=== PATIENT | male | born 1940 | race Caucasian/White ===

== ENCOUNTER 2020-01-20 12:49 | Outpatient (REF) | payer MEDICARE, SELFPAY ==
[2020-01-20 14:31] LABS: MANUAL DIFF FLAG NO
[2020-01-20 14:36] LABS: Basophils Percent Auto 0.1 % (0-2); Eosinophils Absolute Auto 0.2 X10*3/uL (0.0-0.4); Eosinophils Percent Auto 2.3 % (0-4); Hematocrit 42.8 % (42-52); Hemoglobin 13.6 g/dl (14.0-18.0); Imm Gran Abs Auto 0.01 X10*3/uL (0.00-0.03); Imm Gran Pct Auto 0.1 % (0.0-0.4); Lymphocytes Absolute Auto 1.2 X10*3/uL (1.2-4.9); Lymphocytes Percent Auto 16.1 % (20-40); Mean Corpuscular HGB Conc 31.8 g/dl (31.0-36.0); Mean Corpuscular Hemoglobin 29.8 pg (27.0-33.0); Mean Corpuscular Volume 93.9 fL (80-98); Mean Platelet Volume 10.7 fL (9.4-12.4); Monocytes Absolute Auto 0.8 X10*3/uL (0.1-1.2); Monocytes Percent Auto 10.7 % (2-11); Neutrophils Absolute Auto 5.3 X10*3/uL (2.0-8.3); Neutrophils Percent Auto 70.7 % (45-73); Platelet Count 130 X10*3/uL (160-400); Red Blood Count 4.56 X10*6/uL (4.60-5.80); Red Cell Distribution Width 13.2 % (11.0-16.0); White Blood Count 7.5 X10*3/uL (4.8-10.8)
[2020-01-20 14:36] LABS: Glucose Urine UA NEG (NEG); Leukocyte Esterase Urine NEG (NEG); Nitrite Urine NEG (NEG); PH 6.5 (5.0-8.0); Urine Blood NEG (NEG); Urine Ketones NEG (NEG); Urine Protein TRACE MG/DL (NEG-TRACE)
[2020-01-20 14:38] LABS: Appearance Urine CLEAR; Color Urine YELLOW; UACC Culture Trigger NO
[2020-01-20 14:59] LABS: Alanine Aminotransferase 16 U/L (0-40); Albumin Level 4.1 g/dL (3.5-5.0); Alkaline Phosphatase 122 U/L (39-117); Anion Gap 12 (12-20); Aspartate Amino Transferase 19 U/L (5-37); Bilirubin Total 1.3 mg/dL (0.0-1.0); Blood Urea Nitrogen 21 mg/dL (9-16); Calcium 8.1 mg/dL (8.4-10.2); Carbon Dioxide 30 mmol/L (22-29); Chloride 103 mmol/L (96-108); Cholesterol 120 mg/dL; Estimated Glomerular Filt Rate 59; Glucose Fasting 135 mg/dL (60-99); HDL Cholesterol 34 mg/dL; LDL Cholesterol Calculated 65 mg/dl; Potassium 3.8 mmol/l (3.3-5.1); Sodium 141 mmol/L (135-145); Total Protein 6.7 g/dL (6.5-8.0); Triglycerides 105 mg/dL; Uric Acid 5.4 mg/dL (3.4-7.0)
[2020-01-20 15:15] LABS: Erythrocyte Sedimentation Rate 19 MM/HR (0-15)
[2020-01-20 15:19] LABS: Vitamin D 25-OH Total 31.7 ng/mL (>30)
[2020-01-20 15:28] LABS: Creatinine Urine 87.03 mg/dL; Microalbum/Creatinine Ratio Ur 267.7 ug/mg cr
== END 2020-01-20 12:50 | disposition home or self-care (01) ==
LOC: HO.LAB 12:49
PROVIDERS: PCP Internal Medicine; Visit Provider Internal Medicine
DX: E11.29 Type 2 diabetes mellitus with other diabetic kidney complication (principal); E11.22 Type 2 diabetes mellitus with diabetic chronic kidney disease; I12.9 Hypertensive chronic kidney disease with stage 1 through stage 4 chronic kidney disease, or unspecified chronic kidney disease; N18.2 Chronic kidney disease, stage 2 (mild); R80.9 Proteinuria, unspecified; M10.9 Gout, unspecified; I25.10 Atherosclerotic heart disease of native coronary artery without angina pectoris; I65.22 Occlusion and stenosis of left carotid artery; E78.2 Mixed hyperlipidemia; M35.3 Polymyalgia rheumatica; E55.9 Vitamin D deficiency, unspecified
CPT/HCPCS: 36415; 80053; 80061; 81003; 82043; 82306; 82550; 84550; 85025; 85610; 85652

== ENCOUNTER → 2020-02-05 09:22 | Outpatient (REF) | payer MEDICARE, SELFPAY ==
--- NOTE | 2020-02-05 09:30 | CA_ITS ---
Transthoracic Echocardiogram Patient (Last, First, Middle): Galen Salvador T Gender: Male Date of : 1940 Age: 79 Procedure Date: 02/05/2020 Procedure Type: Transthoracic Echocardiogram Location: OP Height: 185.42 cm Weight: 108.86 kg BSA: 2.33 m2 Heart Rate: bpm BP: 150 / 78 mmHg Foam Gun Operator: RAMILA Referring MD: Poncho Altamirano MD Symptoms: I25.10 CAD I48.2 CHRONIC AFIB I10 HTN Study Quality: Fair ECG Rhythm: Atrial Fibrillation Conclusions: - The left ventricular systolic function is severely decreased. The visually estimated ejection fraction is between 25-30%. - Severe biatrial enlargement. - There is mild calcification of the aortic valve. - There is moderate mitral annular calcification. - There is mild to moderate tricuspid valve regurgitation. - Mild to moderate pulmonary hypertension is present. Findings Procedure Information Contrast agent, definity, is being given per protocol without apparent complications. Left Ventricle Normal left ventricular cavity size. There is mildly increased left ventricular wall thickness. The left ventricular systolic function is severely decreased. The visually estimated ejection fraction is between 25 30%. There is severe global hypokinesis. Diastolic function is indeterminate on the basis of available data. Right Ventricle Mildly increased right ventricular cavity size. There is normal right ventricular systolic function. Atria Severe biatrial enlargement. Aortic Valve There is a normal trileaflet aortic valve. There is mild calcification of the aortic valve. There is no aortic valve stenosis. There is trace (trivial) aortic valve regurgitation. Mitral Valve There is moderate mitral annular calcification. There is mild mitral valve regurgitation. There is no mitral valve stenosis. Pulmonic Valve The pulmonic valve was not well visualized. Tricuspid Valve Normal tricuspid valve structure. There is mild to moderate tricuspid valve regurgitation. The right ventricular systolic pressure is 49 mmHg. Mild to moderate pulmonary hypertension is present. Great Vessels The aortic annulus, sinuses of valsalva, and asc aorta are normal in size. Venous The inferior vena cava is dilated and collapses less than 50% with inspiration. Pericardium/Pleural There is no evidence of pericardial effusion. Prior Study Comparison Changes noted compared to prior study dated: 08/14/2003. LVEF is worse. Previously reported as 40%. Measurements 2D Linear Measurements IVSd: 1.04 0.6-0.9/0.6-1.0 cm LVIDd: 4.93 3.9-5.3/4.2-5.9 cm LVIDd Index: 2.12 2.4-3.2/2.2-3.1 cm/m2 LVIDs: 4.03 2.0-3.6 cm LVPWd: 1.10 0.7-1.1 cm LA Diam: 5.70 2.7-3.8/3.0-4.0 cm LAIDs Index: 2.45 1.5-2.3 cm/m2 LV Mass: 242.91 67-162/88-224 g LV Mass Index: 104.25 43-95/49-115 g/m2 LVOT Diam: 2.40 3.0+(-)1.3 cm 2D Systolic Function EF 4C: 28.00 >55% EF 2C: 26.00 >55% EF BiP: 25.50 >55% Mitral Valve MV Pk E: 1.08 MV Decel Time: 177.00 E'Lateral: 11.40 E'Medial: 10.80 E/E' Med: 10.00 E/E' Lat: 9.50 PHT: 52.00 MVA PHT: 4.23 Decel Graves: 6.28 Aortic Valve AoV Pk Osei: 1.38 AoV Pk Grad: 8.00 LVOT LVOT Pk Osei: 0.67 LVOT Mn Osei: 0.46 LVOT VTI: 0.14 LVOT Pk Grad: 2.00 LVOT Mn Grad: 1.00 LVOT Diam: 2.40 LVOT Area: 4.52 Diastolic Function MV Pk E: 1.08 E'Medial: 10.80 E/E' Med: 10.00 E' Laterial: 11.40 E/E' Lat: 9.50 Tricuspid Valve TR Pk Osei: 2.92 TR Pk Grad: 34.00 RA Press: 15.00 RVSP: 49.00 Great Vessels Aorta Ao Asc: 3.40 2.1-3.4 cm Updated in Other Vendor System with Status of Final Dean Jonas MD electronically signed on 02/07/2020 4:08:45 PM with status of Final
== END ==
LOC: HO.CARD 09:22
PROVIDERS: Visit Provider Internal Medicine Cardiovascular Disease
DX: I25.10 Atherosclerotic heart disease of native coronary artery without angina pectoris (principal); I10 Essential (primary) hypertension
CPT/HCPCS: 93306; Q9957

== ENCOUNTER → 2020-02-19 09:00 | Outpatient (BNVA) | payer MEDICARE, SELFPAY | PROVIDERS: PCP Internal Medicine; Visit Provider Internal Medicine | DX: I48.20 Chronic atrial fibrillation, unspecified (principal); Z51.81 Encounter for therapeutic drug level monitoring; Z79.01 Long term (current) use of anticoagulants | CPT/HCPCS: 85610; Q3014 ==

== ENCOUNTER → 2020-02-21 09:20 | Outpatient (REF) | payer MEDICARE, SELFPAY ==
--- NOTE | 2020-02-21 | NM_ITS ---
Myocardial perfusion study Indication: Cardiomyopathy to evaluate for myocardial ischemia Technique: The patient was brought in for a Lexiscan perfusion study on 02/21/2020. Patient performed low-level exercise and was injected 0.4 mg of Lexiscan intravenously. Within a minute of injection, 40 mCi of sestamibi was given intravenously. Images were obtained using the SPECT gamma camera interlaced with the gating device. Images were obtained in supine position. Resting perfusion study was performed on 02/22/2020. Patient was administered 40 mCi of sestamibi intravenously at rest. Images were then obtained in supine position. Images obtained with and without CT attenuation. Total DLP 78 mGy-cm. Images were processed with the software and compared side to side in short axis, horizontal long axis and vertical long axis views. Findings: The stress perfusion study showed both non attenuated as well as attenuated images show mildly reduced uptake in the basal and mid inferolateral wall of the LV myocardium. Remainder of the LV myocardium is normally perfused.. The gated study shows reduced normal LV systolic function with calculated LVEF of 44%. LV cavity is mildly to moderately dilated size. The gated study shows normal wall thickening and contraction of all segments. Resting study shows normal uptake of radiotracer in all segments of LV myocardium. Gating at rest reveals normal cyst colic wall motion with ejection fraction at 45%. The findings are consistent with mild intensity basal and mid inferolateral ischemia in circumflex territory.. NM/NM desiree perf SPECT rest & str Impression: 1. Myocardial perfusion imaging study shows complex territory ischemia of mild intensity 2. Gated LVEF is 44% 3. Transient ischemic dilatation not present but LV cavity is dilated EKG is nondiagnostic for ischemia
--- NOTE | 2020-02-21 09:24 | CA_ITS ---
Acquisition Time: 2020-02-21 09:41:55 Total Exercise Time: 00:02:00 Test Indications: cardiomyopathy Medications: see chart Protocol: LEXISCAN Max HR: 120 BPM 83% of Pred: 143 BPM Max BP: 164/100 mmHG Max Work Load: 1.0 METS Pharmacological stress test using Lexiscan while sitting. Pt tolerated well, denies any anginal sx. EKG with PVC's and a-fib, at baseline. Non-diagnostic for ischemia. Nuclear images to follow. Normotensive response to test. Test reviewed with Dr. Altamirano Referred By: Poncho Altamirano Overread By: Rinku Reed
== END ==
LOC: HO.CARD 09:20
PROVIDERS: Visit Provider Internal Medicine Cardiovascular Disease
DX: I42.9 Cardiomyopathy, unspecified (principal); I25.10 Atherosclerotic heart disease of native coronary artery without angina pectoris; I48.20 Chronic atrial fibrillation, unspecified
CPT/HCPCS: 78452; 93017; A9500; J0280; J2785

== ENCOUNTER → 2020-03-17 08:59 | Outpatient (BNVA) | payer MEDICARE, SELFPAY | PROVIDERS: PCP Internal Medicine; Visit Provider Internal Medicine Cardiovascular Disease | DX: I25.5 Ischemic cardiomyopathy (principal); I25.10 Atherosclerotic heart disease of native coronary artery without angina pectoris; I10 Essential (primary) hypertension; I48.20 Chronic atrial fibrillation, unspecified; Z79.01 Long term (current) use of anticoagulants | CPT/HCPCS: 99212 ==

== ENCOUNTER → 2020-03-18 08:57 | Outpatient (BNVA) | payer MEDICARE, SELFPAY | PROVIDERS: PCP Internal Medicine; Visit Provider Internal Medicine | DX: I48.20 Chronic atrial fibrillation, unspecified (principal); Z51.81 Encounter for therapeutic drug level monitoring; Z79.01 Long term (current) use of anticoagulants | CPT/HCPCS: 85610; 99211 ==

== ENCOUNTER → 2020-04-15 08:54 | Outpatient (BNVA) | payer MEDICARE, SELFPAY | PROVIDERS: PCP Internal Medicine; Visit Provider Internal Medicine | DX: I48.20 Chronic atrial fibrillation, unspecified (principal); Z51.81 Encounter for therapeutic drug level monitoring; Z79.01 Long term (current) use of anticoagulants | CPT/HCPCS: 85610 ==

== ENCOUNTER 2020-04-28 08:31 | Outpatient (REF) | payer MEDICARE, SELFPAY ==
[2020-04-28 10:46] LABS: B Type Natriuretic Peptide 176 pg/mL (<100)
[2020-04-28 10:54] LABS: Anion Gap 12 (12-20); Blood Urea Nitrogen 14 mg/dL (9-16); Calcium 8.7 mg/dL (8.4-10.2); Carbon Dioxide 31 mmol/L (22-29); Chloride 101 mmol/L (96-108); Estimated Glomerular Filt Rate > 60; Glucose Random 184 mg/dL (60-115); Potassium 4.1 mmol/L (3.3-5.1); Sodium 140 mmol/L (135-145)
== END 2020-04-28 08:32 | disposition home or self-care (01) ==
LOC: HO.LAB 08:31
PROVIDERS: PCP Internal Medicine; Visit Provider Internal Medicine Cardiovascular Disease
DX: I25.5 Ischemic cardiomyopathy (principal); I25.10 Atherosclerotic heart disease of native coronary artery without angina pectoris; I48.20 Chronic atrial fibrillation, unspecified; R60.0 Localized edema; I50.20 Unspecified systolic (congestive) heart failure; Z79.899 Other long term (current) drug therapy; Z79.01 Long term (current) use of anticoagulants
CPT/HCPCS: 36415; 80048; 83880; 99212

== ENCOUNTER → 2020-06-10 13:52 | Outpatient (REF) | payer MEDICARE, SELFPAY ==
--- NOTE | 2020-06-10 13:56 | CA_ITS ---
Transthoracic Echocardiogram Patient (Last, First, Middle): Galen Salvador T Gender: Male Date of : 1940 Age: 79 Procedure Date: 06/10/2020 Procedure Type: Transthoracic Echocardiogram Location: OP Height: 185.42 cm Weight: 113.4 kg BSA: 2.37 m2 Heart Rate: bpm BP: 140 / 90 mmHg Solar Development Engineer: MARVEL Referring MD: Poncho Altamirano MD Symptoms: I42.9 - Cardiomyopathy, unspecified Study Quality: Fair/contrast ECG Rhythm: Atrial Fibrillation Conclusions: - The left ventricular systolic function is mild to moderately decreased. The visually estimated ejection fraction is between 40-45%. Findings Procedure Information Contrast agent, definity, is being given per protocol without apparent complications. Left Ventricle Normal left ventricular cavity size. There is mildly increased left ventricular wall thickness. The left ventricular systolic function is mild to moderately decreased. The visually estimated ejection fraction is between 40-45%. Global hypokinesis. Prior Study Comparison Changes noted compared to prior study dated: 02/05/2020. LVEF appears improved. Measurements 2D Linear Measurements IVSd: 1.14 0.6-0.9/0.6-1.0 cm LVIDd: 5.05 3.9-5.3/4.2-5.9 cm LVIDd Index: 2.13 2.4-3.2/2.2-3.1 cm/m2 LVIDs: 3.98 2.0-3.6 cm LVPWd: 1.17 0.7-1.1 cm LV Mass: 280.70 67-162/88-224 g LV Mass Index: 118.44 43-95/49-115 g/m2 2D Systolic Function EF 4C: 47.10 >55% EF 2C: 53.10 >55% EF BiP: 50.70 >55% Updated in Other Vendor System with Status of Final Dean Jonas MD electronically signed on 06/12/2020 3:00:00 PM with status of Final
== END ==
LOC: HO.CARD 13:52
PROVIDERS: Visit Provider Internal Medicine Cardiovascular Disease
DX: I42.9 Cardiomyopathy, unspecified (principal)
CPT/HCPCS: 85610; 93308; 99211; Q9957

== ENCOUNTER 2020-06-23 12:56 | Outpatient (REF) | payer MEDICARE, SELFPAY ==
[2020-06-23 14:20] LABS: MANUAL DIFF FLAG NO
[2020-06-23 14:35] LABS: Basophils Percent Auto 0.4 % (0-2); Eosinophils Absolute Auto 0.2 X10*3/uL (0.0-0.4); Eosinophils Percent Auto 2.2 % (0-4); Hematocrit 41.8 % (42-52); Hemoglobin 13.8 g/dl (14.0-18.0); Imm Gran Abs Auto 0.06 X10*3/uL (0.00-0.03); Imm Gran Pct Auto 0.7 % (0.0-0.4); Lymphocytes Absolute Auto 1.4 X10*3/uL (1.2-4.9); Lymphocytes Percent Auto 16.2 % (20-40); Mean Corpuscular Hemoglobin 29.9 pg (27.0-33.0); Mean Corpuscular Volume 90.7 fL (80-98); Mean Platelet Volume 10.4 fL (9.4-12.4); Monocytes Absolute Auto 0.9 X10*3/uL (0.1-1.2); Monocytes Percent Auto 10.4 % (2-11); Neutrophils Percent Auto 70.1 % (45-73); Platelet Count 160 X10*3/uL (160-400); Red Blood Count 4.61 X10*6/uL (4.60-5.80); Red Cell Distribution Width 13.7 % (11.0-16.0); White Blood Count 8.6 X10*3/uL (4.8-10.8)
[2020-06-23 14:42] LABS: Estimated Average Glucose 183 mg/dL
[2020-06-23 14:43] LABS: Alanine Aminotransferase 22 U/L (0-40); Albumin Level 4.2 g/dL (3.5-5.0); Alkaline Phosphatase 126 U/L (39-117); Anion Gap 12 (12-20); Aspartate Amino Transferase 17 U/L (5-37); Bilirubin Total 1.2 mg/dL (0.0-1.0); Blood Urea Nitrogen 16 mg/dL (9-16); Calcium 8.8 mg/dL (8.4-10.2); Carbon Dioxide 31 mmol/L (22-29); Chloride 102 mmol/L (96-108); Cholesterol 155 mg/dL; Estimated Glomerular Filt Rate 58; Glucose Fasting 214 mg/dL (60-99); HDL Cholesterol 34 mg/dL; LDL Cholesterol Calculated 57 mg/dl; Potassium 3.9 mmol/L (3.3-5.1); Sodium 141 mmol/L (135-145); Triglycerides 323 mg/dL; Uric Acid 4.6 mg/dL (3.4-7.0)
[2020-06-23 15:21] LABS: Erythrocyte Sedimentation Rate 20 MM/HR (0-15)
[2020-06-23 15:26] LABS: Glucose Urine UA NEG (NEG); Leukocyte Esterase Urine NEG (NEG); Nitrite Urine NEG (NEG); PH 6.5 (5.0-8.0); Urine Blood NEG (NEG); Urine Ketones NEG (NEG); Urine Protein NEG (NEG-TRACE)
[2020-06-23 15:29] LABS: Appearance Urine CLEAR; Color Urine YELLOW
[2020-06-23 16:03] LABS: Creatinine Urine 58.63 mg/dL
== END 2020-06-23 12:57 | disposition home or self-care (01) ==
LOC: HO.LAB 12:56
PROVIDERS: Absent Provider Internal Medicine; PCP Internal Medicine; Visit Provider Internal Medicine Cardiovascular Disease
DX: I25.5 Ischemic cardiomyopathy (principal); I13.0 Hypertensive heart and chronic kidney disease with heart failure and stage 1 through stage 4 chronic kidney disease, or unspecified chronic kidney disease; I25.10 Atherosclerotic heart disease of native coronary artery without angina pectoris; I48.20 Chronic atrial fibrillation, unspecified; E11.22 Type 2 diabetes mellitus with diabetic chronic kidney disease; I50.20 Unspecified systolic (congestive) heart failure; N18.2 Chronic kidney disease, stage 2 (mild); M10.9 Gout, unspecified; E66.9 Obesity, unspecified; M35.3 Polymyalgia rheumatica; K21.9 Gastro-esophageal reflux disease without esophagitis; E78.2 Mixed hyperlipidemia; Z79.899 Other long term (current) drug therapy; Z79.01 Long term (current) use of anticoagulants; Z87.891 Personal history of nicotine dependence
CPT/HCPCS: 36415; 80053; 80061; 81003; 82043; 82550; 83036; 84443; 84550; 85025; 85652; 99212

== ENCOUNTER → 2020-06-29 08:53 | Outpatient (BNVA) | payer MEDICARE, SELFPAY | PROVIDERS: PCP Internal Medicine; Visit Provider Internal Medicine | DX: I48.20 Chronic atrial fibrillation, unspecified (principal); Z79.01 Long term (current) use of anticoagulants; Z51.81 Encounter for therapeutic drug level monitoring | CPT/HCPCS: 85610; 99211 ==

== ENCOUNTER → 2020-07-27 08:53 | Outpatient (BNVA) | payer MEDICARE, SELFPAY | PROVIDERS: PCP Internal Medicine; Visit Provider Internal Medicine | DX: I48.20 Chronic atrial fibrillation, unspecified (principal); Z79.01 Long term (current) use of anticoagulants; Z51.81 Encounter for therapeutic drug level monitoring | CPT/HCPCS: 85610; 99211 ==

== ENCOUNTER → 2020-08-24 08:49 | Outpatient (BNVA) | payer MEDICARE, SELFPAY | PROVIDERS: PCP Internal Medicine; Visit Provider Internal Medicine | DX: I48.20 Chronic atrial fibrillation, unspecified (principal); Z51.81 Encounter for therapeutic drug level monitoring; Z79.01 Long term (current) use of anticoagulants | CPT/HCPCS: 85610; 99211 ==

== ENCOUNTER → 2020-09-28 09:05 | Outpatient (BNVA) | payer MEDICARE, SELFPAY | PROVIDERS: PCP Internal Medicine; Visit Provider Internal Medicine | DX: I48.20 Chronic atrial fibrillation, unspecified (principal); Z51.81 Encounter for therapeutic drug level monitoring; Z79.01 Long term (current) use of anticoagulants | CPT/HCPCS: 85610; 99211 ==

== ENCOUNTER → 2020-10-26 08:52 | Outpatient (BNVA) | payer MEDICARE, SELFPAY | PROVIDERS: PCP Internal Medicine; Visit Provider Internal Medicine | DX: I48.20 Chronic atrial fibrillation, unspecified (principal); Z51.81 Encounter for therapeutic drug level monitoring; Z79.01 Long term (current) use of anticoagulants | CPT/HCPCS: 85610; 99211 ==

== ENCOUNTER → 2020-12-01 09:01 | Outpatient (BNVA) | payer MEDICARE, SELFPAY | PROVIDERS: PCP Internal Medicine; Visit Provider Internal Medicine | DX: I48.20 Chronic atrial fibrillation, unspecified (principal); Z51.81 Encounter for therapeutic drug level monitoring; Z79.01 Long term (current) use of anticoagulants | CPT/HCPCS: 85610; 99211 ==

== ENCOUNTER → 2020-12-21 09:30 | Outpatient (REF) | payer MEDICARE, SELFPAY ==
--- NOTE | 2020-12-21 09:33 | CA_ITS ---
Transthoracic Echocardiogram Patient (Last, First, Middle): Galen Salvador T Gender: Male Date of : 1940 Age: 80 Procedure Date: 12/21/2020 Procedure Type: Transthoracic Echocardiogram Location: OP Height: 182.88 cm Weight: 113.4 kg BSA: 2.34 m2 Heart Rate: bpm BP: 126 / 80 mmHg Derrick Boat Lever Operator: Referring MD: Poncho Altamirano MD Symptoms: I50.20 - Unspecified systolic (congestive) heart failure Study Quality: Fair ECG Rhythm: Atrial Fibrillation Conclusions: - The left ventricular systolic function is low normal. The calculated ejection fraction is 54% by biplane method. - Moderately increased right ventricular cavity size. - Severe biatrial enlargement. - There is mild calcification of the aortic valve. - There is mild to moderate tricuspid valve regurgitation. - Mild pulmonary hypertension is present. Findings Left Ventricle Normal left ventricular cavity size. There is mildly increased left ventricular wall thickness. The left ventricular systolic function is low normal. The calculated ejection fraction is 54% by biplane method. Diastolic function is indeterminate on the basis of available data. Right Ventricle Moderately increased right ventricular cavity size. There is normal right ventricular systolic function. RV basal diameter 4.8cm. Atria Severe biatrial enlargement. Aortic Valve The aortic valve was not well visualized. There is mild calcification of the aortic valve. There is no aortic valve stenosis. There is no aortic valve regurgitation. Mitral Valve The mitral valve appears normal. There is trace mitral valve regurgitation. There is no mitral valve stenosis. Pulmonic Valve The pulmonic valve was not well visualized. Tricuspid Valve There is mild to moderate tricuspid valve regurgitation. The right ventricular systolic pressure is 44 mmHg. Mild pulmonary hypertension is present. Great Vessels The aortic annulus, sinuses of valsalva, and asc aorta are normal in size. Venous The inferior vena cava is mildly dilated and collapses greater than 50% with inspiration. Pericardium/Pleural There is no evidence of pericardial effusion. Prior Study Comparison Changes noted compared to prior study dated: 06/10/2020. Improvement in LVEF. Measurements 2D Linear Measurements IVSd: 1.23 0.6-0.9/0.6-1.0 cm LVIDd: 5.30 3.9-5.3/4.2-5.9 cm LVIDd Index: 2.26 2.4-3.2/2.2-3.1 cm/m2 LVIDs: 3.78 2.0-3.6 cm LVPWd: 1.20 0.7-1.1 cm Ao Root: 3.40 2.1-3.5 cm LA Diam: 5.80 2.7-3.8/3.0-4.0 cm LAIDs Index: 2.48 1.5-2.3 cm/m2 LV Mass: 325.53 67-162/88-224 g LV Mass Index: 139.12 43-95/49-115 g/m2 LVOT Diam: 2.50 3.0+(-)1.3 cm 2D Systolic Function EF 4C: 60.90 >55% EF 2C: 52.40 >55% EF BiP: 53.50 >55% Mitral Valve MV Pk E: 1.11 MV Decel Time: 190.00 E'Lateral: 16.60 E'Medial: 10.10 E/E' Med: 11.00 E/E' Lat: 6.70 PHT: 56.00 MVA PHT: 3.93 Decel Baker: 5.88 Aortic Valve AoV Pk Osei: 1.46 AoV Mn Osei: 0.87 AoV VTI: 0.37 AoV Pk Grad: 9.00 Aov Mn Grad: 4.00 SHANIA Cont.VTI: 2.48 LVOT LVOT Pk Osei: 0.78 LVOT Mn Osei: 0.49 LVOT VTI: 0.19 LVOT Pk Grad: 2.00 LVOT Mn Grad: 1.00 LVOT Diam: 2.50 LVOT Area: 4.91 Diastolic Function MV Pk E: 1.11 E'Medial: 10.10 E/E' Med: 11.00 E' Laterial: 16.60 E/E' Lat: 6.70 Right Ventricle TAPSE (mm): 25.00 TVS' Osei: 11.00 Tricuspid Valve TR Pk Osei: 2.99 TR Pk Grad: 36.00 RA Press: 8.00 RVSP: 44.00 Great Vessels Aorta Ao Root-2D: 3.40 2.0-3.7 cm Ao Asc: 3.20 2.1-3.4 cm Pulmonary Valve PV Pk Osei: 1.10 Peak PV Grad: 5.00 Updated in Other Vendor System with Status of Final Dean Jonas MD electronically signed on 12/22/2020 4:37:05 PM with status of Final
== END ==
LOC: HO.CARD 09:30
PROVIDERS: PCP Internal Medicine; Visit Provider Internal Medicine Cardiovascular Disease
DX: I50.20 Unspecified systolic (congestive) heart failure (principal)
CPT/HCPCS: 93306

== ENCOUNTER → 2021-01-04 08:30 | Outpatient (BNVA) | payer MEDICARE, SELFPAY | PROVIDERS: PCP Internal Medicine; Referring Provider Internal Medicine; Visit Provider Internal Medicine Cardiovascular Disease | DX: I50.20 Unspecified systolic (congestive) heart failure (principal); I48.20 Chronic atrial fibrillation, unspecified; I25.10 Atherosclerotic heart disease of native coronary artery without angina pectoris | CPT/HCPCS: 93005; 99212 ==

== ENCOUNTER → 2021-01-11 08:51 | Outpatient (BNVA) | payer MEDICARE, SELFPAY | PROVIDERS: PCP Internal Medicine; Visit Provider Internal Medicine | DX: I48.20 Chronic atrial fibrillation, unspecified (principal); Z51.81 Encounter for therapeutic drug level monitoring; Z79.01 Long term (current) use of anticoagulants | CPT/HCPCS: 85610; 99211 ==

== ENCOUNTER → 2021-02-08 08:49 | Outpatient (BNVA) | payer MEDICARE, SELFPAY | PROVIDERS: PCP Internal Medicine; Visit Provider Internal Medicine | DX: I48.20 Chronic atrial fibrillation, unspecified (principal); Z51.81 Encounter for therapeutic drug level monitoring; Z79.01 Long term (current) use of anticoagulants | CPT/HCPCS: 85610; 99211 ==

== ENCOUNTER 2021-02-08 09:10 | Outpatient (REF) | payer MEDICARE, SELFPAY ==
[2021-02-08 09:43] LABS: COVID-19 Test Negative (Negative)
== END 2021-02-08 09:11 | disposition home or self-care (01) ==
LOC: HO.LAB 09:10
PROVIDERS: PCP Internal Medicine; Visit Provider Internal Medicine
DX: Z20.822 Contact with and (suspected) exposure to COVID-19 (principal)
CPT/HCPCS: 36415; 85610; 87635; 99211; C9803

== ENCOUNTER → 2021-03-08 08:56 | Outpatient (BNVA) | payer MEDICARE, SELFPAY | PROVIDERS: PCP Internal Medicine; Visit Provider Internal Medicine | DX: I48.20 Chronic atrial fibrillation, unspecified (principal); Z51.81 Encounter for therapeutic drug level monitoring; Z79.01 Long term (current) use of anticoagulants | CPT/HCPCS: 85610; 99211 ==

== ENCOUNTER → 2021-04-12 08:52 | Outpatient (BNVA) | payer MEDICARE, SELFPAY | PROVIDERS: PCP Internal Medicine; Visit Provider Internal Medicine | DX: I48.20 Chronic atrial fibrillation, unspecified (principal); Z51.81 Encounter for therapeutic drug level monitoring; Z79.01 Long term (current) use of anticoagulants | CPT/HCPCS: 85610; 99211 ==

== ENCOUNTER → 2021-05-12 08:46 | Outpatient (BNVA) | payer MEDICARE, SELFPAY | PROVIDERS: PCP Internal Medicine; Visit Provider Internal Medicine | DX: I48.20 Chronic atrial fibrillation, unspecified (principal); Z51.81 Encounter for therapeutic drug level monitoring; Z79.01 Long term (current) use of anticoagulants | CPT/HCPCS: 85610; 99211 ==

== ENCOUNTER → 2021-06-14 08:55 | Outpatient (BNVA) | payer MEDICARE, SELFPAY | PROVIDERS: PCP Internal Medicine; Visit Provider Internal Medicine | DX: I48.20 Chronic atrial fibrillation, unspecified (principal); Z51.81 Encounter for therapeutic drug level monitoring; Z79.01 Long term (current) use of anticoagulants | CPT/HCPCS: 85610; 99211 ==

== ENCOUNTER → 2021-06-28 08:54 | Outpatient (BNVA) | payer MEDICARE, SELFPAY | PROVIDERS: PCP Internal Medicine; Referring Provider Internal Medicine; Visit Provider Internal Medicine Cardiovascular Disease | DX: Z13.89 Encounter for screening for other disorder (principal) ==

== ENCOUNTER 2021-07-26 08:51 | Outpatient (REF) | payer MEDICARE, SELFPAY ==
[2021-07-26 09:42] LABS: MANUAL DIFF FLAG NO
[2021-07-26 09:55] LABS: Basophils Percent Auto 0.4 % (0-2); Eosinophils Absolute Auto 0.1 X10*3/uL (0.0-0.4); Eosinophils Percent Auto 1.3 % (0-4); Hematocrit 40.1 % (42.0-52.0); Hemoglobin 13.4 g/dl (14.0-18.0); Imm Gran Abs Auto 0.03 X10*3/uL (0.00-0.03); Imm Gran Pct Auto 0.4 % (0.0-0.4); Lymphocytes Absolute Auto 1.2 X10*3/uL (1.2-4.9); Lymphocytes Percent Auto 14.4 % (20-40); Mean Corpuscular HGB Conc 33.4 g/dl (31.0-36.0); Mean Corpuscular Hemoglobin 29.5 pg (27.0-33.0); Mean Corpuscular Volume 88.3 fL (80.0-98.0); Mean Platelet Volume 9.9 fL (9.4-12.4); Monocytes Absolute Auto 0.7 X10*3/uL (0.1-1.2); Monocytes Percent Auto 9.1 % (2-11); Neutrophils Absolute Auto 6.1 x10*3/uL (2.0-8.3); Neutrophils Percent Auto 74.4 % (45-73); Platelet Count 211 X10*3/uL (160-400); Red Blood Count 4.54 X10*6/uL (4.60-5.80); Red Cell Distribution Width 13.4 % (11.0-16.0); White Blood Count 8.2 X10*3/uL (4.8-10.8)
[2021-07-26 10:08] LABS: Estimated Average Glucose 203 mg/dL; Hemoglobin A1c % 8.7 %
[2021-07-26 10:23] LABS: Alanine Aminotransferase 20 U/L (0-40); Albumin Level 4.1 g/dL (3.5-5.0); Alkaline Phosphatase 112 U/L (39-117); Anion Gap 14 (12-20); Aspartate Amino Transferase 19 U/L (5-37); Bilirubin Total 0.8 mg/dL (0.0-1.0); Blood Urea Nitrogen 14 mg/dL (9-16); Calcium 8.8 mg/dL (8.4-10.2); Carbon Dioxide 28 mmol/L (22-29); Chloride 103 mmol/L (96-108); Cholesterol 135 mg/dL; Estimated Glomerular Filt Rate > 60; Glucose Fasting 186 mg/dL (60-99); HDL Cholesterol 31 mg/dL; LDL Cholesterol Calculated 81 mg/dl; Potassium 4.1 mmol/L (3.3-5.1); Sodium 141 mmol/L (135-145); Total Protein 6.9 g/dL (6.5-8.0); Triglycerides 117 mg/dL
[2021-07-26 10:26] LABS: B Type Natriuretic Peptide 143 pg/mL (<100)
[2021-07-26 10:49] LABS: TSH reflex Free T4 0.39 uIU/mL (0.32-4.0); Vitamin D 25-OH Total 22.2 ng/mL (>30)
[2021-07-26 11:14] LABS: Appearance Urine CLEAR; Color Urine STRAW; Glucose Urine UA NEG (NEG); Leukocyte Esterase Urine NEG (NEG); Nitrite Urine NEG (NEG); Urine Blood NEG (NEG); Urine Ketones NEG (NEG); Urine Protein NEG (NEG-TRACE)
[2021-07-26 11:50] LABS: Creatinine Urine 15.58 mg/dL; Microalbum/Creatinine Ratio Ur 513.4 ug/mg cr
== END 2021-07-26 08:52 | disposition home or self-care (01) ==
LOC: HO.LAB 08:51
PROVIDERS: Absent Provider Internal Medicine; PCP Internal Medicine; Visit Provider Internal Medicine
DX: I48.20 Chronic atrial fibrillation, unspecified (principal); I11.0 Hypertensive heart disease with heart failure; I50.9 Heart failure, unspecified; E11.9 Type 2 diabetes mellitus without complications; E78.00 Pure hypercholesterolemia, unspecified; E55.9 Vitamin D deficiency, unspecified; Z51.81 Encounter for therapeutic drug level monitoring; Z79.01 Long term (current) use of anticoagulants
CPT/HCPCS: 36415; 80053; 80061; 81003; 82043; 82306; 83036; 83880; 84443; 85025; 85610; 99211

== ENCOUNTER 2021-07-28 11:18 | Emergency (ER) | payer MEDICARE, SELFPAY ==
[2021-07-28] VITALS (7 sets, daily range): BP systolic 170–199; BP diastolic 86–96; PULSE 64–91; RESP 13–19; TEMP 36.5–36.8; O2SAT 96–100; BMI 32.7
--- NOTE | ~2021-07-28 | CT_ITS ---
EXAMINATION: CT HEAD WITHOUT CONTRAST CLINICAL INFORMATION: Dizziness, on warfarin, rule out intracranial abnormality. COMPARISON: Brain MRI dated 01/19/2015. TECHNIQUE: Contiguous axial imaging was performed from the skull base to vertex without intravenous administration of contrast. Coronal and sagittal reformatted images were obtained. This CT examination was performed using dose optimization techniques as appropriate, variously including the following: *Automated exposure control *Adjustment of mA and/or kV according to patient size (this includes techniques or standardized protocols for targeted exams where dose is matched to indication/reason for exam; i.e. extremities or head) *Use of iterative reconstruction technique DLP: 799 mGy-cm FINDINGS: There is mild widening of the cortical sulci and associated ventriculomegaly. The lateral ventricles are symmetrical. The third and fourth ventricles are in their normal midline position. The basilar and prepontine cisterns are unremarkable. 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 There is no acute intra or extracerebral abnormality. There is no mass effect or midline shift. Sections through the bony calvarium are unremarkable. The orbits are intact. The paranasal sinuses show mild mucosal thickening in the inferior frontal, bilateral ethmoid and bilateral maxillary sinuses. Very small left maxillary and sphenoid air-fluid levels are seen. Aerated mucus is seen anterolaterally in the left sphenoid sinus. Right posterior inferior mastoid effusion. Left mastoid air cells are clear. CT/CT head/brain wo con IMPRESSION: 1. No acute intracranial pathology. 2. Mild paranasal sinus and right mastoid inflammatory changes.
--- NOTE | ~2021-07-28 | XR_ITS ---
EXAMINATION: XR CHEST CLINICAL INFORMATION: Shortness of breath, rule out pneumonia. COMPARISON: 01/25/2011 chest radiographs. TECHNIQUE: 2 views of the chest were obtained. FINDINGS: The lungs are clear. The heart is mildly enlarged. The mediastinal structures are unremarkable. Multilevel sternotomy wires are intact. XR/XR chest 2V IMPRESSION: No acute cardiopulmonary process. Stable mild cardiomegaly
--- NOTE | 2021-07-28 15:26 | ECG_ITS ---
Test Reason : NEAR SYNCOPE Blood Pressure : / mmHG Vent. Rate : 076 BPM Atrial Rate : 000 BPM P-R Int : 000 ms QRS Dur : 094 ms QT Int : 408 ms P-R-T Axes : 000 014 006 degrees QTc Int : 459 ms Atrial fibrillation Abnormal ECG When compared with ECG of 13-JUL-2016 12:19, Vent. rate has decreased Referred By: Dain Lora Electronically Signed By:DISHA MORENO MD
--- NOTE | 2021-07-28 15:27 | ED.DIZZY ---
HPI - Dizziness General Chief Complaint: Dizziness Stated Complaint: burred vision foggy feelings Time Seen by Provider: 07/28/21 15:01 Source: patient and family (Willow, [id number]) Mode of arrival: ambulatory Limitations: no limitations History of Present Illness HPI Narrative: 80-year-old male who presents emergency department for evaluation of right eye blurred vision, ?lightheadedness ?and ?feeling weird ?. Patient states approximately 1 week prior he had a change in the vision was right eye. He states that his peripheral vision is blurred. He states that he can see when he looks straight ahead. He states that the symptoms came on gradually. He states that the blurred vision has not gotten worse. He denies so sedated headache, flashing lights, nausea, vomiting, numbness or weakness. Today he states that he had a weird sensation in his brain which she cannot characterize. He complained of feeling lightheaded to his family and was brought to the emergency department for evaluation He denied fever, chills, rhinorrhea, sore throat, chest pain, shortness of breath, dyspnea exertion, change in his bowel movements, frequency, urgency, dysuria. He states that he has an occasional cough The patient received 2 Moderna COVID-19 vaccines but did not receive a booster. He states that he was sick approximately 10 days ago and had a positive home COVID-19 test. Related Data Home Medications Medication Instructions Recorded Confirmed omeprazole magnesium 10 mg oral 10 mg PO DAILY 04/28/20 07/26/21 suspension,delayed release (Prilosec) Previous Rx's Medication Instructions Recorded sildenafil 50 mg tablet 50 mg PO DAILY PRN 30 Days #30 tab 10/05/20 losartan 50 mg tablet 50 mg PO BID 90 Days #180 tab 11/09/20 metoprolol succinate 100 mg 100 mg PO BID 90 Days #180 tab 11/25/20 tablet,extended release 24 hr (Toprol XL) sitagliptin 50 mg tablet (Januvia) 50 mg PO DAILY 90 Days #90 tab 02/23/21 furosemide 20 mg tablet (Lasix) 20 mg PO DAILY #90 tab 03/10/21 isosorbide mononitrate 30 mg 30 mg PO DAILY #90 tab 03/10/21 tablet,extended release 24 hr warfarin 5 mg tablet 5 mg PO DAILY #90 tab 05/04/21 allopurinol 300 mg tablet 300 mg PO DAILY #90 tab 05/24/21 atorvastatin 40 mg tablet 40 mg PO DAILY #90 tab 06/07/21 Allergies Allergy/AdvReac Type Severity Reaction Status Date / Time No Known Allergies Allergy Verified 07/26/21 09:10 [No Known Allergies*] Review of Systems Review of Systems: Yes all other systems are reviewed and are negative [facility] Past Medical History [facility] Narrative: Social history: He denies tobacco use. He occasionally drinks alcohol. He denies drug use. Medical History Benign essential hypertension CAD (coronary artery disease) Cardiomyopathy Chronic atrial fibrillation Chronic kidney disease (CKD), stage II (mild) Erectile dysfunction GERD without esophagitis Gout Heart failure with reduced ejection fraction HTN (hypertension) Mixed hyperlipidemia Obesity (BMI 30-39.9) Polymyalgia rheumatica Screening for prostate cancer Type 2 diabetes mellitus with diabetic chronic kidney disease Vitamin D deficiency Surgical History History of colonoscopy History of coronary artery bypass graft History of hernia repair History of left-sided carotid endarterectomy History of squamous cell carcinoma excision S/P CABG x 3 Family History Family History Father Myocardial infarction CVD (cardiovascular disease) Mother Medical history unknown Social History Social History Housing: Condominium Alcohol intake: never Patient Tobacco Use Status: Never used Tobacco Second Hand Smoke Exposure: Yes Use of substances other than those prescribed or required for medical reasons: No Advance Directives: No Advance Directives Information Provided: No service: Yes Current occupational status: retired Physical Exam Vital Signs: Vital Signs: Last Vital Signs Temp 98.3 F 07/28/21 16:55 Pulse 91 07/28/21 17:48 Resp 19 07/28/21 16:55 BP 170/86 H 07/28/21 17:48 Pulse Ox 100 07/28/21 16:55 BMI result Body Mass Index 32.7 Const: General: cooperative and no acute distress Orientation/consciousness: oriented to person and oriented to place Limitations: no limitations HEENT: Head: Yes normal to inspection, Yes normocephalic and Yes atraumatic Ears: external ears normal General nose exam: Normal external nose present Face and sinus: Yes normal facial exam Mouth: Normal oral and palatal mucosa present Throat: Yes posterior oropharynx normal Eyes: Other: Visual acuity: Left eye 20/30, right eye 20/100 General: appearance normal, both eyes and all related structures Pupils: Equal, round and reactive pupils present EOM: EOMs intact bilaterally Direct Ophthalmoscopy: normal light reflex, no photophobia and fundi normal bilaterally Neck: Neck: Yes normal visual inspection, Yes no lymphadenopathy, Yes trachea midline and Yes supple Chest: Chest palpation & inspection: normal inspection of the chest and normal palpation of entire chest wall Resp: Effort & Inspection: normal respiratory effort and able to speak in complete sentences Auscultation: clear to auscultation bilaterally Cardio: Rate: regular rate Rhythm: abnormal rhythm irregularly irregular Heart sounds: S1 normal heart sound present, S2 normal heart sound present and no murmurs GI: Inspection: Yes normal to inspection Palpation (GI): Soft to palpation, nontender and no guarding Auscultation: normal bowel sounds : General: Yes no CVA tenderness Back/Spine/Pelvis: Back: no CVA tenderness Skin: General skin exam: no rashes or lesions noted Neuro: General: oriented to person and oriented to place Cranial nerves: Yes CN's II-XII intact bilaterally and Yes Equal, round and reactive pupils present Cognition (Neuro): normal cognition Motor exam (neuro): 5/5 motor strength present throughout Extrem: Other: 1+ pitting edema symmetric Psych: Appearance: grossly normal Speech and movement: Normal speech and movement present Affect: normal affect Attitude: cooperative Thought process: Normal thought process present Thought content: Normal thought content present Course Course Course Narrative: 72-year-old male who presents emergency department for evaluation blurred vision in the right on which is confined to his peripheral vision which started 1 week prior and is not changed. The patient complained of feeling lightheaded today and having a foggy the weird sensation in his brain therefore he was brought to the emergency department by his family. At the time of my evaluation the patient is awake, alert able to give good details about his presentation. Except for his blurred vision he has no other complaints. Vital signs were unremarkable except for an elevated blood pressure of 177/93. The patient's neurologic exam was unremarkable. The patient did have an irregularly irregular heart rate but he does have atrial fibrillation and he is on warfarin. The differential includes was not limited to retinal tear, vitreous tear, embolic stroke, stroke, cerebral bleed. I did order laboratory evaluation, EKG, chest x-ray, CT scan of the brain. Will also check with static vital signs and the patient's visual acuities. 181: Laboratory evaluation: INR therapeutic 3.0. Elevated PTT 43.6. COVID-19 and influenza negative. CMP normal except for an elevated glucose of 151. Radiology evaluation: Chest x-ray: No acute process. CT scan of the head revealed old infarcts no change compared to 01/25/2011 with no acute findings, no bleed. The patient's orthostatic vital signs were normal. The patient's visual acuity did reveal diminished visual acuity of the right eye was 20/100 and the left eye was 20/30 which is consistent with the patient's description of change in vision in the right eye. At this time I do not think patient has acute stroke. The patient will be discharged home and advised follow-up with his office chair assembler as scheduled next week. [facility] - Dizziness Lab Data Attestation: I reviewed the patient's lab results. Result diagrams: 07/28/21 15:28 07/28/21 15:28 Labs: Lab Results 07/28/21 07/28/21 07/28/21 Range/Units 15:28 15:28 15:28 WBC 7.9 (4.8-10.8) X10*3/uL RBC 4.44 L (4.60-5.80) X10*6/uL Hgb 13.3 L (14.0-18.0) g/dl Hct 39.2 L (42.0-52.0) % MCV 88.3 (80.0-98.0) fL MCH 30.0 (27.0-33.0) pg MCHC 33.9 (31.0-36.0) g/dl RDW 13.5 (11.0-16.0) % Plt Count 200 (160-400) X10*3/uL MPV 9.8 (9.4-12.4) fL Immature Gran % (Auto) 0.5 H (0.0-0.4) % Neut % (Auto) 67.7 (45-73) % Lymph % (Auto) 18.5 L (20-40) % Tyrrell % (Auto) 11.5 H (2-11) % Eos % (Auto) 1.4 (0-4) % Baso % (Auto) 0.4 (0-2) % Lymph # (Auto) 1.5 (1.2-4.9) X10*3/uL Tyrrell # (Auto) 0.9 (0.1-1.2) X10*3/uL Eos # (Auto) 0.1 (0.0-0.4) X10*3/uL Baso # (Auto) 0.0 (0.0-0.2) X10*3/uL Abs Immat Gran (auto) 0.04 H (0.00-0.03) X10*3/uL Absolute Neuts (auto) 5.4 (2.0-8.3) x10*3/uL Absolute Nucleated RBC 0.000 (0.0-0.012) X10*3/uL Nucleated RBC % (auto) 0.0 (0.0-0.2) /100WBC PT (9.9-13.0) SEC INR (0.9-1.1) APTT 43.6 H (24.1-38.0) SEC Sodium 141 (135-145) mmol/L Potassium 3.7 (3.3-5.1) mmol/L Chloride 103 (96-108) mmol/L Carbon Dioxide 29 (22-29) mmol/L Anion Gap 13 (12-20) BUN 15 (9-16) mg/dL Creatinine 1.04 (0.5-1.4) mg/dL Estim Creat Clear Calc 76.9 Estimated GFR > 60 Random Glucose 151 H (60-115) mg/dL Calcium 8.6 (8.4-10.2) mg/dL Total Bilirubin 1.0 (0.0-1.0) mg/dL AST 17 (5-37) U/L ALT 16 (0-40) U/L Alkaline Phosphatase 100 (39-117) U/L Troponin I High Sens (<3.5-35.0) ng/L Total Protein 6.8 (6.5-8.0) g/dL Albumin 3.9 (3.5-5.0) g/dL COVID-19 (WILSON) (Negative) COVID-19 Clin Com Influenza Type A (JENNIFER) (Negative) Influenza Type B (JENNIFER) (Negative) Influenza A & B Note 07/28/21 07/28/21 07/28/21 Range/Units 15:28 15:28 15:29 WBC (4.8-10.8) X10*3/uL RBC (4.60-5.80) X10*6/uL Hgb (14.0-18.0) g/dl Hct (42.0-52.0) % MCV (80.0-98.0) fL MCH (27.0-33.0) pg MCHC (31.0-36.0) g/dl RDW (11.0-16.0) % Plt Count (160-400) X10*3/uL MPV (9.4-12.4) fL Immature Gran % (Auto) (0.0-0.4) % Neut % (Auto) (45-73) % Lymph % (Auto) (20-40) % Tyrrell % (Auto) (2-11) % Eos % (Auto) (0-4) % Baso % (Auto) (0-2) % Lymph # (Auto) (1.2-4.9) X10*3/uL Tyrrell # (Auto) (0.1-1.2) X10*3/uL Eos # (Auto) (0.0-0.4) X10*3/uL Baso # (Auto) (0.0-0.2) X10*3/uL Abs Immat Gran (auto) (0.00-0.03) X10*3/uL Absolute Neuts (auto) (2.0-8.3) x10*3/uL Absolute Nucleated RBC (0.0-0.012) X10*3/uL Nucleated RBC % (auto) (0.0-0.2) /100WBC PT 35.2 H (9.9-13.0) SEC INR 3.0 H (0.9-1.1) APTT (24.1-38.0) SEC Sodium (135-145) mmol/L Potassium (3.3-5.1) mmol/L Chloride (96-108) mmol/L Carbon Dioxide (22-29) mmol/L Anion Gap (12-20) BUN (9-16) mg/dL Creatinine (0.5-1.4) mg/dL Estim Creat Clear Calc Estimated GFR Random Glucose (60-115) mg/dL Calcium (8.4-10.2) mg/dL Total Bilirubin (0.0-1.0) mg/dL AST (5-37) U/L ALT (0-40) U/L Alkaline Phosphatase (39-117) U/L Troponin I High Sens 9.4 (<3.5-35.0) ng/L Total Protein (6.5-8.0) g/dL Albumin (3.5-5.0) g/dL COVID-19 (WILSON) (Negative) COVID-19 Clin Com Influenza Type A (JENNIFER) Negative (Negative) Influenza Type B (JENNIFER) Negative (Negative) Influenza A & B Note See Note 07/28/21 Range/Units 15:29 WBC (4.8-10.8) X10*3/uL RBC (4.60-5.80) X10*6/uL Hgb (14.0-18.0) g/dl Hct (42.0-52.0) % MCV (80.0-98.0) fL MCH (27.0-33.0) pg MCHC (31.0-36.0) g/dl RDW (11.0-16.0) % Plt Count (160-400) X10*3/uL MPV (9.4-12.4) fL Immature Gran % (Auto) (0.0-0.4) % Neut % (Auto) (45-73) % Lymph % (Auto) (20-40) % Tyrrell % (Auto) (2-11) % Eos % (Auto) (0-4) % Baso % (Auto) (0-2) % Lymph # (Auto) (1.2-4.9) X10*3/uL Tyrrell # (Auto) (0.1-1.2) X10*3/uL Eos # (Auto) (0.0-0.4) X10*3/uL Baso # (Auto) (0.0-0.2) X10*3/uL Abs Immat Gran (auto) (0.00-0.03) X10*3/uL Absolute Neuts (auto) (2.0-8.3) x10*3/uL Absolute Nucleated RBC (0.0-0.012) X10*3/uL Nucleated RBC % (auto) (0.0-0.2) /100WBC PT (9.9-13.0) SEC INR (0.9-1.1) APTT (24.1-38.0) SEC Sodium (135-145) mmol/L Potassium (3.3-5.1) mmol/L Chloride (96-108) mmol/L Carbon Dioxide (22-29) mmol/L Anion Gap (12-20) BUN (9-16) mg/dL Creatinine (0.5-1.4) mg/dL Estim Creat Clear Calc Estimated GFR Random Glucose (60-115) mg/dL Calcium (8.4-10.2) mg/dL Total Bilirubin (0.0-1.0) mg/dL AST (5-37) U/L ALT (0-40) U/L Alkaline Phosphatase (39-117) U/L Troponin I High Sens (<3.5-35.0) ng/L Total Protein (6.5-8.0) g/dL Albumin (3.5-5.0) g/dL COVID-19 (WILSON) Negative (Negative) COVID-19 Clin Com See Note Influenza Type A (JENNIFER) (Negative) Influenza Type B (JENNIFER) (Negative) Influenza A & B Note ECG Data Attestation: I personally reviewed and interpreted this ECG as follows: Interpretation: 1543: Atrial fibrillation with a rate of 76, normal QRS duration and QTC interval, no ST segment elevation, no ST segment depression, Q-wave in lead 3, no T-wave abnormalities, no PACs, no PVCs Discharge Plan Discharge Clinical Impression: Dizziness, Blurred vision, right eye Patient Disposition: Home, Self-Care Instructions: Blurred Vision (ED) Additional Instructions: Your laboratory evaluation was unremarkable. Your EKG was consistent with atrial fibrillation. Your Coumadin/warfarin level was therapeutic with an INR of 3.0. The visual acuity in your right eye was 20/100 compared to the vision in her left eye which was 20/30. At this time, I believe that the blurred vision is caused by a structural abnormality your eye(retinal tear or vitreous tear) and not related to a stroke. Continue taking medications as prescribed. Keep your appointment with your office chair assembler as scheduled next week. Follow-up with your doctor in 2 days. Please return to the emergency department if your symptoms get worse or if you develop any symptoms that are concerning to you. Prescriptions: No Action sildenafil 50 mg tablet 50 mg PO DAILY PRN (Reason: sexual activity) 30 Days Qty: 30 0RF losartan 50 mg tablet 50 mg PO BID 90 Days Qty: 180 1RF metoprolol succinate [Toprol XL] 100 mg tablet extended release 24 hr 100 mg PO BID 90 Days Qty: 180 3RF furosemide [Lasix] 20 mg tablet 20 mg PO DAILY Qty: 90 3RF isosorbide mononitrate 30 mg tablet extended release 24 hr 30 mg PO DAILY Qty: 90 3RF warfarin 5 mg tablet 5 mg PO DAILY Qty: 90 0RF Protocol: Dose Management Condition: Monday (Week One) Dose/Route: 5 mg Instruction: 1 x 5 mg tablet Condition: Monday Dose/Route: 5 mg Instruction: 1 x 5 mg tablet Condition: Monday Dose/Route: 5 mg Instruction: 1 x 5 mg tablet Condition: Monday Dose/Route: 5 mg Instruction: 1 x 5 mg tablet Condition: Dose/Route: 5 mg Instruction: 1 x 5 mg tablet Condition: Monday Dose/Route: 5 mg Instruction: 1 x 5 mg tablet Condition: Monday Dose/Route: 5 mg Instruction: 1 x 5 mg tablet Condition: Monday (Week Two) Dose/Route: 5 mg Instruction: 1 x 5 mg tablet Condition: Monday Dose/Route: 5 mg Instruction: 1 x 5 mg tablet Condition: Monday Dose/Route: 5 mg Instruction: 1 x 5 mg tablet Condition: Monday Dose/Route: 5 mg Instruction: 1 x 5 mg tablet Condition: Dose/Route: 5 mg Instruction: 1 x 5 mg tablet Condition: Monday Dose/Route: 5 mg Instruction: 1 x 5 mg tablet Condition: Monday Dose/Route: 5 mg Instruction: 1 x 5 mg tablet Protocol Text: Adjustment Start Date: Monday07/26/21 INR Value: 2.9 INR Date: 07/26/21 Recheck Date: 08/25/21 Additional Instructions: INR is in range continue same dosing balance greens and reds in diet allopurinol 300 mg tablet 300 mg PO DAILY Qty: 90 0RF atorvastatin 40 mg tablet 40 mg PO DAILY Qty: 90 0RF Januvia 50 mg tablet 50 mg PO DAILY 90 Days Qty: 90 1RF Prilosec 10 mg susp,delayed release for recon 10 mg PO DAILY 0RF Interventions: ED Discharge Assessment Last Done: 07/28/21 18:31 Discharge Date/Time: 07/28/21 18:31
[2021-07-28 15:33] LABS: MANUAL DIFF FLAG NO
[2021-07-28 15:36] LABS: Basophils Percent Auto 0.4 % (0-2); Eosinophils Absolute Auto 0.1 X10*3/uL (0.0-0.4); Eosinophils Percent Auto 1.4 % (0-4); Hematocrit 39.2 % (42.0-52.0); Hemoglobin 13.3 g/dl (14.0-18.0); Imm Gran Abs Auto 0.04 X10*3/uL (0.00-0.03); Imm Gran Pct Auto 0.5 % (0.0-0.4); Lymphocytes Absolute Auto 1.5 X10*3/uL (1.2-4.9); Lymphocytes Percent Auto 18.5 % (20-40); Mean Corpuscular HGB Conc 33.9 g/dl (31.0-36.0); Mean Corpuscular Volume 88.3 fL (80.0-98.0); Mean Platelet Volume 9.8 fL (9.4-12.4); Monocytes Absolute Auto 0.9 X10*3/uL (0.1-1.2); Monocytes Percent Auto 11.5 % (2-11); Neutrophils Absolute Auto 5.4 x10*3/uL (2.0-8.3); Neutrophils Percent Auto 67.7 % (45-73); Platelet Count 200 X10*3/uL (160-400); Red Blood Count 4.44 X10*6/uL (4.60-5.80); Red Cell Distribution Width 13.5 % (11.0-16.0); White Blood Count 7.9 X10*3/uL (4.8-10.8)
[2021-07-28 15:43] LABS: Partial Thromboplastin Time 43.6 SEC (24.1-38.0)
[2021-07-28 15:50] LABS: Prothrombin Time 35.2 SEC (9.9-13.0)
[2021-07-28 15:54] LABS: IDNOW Serial# 9DB6401D; Influenza A Negative (Negative); Influenza B2 Negative (Negative)
[2021-07-28 15:55] LABS: COVID-19 Test Negative (Negative); IDNOW Serial# 16C4AD1C
[2021-07-28 15:55] LABS: Alanine Aminotransferase 16 U/L (0-40); Albumin Level 3.9 g/dL (3.5-5.0); Alkaline Phosphatase 100 U/L (39-117); Anion Gap 13 (12-20); Aspartate Amino Transferase 17 U/L (5-37); Blood Urea Nitrogen 15 mg/dL (9-16); Calcium 8.6 mg/dL (8.4-10.2); Carbon Dioxide 29 mmol/L (22-29); Chloride 103 mmol/L (96-108); Creatinine Clr Calc Pharmacy 76.9; Estimated Glomerular Filt Rate > 60; Glucose Random 151 mg/dL (60-115); Potassium 3.7 mmol/L (3.3-5.1); Sodium 141 mmol/L (135-145); Total Protein 6.8 g/dL (6.5-8.0); Troponin-I High Sensitivity 9.4 ng/L (<3.5-35.0)
== END 2021-07-28 18:31 | disposition home or self-care (01) ==
PROVIDERS: Emergency Provider Emergency Medicine Emergency Medical Services; PCP Internal Medicine
DX: R42 Dizziness and giddiness (principal); H53.8 Other visual disturbances; Z20.822 Contact with and (suspected) exposure to COVID-19; Z79.899 Other long term (current) drug therapy
CPT/HCPCS: 36415; 70450; 71046; 80053; 84484; 85025; 85610; 85730; 87502; 87635; 93005; 99284

== ENCOUNTER → 2021-08-23 13:24 | Outpatient (BNVA) | payer MEDICARE, SELFPAY | PROVIDERS: PCP Internal Medicine; Referring Provider Internal Medicine; Visit Provider Internal Medicine Cardiovascular Disease | DX: I50.20 Unspecified systolic (congestive) heart failure (principal); I25.10 Atherosclerotic heart disease of native coronary artery without angina pectoris; I48.20 Chronic atrial fibrillation, unspecified | CPT/HCPCS: 99212 ==

== ENCOUNTER → 2021-08-30 08:46 | Outpatient (BNVA) | payer MEDICARE, SELFPAY | PROVIDERS: PCP Internal Medicine; Visit Provider Internal Medicine | DX: I48.20 Chronic atrial fibrillation, unspecified (principal); Z79.01 Long term (current) use of anticoagulants; Z51.81 Encounter for therapeutic drug level monitoring | CPT/HCPCS: 85610; 99211 ==

== ENCOUNTER → 2021-09-27 08:58 | Outpatient (BNVA) | payer MEDICARE, SELFPAY | PROVIDERS: PCP Internal Medicine; Visit Provider Internal Medicine | DX: I48.20 Chronic atrial fibrillation, unspecified (principal); Z51.81 Encounter for therapeutic drug level monitoring; Z79.01 Long term (current) use of anticoagulants | CPT/HCPCS: 85610; 99211 ==

== ENCOUNTER → 2021-11-01 08:57 | Outpatient (BNVA) | payer MEDICARE, SELFPAY | PROVIDERS: PCP Internal Medicine; Visit Provider Internal Medicine | DX: I48.20 Chronic atrial fibrillation, unspecified (principal); Z79.01 Long term (current) use of anticoagulants; Z51.81 Encounter for therapeutic drug level monitoring | CPT/HCPCS: 85610; 99211 ==

== ENCOUNTER → 2021-11-29 08:47 | Outpatient (BNVA) | payer MEDICARE, SELFPAY | PROVIDERS: PCP Internal Medicine; Visit Provider Internal Medicine | DX: I48.20 Chronic atrial fibrillation, unspecified (principal); Z79.01 Long term (current) use of anticoagulants; Z51.81 Encounter for therapeutic drug level monitoring | CPT/HCPCS: 85610; 99211 ==

== ENCOUNTER 2022-01-03 08:48 | Outpatient (REF) | payer MEDICARE, SELFPAY ==
--- NOTE | ~2022-01-03 | XR_ITS ---
EXAMINATION: XR LUMBOSACRAL SPINE CLINICAL INFORMATION: Low back pain, unspecified COMPARISON: None TECHNIQUE: Three views of the lumbosacral spine. FINDINGS: There is normal lumbar lordosis. The vertebral heights and alignment are normal. There is loss of L5-S1 disc height. Rest the disc heights are normal. There is moderate ventral bridging osteophytes from L1 through L5-S1 disc level. No aggressive lytic or sclerotic process seen. The SI joints are symmetrical. The soft tissues are normal. XR/XR lumbar spine 2-3V IMPRESSION: There are degenerative disc changes L5-S1 disc level. There are bridging osteophytes lumbar spine. No acute fracture or lytic process seen.
== END 2022-01-03 08:49 | disposition home or self-care (01) ==
LOC: HO.XRAY 08:48
PROVIDERS: PCP Internal Medicine; Visit Provider Internal Medicine
DX: M54.50 Low back pain, unspecified (principal); I48.20 Chronic atrial fibrillation, unspecified; Z51.81 Encounter for therapeutic drug level monitoring; Z79.01 Long term (current) use of anticoagulants
CPT/HCPCS: 72100; 85610; 99211

== ENCOUNTER → 2022-01-31 08:52 | Outpatient (BNVA) | payer MEDICARE, SELFPAY | PROVIDERS: PCP Internal Medicine; Visit Provider Internal Medicine | DX: I48.20 Chronic atrial fibrillation, unspecified (principal); Z79.01 Long term (current) use of anticoagulants; Z51.81 Encounter for therapeutic drug level monitoring | CPT/HCPCS: 85610; 99211 ==

== ENCOUNTER → 2022-02-07 13:00 | Outpatient (BNVA) | payer MEDICARE, SELFPAY | PROVIDERS: PCP Internal Medicine; Visit Provider Internal Medicine | DX: I48.20 Chronic atrial fibrillation, unspecified (principal); Z79.01 Long term (current) use of anticoagulants; Z51.81 Encounter for therapeutic drug level monitoring | CPT/HCPCS: 85610; 99211 ==

== ENCOUNTER → 2022-02-28 10:54 | Outpatient (BNVA) | payer MEDICARE, SELFPAY | PROVIDERS: PCP Internal Medicine; Referring Provider Internal Medicine; Visit Provider Internal Medicine Cardiovascular Disease | DX: I48.20 Chronic atrial fibrillation, unspecified (principal); I25.10 Atherosclerotic heart disease of native coronary artery without angina pectoris; I50.9 Heart failure, unspecified; Z79.01 Long term (current) use of anticoagulants | CPT/HCPCS: 99212 ==

== ENCOUNTER → 2022-03-07 08:54 | Outpatient (BNVA) | payer MEDICARE, SELFPAY | PROVIDERS: PCP Internal Medicine; Visit Provider Internal Medicine | DX: I48.20 Chronic atrial fibrillation, unspecified (principal); Z79.01 Long term (current) use of anticoagulants; Z51.81 Encounter for therapeutic drug level monitoring | CPT/HCPCS: 85610; 99211 ==

== ENCOUNTER → 2022-04-08 09:06 | Outpatient (BNVA) | payer MEDICARE, SELFPAY | PROVIDERS: PCP Internal Medicine; Visit Provider Internal Medicine | DX: I48.20 Chronic atrial fibrillation, unspecified (principal); Z79.01 Long term (current) use of anticoagulants; Z51.81 Encounter for therapeutic drug level monitoring | CPT/HCPCS: 85610; 99211 ==

== ENCOUNTER → 2022-04-25 09:06 | Outpatient (BNVA) | payer MEDICARE, SELFPAY | PROVIDERS: PCP Internal Medicine; Visit Provider Internal Medicine | DX: I48.20 Chronic atrial fibrillation, unspecified (principal); Z51.81 Encounter for therapeutic drug level monitoring; Z79.01 Long term (current) use of anticoagulants | CPT/HCPCS: 85610; 99211 ==

== ENCOUNTER → 2022-05-23 08:58 | Outpatient (BNVA) | payer MEDICARE, SELFPAY | PROVIDERS: PCP Internal Medicine; Visit Provider Internal Medicine | DX: I48.20 Chronic atrial fibrillation, unspecified (principal); Z79.01 Long term (current) use of anticoagulants; Z51.81 Encounter for therapeutic drug level monitoring | CPT/HCPCS: 85610; 99211 ==

== ENCOUNTER 2022-06-10 11:35 | Outpatient (REF) | payer MEDICARE, SELFPAY ==
[2022-06-10 11:51] LABS: MANUAL DIFF FLAG NO
[2022-06-10 12:20] LABS: Basophils Percent Auto 0.4 % (0-2); Eosinophils Absolute Auto 0.1 X10*3/uL (0.0-0.4); Eosinophils Percent Auto 1.8 % (0-4); Hematocrit 39.3 % (42.0-52.0); Hemoglobin 13.1 g/dl (14.0-18.0); Imm Gran Abs Auto 0.03 X10*3/uL (0.00-0.03); Imm Gran Pct Auto 0.4 % (0.0-0.4); Lymphocytes Absolute Auto 1.2 X10*3/uL (1.2-4.9); Lymphocytes Percent Auto 16.5 % (20-40); Mean Corpuscular HGB Conc 33.3 g/dl (31.0-36.0); Mean Corpuscular Volume 90.1 fL (80.0-98.0); Mean Platelet Volume 10.5 fL (9.4-12.4); Monocytes Absolute Auto 0.8 X10*3/uL (0.1-1.2); Monocytes Percent Auto 11.2 % (2-11); Neutrophils Percent Auto 69.7 % (45-73); Platelet Count 168 X10*3/uL (160-400); Red Blood Count 4.36 X10*6/uL (4.60-5.80); Red Cell Distribution Width 13.9 % (11.0-16.0); White Blood Count 7.2 X10*3/uL (4.8-10.8)
[2022-06-10 12:31] LABS: Estimated Average Glucose 212 mg/dL
[2022-06-10 12:58] LABS: Alanine Aminotransferase 18 U/L (0-40); Albumin Level 3.8 g/dL (3.5-5.0); Alkaline Phosphatase 128 U/L (39-117); Anion Gap 15 (12-20); Aspartate Amino Transferase 17 U/L (5-37); Bilirubin Total 1.6 mg/dL (0.0-1.0); Blood Urea Nitrogen 14 mg/dL (9-16); Calcium 8.7 mg/dL (8.4-10.2); Carbon Dioxide 24 mmol/L (22-29); Chloride 105 mmol/L (96-108); Cholesterol 122 mg/dL; Estimated Glomerular Filt Rate > 60; Glucose Fasting 193 mg/dL (60-99); HDL Cholesterol 27 mg/dL; LDL Cholesterol Calculated 78 mg/dl; Potassium 3.8 mmol/L (3.3-5.1); Sodium 140 mmol/L (135-145); Total Protein 6.4 g/dL (6.5-8.0); Triglycerides 87 mg/dL
[2022-06-10 13:16] LABS: Free T4 (Free Thyroxine) 1.08 ng/dL (0.71-1.85); Thyroid Stimulating Hormone 0.92 uIU/mL (0.32-4.0)
[2022-06-10 13:19] LABS: Appearance Urine Clear; Color Urine Yellow; Glucose Urine UA Negative (Negative); Leukocyte Esterase Urine Negative (Negative); Nitrite Urine Negative (Negative); PH 5.5 (5.0-9.0); Urine Blood Negative (Negative); Urine Ketones Negative (Negative); Urine Protein Trace mg/dL (Neg-Trace)
[2022-06-10 14:00] LABS: Creatinine Urine 44.68 mg/dL; Microalbum/Creatinine Ratio Ur 360.3 ug/mg cr
== END 2022-06-10 11:36 | disposition home or self-care (01) ==
LOC: HO.LAB 11:35
PROVIDERS: PCP Internal Medicine; Visit Provider Internal Medicine
DX: E78.00 Pure hypercholesterolemia, unspecified (principal); I10 Essential (primary) hypertension; R30.0 Dysuria; E03.9 Hypothyroidism, unspecified; E11.9 Type 2 diabetes mellitus without complications; E55.9 Vitamin D deficiency, unspecified
CPT/HCPCS: 36415; 80053; 80061; 81003; 82043; 82306; 83036; 84439; 84443; 85025

== ENCOUNTER → 2022-06-27 10:39 | Outpatient (BNVA) | payer MEDICARE, SELFPAY | PROVIDERS: PCP Internal Medicine; Visit Provider Internal Medicine ==

== ENCOUNTER → 2022-06-30 14:32 | Outpatient (BNVA) | payer MEDICARE, SELFPAY | PROVIDERS: PCP Internal Medicine; Visit Provider Internal Medicine | DX: I48.20 Chronic atrial fibrillation, unspecified (principal); Z51.81 Encounter for therapeutic drug level monitoring; Z79.01 Long term (current) use of anticoagulants | CPT/HCPCS: 85610; 99211 ==

== ENCOUNTER → 2022-07-05 13:50 | Outpatient (BNVA) | payer MEDICARE, SELFPAY | PROVIDERS: PCP Internal Medicine; Visit Provider Internal Medicine | DX: I48.20 Chronic atrial fibrillation, unspecified (principal); Z79.01 Long term (current) use of anticoagulants; Z51.81 Encounter for therapeutic drug level monitoring | CPT/HCPCS: 85610; 99211 ==

== ENCOUNTER → 2022-07-11 13:50 | Outpatient (BNVA) | payer MEDICARE, SELFPAY | PROVIDERS: PCP Internal Medicine; Visit Provider Internal Medicine | DX: I48.20 Chronic atrial fibrillation, unspecified (principal); Z79.01 Long term (current) use of anticoagulants; Z51.81 Encounter for therapeutic drug level monitoring | CPT/HCPCS: 85610; 99211 ==

== ENCOUNTER → 2022-07-18 10:02 | Outpatient (BNVA) | payer MEDICARE, SELFPAY | PROVIDERS: PCP Internal Medicine; Visit Provider Internal Medicine | DX: I48.20 Chronic atrial fibrillation, unspecified (principal); Z79.01 Long term (current) use of anticoagulants; Z51.81 Encounter for therapeutic drug level monitoring | CPT/HCPCS: 85610; 99211 ==

== ENCOUNTER → 2022-08-11 09:50 | Outpatient (BNVA) | payer MEDICARE, SELFPAY | PROVIDERS: PCP Internal Medicine; Visit Provider Internal Medicine | DX: I48.20 Chronic atrial fibrillation, unspecified (principal); Z79.01 Long term (current) use of anticoagulants; Z51.81 Encounter for therapeutic drug level monitoring | CPT/HCPCS: 85610; 99211 ==

== ENCOUNTER → 2022-08-22 09:50 | Outpatient (BNVA) | payer MEDICARE, SELFPAY | PROVIDERS: PCP Internal Medicine; Visit Provider Internal Medicine | DX: I48.20 Chronic atrial fibrillation, unspecified (principal); Z79.01 Long term (current) use of anticoagulants; Z51.81 Encounter for therapeutic drug level monitoring | CPT/HCPCS: 85610; 99211 ==

== ENCOUNTER → 2022-08-31 12:54 | Outpatient (REF) | payer MEDICARE, SELFPAY ==
--- NOTE | 2022-08-31 12:57 | CA_ITS ---
Transthoracic Echocardiogram Patient (Last, First, Middle): Galen Salvador T Gender: Male Date of : 1940 Age: 82 Procedure Date: 08/31/2022 Procedure Type: Transthoracic Echocardiogram Location: OP Height: 185.42 cm Weight: 108.86 kg BSA: 2.33 m2 Heart Rate: bpm BP: 150 / 80 mmHg Machine Fixer: CARLY Referring MD: Poncho Altamirano MD Bacteriologist Dairy: Poncho Altamirano MD Symptoms: I50.9 - Heart failure, unspecified Study Quality: Technically Difficult ECG Rhythm: Atrial Fibrillation Conclusions: - 1. Low normal LV systolic function with LVEF of 50-55% 2. Biatrial enlargement, right greater than left 3. Moderately dilated right ventricle with normal LV systolic function 4. Normal RV systolic pressure on this study with mildly elevated right atrial pressures 5. No gross pericardial effusion Findings Procedure Information Contrast agent, definity, is being given per protocol without apparent complications. Left Ventricle Normal left ventricular cavity size. There is normal left ventricular wall thickness. The left ventricular systolic function is low normal. The visually estimated ejection fraction is between 50-55%. Diastolic function is indeterminate on the basis of available data. Right Ventricle Moderately increased right ventricular cavity size. There is normal right ventricular systolic function. Atria The left atrium is moderately dilated. Interatrial shunt cannot be excluded. The right atrium is severely dilated. Aortic Valve The aortic valve was not well visualized. There is no aortic valve stenosis. There is no aortic valve regurgitation. Mitral Valve The mitral valve was not well visualized. There is trace mitral valve regurgitation. There is no mitral valve stenosis. Pulmonic Valve The pulmonic valve was not well visualized. Tricuspid Valve There is mild tricuspid valve regurgitation. Mildly elevated right atrial pressure. There is no evidence of pulmonary hypertension. Great Vessels The pulmonary artery was not well visualized. Venous The inferior vena cava is severely dilated and collapses greater than 50% with inspiration. Pericardium/Pleural There is no evidence of pericardial effusion. Prior Study Comparison Changes noted compared to prior study dated: 12/21/2020. RV systolic pressure is in the normal range on this study Measurements 2D Linear Measurements IVSd: 1.02 0.6-0.9/0.6-1.0 cm LVIDd: 5.25 3.9-5.3/4.2-5.9 cm LVIDd Index: 2.25 2.4-3.2/2.2-3.1 cm/m2 LVIDs: 3.96 2.0-3.6 cm LVPWd: 0.99 0.7-1.1 cm LA Diam: 4.50 2.7-3.8/3.0-4.0 cm LAIDs Index: 1.93 1.5-2.3 cm/m2 LV Mass: 247.64 67-162/88-224 g LV Mass Index: 106.28 43-95/49-115 g/m2 LVOT Diam: 2.50 3.0+(-)1.3 cm 2D Systolic Function EF 4C: 50.30 >55% EF 2C: 71.80 >55% EF BiP: 58.40 >55% Mitral Valve MV Pk E: 0.98 MV Decel Time: 185.00 E'Lateral: 10.70 E'Medial: 8.81 E/E' Med: 11.10 E/E' Lat: 9.10 PHT: 54.00 MVA PHT: 4.07 Decel [place]: 5.29 Aortic Valve AoV Pk Osei: 1.39 AoV Mn Osei: 0.98 AoV VTI: 0.32 AoV Pk Grad: 8.00 Aov Mn Grad: 4.00 SHANIA Cont.VTI: 2.33 LVOT LVOT Pk Osei: 0.67 LVOT Mn Osei: 0.48 LVOT VTI: 0.15 LVOT Pk Grad: 2.00 LVOT Mn Grad: 1.00 LVOT Diam: 2.50 LVOT Area: 4.91 Diastolic Function MV Pk E: 0.98 E'Medial: 8.81 E/E' Med: 11.10 E' Laterial: 10.70 E/E' Lat: 9.10 Right Ventricle TAPSE (mm): 21.40 TVS' Osei: 8.49 Tricuspid Valve TR Pk Osei: 2.49 TR Pk Grad: 25.00 RA Press: 8.00 RVSP: 33.00 Great Vessels Aorta Sinus of Valsalva: 3.70 2.0-3.5 cm Ao Asc: 3.60 2.1-3.4 cm Pulmonary Valve PV Pk Osei: 0.71 Peak PV Grad: 2.00 Updated in Other Vendor System with Status of Final Poncho Altamirano MD electronically signed on 09/01/2022 11:25:42 AM with status of Final
== END ==
LOC: HO.CARD 12:54
PROVIDERS: PCP Internal Medicine; Visit Provider Internal Medicine Cardiovascular Disease
DX: I50.9 Heart failure, unspecified (principal)
CPT/HCPCS: 93306; Q9957

== ENCOUNTER → 2022-09-05 09:42 | Outpatient (BNVA) | payer MEDICARE, SELFPAY | PROVIDERS: PCP Internal Medicine; Referring Provider Internal Medicine; Visit Provider Internal Medicine Cardiovascular Disease | DX: I48.20 Chronic atrial fibrillation, unspecified (principal); I25.10 Atherosclerotic heart disease of native coronary artery without angina pectoris; I50.9 Heart failure, unspecified | CPT/HCPCS: 93005; 99212 ==

== ENCOUNTER → 2022-09-19 08:50 | Outpatient (BNVA) | payer MEDICARE, SELFPAY | PROVIDERS: PCP Internal Medicine; Visit Provider Internal Medicine | DX: I48.20 Chronic atrial fibrillation, unspecified (principal); Z79.01 Long term (current) use of anticoagulants; Z51.81 Encounter for therapeutic drug level monitoring | CPT/HCPCS: 85610; 99211 ==

== ENCOUNTER 2022-10-24 08:25 | Outpatient (AMB) | payer MEDICARE, SELFPAY ==
[2022-10-24 08:31] LABS: Prothrombin Time Whole Bld POC 34.8 sec (11.1-13.5); ~PT, ~INR - Anti Coag Clinic 2.9 (0.9-1.1)
--- NOTE | 2022-10-24 08:35 | MHC.OFFVISCO ---
Intake Intake Visit Reasons: Anticoagulation Allergies No Known Allergies [No Known Allergies*] Allergy (Verified 10/24/22 08:26) Medication List - Last Reconciled 10/24/22 by Tasneem Bishop RN allopurinol 300 mg PO DAILY atorvastatin 40 mg PO DAILY furosemide 20 mg PO DAILY isosorbide mononitrate ER 30 mg PO DAILY losartan 50 mg PO BID metoprolol succinate ER 100 mg PO BID omeprazole magnesium (Prilosec) 10 mg PO DAILY sitagliptin phosphate (Januvia) 50 mg PO DAILY 90 days warfarin 5 mg See Protocol PO DAILY Nursing Note INR: 2.9 in therapeutic range Medications and supplements reviewed No changes in health, diet, medications, or supplements, Denies any signs and symptoms of bleeding or bruising or clotting. Bleeding, bruising, clotting discussed Nutritional guidance given - MAKE SURE TO EAT GREENS WHILE EATING MORE TOMOATOES Dose: KEEP SAME 5MG DAILY F/U INR: 4 WEEKS Patient verbalizes understanding of instructions given Anti-Coag Initial Assessment Social Hx Patient Tobacco Use Status: Never used Tobacco alcohol intake: current Alcohol intake frequency: holidays/special occasions only Coding Level of Care Code Est Patient Level 1 Diagnoses Current use of anticoagulant therapy Z79.01 Assessment & Plan Assessment & Plan (1) Current use of anticoagulant therapy: Code(s): Z79.01 - FDC (current) 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
== END 2022-10-24 08:40 | disposition home or self-care (01) ==
LOC: HO.ACS 08:25
PROVIDERS: PCP Internal Medicine; Visit Provider Internal Medicine
DX: Z79.01 Long term (current) use of anticoagulants (principal)

== ENCOUNTER → 2022-10-24 08:25 | Outpatient (BNVA) | payer MEDICARE, SELFPAY | PROVIDERS: PCP Internal Medicine; Visit Provider Internal Medicine | DX: I48.20 Chronic atrial fibrillation, unspecified (principal); Z79.01 Long term (current) use of anticoagulants; Z51.81 Encounter for therapeutic drug level monitoring | CPT/HCPCS: 85610; 99211 ==

== ENCOUNTER 2022-11-28 08:21 | Outpatient (AMB) | payer MEDICARE, SELFPAY ==
--- NOTE | 2022-11-28 08:40 | MHC.OFFVISCO ---
Intake Intake Visit Reasons: Anticoagulation Allergies No Known Allergies [No Known Allergies*] Allergy (Verified 11/28/22 08:36) Medication List - Last Reconciled 11/28/22 by Shell Delgado RN allopurinol 300 mg PO DAILY atorvastatin 40 mg PO DAILY furosemide 20 mg PO DAILY isosorbide mononitrate ER 30 mg PO DAILY losartan 50 mg PO BID metoprolol succinate ER 100 mg PO BID omeprazole magnesium (Prilosec) 10 mg PO DAILY sitagliptin phosphate (Januvia) 50 mg PO DAILY 90 days warfarin 5 mg See Protocol PO DAILY Nursing Note INR 3.4-?? out of therapeutic range Medications and supplements reviewed Patient status: no c.o Medications or supplements: no changes Diet: same Denies any signs and symptoms of bleeding or clotting or unusual bruising Bleeding, bruising, clotting discussed Nutritional guidance given: eat a green today, no reds today Dose: already took warfarin today, take 2.5mg tomm then cont 5mg x 7 F/U INR Date : 2 weeks Patient verbalizing understanding of instructions given. Anti-Coag Initial Assessment Social Hx Patient Tobacco Use Status: Never used Tobacco alcohol intake: current Alcohol intake frequency: holidays/special occasions only Coding Level of Care Code Est Patient Level 1 Diagnoses Current use of anticoagulant therapy Z79.01 Assessment & Plan Assessment & Plan (1) Current use of anticoagulant therapy: Code(s): Z79.01 - snf (current) 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
[2022-11-28 08:42] LABS: Prothrombin Time Whole Bld POC 41.1 sec (11.1-13.5); ~PT, ~INR - Anti Coag Clinic 3.4 (0.9-1.1)
== END 2022-11-28 09:17 | disposition home or self-care (01) ==
LOC: HO.ACS 08:21
PROVIDERS: PCP Internal Medicine; Visit Provider Internal Medicine
DX: Z79.01 Long term (current) use of anticoagulants (principal)

== ENCOUNTER → 2022-11-28 08:21 | Outpatient (BNVA) | payer MEDICARE, SELFPAY | PROVIDERS: PCP Internal Medicine; Visit Provider Internal Medicine | DX: I48.20 Chronic atrial fibrillation, unspecified (principal); Z79.01 Long term (current) use of anticoagulants; Z51.81 Encounter for therapeutic drug level monitoring | CPT/HCPCS: 85610; 99211 ==

== ENCOUNTER 2022-12-12 08:36 | Outpatient (AMB) | payer MEDICARE, SELFPAY ==
--- NOTE | 2022-12-12 08:40 | MHC.OFFVISCO ---
Intake Intake Visit Reasons: Anticoagulation Allergies No Known Allergies [No Known Allergies*] Allergy (Verified 12/12/22 08:37) Medication List - Last Reconciled 12/12/22 by Shell Delgado RN allopurinol 300 mg PO DAILY atorvastatin 40 mg PO DAILY furosemide 20 mg PO DAILY isosorbide mononitrate ER 30 mg PO DAILY losartan 50 mg PO BID metoprolol succinate ER 100 mg PO BID omeprazole magnesium (Prilosec) 10 mg PO DAILY sitagliptin phosphate (Januvia) 50 mg PO DAILY 90 days warfarin 5 mg See Protocol PO DAILY Nursing Note INR [3.1-? out of therapeutic range Medications and supplements reviewed Patient status: no c.o Medications or supplements: no changes Diet: same Denies any signs and symptoms of bleeding or clotting or unusual bruising Bleeding, bruising, clotting discussed Nutritional guidance given: eat greens for 2 days, no reds for 2 days Dose: 5mg x 7 F/U INR Date : pt req 3 weeks Patient verbalizing understanding of instructions given. Anti-Coag Initial Assessment Social Hx Patient Tobacco Use Status: Never used Tobacco alcohol intake: current Alcohol intake frequency: holidays/special occasions only Coding Level of Care Code Est Patient Level 1 Diagnoses Current use of anticoagulant therapy Z79.01 Results AMB INR Fingerstick AMB INR Fingerstick 3.1 Last Edit by Shell Delgado RN on 12/12/22 08:42 Assessment & Plan Assessment & Plan (1) Current use of anticoagulant therapy: Code(s): Z79.01 - FPC (current) 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
[2022-12-12 08:41] LABS: Prothrombin Time Whole Bld POC 36.8 sec (11.1-13.5); ~PT, ~INR - Anti Coag Clinic 3.1 (0.9-1.1)
== END 2022-12-12 08:46 | disposition home or self-care (01) ==
LOC: HO.ACS 08:36
PROVIDERS: PCP Internal Medicine; Visit Provider Internal Medicine
DX: Z79.01 Long term (current) use of anticoagulants (principal)

== ENCOUNTER → 2022-12-12 08:36 | Outpatient (BNVA) | payer MEDICARE, SELFPAY | PROVIDERS: PCP Internal Medicine; Visit Provider Internal Medicine | DX: I48.20 Chronic atrial fibrillation, unspecified (principal); Z51.81 Encounter for therapeutic drug level monitoring; Z79.01 Long term (current) use of anticoagulants | CPT/HCPCS: 85610; 99211 ==

== ENCOUNTER 2022-12-16 09:12 | Outpatient (AMB) | payer MEDICARE, SELFPAY ==
[2022-12-16 09:17] VITALS: BP 144/90; PULSE 87; O2SAT 98; BMI 31.2
--- NOTE | 2022-12-16 09:17 | A.OFFPC_ITS ---
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 Required: No Accompanied by: Self / Same As Patient Allergies No Known Allergies [No Known Allergies*] Allergy (Verified 12/16/22 09:56) Medication List - Last Reconciled 12/16/22 by Evens Osuna MD allopurinol 300 mg PO DAILY atorvastatin 40 mg PO DAILY doxycycline monohydrate 100 mg PO BID 7 days furosemide 20 mg PO DAILY isosorbide mononitrate ER 30 mg PO DAILY losartan 50 mg PO BID metoprolol succinate ER 100 mg PO BID omeprazole magnesium (Prilosec) 10 mg PO DAILY sitagliptin phosphate (Januvia) 50 mg PO DAILY 90 days warfarin 5 mg See Protocol PO DAILY Tobacco use date assessed: 12/16/22 Fall risk assessment: No Falls in past year Last assessed Fall Risk: 12/16/22 Dental Screening Dental Screen Date: 12/16/22 Did you have a dental visit in the last 12 months?: Yes Did you have a dental problem in the last 6 months where you did not have access to dental care?: No Was dental information given to patient?: Patient has dentist HPI Discuss wound clinic HPI Details Patient comes in today for his follow up visit - has not been back since his last visit with me on 03/07/2022 Patient states that he does not know why he has not been back this year - he likely missed his regularly scheduled appointment and never rescheduled His brother was the one who alerted me a few days ago during his own appointment that patient has been dealing with a non-healing wound on his leg for a while now Patient himself is unable to quantify as to how long he had his left leg wound but states that he seems to keep aggravating it by bumping his leg into something often States that he does not really do anything to it other than washing it with soap and water and during his visit today, I had to pull down his sock and noted that there was nothing covering the wound and it was oozing directly onto his sock His leg also looks very dry with skin peeling off his lower legs extensively States that the wound does not hurt but patient is a diabetic so he may have some neuropathy that compromises his pain sensation He is still on Coumadin and states that he follows up with the Coumadin clinic regularly but he never mentioned to anyone there about his leg wound He denies any fever, headaches or dizziness Denies any chest pains, no SOB No nausea/vomiting, no abdominal pain No change in bowel habits notes [facility] Medical History (Updated 12/16/22 @ 10:10 by Evens Osuna MD) Cataract, right eye Heart failure with reduced ejection fraction Obesity (BMI 30-39.9) Erectile dysfunction Vitamin D deficiency Gout GERD without esophagitis Polymyalgia rheumatica Mixed hyperlipidemia Benign essential hypertension Chronic kidney disease (CKD), 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 Chronic atrial fibrillation CAD (coronary artery disease) Cardiomyopathy Surgical History History of cataract surgery History of colonoscopy History of squamous cell carcinoma excision History of coronary artery bypass graft History of hernia repair History of left-sided carotid endarterectomy S/P CABG x 3 Family History Father Myocardial infarction CVD (cardiovascular disease) Mother Medical history unknown Social History Housing: Condominium Alcohol intake: current Alcohol intake frequency: holidays/special occasions only Patient Tobacco Use Status: Never used Tobacco e-Cigarette/Vaping Use: Never Used Second Hand Smoke Exposure: Yes service: Yes Current occupational status: retired Cognitive needs: No Hearing needs: No Vision needs: Yes Questionnaire PHQ-9 Over the last 2 weeks, how often have you been bothered by any of the following problems? 1. Little interest or pleasure in doing things: not at all 2. Feeling down, depressed, or hopeless: not at all 3. Trouble falling or staying asleep, or sleeping too much: not at all 4. Feeling tired or having little energy: not at all 5. Poor appetite or overeating: not at all 6. Feeling bad about yourself - or that you are a failure or have let yourself or your family down: not at all 7. Trouble concentrating on things, such as reading the newspaper or watching television: not at all 8. Moving or speaking so slowly that other people could have noticed. Or the opposite - being so fidgety or restless that you have been moving around a lot more than usual: not at all 9. Thoughts that you would be better off or of hurting yourself in some way: not at all Total score: 0 Depression Screening Interpretation: Negative 68058 - PHQ-9 Billing: Yes Source: Developed by Drs. Zaki Curtis, Teresa Cain, Diego Huff and colleagues, with an educational meaghan from [employer]. Thrive Questionnaire Date Thrive assessed: 12/16/22 I am a: Patient What is your living situation today?: I have a steady place to live Within the past 12 months, did the food you bought not last and you didn't have the money to get more?: Never true Within the past 12 months, did you worry whether your food would run out before you got money to buy more?: Never true Do you have trouble paying for medicines?: No Do you have trouble getting transportation to medical appointments?: No Do you have trouble paying your heating and electricity bill?: No Do you have trouble taking care of your child, family member or friend?: No Do you have trouble with day-to-day activities such as bathing, preparing meals, shopping, managing finances, etc.?: No Are you currently unemployed and looking for a job?: No Are you interested in more education?: No Please select the resources that you would like help with: None Currently or been in a relationship where the following occur: no concerns reported AUDIT C Alcohol Use Questionnaire (AUDIT-C) 1. How often do you have a drink containing alcohol?: 2-4 times a month 2. How many drinks containing alcohol do you have on a typical day when you are drinking?: 3 or 4 3. How often do you have six or more drinks on one occasion?: Never Total Score: 3 Score Reviewed/Action Taken: Yes AXEL-7 AMB Questionnaire AXEL-7 Date AXEL - 7 assessed: 12/16/22 Feeling nervous, anxious, or on edge: 0 = Not at all Not being able to stop or control worryin = Not at all Worrying too much about different things: 0 = Not at all Trouble relaxin = Not at all Being so restless that it is hard to sit still: 0 = Not at all Becoming easily annoyed or irritable: 0 = Not at all Feeling afraid as if something awful might happen: 0 = Not at all Total AXEL-7 score (0-4 normal; 5-9 mild; 10-14 moderate; 15-21 severe): 0 Source: Developed by Drs. Zaki Curtis, Teresa Cain, Diego Huff and colleagues, with an educational meaghan from [employer]. AXEL-7 Assessment Billing AXEL-7 Assessment Tool: AXEL-7 Assessment 30525 Review of Systems Const Denies chills, Denies fatigue, Denies fever(s) and Denies headache(s) ENT Denies dysphagia, Denies dizziness, Denies otalgia, Denies headache(s), Denies neck pain, Denies odynophagia and Denies sore throat Card Denies chest pain, Denies palpitations and Denies dyspnea Resp Denies cough and Denies dyspnea GI Denies abdominal pain, Denies constipation, Denies dysphagia, Denies heartburn, Denies diarrhea, Denies nausea, Denies odynophagia and Denies vomiting Denies dysuria, Denies nocturia and Denies urinary frequency Musc Denies back pain and Denies neck pain Skin/Breast Details: (+) oozing wound on the left lower leg just a few inches above the ankle Neuro Denies dizziness and Denies headache(s) Endo Denies fatigue and Denies palpitations Physical exam (Primary Care) Vital Signs: Last Vital Signs Pulse 87 12/16/22 09:17 BP 144/90 H 12/16/22 09:17 Pulse Ox 98 12/16/22 09:17 Oxygen Delivery Method Room Air 12/16/22 09:17 BMI result Body Mass Index 31.2 Tobacco/Smoking Status: Tobacco use Status Tobacco use date assessed 12/16/22 12/16/22 09:20 Patient Tobacco Use Status Never used Tobacco 12/16/22 09:20 e-Cigarette/Vaping Use Never Used 12/16/22 09:20 PHQ-9: PHQ-9 Score PHQ-9: Total score 0 12/16/22 09:53 Depression Screening Interpretation: Negative Thrive Assessment: Date of Thrive Assessment Date Thrive assessed 12/16/22 12/16/22 09:20 Currently or been in a relationship where the following occur: no concerns reported Const General: no acute distress and alert HENMT Ears: TM's normal bilaterally and EAC's normal Throat: Yes posterior oropharynx normal and Yes tonsils normal (no TP congestion noted) Neck Neck: Yes no lymphadenopathy and Yes supple Resp Auscultation: clear to auscultation bilaterally, no rales and no wheezes Cardio Rate: regular rate Rhythm: abnormal rhythm irregularly irregular Heart sounds: no murmurs GI Palpation (GI): Soft to palpation and nontender Auscultation: normal bowel sounds Extrem Other: (+) large abrasion wound with some oozing noted over the distal left lower leg just a couple of inches above the ankle General: No clubbing, No cyanosis and Yes edema (2+ bipedal edema) Assessment and Plan Assessment & Plan (1) Wound of left lower extremity: Code(s): S81.802A - Unspecified open wound, left lower leg, initial encounter Qualifiers: Encounter type: sequela Qualified Code(s): S81.802S - Unspecified open wound, left lower leg, sequela Plan: Unclear at this time as to the duration of his wound (patient himself does not know) but based on its appearance, it looks like it is from repeated injury wherein the skin gets pulled off as his skin appears very dry and patient himself admits that he keeps bumping his left leg often As he is a diabetic and is on Coumadin, will refer him to the wound clinic for further evaluation and management Patient also appears to have some impairment cognitively so unsure at this time if he is able to manage wound on his own as it appears that he has not even done anything for it in terms of wound care or dressing I have dressed his wound temporarily for him while he was here in the office and have advised him that I placed an urgent referral to the wound clinic for him and hopefully they can get him in TEENA Will also start him empirically on Doxycycline 100 mg BID x 7 days for now and have reminded patient to try to keep his leg elevated as often as he can to help with his swelling and his wound (2) Chronic atrial fibrillation: Code(s): I48.20 - Chronic atrial fibrillation, unspecified Plan: Patient presently remains in atrial fibrillation but is rate-controlled Continue Metoprolol ER 100 mg BID and lifelong anticoagulation with Coumadin daily He continues to follow up with the Coumadin clinic for PT/INR monitoring (3) Heart failure with reduced ejection fraction: Code(s): I50.20 - Unspecified systolic (congestive) heart failure Plan: Improving - last echocardiogram done on 08/31/2022 revealed improvement of EF to low normal at 50% to 55% (was previously around 25 to 30%) Echocardiogram in August 2022: Low normal LV systolic function with LVEF of 50-55% Biatrial enlargement, right greater than left Moderately dilated right ventricle with normal LV systolic function Normal RV systolic pressure on this study with mildly elevated right atrial pressures No gross pericardial effusion Continue Metoprolol ER 100 mg BID, Furosemide 20 mg QD and Losartan 50 mg BID Reinforced fluid restriction Follow up with cardiology as scheduled (4) CAD (coronary artery disease): Comment: S/P coronary artery bypass graft x 3 - JACOBSEN to LAD, radial artery to diagonal, SVG to OM (2000) Code(s): I25.10 - Atherosclerotic heart disease of [place] coronary artery without angina pectoris Qualifiers: Coronary Disease-Associated Artery/Lesion type: [place] artery [place] vs. transplanted heart: [place] heart Associated angina: without angina Qualified Code(s): I25.10 - Atherosclerotic heart disease of [place] coronary artery without angina pectoris Plan: Asymptomatic - (+) remote Hx of CABG in 2000 Continue Isosorbide Mononitrate ER 30 mg QD and Metoprolol ER 100 mg BID; continue high-dose statin (Atorvastatin 40 mg) for primary risk reduction Follow up with cardiology as scheduled (5) Mixed hyperlipidemia: Code(s): E78.2 - Mixed hyperlipidemia Plan: As he has not had follow up labs done in a while, will send him for some labs TEENA Reinforced low cholesterol diet Continue Atorvastatin 40 mg QD Will recheck his labs again in 3 months for follow up (6) Type 2 diabetes mellitus with diabetic chronic kidney disease: Code(s): E11.22 - Type 2 diabetes mellitus with diabetic chronic kidney disease Qualifiers: Diabetes mellitus assisted insulin use: without oysterman use Chronic kidney disease stage: stage 2 (mild) Qualified Code(s): E11.22 - Type 2 diabetes mellitus with diabetic chronic kidney disease; N18.2 - Chronic kidney disease, stage 2 (mild) Plan: In-office HgbA1c was at 8.2% when last checked in February 2022 - goal is < 7.0% Will send him for some labs now and will recheck his FBS and HgbA1c as well Reinforced diabetic diet Continue Januvia 50 mg QD (7) Chronic kidney disease (CKD), stage II (mild): Code(s): N18.2 - Chronic kidney disease, stage 2 (mild) Plan: Stable - will continue to monitor GFR and serum creatinine (8) Benign essential hypertension: Code(s): I10 - Essential (primary) hypertension Plan: Reinforced low sodium diet - goal is systolic BP of at least 140 mm or less Continue Losartan 50 mg BID and Metoprolol ER 100 mg BID (9) Polymyalgia rheumatica: Code(s): M35.3 - Polymyalgia rheumatica Plan: Was on oral Prednisone in the past but was taken off his Rx by rheumatology a while back Used to follow up with rheumatology at [facility] regularly but states that he has not seen them since Dr. Holder left [facility] several months ago States that he currently has no acute issues and prefers not to see rheumatology as he does not want to have any additional appts scheduled at this time (10) GERD without esophagitis: Code(s): K21.9 - Gastro-esophageal reflux disease without esophagitis Plan: Dietary restrictions reinforced Continue Omeprazole 10 mg QD (11) Gout: Code(s): M10.9 - Gout, unspecified Qualifiers: Gout site: unspecified site Gout etiology: idiopathic Chronicity: unspecified Qualified Code(s): M10.00 - Idiopathic gout, unspecified site Plan: Reinforced low purine diet Continue Allopurinol 300 mg QD (12) Vitamin D deficiency: Code(s): E55.9 - Vitamin D deficiency, unspecified Plan: Is currently not taking Vitamin D supplement Will recheck his Vitamin D level for follow up (13) Erectile dysfunction: Code(s): N52.9 - Male erectile dysfunction, unspecified Qualifiers: Erectile dysfunction type: unspecified Qualified Code(s): N52.9 - Male erectile dysfunction, unspecified Plan: Continue Sildenafil 50 mg QD PRN (14) Obesity (BMI 30-39.9): Code(s): E66.9 - Obesity, unspecified Plan: Reinforced diet; exercise and weight loss are not realistic or practical at this time given patient's current issues Plan Follow up in 3 months Orders: Orders Complete Blood Count Auto Diff Today I10 - Essential (primary) hypertension UA CC w/rflx Micro + Cult Today R30.0 - Dysuria Microalbumin, Random (w Creat) Today E11.9 - Type 2 diabetes mellitus without complications Comprehensive [place]. Panel Fast 3 Months E78.00 - Pure hypercholesterolemia, unspecified UA CC w/rflx Micro + Cult 3 Months R30.0 - Dysuria B Type Natriuretic Peptide Today I50.9 - Heart failure, unspecified Comprehensive [place]. Panel Fast Today E78.00 - Pure hypercholesterolemia, unspecified Lipid Panel Today E78.00 - Pure hypercholesterolemia, unspecified TSH reflex Free T4 Today E78.00 - Pure hypercholesterolemia, unspecified Hemoglobin A1c Today E11.9 - Type 2 diabetes mellitus without complications Vitamin D 25-OH Total Today E55.9 - Vitamin D deficiency, unspecified Vitamin B12 and Folate Today E53.8 - Deficiency of other specified B group vitamins Erythrocyte Sedimentation Rate Today M79.7 - Fibromyalgia Complete Blood Count Auto Diff 3 Months I10 - Essential (primary) hypertension Lipid Panel 3 Months E78.00 - Pure hypercholesterolemia, unspecified Microalbumin, Random (w Creat) 3 Months E11.9 - Type 2 diabetes mellitus without complications TSH reflex Free T4 3 Months E78.00 - Pure hypercholesterolemia, unspecified Hemoglobin A1c 3 Months E11.9 - Type 2 diabetes mellitus without complications Vitamin D 25-OH Total 3 Months E55.9 - Vitamin D deficiency, unspecified Referrals Wound Care Referral E11.22 - Type 2 diabetes mellitus with diabetic chronic kidney disease, S81.802A - Unspecified open wound, left lower leg, initial encounter, Z79.01 - superintendent container terminal (current) use of anticoagulants Medications: New doxycycline monohydrate 100 mg PO BID 14 tabs 0RF 7 days Coding Level of Care Code Est Pt Level 4 (63933) Diagnoses Wound of left lower extremity, sequela S81.802S Encounter type: sequela Chronic atrial fibrillation I48.20 Heart failure with reduced ejection fraction I50.20 Coronary artery disease involving [place] coronary artery of [place] heart without angina pectoris I25.10 Coronary Disease-Associated Artery/Lesion type: [place] artery [place] vs. transplanted heart: [place] heart Associated angina: without angina Mixed hyperlipidemia E78.2 Type 2 diabetes mellitus with stage 2 chronic kidney disease, without long-term current use of insulin E11.22; N18.2 Diabetes mellitus assisted insulin use: without assisted use Chronic kidney disease stage: stage 2 (mild) Chronic kidney disease (CKD), stage II (mild) N18.2 Benign essential hypertension I10 Polymyalgia rheumatica M35.3 GERD without esophagitis K21.9 Idiopathic gout, unspecified chronicity, unspecified site M10.00 Gout site: unspecified site Gout etiology: idiopathic Chronicity: unspecified Vitamin D deficiency E55.9 Erectile dysfunction, unspecified erectile dysfunction type N52.9 Erectile dysfunction type: unspecified Obesity (BMI 30-39.9) E66.9 Additional Codes AXEL-7 Assessment Billing - AXEL-7 Assessment Tool: AXEL-7 Assessment 83894 ([id number])
== END 2022-12-16 09:54 | disposition home or self-care (01) ==
PROVIDERS: PCP Internal Medicine; Visit Provider Internal Medicine
DX: S81.802A Unspecified open wound, left lower leg, initial encounter (principal); I48.20 Chronic atrial fibrillation, unspecified; E11.22 Type 2 diabetes mellitus with diabetic chronic kidney disease; N18.2 Chronic kidney disease, stage 2 (mild); I11.0 Hypertensive heart disease with heart failure; M35.3 Polymyalgia rheumatica
CPT/HCPCS: 99214

== ENCOUNTER 2022-12-16 10:09 | Outpatient (REF) | payer MEDICARE, SELFPAY ==
[2022-12-16 10:30] LABS: MANUAL DIFF FLAG NO
[2022-12-16 10:48] LABS: Estimated Average Glucose 171 mg/dL; Hemoglobin A1C 186.7267 umol/L; Hemoglobin A1c % 7.6 % (<6.0)
[2022-12-16 11:03] LABS: Basophils Percent Auto 0.4 % (0-2); Eosinophils Absolute Auto 0.2 X10*3/uL (0.0-0.4); Eosinophils Percent Auto 2.2 % (0-4); Hematocrit 41.7 % (42.0-52.0); Hemoglobin 13.8 g/dl (14.0-18.0); Imm Gran Abs Auto 0.03 X10*3/uL (0.00-0.03); Imm Gran Pct Auto 0.4 % (0.0-0.4); Lymphocytes Absolute Auto 1.2 X10*3/uL (1.2-4.9); Lymphocytes Percent Auto 15.7 % (20-40); Mean Corpuscular HGB Conc 33.1 g/dl (31.0-36.0); Mean Corpuscular Hemoglobin 30.1 pg (27.0-33.0); Mean Platelet Volume 10.5 fL (9.4-12.4); Monocytes Absolute Auto 0.8 X10*3/uL (0.1-1.2); Monocytes Percent Auto 10.7 % (2-11); Neutrophils Absolute Auto 5.4 x10*3/uL (2.0-8.3); Neutrophils Percent Auto 70.6 % (45-73); Platelet Count 184 X10*3/uL (160-400); Red Blood Count 4.58 X10*6/uL (4.60-5.80); Red Cell Distribution Width 14.4 % (11.0-16.0); White Blood Count 7.6 X10*3/uL (4.8-10.8)
[2022-12-16 11:15] LABS: B Type Natriuretic Peptide 167 pg/mL (<100)
[2022-12-16 11:27] LABS: Alanine Aminotransferase 17 U/L (0-40); Albumin Level 4.1 g/dL (3.5-5.0); Alkaline Phosphatase 144 U/L (39-117); Anion Gap 16 (12-20); Aspartate Amino Transferase 23 U/L (5-37); Blood Urea Nitrogen 28 mg/dL (9-16); Carbon Dioxide 27 mmol/L (22-29); Chloride 103 mmol/L (96-108); Cholesterol 137 mg/dL (<200); Estimated Glomerular Filt Rate > 60; Glucose Fasting 168 mg/dL (60-99); HDL Cholesterol 39 mg/dL (>40); LDL Cholesterol Calculated 78 mg/dL (<100); Potassium 4.1 mmol/L (3.3-5.1); Sodium 142 mmol/L (135-145); Total Protein 7.6 g/dL (6.5-8.0); Triglycerides 103 mg/dL (<150)
[2022-12-16 11:34] LABS: Appearance Urine Clear; Color Urine Yellow; Glucose Urine UA Negative (Negative); Leukocyte Esterase Urine Negative (Negative); Nitrite Urine Negative (Negative); Specific Gravity - Urine <= 1.005 (1.005-1.025); Urine Blood Negative (Negative); Urine Ketones Negative (Negative); Urine Protein Negative (Neg-Trace)
[2022-12-16 11:45] LABS: TSH reflex Free T4 0.92 uIU/mL (0.32-4.0); Vitamin D 25-OH Total 40.6 ng/mL (>30)
[2022-12-16 11:49] LABS: Folate 8.8 ng/mL (> or = 4.0); Vitamin B12 387 pg/mL (200-900)
[2022-12-16 11:52] LABS: Erythrocyte Sedimentation Rate 28 MM/HR (0-15)
[2022-12-16 12:07] LABS: Microalbum/Creatinine Ratio Ur 285.7 ug/mg cr (<30)
== END 2022-12-16 10:10 | disposition home or self-care (01) ==
LOC: HO.LAB 10:09
PROVIDERS: PCP Internal Medicine; Visit Provider Internal Medicine
DX: E55.9 Vitamin D deficiency, unspecified (principal); E53.8 Deficiency of other specified B group vitamins; R30.0 Dysuria; I11.0 Hypertensive heart disease with heart failure; I50.9 Heart failure, unspecified; E78.00 Pure hypercholesterolemia, unspecified; E11.9 Type 2 diabetes mellitus without complications; M79.7 Fibromyalgia
CPT/HCPCS: 36415; 80053; 80061; 81003; 82043; 82306; 82570; 82607; 82746; 83036; 83880; 84443; 85025; 85652

== ENCOUNTER 2022-12-28 12:37 | Outpatient (RCR) | payer MEDICARE, SELFPAY | END 2023-03-08 17:00 | disposition home or self-care (01) | LOC: HO.WCC 12:37 | PROVIDERS: PCP Internal Medicine; Visit Provider Surgery | DX: E11.621 Type 2 diabetes mellitus with foot ulcer (principal); L97.811 Non-pressure chronic ulcer of other part of right lower leg limited to breakdown of skin; I87.331 Chronic venous hypertension (idiopathic) with ulcer and inflammation of right lower extremity; I70.213 Atherosclerosis of native arteries of extremities with intermittent claudication, bilateral legs; E11.40 Type 2 diabetes mellitus with diabetic neuropathy, unspecified; E11.22 Type 2 diabetes mellitus with diabetic chronic kidney disease; I13.0 Hypertensive heart and chronic kidney disease with heart failure and stage 1 through stage 4 chronic kidney disease, or unspecified chronic kidney disease; N18.2 Chronic kidney disease, stage 2 (mild); I50.9 Heart failure, unspecified; I87.2 Venous insufficiency (chronic) (peripheral); Z79.01 Long term (current) use of anticoagulants; Z79.899 Other long term (current) drug therapy; Z87.891 Personal history of nicotine dependence | CPT/HCPCS: 11042; 11045; 97597; 99213 ==

== ENCOUNTER 2023-01-02 08:44 | Outpatient (AMB) | payer MEDICARE, SELFPAY ==
[2023-01-02 08:51] LABS: Prothrombin Time Whole Bld POC 51.1 sec (11.1-13.5); ~PT, ~INR - Anti Coag Clinic 4.3 (0.9-1.1)
--- NOTE | 2023-01-02 08:51 | MHC.OFFVISCO ---
Intake Intake Visit Reasons: Anticoagulation Allergies No Known Allergies [No Known Allergies*] Allergy (Verified 01/02/23 08:46) Medication List - Last Reconciled 01/02/23 by Shell Delgado RN allopurinol 300 mg PO DAILY atorvastatin 40 mg PO DAILY doxycycline monohydrate 100 mg PO BID 7 days furosemide 20 mg PO DAILY isosorbide mononitrate ER 30 mg PO DAILY losartan 50 mg PO BID metoprolol succinate ER 100 mg PO BID omeprazole magnesium (Prilosec) 10 mg PO DAILY sitagliptin phosphate (Januvia) 50 mg PO DAILY 90 days warfarin 5 mg See Protocol PO DAILY Nursing Note INR 4.3-? out of therapeutic range Medications and supplements reviewed Patient status: pt with increased stress Medications or supplements: no changes Diet: appetite good Denies any signs and symptoms of bleeding or clotting or unusual bruising Bleeding, bruising, clotting discussed Nutritional guidance given: eat greens to lower inr, no reds for 3 days Dose: already took warfarin today, hold tomm and reduce weekly dosing F/U INR Date : pt req 2 week f/u?? Patient verbalizing understanding of instructions given. Anti-Coag Initial Assessment Social Hx Patient Tobacco Use Status: Never used Tobacco alcohol intake: current Alcohol intake frequency: holidays/special occasions only Coding Level of Care Code Est Patient Level 1 Diagnoses Current use of anticoagulant therapy Z79.01 Assessment & Plan Assessment & Plan (1) Current use of anticoagulant therapy: Code(s): Z79.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
== END 2023-01-02 08:59 | disposition home or self-care (01) ==
LOC: HO.ACS 08:44
PROVIDERS: PCP Internal Medicine; Visit Provider Internal Medicine
DX: Z79.01 Long term (current) use of anticoagulants (principal)

== ENCOUNTER → 2023-01-02 08:44 | Outpatient (BNVA) | payer MEDICARE, SELFPAY | PROVIDERS: PCP Internal Medicine; Visit Provider Internal Medicine | DX: I48.20 Chronic atrial fibrillation, unspecified (principal); Z79.01 Long term (current) use of anticoagulants; Z51.81 Encounter for therapeutic drug level monitoring | CPT/HCPCS: 85610; 99211 ==

== ENCOUNTER 2023-01-16 08:47 | Outpatient (AMB) | payer MEDICARE, SELFPAY ==
--- NOTE | 2023-01-16 08:52 | MHC.OFFVISCO ---
Intake Intake Visit Reasons: Anticoagulation Allergies No Known Allergies [No Known Allergies*] Allergy (Verified 01/16/23 08:48) Medication List - Last Reconciled 01/16/23 by Shell Delgado RN allopurinol 300 mg PO DAILY atorvastatin 40 mg PO DAILY doxycycline monohydrate 100 mg PO BID 7 days furosemide 20 mg PO DAILY isosorbide mononitrate ER 30 mg PO DAILY losartan 50 mg PO BID metoprolol succinate ER 100 mg PO BID omeprazole magnesium (Prilosec) 10 mg PO DAILY sitagliptin phosphate (Januvia) 50 mg PO DAILY 90 days warfarin 5 mg See Protocol PO DAILY Nursing Note INR 3.8- out of therapeutic range Medications and supplements reviewed Patient status: no c.o Medications or supplements: no changes Diet: same Denies any signs and symptoms of bleeding or clotting or unusual bruising Bleeding, bruising, clotting discussed Nutritional guidance given: eat greens to lower inr Dose: hold today then cont 5mg x 6, 2.5mg x 1 pt did not remember to reduce weekly dosing on monday F/U INR Date : 2 weeks? Patient verbalizing understanding of instructions given. Anti-Coag Initial Assessment Social Hx Patient Tobacco Use Status: Never used Tobacco alcohol intake: current Alcohol intake frequency: holidays/special occasions only Coding Level of Care Code Est Patient Level 1 Diagnoses Current use of anticoagulant therapy Z79.01 Results AMB INR Fingerstick AMB INR Fingerstick 3.8 Last Edit by Shell Delgado RN on 01/16/23 08:54 Assessment & Plan Assessment & Plan (1) Current use of anticoagulant therapy: Code(s): Z79.01 - custodial (current) 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
[2023-01-16 08:54] LABS: Prothrombin Time Whole Bld POC 45.9 sec (11.1-13.5); ~PT, ~INR - Anti Coag Clinic 3.8 (0.9-1.1)
== END 2023-01-16 08:58 | disposition home or self-care (01) ==
LOC: HO.ACS 08:47
PROVIDERS: PCP Internal Medicine; Visit Provider Internal Medicine
DX: Z79.01 Long term (current) use of anticoagulants (principal)

== ENCOUNTER → 2023-01-16 08:47 | Outpatient (BNVA) | payer MEDICARE, SELFPAY | PROVIDERS: PCP Internal Medicine; Visit Provider Internal Medicine | DX: I48.20 Chronic atrial fibrillation, unspecified (principal); Z79.01 Long term (current) use of anticoagulants; Z51.81 Encounter for therapeutic drug level monitoring | CPT/HCPCS: 85610; 99211 ==

== ENCOUNTER 2023-01-30 08:51 | Outpatient (AMB) | payer MEDICARE, SELFPAY ==
--- NOTE | 2023-01-30 09:11 | MHC.OFFVISCO ---
Intake Intake Visit Reasons: Anticoagulation Allergies No Known Allergies [No Known Allergies*] Allergy (Verified 01/30/23 08:55) Medication List - Last Reconciled 01/30/23 by Tasneem Bishop RN allopurinol 300 mg PO DAILY atorvastatin 40 mg PO DAILY furosemide 20 mg PO DAILY isosorbide mononitrate ER 30 mg PO DAILY losartan 50 mg PO BID metoprolol succinate ER 100 mg PO BID omeprazole magnesium (Prilosec) 10 mg PO DAILY sitagliptin phosphate (Januvia) 50 mg PO DAILY 90 days warfarin 5 mg See Protocol PO DAILY Nursing Note INR: 3.7 out of therapeutic range Medications and supplements reviewed INR values have been elevated since 11/2022 - pt states he has been eating less which can raise the INR, plus eating less salads with cold weather - not a big green eater Denies any signs and symptoms of bleeding or bruising or clotting. Bleeding, bruising, clotting discussed Nutritional guidance given- review food list weekly - try to balance diet Dose: decrease weekly dose 2.5mg x 2 days/ 5mg x 5 days F/U INR: 2wks Patient verbalizes understanding of instructions given Anti-Coag Initial Assessment Social Hx Patient Tobacco Use Status: Never used Tobacco alcohol intake: current Alcohol intake frequency: holidays/special occasions only Coding Level of Care Code Est Patient Level 1 Diagnoses Current use of anticoagulant therapy Z79.01 Results AMB INR Fingerstick AMB INR Fingerstick 3.7 Last Edit by Tasneem Bishop RN on 01/30/23 09:06 manual entry Assessment & Plan Assessment & Plan (1) Current use of anticoagulant therapy: Code(s): Z79.01 - [facility] (current) 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
[2023-01-30 11:47] LABS: ~PT, ~INR - Anti Coag Clinic 3.7 (0.9-1.1)
== END 2023-01-30 09:15 | disposition home or self-care (01) ==
LOC: HO.ACS 08:51
PROVIDERS: PCP Internal Medicine; Visit Provider Internal Medicine
DX: Z79.01 Long term (current) use of anticoagulants (principal)

== ENCOUNTER → 2023-01-30 08:51 | Outpatient (BNVA) | payer MEDICARE, SELFPAY | PROVIDERS: PCP Internal Medicine; Visit Provider Internal Medicine | DX: I48.20 Chronic atrial fibrillation, unspecified (principal); Z79.01 Long term (current) use of anticoagulants; Z51.81 Encounter for therapeutic drug level monitoring | CPT/HCPCS: 85610; 99211 ==

== ENCOUNTER 2023-02-06 14:42 | Outpatient (REF) | payer MEDICARE, SELFPAY ==
--- NOTE | ~2023-02-06 | US_ITS ---
EXAMINATION: ANKLE-BRACHIAL INDICES SINGLE LEVEL PULSE VOLUME RECORDING ARTERIAL DUPLEX RIGHT LEG CLINICAL INFORMATION: Claudication COMPARISON: None TECHNIQUE: Ankle-brachial indices and PVR at the ankle were obtained. Duplex Doppler of the right lower extremity arterial system was performed. FINDINGS: RIGHT: Ankle-brachial index: 0.84 (PT) Dorsalis pedis pressure is greater than 200 consistent with calcification PVR: Abnormal Common femoral: PSV 159 cm/s. Biphasic waveform. Deep femoral: PSV 81 cm/s. Biphasic waveform. Proximal superficial femoral: PSV 120 cm/s. Triphasic waveform. Mid superficial femoral: PSV 130 cm/s. Triphasic waveform. Distal superficial femoral: PSV 173 cm/s. Biphasic waveform. Popliteal: PSV 69 cm/s. Monophasic waveform. Posterior tibial: PSV 53 cm/s. Monophasic waveform. Peroneal: Not visualized. Anterior tibial: PSV 35 cm/s. Monophasic waveform. Dorsalis pedis: PSV 34 cm/s. Monophasic waveform. LEFT: Ankle-brachial index: 0.95 (PT) Dorsalis pedis pressure is greater than 200 consistent with calcification. PVR: Mildly abnormal US/US RUTH complete IMPRESSION: Right lower extremity: Mild peripheral arterial disease by RUTH. High-grade popliteal artery stenosis by Doppler. Left lower extremity: No evidence of hemodynamically significant peripheral arterial disease.
--- NOTE | ~2023-02-06 | US_ITS ---
EXAMINATION: ANKLE-BRACHIAL INDICES SINGLE LEVEL PULSE VOLUME RECORDING ARTERIAL DUPLEX RIGHT LEG CLINICAL INFORMATION: Claudication COMPARISON: None TECHNIQUE: Ankle-brachial indices and PVR at the ankle were obtained. Duplex Doppler of the right lower extremity arterial system was performed. FINDINGS: RIGHT: Ankle-brachial index: 0.84 (PT) Dorsalis pedis pressure is greater than 200 consistent with calcification PVR: Abnormal Common femoral: PSV 159 cm/s. Biphasic waveform. Deep femoral: PSV 81 cm/s. Biphasic waveform. Proximal superficial femoral: PSV 120 cm/s. Triphasic waveform. Mid superficial femoral: PSV 130 cm/s. Triphasic waveform. Distal superficial femoral: PSV 173 cm/s. Biphasic waveform. Popliteal: PSV 69 cm/s. Monophasic waveform. Posterior tibial: PSV 53 cm/s. Monophasic waveform. Peroneal: Not visualized. Anterior tibial: PSV 35 cm/s. Monophasic waveform. Dorsalis pedis: PSV 34 cm/s. Monophasic waveform. LEFT: Ankle-brachial index: 0.95 (PT) Dorsalis pedis pressure is greater than 200 consistent with calcification. PVR: Mildly abnormal US/US arterial duplex LE RT IMPRESSION: Right lower extremity: Mild peripheral arterial disease by RUTH. High-grade popliteal artery stenosis by Doppler. Left lower extremity: No evidence of hemodynamically significant peripheral arterial disease.
== END 2023-02-06 14:43 | disposition home or self-care (01) ==
LOC: HO.US 14:42
PROVIDERS: PCP Internal Medicine; Visit Provider Surgery
DX: I70.213 Atherosclerosis of native arteries of extremities with intermittent claudication, bilateral legs (principal)
CPT/HCPCS: 93923; 93926

== ENCOUNTER 2023-02-14 08:57 | Outpatient (AMB) | payer MEDICARE, SELFPAY ==
--- NOTE | 2023-02-14 09:08 | MHC.OFFVISCO ---
Intake Intake Visit Reasons: Anticoagulation Allergies No Known Allergies [No Known Allergies*] Allergy (Verified 02/14/23 08:59) Medication List - Last Reconciled 02/14/23 by Tasneem Bishop RN allopurinol 300 mg PO DAILY atorvastatin 40 mg PO DAILY furosemide 20 mg PO DAILY isosorbide mononitrate ER 30 mg PO DAILY losartan 50 mg PO BID metoprolol succinate ER 100 mg PO BID omeprazole magnesium (Prilosec) 10 mg PO DAILY sitagliptin phosphate (Januvia) 50 mg PO DAILY 90 days warfarin 5 mg See Protocol PO DAILY Nursing Note INR: 1.9 ALMOST in therapeutic range Medications and supplements reviewed No changes in health, diet, medications, or supplements, Denies any signs and symptoms of bleeding or bruising or clotting. Bleeding, bruising, clotting discussed Nutritional guidance given- ORANGE [place] REDS TODAY THEN RESUME WEEKLY GREENS Dose: RESUME PREVIOUS DOSE 2.5MG X 1 DAY/ 5MG X 6 DAYS F/U INR: 2 WEEKS Patient verbalizes understanding of instructions given Anti-Coag Initial Assessment Social Hx Patient Tobacco Use Status: Never used Tobacco alcohol intake: current Alcohol intake frequency: holidays/special occasions only Coding Level of Care Code Est Patient Level 1 Results AMB INR Fingerstick AMB INR Fingerstick 1.9 Last Edit by Tasneem Bishop RN on 02/14/23 09:09 manual entry
[2023-02-14 09:09] LABS: Prothrombin Time Whole Bld POC 22.9 sec (11.1-13.5); ~PT, ~INR - Anti Coag Clinic 1.9 (0.9-1.1)
== END 2023-02-14 09:19 | disposition home or self-care (01) ==
LOC: HO.ACS 08:57
PROVIDERS: PCP Internal Medicine; Visit Provider Internal Medicine
DX: Z79.01 Long term (current) use of anticoagulants (principal)

== ENCOUNTER → 2023-02-14 08:57 | Outpatient (BNVA) | payer MEDICARE, SELFPAY | PROVIDERS: PCP Internal Medicine; Visit Provider Internal Medicine | DX: I48.20 Chronic atrial fibrillation, unspecified (principal); Z79.01 Long term (current) use of anticoagulants; Z51.81 Encounter for therapeutic drug level monitoring | CPT/HCPCS: 85610; 99211 ==

== ENCOUNTER 2023-03-01 08:49 | Outpatient (AMB) | payer MEDICARE, SELFPAY ==
[2023-03-01 09:17] LABS: Prothrombin Time Whole Bld POC 23.5 sec (11.1-13.5)
--- NOTE | 2023-03-01 09:26 | MHC.OFFVISCO ---
Intake Intake Visit Reasons: Anticoagulation Allergies No Known Allergies [No Known Allergies*] Allergy (Verified 03/01/23 09:11) Medication List - Last Reconciled 03/01/23 by Jesusita Cody RN allopurinol 300 mg PO DAILY atorvastatin 40 mg PO DAILY furosemide 20 mg PO DAILY isosorbide mononitrate ER 30 mg PO DAILY losartan 50 mg PO BID metoprolol succinate ER 100 mg PO BID omeprazole magnesium (Prilosec) 10 mg PO DAILY sitagliptin phosphate (Januvia) 50 mg PO DAILY 90 days warfarin 5 mg See Protocol PO DAILY Nursing Note NO CP,SOB,DIET/MED CHANGES,FALLS OR SX OF BLEEDING. CONTINUE PRESENT DOSE AND FOLLOW-UP IN 3 WEEKS. GOOD UNDERSTANDING OF DOSING INSTR. 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
== END 2023-03-01 09:29 | disposition home or self-care (01) ==
LOC: HO.ACS 08:49
PROVIDERS: PCP Internal Medicine; Visit Provider Internal Medicine
DX: Z79.01 Long term (current) use of anticoagulants (principal)

== ENCOUNTER → 2023-03-01 08:49 | Outpatient (BNVA) | payer MEDICARE, SELFPAY | PROVIDERS: PCP Internal Medicine; Visit Provider Internal Medicine | DX: I48.20 Chronic atrial fibrillation, unspecified (principal); Z79.01 Long term (current) use of anticoagulants; Z51.81 Encounter for therapeutic drug level monitoring | CPT/HCPCS: 85610; 99211 ==

== ENCOUNTER 2023-03-06 12:02 | Outpatient (AMB) | payer MEDICARE, SELFPAY ==
--- NOTE | 2023-03-06 12:30 | MHC.OFFVIS ---
Intake Vital Signs 03/06/23 12:31 Height 6 ft 2 in Weight 244 lb 11.41 oz BMI 31.4 BP 122/70 Blood Pressure Location Lt brachial Position Sitting Pulse 80 Intake Visit Reasons: 6 mth fu Intake Note: 6 month feeling good feeling good Society Editor Required: No Allergies No Known Allergies [No Known Allergies*] Allergy (Verified 03/01/23 09:11) Medication List - Last Reconciled 03/06/23 by Poncho Altamirano MD allopurinol 300 mg PO DAILY atorvastatin 40 mg PO DAILY furosemide 20 mg PO DAILY isosorbide mononitrate ER 30 mg PO DAILY losartan 50 mg PO BID metoprolol succinate ER 100 mg PO BID omeprazole magnesium (Prilosec) 10 mg PO DAILY sitagliptin phosphate (Januvia) 50 mg PO DAILY 90 days warfarin 5 mg See Protocol PO DAILY HPI HPI Comments History of Present Illness Details Galen comes for follow-up. He has been doing well over the last 6 months. No worsening symptoms of heart failure. Denies any worsening shortness of breath, orthopnea, PND, leg edema. Does have leg edema below the knee if he does not wear his compression stockings. Denies any prolonged palpitation irregular heartbeat. No lightheadedness, syncope. No bleeding issues or neurologic events. No exertional chest pain. 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 Chronic atrial fibrillation CAD (coronary artery disease) Cardiomyopathy Surgical History History of cataract surgery History of colonoscopy History of squamous cell carcinoma excision History of coronary artery bypass graft History of hernia repair History of left-sided carotid endarterectomy S/P CABG x 3 Family History Father Myocardial infarction CVD (cardiovascular disease) Mother Medical history unknown [facility] Alcohol intake: current Alcohol intake frequency: holidays/special occasions only Patient Tobacco Use Status: Never used Tobacco e-Cigarette/Vaping Use: Never Used Second Hand Smoke Exposure: Yes service: Yes Current occupational status: retired Cognitive needs: No Hearing needs: No Vision needs: Yes Review of Systems Const Denies chills, Denies fatigue, Denies fever(s), Denies frequent falls, Denies weakness, Denies weight gain and Denies weight loss ENT Denies dizziness Card Denies chest pain, Denies leg edema, Denies lightheadedness, Denies palpitations, Denies dyspnea, Denies dyspnea on exertion, Denies orthopnea and Denies other (loss of consciousness) Resp Denies cough, Denies dyspnea and Denies dyspnea on exertion GI Denies hematochezia and Denies change in stool character Musc Denies abnormal gait, Denies muscle weakness, Denies numbness, Denies radiating pain into limb and Denies tingling Neuro Denies abnormal gait, Denies dizziness, Denies frequent falls, Denies numbness, Denies tingling and Denies weakness Endo Denies fatigue and Denies palpitations Physical Exam Vital Signs: Last Vital Signs Pulse 80 03/06/23 12:31 BP 122/70 03/06/23 12:31 BMI result Body Mass Index 31.4 Const General: cooperative, comfortable, alert, awake and well groomed Nutritional Appearance: obese Orientation/consciousness: patient oriented x3 Limitations: no limitations Neck Neck: Yes trachea midline, Yes supple and Yes no JVD Chest Chest palpation & inspection: normal inspection of the chest Resp Effort & Inspection: normal respiratory effort Auscultation: clear to auscultation bilaterally Cardio Rhythm: abnormal rhythm irregularly irregular Heart sounds: S1 normal heart sound present and S2 normal heart sound present GI Auscultation: normal bowel sounds Skin General skin exam: no rashes or lesions noted and ecchymosis Neuro General: patient oriented x3 and no focal motor deficits Extrem General: No clubbing, No cyanosis, Yes edema (2+ below knee, woody) and Yes venous stasis dermatitis Psych Appearance: grossly normal Assessment & Plan Assessment & Plan (1) Congestive heart failure: Code(s): I50.9 - Heart failure, unspecified Plan: Heart failure preserved ejection fraction, clinically euvolemic and well compensated on low-dose diuretic therapy. Continue the same. Importance daily weight monitoring avoidance of salt loading was discussed continue current antianginal therapy. Continue aggressive blood pressure control which is currently well optimized. Increase diuretics as need be if he has sudden weight gain or worsening symptoms of shortness of breath. May consider switching his Januvia to Jardiance therapy. Will continue monitor clinically every 6 months. (2) CAD (coronary artery disease): Comment: S/P coronary artery bypass graft x 3 - JACOBSEN to LAD, radial artery to diagonal, SVG to OM (2000) Code(s): I25.10 - Atherosclerotic heart disease of [place] coronary artery without angina pectoris Qualifiers: Coronary Disease-Associated Artery/Lesion type: [place] artery [place] vs. transplanted heart: [place] heart Associated angina: without angina Qualified Code(s): I25.10 - Atherosclerotic heart disease of [place] coronary artery without angina pectoris Plan: CAD status post coronary bypass grafting remotely. No symptoms of angina at current point in time. Continue monitor clinically. Myocardial perfusion imaging every 5 years to assess for graft patency. Continue metoprolol and isosorbide therapy. Continue high-intensity statin therapy with target goal LDL less than 60 mg/dL. Continue aggressive control of diabetes goal hemoglobin A1c less than 7%. Blood pressure is currently well optimized. (3) Chronic atrial fibrillation: Code(s): I48.20 - Chronic atrial fibrillation, unspecified Plan: Chronic rate control atrial fibrillation. Has been long-standing atrial fibrillation will therefore pursue rate control. No worsening signs of heart failure at this point time. Currently on full oral anticoagulation with warfarin. Continue the same. Target INR between 2 and 3. Will follow up in the clinic in 6 months time, sooner p.r.n.. Thank you for allowing me to partake in his care Coding Level of Care Code Est Pt Level 4 (50498) Diagnoses Congestive heart failure I50.9 Coronary artery disease involving [place] coronary artery of [place] heart without angina pectoris I25.10 Coronary Disease-Associated Artery/Lesion type: [place] artery [place] vs. transplanted heart: [place] heart Associated angina: without angina Chronic atrial fibrillation I48.20
[2023-03-06 12:31] VITALS: BP 122/70; PULSE 80; BMI 31.4
== END 2023-03-06 12:50 | disposition home or self-care (01) ==
PROVIDERS: PCP Internal Medicine; Visit Provider Internal Medicine Cardiovascular Disease
DX: I50.9 Heart failure, unspecified (principal); I25.10 Atherosclerotic heart disease of native coronary artery without angina pectoris; I48.20 Chronic atrial fibrillation, unspecified
CPT/HCPCS: 99214

== ENCOUNTER → 2023-03-06 12:02 | Outpatient (BNVA) | payer MEDICARE, SELFPAY | PROVIDERS: PCP Internal Medicine; Visit Provider Internal Medicine Cardiovascular Disease | DX: I50.9 Heart failure, unspecified (principal); I25.10 Atherosclerotic heart disease of native coronary artery without angina pectoris; I48.20 Chronic atrial fibrillation, unspecified | CPT/HCPCS: 99212 ==

== ENCOUNTER 2023-03-22 09:13 | Outpatient (AMB) | payer MEDICARE, SELFPAY ==
--- NOTE | 2023-03-22 09:26 | MHC.OFFVISCO ---
Intake Intake Visit Reasons: Anticoagulation Allergies No Known Allergies [No Known Allergies*] Allergy (Verified 03/22/23 09:13) Medication List - Last Reconciled 03/22/23 by Jesusita Cody RN allopurinol 300 mg PO DAILY atorvastatin 40 mg PO DAILY furosemide 20 mg PO DAILY isosorbide mononitrate ER 30 mg PO DAILY losartan 50 mg PO BID metoprolol succinate ER 100 mg PO BID omeprazole magnesium (Prilosec) 10 mg PO DAILY sitagliptin phosphate (Januvia) 50 mg PO DAILY 90 days warfarin 5 mg See Protocol PO DAILY Nursing Note NO CP,SOB,DIET/MED CHANGES,FALLS OR SX OF BLEEDING. CONTINUE PRESENT DOSE AND FOLLOW-UP IN 4 WEEKS. GOOD UNDERSTANDING OF DOSING INSTR. KATIA URBINA Anti-Coag Initial Assessment Social Hx Patient Tobacco Use Status: Never used Tobacco alcohol intake: current Alcohol intake frequency: holidays/special occasions only Coding Level of Care Code Est Patient Level 1 Diagnoses Current use of anticoagulant therapy Z79.01 Assessment & Plan Assessment & Plan (1) Current use of anticoagulant therapy: Code(s): Z79.01 - [facility] (current) 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
== END 2023-03-22 09:27 | disposition home or self-care (01) ==
LOC: HO.ACS 09:13
PROVIDERS: PCP Internal Medicine; Visit Provider Internal Medicine
DX: Z79.01 Long term (current) use of anticoagulants (principal)

== ENCOUNTER → 2023-03-22 09:13 | Outpatient (BNVA) | payer MEDICARE, SELFPAY | PROVIDERS: PCP Internal Medicine; Visit Provider Internal Medicine | DX: I48.20 Chronic atrial fibrillation, unspecified (principal); Z51.81 Encounter for therapeutic drug level monitoring; Z79.01 Long term (current) use of anticoagulants | CPT/HCPCS: 85610; 99211 ==

== ENCOUNTER 2023-04-19 08:49 | Outpatient (AMB) | payer MEDICARE, SELFPAY ==
[2023-04-19 09:04] LABS: Prothrombin Time Whole Bld POC 24.7 sec (11.1-13.5); ~PT, ~INR - Anti Coag Clinic 2.1 (0.9-1.1)
--- NOTE | 2023-04-19 09:06 | MHC.OFFVISCO ---
Intake Intake Visit Reasons: Anticoagulation Allergies No Known Allergies [No Known Allergies*] Allergy (Verified 04/19/23 08:57) Medication List - Last Reconciled 04/19/23 by Tasneem Bishop RN allopurinol 300 mg PO DAILY atorvastatin 40 mg PO DAILY furosemide 20 mg PO DAILY isosorbide mononitrate ER 30 mg PO DAILY losartan 50 mg PO BID metoprolol succinate ER 100 mg PO BID omeprazole magnesium (Prilosec) 10 mg PO DAILY sitagliptin phosphate (Januvia) 50 mg PO DAILY 90 days warfarin 5 mg See Protocol PO DAILY Nursing Note INR:2.1 in therapeutic range Medications and supplements reviewed No changes in health, diet, medications, or supplements, Denies any signs and symptoms of bleeding or bruising or clotting. Bleeding, bruising, clotting discussed Nutritional guidance given Dose: 2.5mg x 1 day/ 5mg x 6 days F/U INR: 1 month Patient verbalizes understanding of instructions given Anti-Coag Initial Assessment Social Hx Patient Tobacco Use Status: Never used Tobacco alcohol intake: current Alcohol intake frequency: holidays/special occasions only Coding Level of Care Code Est Patient Level 1 Diagnoses Current use of anticoagulant therapy Z79.01 Assessment & Plan Assessment & Plan (1) Current use of anticoagulant therapy: Code(s): Z79.01 - senior living (current) 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
== END 2023-04-19 09:10 | disposition home or self-care (01) ==
LOC: HO.ACS 08:49
PROVIDERS: PCP Internal Medicine; Visit Provider Internal Medicine
DX: Z79.01 Long term (current) use of anticoagulants (principal)

== ENCOUNTER → 2023-04-19 08:49 | Outpatient (BNVA) | payer MEDICARE, SELFPAY | PROVIDERS: PCP Internal Medicine; Visit Provider Internal Medicine | DX: I48.20 Chronic atrial fibrillation, unspecified (principal); Z79.01 Long term (current) use of anticoagulants; Z51.81 Encounter for therapeutic drug level monitoring | CPT/HCPCS: 85610; 99211 ==

== ENCOUNTER 2023-05-03 16:10 | Outpatient (AMB) | payer MEDICARE, SELFPAY ==
[2023-05-03 16:18] VITALS: BP 124/76; PULSE 64; O2SAT 97; BMI 31.5
--- NOTE | 2023-05-03 16:18 | MHC.PC.OV ---
Vital Signs 05/03/23 16:18 Height 6 ft 2 in Weight 245 lb 6 oz BMI 31.5 BP 124/76 Blood Pressure Location Lt brachial Position Sitting Pulse 64 Pulse Source Pulse Oximeter Pulse Oximetry (%) 97 Oxygen Delivery Method Room Air Intake Visit Reasons: 3mth follow up/anticoag Toddler Guide Required: No Accompanied by: Self / Same As Patient Allergies No Known Allergies [No Known Allergies*] Allergy (Verified 05/03/23 16:49) Medication List - Last Reconciled 05/03/23 by Evens Osuna MD allopurinol 300 mg PO DAILY atorvastatin 40 mg PO DAILY furosemide 20 mg PO DAILY isosorbide mononitrate ER 30 mg PO DAILY losartan 50 mg PO BID metoprolol succinate ER 100 mg PO BID omeprazole magnesium (Prilosec) 10 mg PO DAILY sitagliptin phosphate (Januvia) 50 mg PO DAILY 90 days warfarin 5 mg See Protocol PO DAILY Tobacco use date assessed: 05/03/23 Fall risk assessment: No Falls in past year Last assessed Fall Risk: 05/03/23 Dental Screening Dental Screen Date: 05/03/23 Did you have a dental visit in the last 12 months?: Yes Did you have a dental problem in the last 6 months where you did not have access to dental care?: No Was dental information given to patient?: Patient has dentist HPI 3mth follow up/anticoag HPI Details Patient comes in today for his follow up visit States that the wounds on both of his legs /feet have healed up completely recently under the kind assistance and guidance of the wound clinic Patient had findings of peripheral vascular disease on evaluation and they recommended patient be seen by vascular surgery for further evaluation if he continues to have symptoms Patient states that he feels well He denies any headaches or dizziness Denies any chest pains, no shortness of breath No nausea / vomiting, no abdominal pain No change in bowel habits noted Has not had any follow-up labs done recently Needs his Omeprazole Rx refilled [facility] Medical History (Updated 05/04/23 @ 05:25 by Evens Osuna MD) Peripheral vascular disease Cataract, right eye Heart failure with reduced ejection fraction Obesity (BMI 30-39.9) Erectile dysfunction Vitamin D deficiency Gout GERD without esophagitis Polymyalgia rheumatica Mixed hyperlipidemia Benign essential hypertension Chronic kidney disease (CKD), 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 Chronic atrial fibrillation CAD (coronary artery disease) Cardiomyopathy Surgical History History of cataract surgery History of colonoscopy History of squamous cell carcinoma excision History of coronary artery bypass graft History of hernia repair History of left-sided carotid endarterectomy S/P CABG x 3 Family History Father Myocardial infarction CVD (cardiovascular disease) Mother Medical history unknown Social History Housing: [facility] Alcohol intake: current Alcohol intake frequency: holidays/special occasions only Patient Tobacco Use Status: Never used Tobacco e-Cigarette/Vaping Use: Never Used Second Hand Smoke Exposure: Yes service: Yes Current occupational status: retired Cognitive needs: No Hearing needs: No Vision needs: Yes Questionnaire PHQ-9 Over the last 2 weeks, how often have you been bothered by any of the following problems? 1. Little interest or pleasure in doing things: not at all 2. Feeling down, depressed, or hopeless: not at all 3. Trouble falling or staying asleep, or sleeping too much: not at all 4. Feeling tired or having little energy: not at all 5. Poor appetite or overeating: not at all 6. Feeling bad about yourself - or that you are a failure or have let yourself or your family down: not at all 7. Trouble concentrating on things, such as reading the newspaper or watching television: not at all 8. Moving or speaking so slowly that other people could have noticed. Or the opposite - being so fidgety or restless that you have been moving around a lot more than usual: not at all 9. Thoughts that you would be better off or of hurting yourself in some way: not at all Total score: 0 Depression Screening Interpretation: Negative Depression Screening Done: Yes 48442 - PHQ-9 Billing: Yes Source: Developed by Drs. Zaki Curtis, Teresa Cain, Diego Huff and colleagues, with an educational meaghan from [employer]. Thrive Questionnaire Date Thrive assessed: 05/03/23 I am a: Patient What is your living situation today?: I have a steady place to live Within the past 12 months, did the food you bought not last and you didn't have the money to get more?: Never true Within the past 12 months, did you worry whether your food would run out before you got money to buy more?: Never true Do you have trouble paying for medicines?: No Do you have trouble getting transportation to medical appointments?: No Do you have trouble paying your heating and electricity bill?: No Do you have trouble taking care of your child, family member or friend?: No Do you have trouble with day-to-day activities such as bathing, preparing meals, shopping, managing finances, etc.?: No Are you currently unemployed and looking for a job?: No Are you interested in more education?: No Please select the resources that you would like help with: None Currently or been in a relationship where the following occur: no concerns reported THRIVE Score: 0 AUDIT C Alcohol Use Questionnaire (AUDIT-C) 1. How often do you have a drink containing alcohol?: 2-4 times a month 2. How many drinks containing alcohol do you have on a typical day when you are drinking?: 3 or 4 3. How often do you have six or more drinks on one occasion?: Never Total Score: 3 Score Reviewed/Action Taken: Yes AXEL-7 AMB Questionnaire AXEL-7 Date AXEL - 7 assessed: 05/03/23 Feeling nervous, anxious, or on edge: 0 = Not at all Not being able to stop or control worryin = Not at all Worrying too much about different things: 0 = Not at all Trouble relaxin = Not at all Being so restless that it is hard to sit still: 0 = Not at all Becoming easily annoyed or irritable: 0 = Not at all Feeling afraid as if something awful might happen: 0 = Not at all Total AXEL-7 score (0-4 normal; 5-9 mild; 10-14 moderate; 15-21 severe): 0 Source: Developed by Drs. Zaki Curtis, Teresa Cain, Diego Huff and colleagues, with an educational meaghan from [employer]. AXEL-7 Assessment Billing AXEL-7 Assessment Tool: AXEL-7 Assessment 65828 Review of Systems Const Denies chills, Denies fatigue, Denies fever(s) and Denies headache(s) ENT Denies dysphagia, Denies dizziness, Denies otalgia, Denies headache(s), Denies neck pain, Denies odynophagia and Denies sore throat Card Denies chest pain, Denies palpitations and Denies dyspnea Resp Denies cough and Denies dyspnea GI Denies abdominal pain, Denies constipation, Denies dysphagia, Denies heartburn, Denies diarrhea, Denies nausea, Denies odynophagia and Denies vomiting Denies dysuria, Denies nocturia and Denies urinary frequency Musc Denies back pain and Denies neck pain Skin/Breast Reports breast skin changes and Denies rash Neuro Denies dizziness and Denies headache(s) Endo Denies fatigue and Denies palpitations Physical exam (Primary Care) Vital Signs: Last Vital Signs Pulse 64 05/03/23 16:18 BP 124/76 05/03/23 16:18 Pulse Ox 97 05/03/23 16:18 Oxygen Delivery Method Room Air 05/03/23 16:18 BMI result Body Mass Index 31.5 Tobacco/Smoking Status: Tobacco use Status Tobacco use date assessed 05/03/23 05/03/23 16:23 Patient Tobacco Use Status Never used Tobacco 05/03/23 16:23 e-Cigarette/Vaping Use Never Used 05/03/23 16:23 PHQ-9: PHQ-9 Score PHQ-9: Total score 0 05/04/23 04:44 Depression Screening Interpretation: Negative Thrive Assessment: Date of Thrive Assessment Date Thrive assessed 05/03/23 05/03/23 16:23 Currently or been in a relationship where the following occur: no concerns reported Const General: no acute distress and alert HENMT Ears: TM's normal bilaterally and EAC's normal Throat: Yes posterior oropharynx normal and Yes tonsils normal (no TP congestion noted) Neck Neck: Yes no lymphadenopathy and Yes supple Resp Auscultation: clear to auscultation bilaterally, no rales and no wheezes Cardio Rate: regular rate Rhythm: abnormal rhythm irregularly irregular Heart sounds: no murmurs GI Palpation (GI): Soft to palpation and nontender Auscultation: normal bowel sounds Extrem General: No clubbing, No cyanosis and Yes edema (2+ bipedal edema) Assessment and Plan Assessment & Plan (1) CAD (coronary artery disease): Comment: S/P coronary artery bypass graft x 3 - JACOBSEN to LAD, radial artery to diagonal, SVG to OM (2000) Code(s): I25.10 - Atherosclerotic heart disease of [place] coronary artery without angina pectoris Qualifiers: Associated angina: without angina Coronary Disease-Associated Artery/Lesion type: [place] artery [place] vs. transplanted heart: [place] heart Qualified Code(s): I25.10 - Atherosclerotic heart disease of [place] coronary artery without angina pectoris Plan: Asymptomatic - (+) remote Hx of CABG in 2000 Continue Isosorbide Mononitrate ER 30 mg QD and Metoprolol ER 100 mg BID; continue high-dose statin (Atorvastatin 40 mg) for primary risk reduction Follow up with cardiology as scheduled (2) Heart failure with reduced ejection fraction: Code(s): I50.20 - Unspecified systolic (congestive) heart failure Plan: Improving - last echocardiogram done on 08/31/2022 revealed improvement of EF to low normal at 50% to 55% (was previously around 25 to 30%) He will be getting another echocardiogram sometime in August 2023 for his 1 year follow-up Continue Metoprolol ER 100 mg BID, Furosemide 20 mg QD and Losartan 50 mg BID Reinforced fluid restriction Follow up with cardiology as scheduled (3) Chronic atrial fibrillation: Code(s): I48.20 - Chronic atrial fibrillation, unspecified Plan: Patient presently remains in atrial fibrillation but is rate-controlled Continue Metoprolol ER 100 mg BID and lifelong anticoagulation with Coumadin daily He continues to follow up with the Coumadin clinic for PT/INR monitoring (4) Mixed hyperlipidemia: Code(s): E78.2 - Mixed hyperlipidemia Plan: Patient has not had any follow up labs done since November 2022 - his fasting lipids at the time were at or close to goal Reinforced low cholesterol diet Continue Atorvastatin 40 mg QD Will recheck his labs and fasting lipids in 3 months for follow up - will just have patient use his current orders (updated) for his next lab draw (5) Type 2 diabetes mellitus with diabetic chronic kidney disease: Code(s): E11.22 - Type 2 diabetes mellitus with diabetic chronic kidney disease Qualifiers: Chronic kidney disease stage: stage 2 (mild) 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 use: without chcf use Qualified Code(s): E11.22 - Type 2 diabetes mellitus with diabetic chronic kidney disease; N18.2 - Chronic kidney disease, stage 2 (mild) Plan: His HgbA1c was at 7.6% when last checked in November 2022 (in-office HgbA1c was at 8.2% back in February 2022) - goal is < 7.0% Reinforced diabetic diet Continue Januvia 50 mg QD (6) Chronic kidney disease (CKD), stage II (mild): Code(s): N18.2 - Chronic kidney disease, stage 2 (mild) Plan: Stable - will continue to monitor his GFR and serum creatinine regularly (7) Benign essential hypertension: Code(s): I10 - Essential (primary) hypertension Plan: Reinforced low sodium diet - goal is systolic BP of at least 140 mm or less Continue Losartan 50 mg BID and Metoprolol ER 100 mg BID (8) Peripheral vascular disease: Code(s): I73.9 - Peripheral vascular disease, unspecified Plan: Arterial studies done back in January 2023 revealed (+) high-grade popliteal artery stenosis by Doppler in the leg Will refer him to vascular surgery for further evaluation and management (9) Polymyalgia rheumatica: Code(s): M35.3 - Polymyalgia rheumatica Plan: Was on oral Prednisone in the past but was taken off his Rx by rheumatology a while back Used to [place] with [place] [facility] [place] but states that he has not seen them since Dr. Holder left [facility] several months ago States that he currently has no acute issues and prefers not to see rheumatology as he does not want to have any additional appts scheduled at this time (10) GERD without esophagitis: Code(s): K21.9 - Gastro-esophageal reflux disease without esophagitis Plan: Dietary restrictions reinforced Continue Omeprazole 20 mg QD - Rx refilled (11) Gout: Code(s): M10.9 - Gout, unspecified Qualifiers: Chronicity: unspecified Gout etiology: idiopathic Gout site: unspecified site Qualified Code(s): M10.00 - Idiopathic gout, unspecified site Plan: Reinforced low purine diet Continue Allopurinol 300 mg QD (12) Erectile dysfunction: Code(s): N52.9 - Male erectile dysfunction, unspecified Qualifiers: Erectile dysfunction type: unspecified Qualified Code(s): N52.9 - Male erectile dysfunction, unspecified Plan: Continue Sildenafil 50 mg QD PRN (13) Obesity (BMI 30-39.9): Code(s): E66.9 - Obesity, unspecified Plan: Reinforced diet; exercise and weight loss are not realistic or practical at this time given patient's current issues Plan Follow up in 3 months Orders: Orders Uric Acid 07/19/23 M10.9 - Gout, unspecified Referrals Vascular Surgery Referral I73.9 - Peripheral vascular disease, unspecified Medications: New omeprazole 20 mg PO DAILY PRN 90 caps 1RF heartburn and abdominal pain NS Coding Level of Care Code Est Pt Level 4 (49172) Diagnoses Coronary artery disease involving [place] coronary artery of [place] heart without angina pectoris I25.10 Associated angina: without angina Coronary Disease-Associated Artery/Lesion type: [place] artery [place] vs. 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 use: without middle or intermediate school principal use Chronic kidney disease (CKD), stage II (mild) N18.2 Benign essential hypertension I10 Peripheral vascular disease I73.9 Polymyalgia rheumatica M35.3 GERD without esophagitis K21.9 Idiopathic gout, unspecified chronicity, unspecified site M10.00 Chronicity: unspecified Gout etiology: idiopathic Gout site: unspecified site Erectile dysfunction, unspecified erectile dysfunction type N52.9 Erectile dysfunction type: unspecified Obesity (BMI 30-39.9) E66.9 Additional Codes AXEL-7 Assessment Billing - AXEL-7 Assessment Tool: AXEL-7 Assessment [id number] ([id number])
== END 2023-05-03 16:56 | disposition home or self-care (01) ==
PROVIDERS: PCP Internal Medicine; Visit Provider Internal Medicine
DX: I13.0 Hypertensive heart and chronic kidney disease with heart failure and stage 1 through stage 4 chronic kidney disease, or unspecified chronic kidney disease (principal); E11.22 Type 2 diabetes mellitus with diabetic chronic kidney disease; I50.20 Unspecified systolic (congestive) heart failure; N18.2 Chronic kidney disease, stage 2 (mild); I48.20 Chronic atrial fibrillation, unspecified; I73.9 Peripheral vascular disease, unspecified; M35.3 Polymyalgia rheumatica; I25.10 Atherosclerotic heart disease of native coronary artery without angina pectoris; E78.2 Mixed hyperlipidemia; K21.9 Gastro-esophageal reflux disease without esophagitis; M10.00 Idiopathic gout, unspecified site; N52.9 Male erectile dysfunction, unspecified
CPT/HCPCS: 99214

== ENCOUNTER 2023-05-17 08:55 | Outpatient (AMB) | payer MEDICARE, SELFPAY ==
[2023-05-17 09:01] LABS: Prothrombin Time Whole Bld POC 28.2 sec (11.1-13.5); ~PT, ~INR - Anti Coag Clinic 2.3 (0.9-1.1)
--- NOTE | 2023-05-17 09:06 | MHC.OFFVISCO ---
Intake Intake Visit Reasons: Anticoagulation Allergies No Known Allergies [No Known Allergies*] Allergy (Verified 05/17/23 08:56) Medication List - Last Reconciled 05/17/23 by Annamarie Sharif RN allopurinol 300 mg PO DAILY atorvastatin 40 mg PO DAILY furosemide 20 mg PO DAILY isosorbide mononitrate ER 30 mg PO DAILY losartan 50 mg PO BID metoprolol succinate ER 100 mg PO BID omeprazole 20 mg PO DAILY PRN NS sitagliptin phosphate (Januvia) 50 mg PO DAILY 90 days warfarin 5 mg See Protocol PO DAILY Nursing Note INR: 2.3 in therapeutic range 2-3 Medications and supplements reviewed No changes in health, diet, medications, or supplements, Denies any signs and symptoms of bleeding or bruising or clotting. Bleeding, bruising, clotting discussed Nutritional guidance given: cont to balance greens and reds Dose: cont usual dose of 5mg X 6 days and 2.5mg X 1 days F/U INR: 1 month Patient verbalizes understanding of instructions given Anti-Coag Initial Assessment Social Hx Patient Tobacco Use Status: Never used Tobacco alcohol intake: current Alcohol intake frequency: holidays/special occasions only Coding Level of Care Code Est Patient Level 1 Diagnoses Current use of anticoagulant therapy Z79.01 Assessment & Plan Assessment & Plan (1) Current use of anticoagulant therapy: Code(s): Z79.01 - long-term (current) 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
== END 2023-05-17 09:08 | disposition home or self-care (01) ==
LOC: HO.ACS 08:55
PROVIDERS: PCP Internal Medicine; Visit Provider Internal Medicine
DX: Z79.01 Long term (current) use of anticoagulants (principal)

== ENCOUNTER → 2023-05-17 08:55 | Outpatient (BNVA) | payer MEDICARE, SELFPAY | PROVIDERS: PCP Internal Medicine; Visit Provider Internal Medicine | DX: I48.20 Chronic atrial fibrillation, unspecified (principal); Z79.01 Long term (current) use of anticoagulants; Z51.81 Encounter for therapeutic drug level monitoring | CPT/HCPCS: 85610; 99211 ==

== ENCOUNTER 2023-06-13 10:13 | Outpatient (AMB) | payer MEDICARE, SELFPAY ==
[2023-06-13 10:17] VITALS: BMI 31.5
--- NOTE | 2023-06-13 10:17 | MHC.OFFVIS ---
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 He had lower extremity ulcerations that have gone on to heal. Had been [facility] and [facility] and now presents to us for evaluation. Of note he reports that he has some swelling of the lower extremities. Does have heart failure. In addition he has no significant difficulty ambulating. At the current time his ulcers are healed and appear to be doing relatively well. Now for vascular evaluation. 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 Chronic atrial fibrillation CAD (coronary artery disease) Cardiomyopathy Surgical History History of cataract surgery History of colonoscopy History of squamous cell carcinoma excision History of coronary artery bypass graft History of hernia repair History of left-sided carotid endarterectomy S/P CABG x 3 Family History Father Myocardial infarction CVD (cardiovascular disease) Mother Medical history unknown Social History Housing: Condominium Alcohol intake: current Alcohol intake frequency: holidays/special occasions only Patient Tobacco Use Status: Never used Tobacco e-Cigarette/Vaping Use: Never Used Second Hand Smoke Exposure: Yes service: Yes Current occupational status: retired Cognitive needs: No Hearing needs: No Vision needs: Yes Review of Systems Const Reports as per HPI ENT Reports no additional complaints Card Denies chest pain, Denies chest pain at rest and Denies chest pain with activity Resp Denies chest congestion and Denies cough GI Reports no additional complaints Musc Details: pain over varicosities, aching of lower extremities, swelling, cramping, heaviness and tiredness, itching Denies abnormal gait Skin/Breast Reports pruritus and Denies wounds Neuro Reports no additional complaints and Denies abnormal gait Psych Denies no additional complaints Physical Exam Vital Signs: BMI result Body Mass Index 31.5 Const General: cooperative, healthy appearing and comfortable Orientation/consciousness: oriented to person, oriented to place and oriented to time Neck Carotids: no bruits Chest Chest palpation & inspection: normal inspection of the chest and normal palpation of entire chest wall Resp Effort & Inspection: normal respiratory effort and able to speak in complete sentences Cardio Other: Bilateral palpable dorsalis pedis pulses Rate: regular rate Heart sounds: S1 normal heart sound present and S2 normal heart sound present Peripheral pulses: Peripheral pulses 2+ throughout GI Inspection: Yes normal to inspection Skin Other: +2 edema, large rope-like varicosities greater than 4 mm CEAP Classification C4 - skin color changes Ep - Etiology Primary As - superficial veins P - reflux General skin exam: dry skin Neuro General: oriented to person, oriented to place and oriented to time Extrem Right lower extremity: full ROM, normal capillary refill and edema Left lower extremity: full ROM, normal capillary refill and edema Psych Mental Status: mental status grossly normal Results Reviewed Results Reviewed: Noninvasive arterial testing dated 02/06/2023 demonstrates RUTH on the right 0.84 and on the left of 0.95. There is concern of popliteal disease on the right with monophasic waveforms below that. Assessment & Plan Assessment & Plan (1) Peripheral vascular disease: Code(s): I73.9 - Peripheral vascular disease, unspecified Plan: Arterial testing was reviewed. At the current time it does not appear to be clinically significant in addition the patient does have palpable arterial pulses. We will continue to monitor this with him. We will also work him up for venous disease. Upon follow-up we will schedule him for annual surveillance. (2) Varicose veins of left lower extremity with inflammation: Code(s): I83.12 - Varicose veins of left lower extremity with inflammation Plan: The patient does have swollen lower extremities. This may be from his congestive heart failure. I have taken the liberty of ordering venous insufficiency testing to rule that out. Patient will follow up with us after testing. Thank you for allowing us to assist in his care. If there are any questions or concerns please do not hesitate to contact us. Coding Level of Care Code Est Pt Level 4 (33024) Diagnoses Peripheral vascular disease I73.9 Varicose veins of left lower extremity with inflammation I83.12
== END 2023-06-13 10:41 | disposition home or self-care (01) ==
PROVIDERS: PCP Internal Medicine; Visit Provider Surgery Vascular Surgery
DX: I73.9 Peripheral vascular disease, unspecified (principal); I83.12 Varicose veins of left lower extremity with inflammation
CPT/HCPCS: 99213

== ENCOUNTER → 2023-06-13 10:13 | Outpatient (BNVA) | payer MEDICARE, SELFPAY | PROVIDERS: PCP Internal Medicine; Visit Provider Surgery Vascular Surgery | DX: I83.12 Varicose veins of left lower extremity with inflammation (principal); I73.9 Peripheral vascular disease, unspecified; I50.9 Heart failure, unspecified | CPT/HCPCS: 99212 ==

== ENCOUNTER 2023-06-14 09:05 | Outpatient (AMB) | payer MEDICARE, SELFPAY ==
[2023-06-14 09:11] LABS: ~PT, ~INR - Anti Coag Clinic 2.2 (0.9-1.1)
--- NOTE | 2023-06-14 09:18 | MHC.OFFVISCO ---
Intake Intake Visit Reasons: Anticoagulation Allergies No Known Allergies [No Known Allergies*] Allergy (Verified 06/14/23 09:07) Medication List - Last Reconciled 06/14/23 by Jesusita Cody RN allopurinol 300 mg PO DAILY atorvastatin 40 mg PO DAILY furosemide 20 mg PO DAILY isosorbide mononitrate ER 30 mg PO DAILY losartan 50 mg PO BID metoprolol succinate ER 100 mg PO BID omeprazole 20 mg PO DAILY PRN NS sitagliptin phosphate (Januvia) 50 mg PO DAILY 90 days warfarin 5 mg See Protocol PO DAILY Nursing Note NO CP,SOB,DIET/MED CHANGES,FALLS OR SX OF BLEEDING. CONTINUE PRESENT DOSE AND FOLLOW-UP IN 4 WEEKS. GOOD UNDERSTANDING OF DOSING INSTR,. 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
== END 2023-06-14 09:23 | disposition home or self-care (01) ==
LOC: HO.ACS 09:05
PROVIDERS: PCP Internal Medicine; Visit Provider Internal Medicine
DX: Z79.01 Long term (current) use of anticoagulants (principal)

== ENCOUNTER → 2023-06-14 09:05 | Outpatient (BNVA) | payer MEDICARE, SELFPAY | PROVIDERS: PCP Internal Medicine; Visit Provider Internal Medicine | DX: I48.20 Chronic atrial fibrillation, unspecified (principal); Z79.01 Long term (current) use of anticoagulants; Z51.81 Encounter for therapeutic drug level monitoring | CPT/HCPCS: 85610; 99211 ==

== ENCOUNTER 2023-06-28 10:07 | Outpatient (REF) | payer MEDICARE, SELFPAY ==
--- NOTE | ~2023-06-28 | US_ITS ---
EXAMINATION: US LOWER EXTREMITY VENOUS (REFLUX EXAM), BILATERAL CLINICAL INFORMATION: Chronic venous insufficiency with lower extremity varicose veins with inflammation COMPARISON: None. TECHNIQUE: Color flow triplex imaging and compression Doppler was performed to evaluate both the deep and the superficial systems bilaterally. To evaluate the superficial system, the examination was performed in the upright position. Color-flow Doppler ultrasound and compression ultrasound were utilized. In addition, maneuvers were utilized to demonstrate reflux. FINDINGS: 1. DEEP VENOUS ULTRASOUND OF THE RIGHT LOWER EXTREMITY: Common Femoral Vein: Compressible, normal respiratory variation and augmented flow. Femoral Vein: Compressible, normal color flow and augmentation. Popliteal Vein: Compressible, normal augmentation. Deep Reflux: There is no evidence of reflux in the deep system in either the common femoral vein, superficial femoral or the popliteal vein. There is no evidence of a Bay's cyst. 2. SUPERFICIAL ULTRASOUND WITH DOPPLER OF RIGHT LOWER EXTREMITY: GREAT SAPHENOUS VEIN: Saphenofemoral Junction: 0.9 cm; Reflux: 0 ms Proximal Thigh: 0.4 cm; Reflux: 0 ms Mid Thigh: Not visualized cm; Reflux: 0 ms Distal Thigh: Not visualized cm; Reflux: 0 ms At Knee: 0.2 cm; Reflux: 2960 ms Proximal Calf: 0.3 cm; Reflux: 0 ms Mid Calf: 0.2 cm; Reflux: 0 ms Distal Calf: 0.3 cm; Reflux: 2896 ms DUPLICATED MEDIAL GREAT SAPHENOUS VEIN: Diameter: None imaged Reflux: NA DUPLICATED LATERAL GREAT SAPHENOUS VEIN: Diameter: 0.4 cm Reflux: None SMALL SAPHENOUS VEIN: Saphenopopliteal Junction: 0.3 cm; Reflux: 0 ms Proximal: 0.3 cm; Reflux: 0 ms Distal: 2.3 cm; Reflux: 0 ms VEIN OF GIACOMINI: Size: NA Reflux: NA PERFORATORS: Location: None imaged Size: NA Reflux: NA VARICOSITIES: Location: Proximal thigh off the residual great saphenous vein and proximal calf off the great saphenous vein Size: 0.3 cm Reflux: None 3. DEEP VENOUS ULTRASOUND OF THE LEFT LOWER EXTREMITY: Common Femoral Vein: Compressible, normal respiratory variation and augmented flow. Femoral Vein: Compressible, normal color flow and augmentation. Popliteal Vein: Compressible, normal augmentation. Deep Reflux: There is no evidence of reflux in the deep system in either the common femoral vein, superficial femoral or the popliteal vein. There is no evidence of a Bay's cyst. 4. SUPERFICIAL ULTRASOUND WITH DOPPLER OF LEFT LOWER EXTREMITY: GREAT SAPHENOUS VEIN: Saphenofemoral Junction: 1.0 cm; Reflux: 0 ms Proximal Thigh: 0.5 cm; Reflux: 0 ms Mid Thigh: 0.4 cm; Reflux: 0 ms Distal Thigh: 0.3 cm; Reflux: 0 ms At Knee: 0.3 cm; Reflux: 0 ms Proximal Calf: 0.3 cm; Reflux: 0 ms Mid Calf: 0.4 cm; Reflux: 576 ms Distal Calf: 0.4 cm; Reflux: 0 ms DUPLICATED MEDIAL GREAT SAPHENOUS VEIN: Diameter: None imaged Reflux: NA DUPLICATED LATERAL GREAT SAPHENOUS VEIN: Diameter: None imaged. Reflux: NA SMALL SAPHENOUS VEIN: Saphenopopliteal Junction: 0.2 cm; Reflux: 0 ms Proximal: 0.2 cm; Reflux: 0 ms Distal: 0.4 cm; Reflux: 0 ms VEIN OF GIACOMINI: Size: NA Reflux: NA PERFORATORS: Location: None significant Size: NA Reflux: NA VARICOSITIES: Location: Mid thigh and distal calf Size: 0.3 cm Reflux: None US/US venous insuf bilat IMPRESSION: Right: Great saphenous vein in the mid and distal thigh is not visualized. There are segmental areas of reflux in the great saphenous vein at the knee and ankle as described above. Scattered varicose veins as described above Left: Focal segmental area of mild reflux in the great saphenous vein at the mid calf. Scattered varicose veins as described above
[2023-06-28 11:35] LABS: MANUAL DIFF FLAG NO
[2023-06-28 12:49] LABS: Basophils Percent Auto 0.3 % (0-2); Eosinophils Absolute Auto 0.1 X10*3/uL (0.0-0.4); Eosinophils Percent Auto 1.6 % (0-4); Hematocrit 43.6 % (42.0-52.0); Hemoglobin 14.6 g/dl (14.0-18.0); Imm Gran Abs Auto 0.03 X10*3/uL (0.00-0.03); Imm Gran Pct Auto 0.4 % (0.0-0.4); Lymphocytes Absolute Auto 1.3 X10*3/uL (1.2-4.9); Mean Corpuscular HGB Conc 33.5 g/dl (31.0-36.0); Mean Corpuscular Hemoglobin 30.1 pg (27.0-33.0); Mean Corpuscular Volume 89.9 fL (80.0-98.0); Mean Platelet Volume 10.7 fL (9.4-12.4); Monocytes Absolute Auto 0.9 X10*3/uL (0.1-1.2); Monocytes Percent Auto 11.3 % (2-11); Neutrophils Absolute Auto 5.4 x10*3/uL (2.0-8.3); Neutrophils Percent Auto 69.4 % (45-73); Platelet Count 171 X10*3/uL (160-400); Red Blood Count 4.85 X10*6/uL (4.60-5.80); Red Cell Distribution Width 14.3 % (11.0-16.0); White Blood Count 7.7 X10*3/uL (4.8-10.8)
[2023-06-28 12:58] LABS: Estimated Average Glucose 180 mg/dL; Hemoglobin A1c % 7.9 % (<6.0)
[2023-06-28 13:26] LABS: Alanine Aminotransferase 16 U/L (0-40); Albumin Level 4.1 g/dL (3.5-5.0); Alkaline Phosphatase 146 U/L (39-117); Anion Gap 14 (12-20); Aspartate Amino Transferase 17 U/L (5-37); Bilirubin Total 1.4 mg/dL (0.0-1.0); Blood Urea Nitrogen 15 mg/dL (9-16); Calcium 9.2 mg/dL (8.4-10.2); Carbon Dioxide 30 mmol/L (22-29); Chloride 102 mmol/L (96-108); Cholesterol 147 mg/dL (<200); Estimated Glomerular Filt Rate 58; Glucose Fasting 162 mg/dL (60-99); HDL Cholesterol 33 mg/dL (>40); LDL Cholesterol Calculated 92 mg/dL (<100); Potassium 3.7 mmol/L (3.3-5.1); Sodium 142 mmol/L (135-145); Total Protein 7.5 g/dL (6.5-8.0); Triglycerides 113 mg/dL (<150); Uric Acid 5.5 mg/dL (3.4-7.0)
[2023-06-28 13:46] LABS: TSH reflex Free T4 0.92 uIU/mL (0.32-4.0); Vitamin D 25-OH Total 16.5 ng/mL (>30)
== END 2023-06-28 10:08 | disposition home or self-care (01) ==
LOC: HO.US 10:07
PROVIDERS: Absent Provider Internal Medicine; PCP Internal Medicine; Visit Provider Surgery Vascular Surgery
DX: I83.12 Varicose veins of left lower extremity with inflammation (principal); E78.00 Pure hypercholesterolemia, unspecified; E55.9 Vitamin D deficiency, unspecified; I10 Essential (primary) hypertension; E11.9 Type 2 diabetes mellitus without complications; M10.9 Gout, unspecified
CPT/HCPCS: 36415; 80053; 80061; 82306; 83036; 84443; 84550; 85025; 93970

== ENCOUNTER 2023-07-10 09:04 | Outpatient (AMB) | payer MEDICARE, SELFPAY ==
[2023-07-10 09:10] LABS: Prothrombin Time Whole Bld POC 31.7 sec (11.1-13.5); ~PT, ~INR - Anti Coag Clinic 2.6 (0.9-1.1)
--- NOTE | 2023-07-10 09:12 | MHC.OFFVISCO ---
Intake Intake Visit Reasons: Anticoagulation Allergies No Known Allergies [No Known Allergies*] Allergy (Verified 07/10/23 09:05) Medication List - Last Reconciled 07/10/23 by Annamarie Albarado RN allopurinol 300 mg PO DAILY atorvastatin 40 mg PO DAILY furosemide 20 mg PO DAILY isosorbide mononitrate ER 30 mg PO DAILY losartan 50 mg PO BID metoprolol succinate ER 100 mg PO BID omeprazole 20 mg PO DAILY PRN NS sitagliptin phosphate (Januvia) 50 mg PO DAILY 90 days warfarin 5 mg See Protocol PO DAILY Nursing Note Amb to ACS feeling fine Medications and supplements reviewed No changes in health, diet, medications, or supplements, Denies any signs and symptoms of bleeding or bruising or clotting. Bleeding, bruising, clotting discussed INR 2.6 in therapeutic range continue usual dosing 2.5mg x 1 day and 5mg all other days Nutritional guidance given balance greens and reds in diet, be consistent F/U INR: 4 weeks Patient verbalizes understanding of instructions given Anti-Coag Initial Assessment Social Hx Patient Tobacco Use Status: Never used Tobacco alcohol intake: current Alcohol intake frequency: holidays/special occasions only Coding Level of Care Code Est Patient Level 1 Diagnoses Current use of anticoagulant therapy Z79.01 Time Spent (min) 15 Assessment & Plan Assessment & Plan (1) Current use of anticoagulant therapy: 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
== END 2023-07-10 09:16 | disposition home or self-care (01) ==
LOC: HO.ACS 09:04
PROVIDERS: PCP Internal Medicine; Visit Provider Internal Medicine
DX: Z79.01 Long term (current) use of anticoagulants (principal)

== ENCOUNTER → 2023-07-10 09:04 | Outpatient (BNVA) | payer MEDICARE, SELFPAY | PROVIDERS: PCP Internal Medicine; Visit Provider Internal Medicine | DX: I48.20 Chronic atrial fibrillation, unspecified (principal); Z51.81 Encounter for therapeutic drug level monitoring; Z79.01 Long term (current) use of anticoagulants | CPT/HCPCS: 85610; 99211 ==

== ENCOUNTER 2023-08-07 09:18 | Outpatient (AMB) | payer MEDICARE, SELFPAY ==
[2023-08-07 09:23] LABS: Prothrombin Time Whole Bld POC 42.6 sec (11.1-13.5); ~PT, ~INR - Anti Coag Clinic 3.6 (0.9-1.1)
--- NOTE | 2023-08-07 09:29 | MHC.OFFVISCO ---
Intake Intake Visit Reasons: Anticoagulation Allergies No Known Allergies [No Known Allergies*] Allergy (Verified 08/07/23 09:18) Medication List - Last Reconciled 08/07/23 by Annamarie Albarado RN allopurinol 300 mg PO DAILY atorvastatin 40 mg PO DAILY furosemide 20 mg PO DAILY isosorbide mononitrate ER 30 mg PO DAILY losartan 50 mg PO BID metoprolol succinate ER 100 mg PO BID omeprazole 20 mg PO DAILY PRN NS sitagliptin phosphate (Januvia) 50 mg PO DAILY 90 days warfarin 5 mg See Protocol PO DAILY Nursing Note Amb to ACS feeling well Medications and supplements reviewed No changes in health, diet, medications, or supplements, Denies any signs and symptoms of bleeding, bruising, or clotting. INR 3.6 above therapeutic range pt thinks he may not of had usual greens, does drink ETOH, however sts just the usual pt already took warfarin today, plan to decrease dose tomorrow to 2.5mg (vs 5mg) then resume usual dosing (2.5mg x 1 day and 5mg all other days) Nutritional guidance given-pt to have serving of spinach today then resume usual balance of greens and reds in diet- instructed re importance of not overdoing it with cooked spinach F/U INR: 2 weeks Patient verbalizes understanding of instructions given Anti-Coag Initial Assessment Social Hx Patient Tobacco Use Status: Never used Tobacco alcohol intake: current Alcohol intake frequency: holidays/special occasions only Coding Level of Care Code Est Patient Level 1 Diagnoses Current use of anticoagulant therapy Z79.01 Time Spent (min) 15 Assessment & Plan Assessment & Plan (1) Current use of anticoagulant therapy: 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
== END 2023-08-07 09:38 | disposition home or self-care (01) ==
LOC: HO.ACS 09:18
PROVIDERS: PCP Internal Medicine; Visit Provider Internal Medicine
DX: Z79.01 Long term (current) use of anticoagulants (principal)

== ENCOUNTER → 2023-08-07 09:18 | Outpatient (BNVA) | payer MEDICARE, SELFPAY | PROVIDERS: PCP Internal Medicine; Visit Provider Internal Medicine | DX: I48.20 Chronic atrial fibrillation, unspecified (principal); Z79.01 Long term (current) use of anticoagulants; Z51.81 Encounter for therapeutic drug level monitoring | CPT/HCPCS: 85610; 99211 ==

== ENCOUNTER 2023-08-21 09:12 | Outpatient (AMB) | payer MEDICARE, SELFPAY ==
[2023-08-21 09:20] LABS: Prothrombin Time Whole Bld POC 43.1 sec (11.1-13.5); ~PT, ~INR - Anti Coag Clinic 3.6 (0.9-1.1)
--- NOTE | 2023-08-21 09:35 | MHC.OFFVISCO ---
Intake Intake Visit Reasons: Anticoagulation Allergies No Known Allergies [No Known Allergies*] Allergy (Verified 08/21/23 09:13) Medication List - Last Reconciled 08/21/23 by Tasneem Bishop RN allopurinol 300 mg PO DAILY atorvastatin 40 mg PO DAILY furosemide 20 mg PO DAILY isosorbide mononitrate ER 30 mg PO DAILY losartan 50 mg PO BID metoprolol succinate ER 100 mg PO BID omeprazole 20 mg PO DAILY PRN NS sitagliptin phosphate (Januvia) 50 mg PO DAILY 90 days warfarin 5 mg See Protocol PO DAILY Nursing Note INR: 3.6 out of therapeutic range Medications and supplements reviewed pt had been taking tylenol and occ aleve for back pain and or topical volatern- he is aware that it can raise the INR and increase risk of bleeding, he does know to take aleve with food if and when he takes it, also now knows to increase greens when taking either of them, attended a wedding over the weekend, and golfing that includes alcohol which can raise the INR also - discussed risk of ETOh also Denies any signs and symptoms of bleeding or bruising or clotting. Bleeding, bruising, clotting discussed Nutritional guidance given- greens today and weekly, review food list weekly Dose: already took today's dose decreae tomorrows dose again to 2.5mg then resume usual dose - if INR still elevated decrease weekly dose F/U INR: 2 weeks Patient verbalizes understanding of instructions given Anti-Coag Initial Assessment Social Hx Patient Tobacco Use Status: Never used Tobacco alcohol intake: current Alcohol intake frequency: holidays/special occasions only Coding Level of Care Code Est Patient Level 1 Diagnoses Current use of anticoagulant therapy Z79.01 Results AMB INR Fingerstick AMB INR Fingerstick 3.6 Last Edit by Tasneem Bishop RN on 08/21/23 09:32 MANUAL ENTRY Assessment & Plan Assessment & Plan (1) Current use of anticoagulant therapy: Code(s): Z79.01 - assisted (current) 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
== END 2023-08-21 09:42 | disposition home or self-care (01) ==
PROVIDERS: PCP Internal Medicine; Visit Provider Internal Medicine
DX: Z79.01 Long term (current) use of anticoagulants (principal)

== ENCOUNTER → 2023-08-21 09:12 | Outpatient (BNVA) | payer MEDICARE, SELFPAY | PROVIDERS: PCP Internal Medicine; Visit Provider Internal Medicine | DX: I48.20 Chronic atrial fibrillation, unspecified (principal); Z51.81 Encounter for therapeutic drug level monitoring; Z79.01 Long term (current) use of anticoagulants | CPT/HCPCS: 85610; 99211 ==

== ENCOUNTER → 2023-08-24 10:03 | Outpatient (REF) | payer MEDICARE, SELFPAY ==
--- NOTE | 2023-08-24 10:07 | CA_ITS ---
Transthoracic Echocardiogram Patient (Last, First, Middle): Galen Salvador T Gender: Male Date of : 1940 Age: 83 Procedure Date: 08/24/2023 Procedure Type: Transthoracic Echocardiogram Location: OP Height: 185.42 cm Weight: 108.86 kg BSA: 2.33 m2 Heart Rate: bpm BP: 144 / 90 mmHg Draw Hand: JOSE Referring MD: Poncho Altamirano MD Bag Printer: Poncho Altamirano MD Symptoms: I50.9 - Heart failure, unspecified Study Quality: Technically Difficult, contrast ECG Rhythm: Atrial Fibrillation Conclusions: - 1. Low normal LV ejection fraction 50-55% 2. Severe biatrial enlargement 3. Cardiac valvular Dopplers within normal limits 4. Upper limits of normal RV systolic pressure Findings Procedure Information Contrast agent, definity, is being given per protocol without apparent complications. Left Ventricle Normal left ventricular cavity size. There is normal left ventricular wall thickness. The left ventricular systolic function is low normal. The visually estimated ejection fraction is between 50-55%. Spectral Doppler is indicative of a restrictive filling pattern. Right Ventricle The right ventricle was not well visualized. Severely increased right ventricular cavity size. Atria Severe biatrial enlargement. There is no evidence of interatrial shunt. Aortic Valve The aortic valve was not well visualized. There is mild calcification of the aortic valve. There is no aortic valve stenosis. There is no aortic valve regurgitation. Mitral Valve There is mild anterior and posterior mitral leaflet thickening. There is moderate mitral annular calcification. There is trace mitral valve regurgitation. There is no mitral valve stenosis. Pulmonic Valve The pulmonic valve was not well visualized. Tricuspid Valve Likely normal tricuspid valve structure and function. There is mild tricuspid valve regurgitation. Normal right atrial pressure. There is no evidence of pulmonary hypertension. Great Vessels The aorta was not well visualized. The pulmonary artery was not well visualized. There is no dilatation of the ascending aorta measuring 3.30 cm. Moderate plaque is seen in the sino tubular ridge. Venous The inferior vena cava is mildly dilated and collapses greater than 50% with inspiration. Pericardium/Pleural The pericardium was not well visualized. Prior Study Comparison No significant change compared to prior study dated: 08/31/2022. Measurements 2D Linear Measurements IVSd: 0.90 0.6-0.9/0.6-1.0 cm LVIDd: 5.55 3.9-5.3/4.2-5.9 cm LVIDd Index: 2.38 2.4-3.2/2.2-3.1 cm/m2 LVIDs: 4.29 2.0-3.6 cm LVPWd: 0.98 0.7-1.1 cm LA Diam: 5.10 2.7-3.8/3.0-4.0 cm LAIDs Index: 2.19 1.5-2.3 cm/m2 LV Mass: 248.44 67-162/88-224 g LV Mass Index: 106.63 43-95/49-115 g/m2 LVOT Diam: 2.40 3.0+(-)1.3 cm 2D Systolic Function EF 4C: 43.30 >55% EF 2C: 54.20 >55% EF BiP: 50.70 >55% Mitral Valve MV Pk E: 1.22 MV Decel Time: 179.00 E'Lateral: 11.90 E'Medial: 7.94 E/E' Med: 15.40 E/E' Lat: 10.30 PHT: 52.00 MVA PHT: 4.23 Decel [place]: 6.94 Aortic Valve AoV Pk Osei: 1.57 AoV Mn Osei: 1.07 AoV VTI: 0.35 AoV Pk Grad: 10.00 Aov Mn Grad: 5.00 SHANIA Cont.VTI: 2.80 LVOT LVOT Pk Osei: 0.99 LVOT Mn Osei: 0.63 LVOT VTI: 0.22 LVOT Pk Grad: 4.00 LVOT Mn Grad: 2.00 LVOT Diam: 2.40 LVOT Area: 4.52 Diastolic Function MV Pk E: 1.22 E'Medial: 7.94 E/E' Med: 15.40 E' Laterial: 11.90 E/E' Lat: 10.30 Right Ventricle TAPSE (mm): 21.90 TVS' Osei: 8.20 Tricuspid Valve TR Pk Osei: 2.89 TR Pk Grad: 33.00 RA Press: 3.00 RVSP: 36.00 Great Vessels Aorta Sinus of Valsalva: 3.69 2.0-3.[address] [place]: 2.75 1.7-3.4 cm Ao Asc: 3.30 2.1-3.4 cm Updated in Other Vendor System with Status of Final Poncho Altamirano MD electronically signed on 08/24/2023 3:53:45 PM with status of Final
== END ==
LOC: HO.CARD 10:03
PROVIDERS: PCP Internal Medicine; Visit Provider Internal Medicine Cardiovascular Disease
DX: I50.9 Heart failure, unspecified (principal)
CPT/HCPCS: 93306; Q9957

== ENCOUNTER → 2023-08-24 10:07 | Outpatient (BNV) | payer MEDICARE, SELFPAY | PROVIDERS: PCP Internal Medicine; Visit Provider Internal Medicine Cardiovascular Disease | DX: I51.7 Cardiomegaly (principal); I34.81 Nonrheumatic mitral (valve) annulus calcification; I36.1 Nonrheumatic tricuspid (valve) insufficiency | CPT/HCPCS: 93306 ==

== ENCOUNTER 2023-09-04 08:48 | Outpatient (AMB) | payer MEDICARE, SELFPAY ==
[2023-09-04 09:08] LABS: Prothrombin Time Whole Bld POC 38.6 sec (11.1-13.5); ~PT, ~INR - Anti Coag Clinic 3.2 (0.9-1.1)
--- NOTE | 2023-09-04 09:12 | MHC.OFFVISCO ---
Intake Intake Visit Reasons: Anticoagulation Allergies No Known Allergies [No Known Allergies*] Allergy (Verified 09/04/23 09:03) Medication List - Last Reconciled 09/04/23 by Annamarie Sharif RN allopurinol 300 mg PO DAILY atorvastatin 40 mg PO DAILY furosemide 20 mg PO DAILY isosorbide mononitrate ER 30 mg PO DAILY losartan 50 mg PO BID metoprolol succinate ER 100 mg PO BID omeprazole 20 mg PO DAILY PRN NS sitagliptin phosphate (Januvia) 50 mg PO DAILY 90 days warfarin 5 mg See Protocol PO DAILY Nursing Note INR 3.2?out of therapeutic range of 2-3 Medications and supplements reviewed Patient status: feels well, has a large bandaid of left lower extremity with small amt of drainage. Pt states MD is aware and it is being assessed regularly Medications or supplements: no changes Diet: usual diet for pt Denies any signs and symptoms of bleeding or clotting or unusual bruising Bleeding, bruising, clotting discussed Nutritional guidance given: to have greens today. Food list reviewed. Dose: 5mg X 6 days and 2.5mg X 1 day. F/U INR Date : 3 weeks?? Patient verbalizing understanding of instructions given. 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
== END 2023-09-04 09:17 | disposition home or self-care (01) ==
LOC: HO.ACS 08:48
PROVIDERS: PCP Internal Medicine; Visit Provider Internal Medicine
DX: Z79.01 Long term (current) use of anticoagulants (principal)

== ENCOUNTER → 2023-09-04 08:48 | Outpatient (BNVA) | payer MEDICARE, SELFPAY | PROVIDERS: PCP Internal Medicine; Visit Provider Internal Medicine | DX: I48.20 Chronic atrial fibrillation, unspecified (principal); Z79.01 Long term (current) use of anticoagulants; Z51.81 Encounter for therapeutic drug level monitoring | CPT/HCPCS: 85610; 99211 ==

== ENCOUNTER 2023-09-05 15:07 | Outpatient (AMB) | payer MEDICARE, SELFPAY ==
--- NOTE | 2023-09-05 15:28 | A.OFFVIS_ITS ---
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 From cardiac perspective he has been doing well. Most recent echocardiogram shows preserved LV ejection fraction 50-55% with biatrial enlargement which is unchanged from before. Denies any worsening heart failure symptoms. Denies any worsening weight gain, abdominal distention, leg edema, worsening shortness of breath, orthopnea, PND. Denies any exertional chest pain. No bleeding issues or neurologic events. No prolonged palpitation irregular heartbeat. Currently on warfarin therapy with INR well optimized. 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 Chronic atrial fibrillation CAD (coronary artery disease) Cardiomyopathy Surgical History History of cataract surgery History of colonoscopy History of squamous cell carcinoma excision History of coronary artery bypass graft History of hernia repair History of left-sided carotid endarterectomy S/P CABG x 3 Family History Father Myocardial infarction CVD (cardiovascular disease) Mother Medical history unknown Social History Housing: Condominium Alcohol intake: current Alcohol intake frequency: holidays/special occasions only Patient Tobacco Use Status: Never used Tobacco e-Cigarette/Vaping Use: Never Used Second Hand Smoke Exposure: Yes service: Yes Current occupational status: retired Cognitive needs: No Hearing needs: No Vision needs: Yes Review of Systems Const Denies chills, Denies fatigue, Denies fever(s), Denies frequent falls, Denies weakness, Denies weight gain and Denies weight loss ENT Denies dizziness Card Denies chest pain, Denies leg edema, Denies lightheadedness, Denies palpitations, Denies dyspnea, Denies dyspnea on exertion, Denies orthopnea and Denies other (loss of consciousness) Resp Denies cough, Denies dyspnea and Denies dyspnea on exertion GI Denies hematochezia and Denies change in stool character Musc Denies abnormal gait, Denies muscle weakness, Denies numbness, Denies radiating pain into limb and Denies tingling Neuro Denies abnormal gait, Denies dizziness, Denies frequent falls, Denies numbness, Denies tingling and Denies weakness Endo Denies fatigue and Denies palpitations Physical Exam Vital Signs: Last Vital Signs Pulse 66 09/05/23 15:29 BP 130/82 09/05/23 15:29 BMI result Body Mass Index 30.8 Const General: cooperative, comfortable, alert, awake and well groomed Nutritional Appearance: obese Orientation/consciousness: patient oriented x3 Limitations: no limitations Neck Neck: Yes trachea midline, Yes supple and Yes no JVD Chest Chest palpation & inspection: normal inspection of the chest Resp Effort & Inspection: normal respiratory effort Auscultation: clear to auscultation bilaterally Cardio Rhythm: abnormal rhythm irregularly irregular Heart sounds: S1 normal heart sound present and S2 normal heart sound present GI Auscultation: normal bowel sounds Skin General skin exam: no rashes or lesions noted and ecchymosis Neuro General: patient oriented x3 and no focal motor deficits Extrem General: No clubbing, No cyanosis, Yes edema (2+ below knee, woody) and Yes venous stasis dermatitis Psych Appearance: grossly normal Office Procedures EKG Details: EKG shows atrial fibrillation at 66 beats per minute [id number], Complete Assessment & Plan Assessment & Plan (1) Congestive heart failure: Code(s): I50.9 - Heart failure, unspecified Category: Medical Plan: Heart failure preserved ejection free at this point time with low normal LV ejection fraction. Doing clinically well. No signs or symptoms of heart failure. Continue current neurohormonal modulation with metoprolol and losartan therapy. Continue aggressive blood pressure control. Currently on low-dose Lasix therapy, clinically appears to be euvolemic. Daily weight monitoring avoidance of salt loading was discussed additional diuretics as need be. Advised to call me with worsening symptoms. (2) CAD (coronary artery disease): Comment: S/P coronary artery bypass graft x 3 - JACOBSEN to LAD, radial artery to diagonal, SVG to OM (2000) Code(s): I25.10 - Atherosclerotic heart disease of [place] coronary artery without angina pectoris Category: Medical Qualifiers: Coronary Disease-Associated Artery/Lesion type: [place] artery [place] vs. transplanted heart: [place] heart Associated angina: without angina Qualif ied Code(s): I25.10 - Atherosclerotic heart disease of [place] coronary artery without angina pectoris Plan: CAD with remote coronary artery bypass grafting. Currently without any symptoms of angina. Continue high-intensity statin therapy with target goal LDL less than 70 mg/dL. Currently on isosorbide and metoprolol therapy. Continue the same. Currently on full oral anticoagulation warfarin and will therefore avoid aspirin therapy to reduce bleeding risk. Advised to call me with any worsening symptoms. (3) Chronic atrial fibrillation: Code(s): I48.20 - Chronic atrial fibrillation, unspecified Category: Medical Plan: Chronic rate control atrial fibrillation with significant biatrial chamber enlargement. Unlikely to pursue rhythm control approach. Continue rate control approach with metoprolol. Currently on full oral anticoagulation with warfarin being followed by [facility]. Maintain target INR between 2 and 3. Will follow up in the clinic in 6 months time, sooner p.r.n.. Thank you for allowing me to partake in his care Coding Level of Care Code Est Pt Level 4 (93485) Diagnoses Congestive heart failure I50.9 Coronary artery disease involving [place] coronary artery of [place] heart without angina pectoris I25.10 Coronary Disease-Associated Artery/Lesion type: [place] artery [place] vs. transplanted heart: [place] heart Associated angina: without angina Chronic atrial fibrillation I48.20 CPT Codes EKG - CPT: [id number], Complete ([id number])
[2023-09-05 15:29] VITALS: BP 130/82; PULSE 66; BMI 30.8
== END 2023-09-05 15:47 | disposition home or self-care (01) ==
PROVIDERS: PCP Internal Medicine; Visit Provider Internal Medicine Cardiovascular Disease
DX: I50.9 Heart failure, unspecified (principal); I25.10 Atherosclerotic heart disease of native coronary artery without angina pectoris; I48.20 Chronic atrial fibrillation, unspecified
CPT/HCPCS: 93010; 99214

== ENCOUNTER → 2023-09-05 15:07 | Outpatient (BNVA) | payer MEDICARE, SELFPAY | PROVIDERS: PCP Internal Medicine; Visit Provider Internal Medicine Cardiovascular Disease | DX: I50.9 Heart failure, unspecified (principal); I25.10 Atherosclerotic heart disease of native coronary artery without angina pectoris; I48.20 Chronic atrial fibrillation, unspecified; Z79.01 Long term (current) use of anticoagulants; Z79.899 Other long term (current) drug therapy | CPT/HCPCS: 93005; 99212 ==

== ENCOUNTER 2023-09-19 08:51 | Outpatient (AMB) | payer MEDICARE, SELFPAY ==
--- NOTE | 2023-09-19 08:54 | MHC.OFFVIS ---
Intake Visit Reasons: follow up US Intake Note: Patient presents for US follow up. Patient states everything is the same , I just want to know what he plans on doing Allergies No Known Allergies [No Known Allergies*] Allergy (Verified 09/19/23 09:00) HPI HPI follow up US: Details: 83-year-old gentleman presents for follow-up evaluation regarding lower extremity swelling. He does have a [facility] Of note most recently he has this left lateral calf ulcer which he is being seen by Dermatology for and may potentially be skin cancer. 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 Chronic atrial fibrillation CAD (coronary artery disease) Cardiomyopathy Surgical History History of cataract surgery History of colonoscopy History of squamous cell carcinoma excision History of coronary artery bypass graft History of hernia repair History of left-sided carotid endarterectomy S/P CABG x 3 Family History Father Myocardial infarction CVD (cardiovascular disease) Mother Medical history unknown [facility] Alcohol intake: current Alcohol intake frequency: holidays/special occasions only Patient Tobacco Use Status: Never used Tobacco e-Cigarette/Vaping Use: Never Used Second Hand Smoke Exposure: Yes service: Yes Current occupational status: retired Cognitive needs: No Hearing needs: No Vision needs: Yes Review of Systems Const Reports as per HPI ENT Reports no additional complaints Card Denies chest pain, Denies chest pain at rest and Denies chest pain with activity Resp Denies chest congestion and Denies cough GI Reports no additional complaints Musc Details: pain over varicosities, aching of lower extremities, swelling, cramping, heaviness and tiredness, itching Denies abnormal gait Skin/Breast Reports pruritus and Denies wounds Neuro Reports no additional complaints and Denies abnormal gait Psych Denies no additional complaints Physical Exam Const General: cooperative, healthy appearing and comfortable Orientation/consciousness: oriented to person, oriented to place and oriented to time Neck Carotids: no bruits Chest Chest palpation & inspection: normal inspection of the chest and normal palpation of entire chest wall Resp Effort & Inspection: normal respiratory effort and able to speak in complete sentences Cardio Rate: regular rate Heart sounds: S1 normal heart sound present and S2 normal heart sound present Peripheral pulses: Peripheral pulses 2+ throughout GI Inspection: Yes normal to inspection Skin Other: +2 edema, left lateral leg ulcer CEAP Classification C6 open ulcer Ep - Etiology Primary As - superficial veins P - reflux General skin exam: dry skin Neuro General: oriented to person, oriented to place and oriented to time Extrem Right lower extremity: full ROM, normal capillary refill and edema Left lower extremity: full ROM, normal capillary refill and edema Psych Mental Status: mental status grossly normal Results Reviewed Results Reviewed: Brief summary of venous insufficiency testing is as follows: right great saphenous vein: negative right small saphenous vein: negative right accessory vein: none present left great saphenous vein: negative left small saphenous vein: negative left accessory vein: none present Please note there is no evidence of any venous aneurysms or significant tortuosity Assessment & Plan Assessment & Plan (1) Lymphedema: Code(s): I89.0 - Lymphedema, not elsewhere classified Category: Medical Plan: In short patient has swollen lower extremities. This may be multifactorial. Fortunately his venous insufficiency testing has proven to be negative. There may be an element of lymphedema. In addition he does have congestive heart failure. At the current time would like to manage this conservatively as patient is being evaluated for skin cancer. Should that prove to be negative may benefit from lymphedema pumps. (2) Carotid stenosis, bilateral: Comment: 2013 left carotid endarterectomy performed at [facility] Code(s): I65.23 - Occlusion and stenosis of bilateral carotid arteries Category: Medical Plan: In short patient does have prior history of carotid disease. Has not had any follow-up surveillance in many years. I have taken the liberty of ordering a carotid ultrasound to evaluate that. Patient will follow up with us after testing. We did discuss routine risk factor modification. We will continue to monitor him for his lower extremities as well. Thank you for allowing us to assist in his care. Coding Level of Care Code Est Pt Level 4 (14346) Diagnoses Lymphedema I89.0 Carotid stenosis, bilateral I65.23
== END 2023-09-19 09:26 | disposition home or self-care (01) ==
PROVIDERS: PCP Internal Medicine; Visit Provider Surgery Vascular Surgery
DX: I89.0 Lymphedema, not elsewhere classified (principal); I65.23 Occlusion and stenosis of bilateral carotid arteries; I50.9 Heart failure, unspecified
CPT/HCPCS: 99214

== ENCOUNTER → 2023-09-19 08:51 | Outpatient (BNVA) | payer MEDICARE, SELFPAY | PROVIDERS: PCP Internal Medicine; Visit Provider Surgery Vascular Surgery | DX: I89.0 Lymphedema, not elsewhere classified (principal); I13.0 Hypertensive heart and chronic kidney disease with heart failure and stage 1 through stage 4 chronic kidney disease, or unspecified chronic kidney disease; I50.20 Unspecified systolic (congestive) heart failure; E11.22 Type 2 diabetes mellitus with diabetic chronic kidney disease; N18.2 Chronic kidney disease, stage 2 (mild); I65.23 Occlusion and stenosis of bilateral carotid arteries | CPT/HCPCS: 99212 ==

== ENCOUNTER 2023-09-25 08:56 | Outpatient (AMB) | payer MEDICARE, SELFPAY ==
[2023-09-25 09:18] LABS: Prothrombin Time Whole Bld POC 31.8 sec (11.1-13.5); ~PT, ~INR - Anti Coag Clinic 2.7 (0.9-1.1)
--- NOTE | 2023-09-25 09:24 | MHC.OFFVISCO ---
Intake Intake Visit Reasons: Anticoagulation Allergies No Known Allergies [No Known Allergies*] Allergy (Verified 09/25/23 09:10) Medication List - Last Reconciled 09/25/23 by Tasneem Bishop RN allopurinol 300 mg PO DAILY atorvastatin 40 mg PO DAILY furosemide 20 mg PO DAILY isosorbide mononitrate ER 30 mg PO DAILY losartan 50 mg PO BID metoprolol succinate ER 100 mg PO BID omeprazole 20 mg PO DAILY PRN NS sitagliptin phosphate (Januvia) 50 mg PO DAILY 90 days warfarin 5 mg See Protocol PO DAILY Nursing Note INR: 2.7 in therapeutic range Medications and supplements reviewed No changes in health, diet, medications, or supplements, Denies any signs and symptoms of bleeding or bruising or clotting. 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
== END 2023-09-25 09:27 | disposition home or self-care (01) ==
LOC: HO.ACS 08:56
PROVIDERS: PCP Internal Medicine; Visit Provider Internal Medicine
DX: Z79.01 Long term (current) use of anticoagulants (principal)

== ENCOUNTER → 2023-09-25 08:56 | Outpatient (BNVA) | payer MEDICARE, SELFPAY | PROVIDERS: PCP Internal Medicine; Visit Provider Internal Medicine | DX: I48.20 Chronic atrial fibrillation, unspecified (principal); Z51.81 Encounter for therapeutic drug level monitoring; Z79.01 Long term (current) use of anticoagulants | CPT/HCPCS: 85610; 99211 ==

== ENCOUNTER 2023-10-09 14:57 | Outpatient (AMB) | payer MEDICARE, SELFPAY ==
--- NOTE | 2023-10-09 15:33 | A.OFFPC_ITS ---
Vital Signs 10/09/23 15:35 Height 6 ft 2 in Weight 243 lb BMI 31.2 BP 132/84 Blood Pressure Location Lt brachial Position Sitting Pulse 74 Pulse Source Pulse Oximeter Pulse Oximetry (%) 97 Oxygen Delivery Method Room Air Intake Visit Reasons: 3 month f/u Intake Note: Patient is here to follow up on CKD, DM, PVD, CHF. Check Scaler Required: No Hvac Manager: Not Required per policy Accompanied by: Self / Same As Patient Allergies No Known Allergies [No Known Allergies*] Allergy (Verified 10/09/23 16:09) Medication List - Last Reconciled 10/09/23 by Evens Osuna MD allopurinol 300 mg PO DAILY atorvastatin 40 mg PO DAILY furosemide 20 mg PO DAILY isosorbide mononitrate ER 30 mg PO DAILY losartan 50 mg PO BID metoprolol succinate ER 100 mg PO BID omeprazole 20 mg PO DAILY PRN NS sitagliptin phosphate (Januvia) 50 mg PO DAILY 90 days warfarin 5 mg See Protocol PO DAILY Tobacco use date assessed: 10/09/23 Fall risk assessment: No Falls in past year Last assessed Fall Risk: 10/09/23 Dental Screening Dental Screen Date: 05/03/23 HPI 3 month f/u HPI Details Patient comes in today for his follow-up visit States that he feels okay He denies any headaches or dizziness Denies any chest pains, no shortness of breath No nausea /vomiting, no abdominal pain No change in bowel habits noted He was not able to get his follow-up labs done prior to his visit today - states that he will try to get them done as soon as possible sometime in the next few days [facility] Medical History Peripheral vascular disease Cataract, right eye Heart failure with reduced ejection fraction Obesity (BMI 30-39.9) Erectile dysfunction Vitamin D deficiency Gout GERD without esophagitis Polymyalgia rheumatica Mixed hyperlipidemia Benign essential hypertension Chronic kidney disease (CKD), 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 Chronic atrial fibrillation CAD (coronary artery disease) Cardiomyopathy Surgical History History of cataract surgery History of colonoscopy History of squamous cell carcinoma excision History of coronary artery bypass graft History of hernia repair History of left-sided carotid endarterectomy S/P CABG x 3 Family History Father Myocardial infarction CVD (cardiovascular disease) Mother Medical history unknown [facility] Alcohol intake: current Alcohol intake frequency: holidays/special occasions only Patient Tobacco Use Status: Never used Tobacco e-Cigarette/Vaping Use: Never Used Second Hand Smoke Exposure: Yes service: Yes Current occupational status: retired Cognitive needs: No Hearing needs: No Vision needs: Yes Questionnaire Thrive Questionnaire Date Thrive assessed: 05/03/23 AXEL-7 AMB Questionnaire AXEL-7 Date AXEL - 7 assessed: 05/03/23 Source: Developed by Drs. Zaki Curtis, Teresa Cain, Diego Huff and colleagues, with an educational meaghan from [employer]. Review of Systems Const Denies chills, Denies fatigue, Denies fever(s) and Denies headache(s) ENT Denies dysphagia, Denies dizziness, Denies otalgia, Denies headache(s), Denies neck pain, Denies odynophagia and Denies sore throat Card Denies chest pain, Denies palpitations and Denies dyspnea Resp Denies cough and Denies dyspnea GI Denies abdominal pain, Denies constipation, Denies dysphagia, Denies heartburn, Denies diarrhea, Denies nausea, Denies odynophagia and Denies vomiting Denies dysuria, Denies nocturia and Denies urinary frequency Musc Denies back pain and Denies neck pain Skin/Breast Denies rash Neuro Denies dizziness and Denies headache(s) Endo Denies fatigue and Denies palpitations Physical exam (Primary Care) Vital Signs: Last Vital Signs Pulse 74 10/09/23 15:35 BP 132/84 10/09/23 15:35 Pulse Ox 97 10/09/23 15:35 Oxygen Delivery Method Room Air 10/09/23 15:35 BMI result Body Mass Index 31.2 Tobacco/Smoking Status: Tobacco use Status Tobacco use date assessed 10/09/23 10/09/23 15:40 Patient Tobacco Use Status Never used Tobacco 10/09/23 15:40 e-Cigarette/Vaping Use Never Used 10/09/23 15:40 Thrive Assessment: Date of Thrive Assessment Date Thrive assessed 05/03/23 10/09/23 15:40 Const General: no acute distress and alert HENMT Ears: TM's normal bilaterally and EAC's normal Throat: Yes posterior oropharynx normal and Yes tonsils normal (no TP congestion noted) Neck Neck: Yes no lymphadenopathy and Yes supple Thyroid: Thyroid normal Resp Auscultation: clear to auscultation bilaterally, no rales and no wheezes Cardio Rate: regular rate Rhythm: abnormal rhythm irregularly irregular Heart sounds: no murmurs GI Palpation (GI): Soft to palpation and nontender Auscultation: normal bowel sounds General: Yes no CVA tenderness Back/Spine/Pelvis Back: no CVA tenderness Thoracic/Lumbar Spine: No lumbar spinal tenderness Skin Rashes: no rashes Extrem General: No clubbing, No cyanosis and Yes edema (1+ bipedal edema) Results AMB Hemoglobin A1c 2 AMB Hemoglobin A1c 8.0 % Last Edit by JM Lozano on 10/09/23 15:51 Results Reviewed Results Reviewed: Laboratory Last Values Hgb A1c (Clinic) 8.0 % (4.0-6.0) H 10/09/23 15:33 Laboratory Tests 06/28/23 11:33 WBC 7.7 Hgb 14.6 Hct 43.6 Plt Count 171 Sodium 142 Potassium 3.7 Creatinine 1.21 Estimated GFR 58 Fasting Glucose 162 H Hemoglobin A1c % 7.9 H Uric Acid 5.5 Calcium 9.2 D AST 17 ALT 16 Triglycerides 113 Cholesterol 147 LDL Cholesterol, Calc 92 HDL Cholesterol 33 L 25-OH Vitamin D Total 16.5 L TSH 0.92 Assessment and Plan Assessment & Plan (1) CAD (coronary artery disease): Comment: S/P coronary artery bypass graft x 3 - JACOBSEN to LAD, radial artery to diagonal, SVG to OM (2000) Code(s): I25.10 - Atherosclerotic heart disease of [place] coronary artery without angina pectoris Qualifiers: Associated angina: without angina Coronary Disease-Associated Artery/Lesion type: [place] artery [place] vs. transplanted heart: [place] heart Qualified Code(s): I25.10 - Atherosclerotic heart disease of [place] coronary artery without angina pectoris Plan: Asymptomatic - (+) remote Hx of CABG in 2000 Continue Isosorbide Mononitrate ER 30 mg QD and Metoprolol ER 100 mg BID; continue high-dose statin (Atorvastatin 40 mg) for primary risk reduction Follow up with cardiology as scheduled (2) Heart failure with reduced ejection fraction: Code(s): I50.20 - Unspecified systolic (congestive) heart failure Plan: Improving - last echocardiogram done on 08/31/2022 revealed improvement of EF to low normal at 50% to 55% (was previously around 25 to 30%) Repeat ehocardiogram done on 08/24/2023 (for 1 year follow-up) revealed no significant changes from a year ago - low normal LV ejection fraction at 50-55%, severe biatrial enlargement, cardiac valvular Dopplers within normal limits and RV systolic pressure at the upper limits of normal Continue Metoprolol ER 100 mg BID, Furosemide 20 mg QD and Losartan 50 mg BID Reinforced fluid restriction Follow up with cardiology as scheduled (3) Chronic atrial fibrillation: Code(s): I48.20 - Chronic atrial fibrillation, unspecified Plan: Patient presently remains in atrial fibrillation but is rate-controlled Continue Metoprolol ER 100 mg BID and lifelong anticoagulation with Coumadin daily He continues to follow up with the Coumadin clinic for PT/INR monitoring (4) Mixed hyperlipidemia: Code(s): E78.2 - Mixed hyperlipidemia Plan: Patient was not able to get his follow-up labs done prior to today's visit - states that he will try to get these done TEENA sometime in the next few days - labs are reordered Reinforced low cholesterol diet Continue Atorvastatin 40 mg QD Will recheck his labs and fasting lipids again in 3 months for follow up (5) Type 2 diabetes mellitus with diabetic chronic kidney disease: Code(s): E11.22 - Type 2 diabetes mellitus with diabetic chronic kidney disease Qualifiers: Chronic kidney disease stage: stage 2 (mild) Diabetes mellitus senior living insulin use: without senior living use Qualified Code(s): E11.22 - Type 2 diabetes mellitus with diabetic chronic kidney disease; N18.2 - Chronic kidney disease, stage 2 (mild) Plan: His in-office HgbA1c today is at 8.0% (his HgbA1c was at 7.6% when previously checked in November 2022) - goal is < 7.0% Reinforced diabetic diet Continue Januvia 50 mg QD for now (6) Chronic kidney disease (CKD), stage II (mild): Code(s): N18.2 - Chronic kidney disease, stage 2 (mild) Plan: Stable - will continue to monitor his GFR and serum creatinine regularly (7) Benign essential hypertension: Code(s): I10 - Essential (primary) hypertension Plan: Reinforced low sodium diet - goal is systolic BP of at least 140 mm or less Continue Losartan 50 mg BID and Metoprolol ER 100 mg BID (8) Peripheral vascular disease: Code(s): I73.9 - Peripheral vascular disease, unspecified Plan: Arterial studies done back in January 2023 revealed (+) high-grade popliteal artery stenosis by Doppler in the leg Follow up with vascular surgery as scheduled (9) Polymyalgia rheumatica: Code(s): M35.3 - Polymyalgia rheumatica Plan: He was on oral Prednisone in the past but was taken off his Rx by rheumatology a while back Used to [place] [facility] [place] but states that he has not seen them since Dr. Holder left [facility] several months ago States that he currently has no acute issues and prefers not to see rheumatology as he does not want to have any additional appts scheduled at this time (10) GERD without esophagitis: Code(s): K21.9 - Gastro-esophageal reflux disease without esophagitis Plan: Dietary restrictions reinforced Continue Omeprazole 20 mg QD (11) Gout: Code(s): M10.9 - Gout, unspecified Qualifiers: Chronicity: unspecified Gout etiology: idiopathic Gout site: unspecified site Qualified Code(s): M10.00 - Idiopathic gout, unspecified site Plan: Reinforced low purine diet Continue Allopurinol 300 mg QD (12) Erectile dysfunction: Code(s): N52.9 - Male erectile dysfunction, unspecified Qualifiers: Erectile dysfunction type: unspecified Qualified Code(s): N52.9 - Male erectile dysfunction, unspecified Plan: Continue Sildenafil 50 mg QD PRN (13) Obesity (BMI 30-39.9): Code(s): E66.9 - Obesity, unspecified Plan: Reinforced diet; exercise and weight loss are not realistic or practical at this time given patient's current issues Plan Follow up in 3 months Orders: Orders Microalbumin, Random (w Creat) 3 Months E11.9 - Type 2 diabetes mellitus without complications Complete Blood Count Auto Diff 10/09/23 D64.9 - Anemia, unspecified TSH reflex Free T4 10/09/23 E78.00 - Pure hypercholesterolemia, unspecified Comprehensive [place]. Panel Fast 10/09/23 E78.00 - Pure hypercholesterolemia, unspecified AMB Hemoglobin A1c 10/09/23 E11.22 - Type 2 diabetes mellitus with diabetic chronic kidney disease, N18.2 - Chronic kidney disease, stage 2 (mild) Lipid Panel 3 Months E78.00 - Pure hypercholesterolemia, unspecified Comprehensive [place]. Panel Fast 3 Months E78.00 - Pure hypercholesterolemia, unspecified Hemoglobin A1c 3 Months E11.9 - Type 2 diabetes mellitus without complications Lipid Panel 10/09/23 E78.00 - Pure hypercholesterolemia, unspecified UA CC w/rflx Micro + Cult 10/09/23 R30.0 - Dysuria Vitamin D 25-OH Total 10/09/23 E55.9 - Vitamin D deficiency, unspecified Microalbumin, Random (w Creat) 10/09/23 E11.9 - Type 2 diabetes mellitus without complications Uric Acid 10/09/23 M10.9 - Gout, unspecified Coding Level of Care Code Est Pt Level 4 (38762) Diagnoses Coronary artery disease involving [place] coronary artery of [place] heart without angina pectoris I25.10 Associated angina: without angina Coronary Disease-Associated Artery/Lesion type: [place] artery [place] vs. transplanted heart: [place] heart Heart failure with reduced ejection fraction I50.20 Chronic atrial fibrillation I48.20 Mixed hyperlipidemia E78.2 Type 2 diabetes mellitus with stage 2 chronic kidney disease, without long-term current use of insulin E11.22; N18.2 Chronic kidney disease stage: stage 2 (mild) Diabetes mellitus senior living insulin use: without senior living use Chronic kidney disease (CKD), stage II (mild) N18.2 Benign essential hypertension I10 Peripheral vascular disease I73.9 Polymyalgia rheumatica M35.3 GERD without esophagitis K21.9 Idiopathic gout, unspecified chronicity, unspecified site M10.00 Chronicity: unspecified Gout etiology: idiopathic Gout site: unspecified site Erectile dysfunction, unspecified erectile dysfunction type N52.9 Erectile dysfunction type: unspecified Obesity (BMI 30-39.9) E66.9
[2023-10-09 15:35] VITALS: BP 132/84; PULSE 74; O2SAT 97; BMI 31.2
== END 2023-10-09 16:19 | disposition home or self-care (01) ==
PROVIDERS: PCP Internal Medicine; Visit Provider Internal Medicine
DX: I25.10 Atherosclerotic heart disease of native coronary artery without angina pectoris (principal); I50.20 Unspecified systolic (congestive) heart failure; I48.20 Chronic atrial fibrillation, unspecified; E78.2 Mixed hyperlipidemia; E11.22 Type 2 diabetes mellitus with diabetic chronic kidney disease; N18.2 Chronic kidney disease, stage 2 (mild); I12.9 Hypertensive chronic kidney disease with stage 1 through stage 4 chronic kidney disease, or unspecified chronic kidney disease; I73.9 Peripheral vascular disease, unspecified; M35.3 Polymyalgia rheumatica; K21.9 Gastro-esophageal reflux disease without esophagitis; M10.00 Idiopathic gout, unspecified site; N52.9 Male erectile dysfunction, unspecified; E66.9 Obesity, unspecified
CPT/HCPCS: 83036; 99214

== ENCOUNTER 2023-10-16 08:50 | Outpatient (AMB) | payer MEDICARE, SELFPAY ==
[2023-10-16 09:12] LABS: Prothrombin Time Whole Bld POC 29.3 sec (11.1-13.5); ~PT, ~INR - Anti Coag Clinic 2.4 (0.9-1.1)
--- NOTE | 2023-10-16 09:21 | MHC.OFFVISCO ---
Intake Intake Visit Reasons: Anticoagulation Allergies No Known Allergies [No Known Allergies*] Allergy (Verified 10/16/23 09:08) Medication List - Last Reconciled 10/16/23 by Jesusita Cody RN allopurinol 300 mg PO DAILY atorvastatin 40 mg PO DAILY furosemide 20 mg PO DAILY isosorbide mononitrate ER 30 mg PO DAILY losartan 50 mg PO BID metoprolol succinate ER 100 mg PO BID omeprazole 20 mg PO DAILY PRN NS sitagliptin phosphate (Januvia) 50 mg PO DAILY 90 days warfarin 5 mg See Protocol PO DAILY Nursing Note NO CP,SOB,DIET/MED CHANGES,FALLS OR SX OF BLEEDING. CONTINUE PRESENT DOSE AND FOLLOW-UP IN 4 WEEKS. GOODUNDETSTANDING OF DOSING INSTR. Anti-Coag Initial Assessment Social Hx Patient Tobacco Use Status: Never used Tobacco alcohol intake: current Alcohol intake frequency: holidays/special occasions only Coding Level of Care Code Est Patient Level 1 Diagnoses Current use of anticoagulant therapy Z79.01 Assessment & Plan Assessment & Plan (1) Current use of anticoagulant therapy: Code(s): Z79.01 - [facility] (current) 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
== END 2023-10-16 09:22 | disposition home or self-care (01) ==
LOC: HO.ACS 08:50
PROVIDERS: PCP Internal Medicine; Visit Provider Internal Medicine
DX: Z79.01 Long term (current) use of anticoagulants (principal)

== ENCOUNTER 2023-10-16 09:25 | Outpatient (REF) | payer MEDICARE, SELFPAY ==
--- NOTE | ~2023-10-16 | US_ITS ---
EXAMINATION: US EXTRACRANIAL CAROTID DUPLEX, BILATERAL CLINICAL INFORMATION: Occlusion and stenosis of bilateral carotid arteries. Status post left endarterectomy. COMPARISON: None available. TECHNIQUE: Real-time ultrasound and Doppler techniques (integrating B-mode 2-D vascular images, Doppler spectral analysis and color-flow Doppler imaging) were utilized to interrogate the extracranial carotid arteries, the vertebral arteries and proximal subclavian arteries bilaterally. The degree of stenosis is determined by criteria similar to NASCET. FINDINGS: Right Side: 1. There is mild atherosclerotic plaque seen in the bifurcation/proximal ICA region. 2. The common carotid artery PSV proximally is 80 cm/s and distally 87 cm/s. 3. The proximal internal carotid artery velocities are 75 cm/s systolic and 18 cm/s diastolic. 4. The proximal external carotid artery PSV is 134 cm/s. 5. The vertebral artery shows antegrade flow. 6. The subclavian artery waveforms are normal. Left Side: 1. There is no atherosclerotic plaque seen in the bifurcation/proximal ICA region. 2. The common carotid artery PSV proximally is 107 cm/s and distally 94 cm/s. 3. The proximal internal carotid artery velocities are 60 cm/s systolic and 15 cm/s diastolic. 4. The proximal external carotid artery PSV is 90 cm/s. 5. The vertebral artery shows antegrade flow. 6. The subclavian artery waveforms are normal. US/US carotid duplex BI IMPRESSION: 1. RIGHT: Minimal, non-hemodynamically significant stenosis of the proximal right internal carotid artery corresponding to a 0-49% stenosis by velocity criteria. 2. LEFT: Normal left internal carotid artery without atherosclerotic plaque or hemodynamically significant stenosis.
[2023-10-16 10:17] LABS: MANUAL DIFF FLAG NO
[2023-10-16 10:40] LABS: Basophils Percent Auto 0.4 % (0-2); Eosinophils Absolute Auto 0.1 X10*3/uL (0.0-0.4); Eosinophils Percent Auto 1.7 % (0-4); Hematocrit 41.6 % (42.0-52.0); Imm Gran Abs Auto 0.02 X10*3/uL (0.00-0.03); Imm Gran Pct Auto 0.2 % (0.0-0.4); Lymphocytes Absolute Auto 1.4 X10*3/uL (1.2-4.9); Lymphocytes Percent Auto 16.9 % (20-40); Mean Corpuscular HGB Conc 33.7 g/dl (31.0-36.0); Mean Corpuscular Hemoglobin 30.4 pg (27.0-33.0); Mean Corpuscular Volume 90.4 fL (80.0-98.0); Mean Platelet Volume 10.4 fL (9.4-12.4); Monocytes Absolute Auto 0.9 X10*3/uL (0.1-1.2); Monocytes Percent Auto 10.8 % (2-11); Neutrophils Absolute Auto 5.9 x10*3/uL (2.0-8.3); Platelet Count 169 X10*3/uL (160-400); Red Cell Distribution Width 13.7 % (11.0-16.0); White Blood Count 8.4 X10*3/uL (4.8-10.8)
[2023-10-16 11:32] LABS: Alanine Aminotransferase 12 U/L (0-40); Albumin Level 3.9 g/dL (3.5-5.0); Alkaline Phosphatase 112 U/L (39-117); Anion Gap 12 (12-20); Aspartate Amino Transferase 14 U/L (5-37); Bilirubin Total 1.3 mg/dL (0.0-1.0); Blood Urea Nitrogen 18 mg/dL (9-16); Calcium 9.4 mg/dL (8.4-10.2); Carbon Dioxide 31 mmol/L (22-29); Chloride 102 mmol/L (96-108); Cholesterol 135 mg/dL (<200); Estimated Glomerular Filt Rate 55; Glucose Fasting 168 mg/dL (60-99); HDL Cholesterol 31 mg/dL (>40); LDL Cholesterol Calculated 82 mg/dL (<100); Potassium 3.5 mmol/L (3.3-5.1); Sodium 141 mmol/L (135-145); Total Protein 7.2 g/dL (6.5-8.0); Triglycerides 114 mg/dL (<150)
[2023-10-16 11:44] LABS: TSH reflex Free T4 1.02 uIU/mL (0.32-4.0); Vitamin D 25-OH Total 22.4 ng/mL (>30)
[2023-10-16 12:15] LABS: Uric Acid 5.6 mg/dL (3.4-7.0)
[2023-10-16 13:02] LABS: Appearance Urine Clear; Color Urine Yellow; Glucose Urine UA Negative (Negative); Leukocyte Esterase Urine Negative (Negative); Nitrite Urine Negative (Negative); Urine Blood Negative (Negative); Urine Ketones Negative (Negative); Urine Protein Trace mg/dL (Neg-Trace)
[2023-10-16 13:39] LABS: Creatinine Urine 31.98 mg/dL; Microalbum/Creatinine Ratio Ur 368.9 ug/mg cr (<30)
== END 2023-10-16 09:26 | disposition home or self-care (01) ==
LOC: HO.US 09:25
PROVIDERS: Absent Provider Internal Medicine; PCP Internal Medicine; Visit Provider Surgery Vascular Surgery
DX: I48.20 Chronic atrial fibrillation, unspecified (principal); I65.23 Occlusion and stenosis of bilateral carotid arteries; E78.00 Pure hypercholesterolemia, unspecified; E11.9 Type 2 diabetes mellitus without complications; E55.9 Vitamin D deficiency, unspecified; R30.0 Dysuria; D64.9 Anemia, unspecified; M10.9 Gout, unspecified; Z51.81 Encounter for therapeutic drug level monitoring; Z79.01 Long term (current) use of anticoagulants
CPT/HCPCS: 36415; 80053; 80061; 81003; 82043; 82306; 82570; 84443; 84550; 85025; 85610; 93880; 99211

== ENCOUNTER 2023-11-13 08:52 | Outpatient (AMB) | payer MEDICARE, SELFPAY ==
--- NOTE | 2023-11-13 09:09 | MHC.OFFVISCO ---
Intake Intake Visit Reasons: Anticoagulation Allergies No Known Allergies [No Known Allergies*] Allergy (Verified 11/13/23 09:05) Medication List - Last Reconciled 11/13/23 by Shell Delgado RN allopurinol 300 mg PO DAILY atorvastatin 40 mg PO DAILY furosemide 20 mg PO DAILY isosorbide mononitrate ER 30 mg PO DAILY losartan 50 mg PO BID 90 days metoprolol succinate ER 100 mg PO BID omeprazole 20 mg PO DAILY PRN NS sitagliptin phosphate (Januvia) 50 mg PO DAILY 90 days warfarin 5 mg See Protocol PO DAILY Nursing Note INR 3.9-?? out of therapeutic range of 2-3 Medications and supplements reviewed Patient status: pt with back pain Medications or supplements: no changes, taking tylenol prn- made aware increased tylenol will raise inr- increase greens Diet: appetite good Denies any signs and symptoms of bleeding or clotting or unusual bruising Bleeding, bruising, clotting discussed Nutritional guidance given: eat greens today and tomm to lower Dose: already took warfarin today, hold warfarin tomm then cont reg 5mg x 6, 2.5mg x 1 F/U INR Date : 2 weeks? Patient verbalizing understanding of instructions given. 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
[2023-11-13 09:10] LABS: ~PT, ~INR - Anti Coag Clinic 3.9 (0.9-1.1)
== END 2023-11-13 09:24 | disposition home or self-care (01) ==
LOC: HO.ACS 08:52
PROVIDERS: PCP Internal Medicine; Visit Provider Internal Medicine
DX: Z79.01 Long term (current) use of anticoagulants (principal)

== ENCOUNTER → 2023-11-13 08:52 | Outpatient (BNVA) | payer MEDICARE, SELFPAY | PROVIDERS: PCP Internal Medicine; Visit Provider Internal Medicine | DX: I48.20 Chronic atrial fibrillation, unspecified (principal); Z79.01 Long term (current) use of anticoagulants; Z51.81 Encounter for therapeutic drug level monitoring | CPT/HCPCS: 85610; 99211 ==

== ENCOUNTER 2023-11-28 10:02 | Outpatient (AMB) | payer MEDICARE, SELFPAY ==
--- NOTE | 2023-11-28 10:30 | MHC.OFFVISCO ---
Intake Intake Visit Reasons: Anticoagulation Allergies No Known Allergies [No Known Allergies*] Allergy (Verified 11/28/23 10:57) Medication List - Last Reconciled 11/28/23 by Shell Delgado RN allopurinol 300 mg PO DAILY atorvastatin 40 mg PO DAILY furosemide 20 mg PO DAILY isosorbide mononitrate ER 30 mg PO DAILY losartan 50 mg PO BID 90 days metoprolol succinate ER 100 mg PO BID omeprazole 20 mg PO DAILY PRN NS sitagliptin phosphate (Januvia) 50 mg PO DAILY 90 days warfarin 5 mg See Protocol PO DAILY Nursing Note INR 3.1-?? out of therapeutic range of 2-3 Medications and supplements reviewed Patient status: pt has appt with vascular today Medications or supplements: no changes Diet: same Denies any signs and symptoms of bleeding or clotting or unusual bruising Bleeding, bruising, clotting discussed Nutritional guidance given: eat greens today, increase greens Dose: 2.5mg x 1. 5mg x 6 F/U INR Date : 2 weeks Patient verbalizing understanding of instructions given. Anti-Coag Initial Assessment Social Hx Patient Tobacco Use Status: Never used Tobacco alcohol intake: current Alcohol intake frequency: holidays/special occasions only Questionnaires HAS-BLED Does the patient had uncontrolled Hypertension?: No Does the patient have renal disease?: Yes (per problem list) Does the patient have liver disease?: No Does the patient have a history of stroke?: Yes (pt states mini stroke) Has the patient had major bleeding or predisposition to bleeding?: No Does the patient have labile INRs?: Yes Is the patient over 65 years of age?: Yes Is the patient on medications that gives them a predisposition to bleeding?: Yes Does the patient use alcohol?: Yes HAS-BLED Score: 6 CHADSVASC Age: 75 or over Gender: Male Does the patient have a history of CHF?: Yes Does the patient have a history of Hypertension?: Yes Does the patient have a history of Stroke/TIA/Thromboembolism?: Yes Does the patient have a history of Vascular Disease (prior [place], PAD or aortic plaque)?: Yes Does the patient have a history of Diabetes?: Yes CHADS VACS Score: 8 [place] Prediction Score Rsk VTE Active Cancer: No Previous VTE, excluding superficial vein thrombosis: No Reduced mobility: No Already known Thrombophilic Condition: No With-in last month Trauma and/or Surgery: No Elderly 70 year or older: Yes Heart and/or Respiratory Failure: Yes Acute Myocardial infarction and/or Ischemic Stroke: No Acute Infection and/or Rheumatologic Disorder: Yes Obesity (BMI 30 or greater): Yes Ongoing Hormonal Treatment: No Score: 4 [place]ian Score less than 4; Low Risk of VTE Tr[place]ian Score 4 or greater; High Risk of VTE Coding Level of Care Code Est Patient Level 1 Diagnoses Current use of anticoagulant therapy Z79.01 Assessment & Plan Assessment & Plan (1) Current use of anticoagulant therapy: 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
[2023-11-28 10:32] LABS: Prothrombin Time Whole Bld POC 37.3 sec (11.1-13.5); ~PT, ~INR - Anti Coag Clinic 3.1 (0.9-1.1)
== END 2023-11-28 11:06 | disposition home or self-care (01) ==
LOC: HO.ACS 10:02
PROVIDERS: PCP Internal Medicine; Visit Provider Internal Medicine
DX: Z79.01 Long term (current) use of anticoagulants (principal)

== ENCOUNTER → 2023-11-28 10:02 | Outpatient (BNVA) | payer MEDICARE, SELFPAY | PROVIDERS: PCP Internal Medicine; Visit Provider Internal Medicine | DX: I65.23 Occlusion and stenosis of bilateral carotid arteries (principal); I89.0 Lymphedema, not elsewhere classified; I48.20 Chronic atrial fibrillation, unspecified; Z79.01 Long term (current) use of anticoagulants; Z51.81 Encounter for therapeutic drug level monitoring | CPT/HCPCS: 85610; 99211; 99212 ==

== ENCOUNTER 2023-11-28 10:53 | Outpatient (AMB) | payer MEDICARE, SELFPAY ==
[2023-11-28 10:54] VITALS: BP 124/78; BMI 31.2
--- NOTE | 2023-11-28 10:54 | MHC.OFFVIS ---
Vital Signs 11/28/23 10:54 Height 6 ft 2 in Weight 243 lb BMI 31.2 BP 124/78 Blood Pressure Location Rt brachial Position Sitting Intake Visit Reasons: follow up carotid US 10/16/23 Intake Note: follow up carotid US 10/16/23 s/p Hx of Left CEA 10 yrs ago at [facility] Accompanied by: Self / Same As Patient Allergies No Known Allergies [No Known Allergies*] Allergy (Verified 11/28/23 10:57) HPI HPI follow up carotid US 10/16/23: Details: Very pleasant 83-year-old gentleman presents for routine follow-up regarding his carotids. He had a left carotid endarterectomy nearly 10 years ago at [facility]. At the current time he appears to be doing relatively well in terms of that. Continues to have issues with his lower extremities in particular the skin. He reports skin cancer and multiple biopsies being performed by Dermatology. Of concern is his swelling and overall lymphedema. 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 Chronic atrial fibrillation CAD (coronary artery disease) Cardiomyopathy Surgical History History of cataract surgery History of colonoscopy History of squamous cell carcinoma excision History of coronary artery bypass graft History of hernia repair History of left-sided carotid endarterectomy S/P CABG x 3 Family History Father Myocardial infarction CVD (cardiovascular disease) Mother Medical history unknown Social History Housing: Condominium Alcohol intake: current Alcohol intake frequency: holidays/special occasions only Patient Tobacco Use Status: Never used Tobacco e-Cigarette/Vaping Use: Never Used Second Hand Smoke Exposure: Yes service: Yes Current occupational status: retired Cognitive needs: No Hearing needs: No Vision needs: Yes Review of Systems Const Reports as per HPI ENT Reports no additional complaints Card Denies chest pain, Denies chest pain at rest and Denies chest pain with activity Resp Denies chest congestion and Denies cough GI Reports no additional complaints Musc Details: pain over varicosities, aching of lower extremities, swelling, cramping, heaviness and tiredness, itching Denies abnormal gait Skin/Breast Reports pruritus and Denies wounds Neuro Reports no additional complaints and Denies abnormal gait Psych Denies no additional complaints Physical Exam Vital Signs: Last Vital Signs BP 124/78 11/28/23 10:54 BMI result Body Mass Index 31.2 Const General: cooperative, healthy appearing and comfortable Orientation/consciousness: oriented to person, oriented to place and oriented to time Neck Carotids: no bruits Chest Chest palpation & inspection: normal inspection of the chest and normal palpation of entire chest wall Resp Effort & Inspection: normal respiratory effort and able to speak in complete sentences Cardio Rate: regular rate Heart sounds: S1 normal heart sound present and S2 normal heart sound present Peripheral pulses: Peripheral pulses 2+ throughout GI Inspection: Yes normal to inspection Skin Other: +2 edema, significant bilateral lower extremity skin color change CEAP Classification C4 - skin color changes Ep - Etiology Primary As - superficial veins P - reflux General skin exam: dry skin Neuro General: oriented to person, oriented to place and oriented to time Extrem Right lower extremity: full ROM, normal capillary refill and edema Left lower extremity: full ROM, normal capillary refill and edema Psych Mental Status: mental status grossly normal Results Reviewed Results Reviewed: Noninvasive carotid testing demonstrates bilateral 0-49% stenosis Assessment & Plan Assessment & Plan (1) Carotid stenosis, bilateral: Comment: 2013 left carotid endarterectomy performed at [facility] Code(s): I65.23 - Occlusion and stenosis of bilateral carotid arteries Category: Medical Plan: In short he is stable from a carotid standpoint. Both sides have minimal disease. We did discuss routine risk factor modification and no further follow-up of this is required. (2) Lymphedema: Code(s): I89.0 - Lymphedema, not elsewhere classified Category: Medical Plan: In terms of his lower extremities he does have significant swelling. Previous venous insufficiency testing has shown to be negative. I did schedule him for routine follow-up of his lower extremities in approximately 6 months time. At that point I do hope that the dermatologic issues have resolved or been treated. At that time would like to start him on possible lymphedema therapy. Thank you for allowing us to assist in his care. If there are any questions or concerns please do not hesitate to contact us. Please note a longitudinal relationship has been created with the patient and we have been following and surveillance this chronic condition. Coding Level of Care Code Est Pt Level 4 (48667) Complex EM visit Add On G2211 Diagnoses Carotid stenosis, bilateral I65.23 Lymphedema I89.0
== END 2023-11-28 11:14 | disposition home or self-care (01) ==
PROVIDERS: PCP Internal Medicine; Visit Provider Surgery Vascular Surgery
DX: I65.23 Occlusion and stenosis of bilateral carotid arteries (principal); I89.0 Lymphedema, not elsewhere classified
CPT/HCPCS: 99214; G2211

== ENCOUNTER 2023-12-11 10:18 | Outpatient (AMB) | payer MEDICARE, SELFPAY ==
--- NOTE | 2023-12-11 10:39 | MHC.OFFVISCO ---
Intake Intake Visit Reasons: Anticoagulation Allergies No Known Allergies [No Known Allergies*] Allergy (Verified 12/11/23 10:35) Medication List - Last Reconciled 12/11/23 by Shell Delgado RN allopurinol 300 mg PO DAILY atorvastatin 40 mg PO DAILY furosemide 20 mg PO DAILY isosorbide mononitrate ER 30 mg PO DAILY losartan 50 mg PO BID 90 days metoprolol succinate ER 100 mg PO BID omeprazole 20 mg PO DAILY PRN NS sitagliptin phosphate (Januvia) 50 mg PO DAILY 90 days warfarin 5 mg See Protocol PO DAILY Nursing Note INR: 2.5- in therapeutic range of 2-3 Medications and supplements reviewed- no changes No changes in health, diet, medications, or supplements, Denies any signs and symptoms of bleeding or bruising or clotting. Bleeding, bruising, clotting discussed Nutritional guidance given Dose: 5mg x 6, 2.5mg x 1 F/U INR: 4 weeks Patient verbalizes understanding of instructions given Anti-Coag Initial Assessment Social Hx Patient Tobacco Use Status: Never used Tobacco alcohol intake: current Alcohol intake frequency: holidays/special occasions only Coding Level of Care Code Est Patient Level 1 Diagnoses Current use of anticoagulant therapy Z79.01 Assessment & Plan Assessment & Plan (1) Current use of anticoagulant therapy: Code(s): Z79.01 - residential (current) 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
[2023-12-11 10:40] LABS: Prothrombin Time Whole Bld POC 29.8 sec (11.1-13.5); ~PT, ~INR - Anti Coag Clinic 2.5 (0.9-1.1)
== END 2023-12-11 10:44 | disposition home or self-care (01) ==
LOC: HO.ACS 10:18
PROVIDERS: PCP Internal Medicine; Visit Provider Internal Medicine
DX: Z79.01 Long term (current) use of anticoagulants (principal)

== ENCOUNTER → 2023-12-11 10:18 | Outpatient (BNVA) | payer MEDICARE, SELFPAY | PROVIDERS: PCP Internal Medicine; Visit Provider Internal Medicine | DX: I48.20 Chronic atrial fibrillation, unspecified (principal); Z79.01 Long term (current) use of anticoagulants; Z51.81 Encounter for therapeutic drug level monitoring | CPT/HCPCS: 85610; 99211 ==

== ENCOUNTER 2024-01-08 09:06 | Outpatient (AMB) | payer MEDICARE, SELFPAY ==
[2024-01-08 09:13] LABS: ~PT, ~INR - Anti Coag Clinic 2.8 (0.9-1.1)
--- NOTE | 2024-01-08 09:16 | MHC.OFFVISCO ---
Intake Intake Visit Reasons: Anticoagulation Allergies No Known Allergies [No Known Allergies*] Allergy (Verified 01/08/24 09:08) Medication List - Last Reconciled 01/08/24 by Annamarie Sharif RN allopurinol 300 mg PO DAILY atorvastatin 40 mg PO DAILY furosemide 20 mg PO DAILY isosorbide mononitrate ER 30 mg PO DAILY losartan 50 mg PO BID 90 days metoprolol succinate ER 100 mg PO BID omeprazole 20 mg PO DAILY PRN NS sitagliptin phosphate (Januvia) 50 mg PO DAILY 90 days warfarin 5 mg See Protocol PO DAILY Nursing Note INR: 2.8 in therapeutic range of 2-3 Medications and supplements reviewed No changes in health, diet, medications, or supplements, Denies any signs and symptoms of bleeding or bruising or clotting. Bleeding, bruising, clotting discussed Nutritional guidance given Dose: keep same dose of 5mg X 6 days and 2.5mg X 1 day F/U INR: 4 weeks Patient verbalizes understanding of instructions given Anti-Coag Initial Assessment Social Hx Patient Tobacco Use Status: Never used Tobacco alcohol intake: current Alcohol intake frequency: holidays/special occasions only Coding Level of Care Code Est Patient Level 1 Diagnoses Current use of anticoagulant therapy Z79.01 Assessment & Plan Assessment & Plan (1) Current use of anticoagulant therapy: Code(s): Z79.01 - residential (current) 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
== END 2024-01-08 09:17 | disposition home or self-care (01) ==
LOC: HO.ACS 09:06
PROVIDERS: PCP Internal Medicine; Visit Provider Internal Medicine
DX: Z79.01 Long term (current) use of anticoagulants (principal)

== ENCOUNTER → 2024-01-08 09:06 | Outpatient (BNVA) | payer MEDICARE, SELFPAY | PROVIDERS: PCP Internal Medicine; Visit Provider Internal Medicine | DX: I48.20 Chronic atrial fibrillation, unspecified (principal); Z79.01 Long term (current) use of anticoagulants; Z51.81 Encounter for therapeutic drug level monitoring | CPT/HCPCS: 85610; 99211 ==

== ENCOUNTER 2024-02-05 08:56 | Outpatient (AMB) | payer MEDICARE, SELFPAY ==
--- NOTE | 2024-02-05 09:02 | MHC.OFFVISCO ---
Intake Intake Visit Reasons: Anticoagulation Allergies No Known Allergies [No Known Allergies*] Allergy (Verified 02/05/24 08:58) Medication List - Last Reconciled 02/05/24 by Shell Delgado RN allopurinol 300 mg PO DAILY atorvastatin 40 mg PO DAILY furosemide 20 mg PO DAILY isosorbide mononitrate ER 30 mg PO DAILY losartan 50 mg PO BID 90 days metoprolol succinate ER 100 mg PO BID omeprazole 20 mg PO DAILY PRN NS sitagliptin phosphate (Januvia) 50 mg PO DAILY 90 days warfarin 5 mg See Protocol PO DAILY Nursing Note INR: 2.9- in therapeutic range of 2-3 Medications and supplements reviewed No changes in health, diet, medications, or supplements, Denies any signs and symptoms of bleeding or bruising or clotting. Bleeding, bruising, clotting discussed Nutritional guidance given Dose: 2.5mg x 1, 5mg x 6 F/U INR: 4 weeks Patient verbalizes understanding of instructions given Anti-Coag Initial Assessment Social Hx Patient Tobacco Use Status: Never used Tobacco alcohol intake: current Alcohol intake frequency: holidays/special occasions only Coding Level of Care Code Est Patient Level 1 Diagnoses Current use of anticoagulant therapy Z79.01 Results AMB INR Fingerstick AMB INR Fingerstick 2.9 Last Edit by Shell Delgado RN on 02/05/24 09:04 interface delay Assessment & Plan Assessment & Plan (1) Current use of anticoagulant therapy: Code(s): Z79.01 - retirement (current) 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
[2024-02-05 09:04] LABS: Prothrombin Time Whole Bld POC 34.7 sec (11.1-13.5); ~PT, ~INR - Anti Coag Clinic 2.9 (0.9-1.1)
== END 2024-02-05 09:08 | disposition home or self-care (01) ==
LOC: HO.ACS 08:56
PROVIDERS: PCP Internal Medicine; Visit Provider Internal Medicine
DX: Z79.01 Long term (current) use of anticoagulants (principal)

== ENCOUNTER → 2024-02-05 08:56 | Outpatient (BNVA) | payer MEDICARE, SELFPAY | PROVIDERS: PCP Internal Medicine; Visit Provider Internal Medicine | DX: I48.20 Chronic atrial fibrillation, unspecified (principal); Z79.01 Long term (current) use of anticoagulants; Z51.81 Encounter for therapeutic drug level monitoring | CPT/HCPCS: 85610; 99211 ==

== ENCOUNTER 2024-02-26 12:03 | Outpatient (AMB) | payer MEDICARE, SELFPAY ==
--- NOTE | 2024-02-26 12:26 | A.OFFVIS_ITS ---
Vital Signs 02/26/24 12:27 Height 6 ft 2 in Weight 240 lb 4.862 oz BMI 30.8 BP 140/62 H Blood Pressure Location Lt brachial Position Sitting Pulse 72 Pulse Source Pulse Oximeter Intake Visit Reasons: 6 mth f/up Allergies No Known Allergies [No Known Allergies*] Allergy (Verified 02/05/24 08:58) Medication List - Last Reconciled 02/26/24 by Poncho Altamirano MD allopurinol 300 mg PO DAILY atorvastatin 40 mg PO DAILY furosemide 20 mg PO DAILY isosorbide mononitrate ER 30 mg PO DAILY losartan 50 mg PO BID 90 days metoprolol succinate ER 100 mg PO BID omeprazole 20 mg PO DAILY PRN NS warfarin 5 mg See Protocol PO DAILY HPI Comments Details: Galen comes for follow-up. He has not noted any new cardiac symptoms. Continues to have leg edema if he does not wear his compression stockings throughout the day. Being seen by vascular for possible lymphedema. He denies any symptoms of claudication. Denies any discoloration of his toe. Denies any orthopnea, PND, abdominal distention, weight gain. Denies any exertional chest pain. No lightheadedness, syncope. No prolonged palpitation irregular heartbeat. 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 Chronic atrial fibrillation CAD (coronary artery disease) Cardiomyopathy Surgical History History of cataract surgery History of colonoscopy History of squamous cell carcinoma excision History of coronary artery bypass graft History of hernia repair History of left-sided carotid endarterectomy S/P CABG x 3 Family History Father Myocardial infarction CVD (cardiovascular disease) Mother Medical history unknown Social History [facility] Alcohol intake: current Alcohol intake frequency: holidays/special occasions only Patient Tobacco Use Status: Never used Tobacco e-Cigarette/Vaping Use: Never Used Second Hand Smoke Exposure: Yes service: Yes Current occupational status: retired Cognitive needs: No Hearing needs: No Vision needs: Yes Review of Systems Const Denies weakness ENT Denies dizziness Card Denies chest pain, Denies chest pain with activity, Denies syncope, Denies rapid heart rate, Denies pedal edema, Denies edema, Denies leg edema, Denies lightheadedness, Denies palpitations, Denies dyspnea, Denies dyspnea on exertion and Denies orthopnea Resp Denies cough, Denies dyspnea and Denies dyspnea on exertion GI Denies hematochezia and Denies change in stool character Musc Denies abnormal gait, Denies muscle cramps, Denies muscle weakness, Denies numbness, Denies radiating pain into limb and Denies tingling Neuro Denies abnormal gait, Denies dizziness, Denies syncope, Denies numbness, Denies tingling and Denies weakness Endo Denies palpitations Physical Exam Vital Signs: Last Vital Signs Pulse 72 02/26/24 12:27 BP 140/62 H 02/26/24 12:27 BMI result Body Mass Index 30.8 Const General: cooperative, comfortable, alert, awake and well groomed Nutritional Appearance: obese Orientation/consciousness: patient oriented x3 Limitations: no limitations Neck Neck: Yes trachea midline, Yes supple and Yes no JVD Chest Chest palpation & inspection: normal inspection of the chest Resp Effort & Inspection: normal respiratory effort Auscultation: clear to auscultation bilaterally Cardio Rhythm: abnormal rhythm irregularly irregular Heart sounds: S1 normal heart sound present and S2 normal heart sound present GI Auscultation: normal bowel sounds Skin General skin exam: no rashes or lesions noted and ecchymosis Neuro General: patient oriented x3 and no focal motor deficits Extrem General: No clubbing, No cyanosis, Yes edema (2+ below knee, woody) and Yes venous stasis dermatitis Psych Appearance: grossly normal Assessment & Plan Assessment & Plan (1) Chronic atrial fibrillation: Code(s): I48.20 - Chronic atrial fibrillation, unspecified Category: Medical Plan: Chronic rate control atrial fibrillation current therapy. Has done well with rate control. Has failed rhythm control in the past. Longstanding atrial fibrillation significant biatrial enlargement unlikely to pursue rhythm control approach. Currently on warfarin therapy, continue the same being followed by [facility]. Maintain target INR between 2 and 3. Discussed about direct oral anticoagulant therapy, he wants to defer to warfarin therapy at this point time which is appropriate. (2) CAD (coronary artery disease): Comment: S/P coronary artery bypass graft x 3 - JACOBSEN to LAD, radial artery to diagonal, SVG to OM (2000) Code(s): I25.10 - Atherosclerotic heart disease of [place] coronary artery without angina pectoris Category: Medical Qualifiers: Coronary Disease-Associated Artery/Lesion type: [place] artery [place] vs. transplanted heart: [place] heart Associated angina: without angina Qualified Code(s): I25.10 - Atherosclerotic heart disease of [place] coronary artery without angina pectoris Plan: CAD status post three-vessel coronary artery bypass grafting, remotely. Currently having no symptoms of angina. Continue aggressive medical therapy. Continue current warfarin therapy and avoid aspirin therapy to reduce bleeding risk. Continue aggressive blood pressure control which is currently well optimized. Continue high-intensity statin therapy with target goal LDL less than 70 mg/dL. (3) Congestive heart failure: Code(s): I50.9 - Heart failure, unspecified Category: Medical Plan: Heart failure with preserved LV ejection fraction clinically euvolemic and well compensated. Continue current diuretic dose. Daily weight monitoring avoidance of salt loading was discussed. Advised to call me with worsening symptoms of fluid congestion. Blood pressure is currently well optimized. Target goal blood pressure less than 130/84. Low-salt diet was discussed. Will follow up in the clinic in 6 months time after an echocardiogram. Thank you for allowing me to partake in his care Orders: Orders CA echo transthoracic complete 6 Months I50.9 - Heart failure, unspecified Coding Level of Care Code Est Pt Level 4 (13571) Complex EM visit Add On G2211 Diagnoses Chronic atrial fibrillation I48.20 Coronary artery disease involving [place] coronary artery of [place] heart without angina pectoris I25.10 Coronary Disease-Associated Artery/Lesion type: [place] artery [place] vs. transplanted heart: [place] heart Associated angina: without angina Congestive heart failure I50.9
[2024-02-26 12:27] VITALS: BP 140/62; PULSE 72; BMI 30.8
--- OUTSIDE RECORDS SUMMARY | 2024-02-28 15:22 | XMS_ITS ---
Author Organization [facility] Address [address] [facility] [place] [address] Care Team Providers Care Table Hand Name Role Phone Enrrique GOMES, [place] Primary Care Provider Rasheeda Lo Unavailable [phone] Allergies No Known Allergies REASON FOR VISIT At Risk Footcare, Painful Nail(s) aggrevated by shoes and causing difficulty standing/walking. Medications Medication SIG (Take, Route, Frequency, Duration) Notes Start Date End Date Status Ciclopirox Olamine 0.77 % 1 application Externally Twice a day for 30 days Active Allopurinol 300 MG 1 tablet Orally Once a day for 30 day(s) Active Ammonium Lactate 12 % 1 application to affected area Externally to feet Twice a day for 30 days Active Isosorbide Mononitrate ER 30 MG 1 tablet in the morning Orally Once a day for 30 day(s) Active Furosemide 20 MG 1 tablet Orally Once a day for 30 day(s) Active Metoprolol Succinate 100 MG 1 capsule Orally Once a day for 30 day(s) Active Cephalexin 500 MG 1 capsule Orally jermaine ry 12 hrs for 5 days Not-Taking Atorvastatin Calcium 40 MG 1 tablet Orally Once a day for 30 day(s) Active Warfarin Sodium 5 MG 1 tablet Orally Onc e a day for 30 day(s) Active Losartan Potassium 50 MG 1 tablet Orally Once a day for 30 day(s) Active Cephalexin 500 MG 1 capsule Orally jermaine ry 12 hrs for 10 days Not-Taking Social History Tobacco Use: Social History Observation Description Date Details (start date - stop date) Former Smoker NA - NA Tobacco Use/Smoking Question Answer Notes Are you a: former smoker Additional Findings: Tobacco Non-User Current no n-smoker Tobacco use other than smoking: Question Answer Notes Are you an other tobacco user? No Vital Signs Height 6 ft 2 in in 11/29/2023 Weight 240 lbs 11/29/2023 BMI 30.81 kg/m2 11/29/2023 Blood pressure systolic 178 mm Hg 11/29/19 24 Blood pressure diastolic 45 mm Hg 024 Encounters Encounter Location Date Provider Diagnosis [facility] [place] [address] [place] [address] 11/29/2023 Rasheeda Pennington Atherosclerosis of artery of both lower extremities I70.203 ; Neuropathy G62.9 ; Tinea unguium B35.1 ; Pain in toe of left foot M79.675 and Pain in toe of right foot M79.674 Assessments Encounter Date Diagnosis (ICD Code) Assessment Notes Treatment Notes Treatment Clinical Notes Section Notes 11/29/2023 Atherosclerosis of artery of both lower extremities (ICD-10 - I70.203) 11/29/2023 Neuropathy (ICD-10 - G62.9) 11/29/2023 Tinea unguium (ICD-10 - B35.1) 11/29/2023 Pain in toe of left foot (ICD-10 - M79.675) 11/29/2023 Pain in toe of right foot (ICD-10 - M79.674) Plan Of Treatment Next Appt Details Follow Up: 2 Months, Reason: Provider Name:Rasheeda guzman, 04/24/2024 01:30:00 PM, [address] [place] [address], [id number], Procedure Notes * Category Sub-Category Detail Notes Debride Nail 6-10 Nail debridement Nail debridem ent performed extensively to reduce/remove overall nail length and girth, subungual debris, and necrotic tissue, by manual and electrical means with use of a nail nipper and/or dremel, to more viable healthy nail plate or bed tissue 6-10. Silver nitrate used for any petechial bleeding as necessary. Patient chooses, no pharmaceutical tx (53967) Keratoma Treatment Parring or Cutting o f Benign Hyperkeratotic Lesion(s) 98397 ( More than 4 Lesions ) - The Benign hyperkeratotic lesions, as described above were pared, and/or cut utilizing a sterile 15 blade, tissue nippers, and/or dremel , Q8 Progress Notes * Galen SALVADOR TDOB:04/1940 (83 yo M)Acc No.[id number]:11/29/2023 Progress Note Patient:Galen De Jesus Provider:?Rasheeda Pennington DPM :1940???Age:83 Y???Sex:Male [place] e:11/29/2023 Address:[address] [place], [place] [id number] Pcp:Evens Osuna MD Subjective: * Chief Complaints: * ???At Risk FootcarePainful N ail(s) aggrevated by shoes and causing difficulty standing/walking. * HPI: ???At Risk footcare:?Pt States Last PCP Visit:?Date?06/19/2023 * ROS:?General/Constitutional:?Nausea?denies, denies.?Vomiting?denies, denies.?Hunger Thirst?denies, denies.?Loss appetite?denies, denies.?Chills?denies, denies.?Fatigue?denies, denies.?Fever?denies, denies.?Night Sweats denies, denies.?Unexplained weight loss?denies, denies.?Unexplained weight gain?denies, denies.?HEENTM:?Dentures?denies, denies.?Dizziness?denies, denies.?Glasses/contacts?denies, denies.?Retinopathy?denies, denies.?Blurred/double vision?denies, denies.?TMJ?denies, denies.?Discharge/drainage?denies, denies.?Implants?denies, denies.?Sore throat?denies, denies.?Dental implants?denies, denies.?Hard of hearing ?denies, denies.?Difficulty chewing/swallowing/speaking?denies, denies.?Nose bleeds?denies, denies.?Sore mouth?denies, denies.?Respiratory:?On Oxygen?denies, denies.?Pneumonia/pleurisy?denies, denies.?Bronchitis?denies, denies.?Emphysema?denies, denies.?Coughing?denies, denies.?Cough blood?denies, denies.?Shortness of breath?denies, denies.?Wheezing?denies, denies.?Cardiovascular:?Pacemaker?denies, denies.?MVP?denies, denies.?WPW?denies, denies.?CHF?denies, denies.?Heart attack?denies, denies.?Septal defect?denies, denies.?Rapid beat?denies, denies.?Chest pain ?denies, denies.?Atrial Fib.?denies, denies.?Murmur/Palpitations?denies, denies.?Gastrointestinal:?Hemorrhoids?denies, denies.?Stomach/Abdominal pain?denies, denies.?Dark blood stool?denies, denies.?Irritable bowel ?denies, denies.?Constipation?denies, denies.?Diarrhea?denies, denies.?Hematology:?Swelling?denies, denies.?Clots?denies, denies.?Varicose Veins?denies, denies.?Bruising?denies, denies.?Bleeding problem?denies, denies.?Genitourinary:?Blood urine?denies, denies.?Frequent/Painfu/urination/bladder control?denies, denies.?Kidney stones?denies, denies.?Infection (UTI)?denies, denies.?Nephropathy?denies, denies.?sex trans dis (STD)?denies, denies.?Prostate?denies, denies.?Musculoskeletal:?Hammertoes?denies, denies.?Bunions?denies, denies.?Back Pain?denies, denies.?Muscle Cramps/ Resting?denies, denies.?Muscle cramps / walking?denies, denies.?Generalized aches and pains?denies, denies.?Weakness?denies, denies.?Integ.:?Ceballos?denies, denies.?Scars?denies, denies.?Corns/calluses?denies, denies.?Ingrown nails?denies, denies.?Painful nails?denies, denies.?Open Sores?denies, denies.?Rashes?denies, denies.?Neurologic:?Difficulty sleeping?denies, denies.?Brain disorder?denies, denies.?Numbness?admits, admits.?Balance trouble?admits, admits.?Confusion?denies, denies.?Fainting/blackouts?denies, denies.?Tingling?admits, admits.?Tremors?denies, denies.? * Medical History:? * Surgical History:?heart bypa ss 10/2000Nose Bx- Skin cancer 06/2022 * Hospitalization/Major Diagno stic Procedure:?Denies Past Hospitalization * Family History:?Mother: dece ased.?Father: , diagnosed with Unspecified heart disease.? * Social History:?Tobacco Use:?Tobacco Use/Smoking?Are you a:?former smoker ?Additional Findings: Tobacco Non-User?Current non-smoker ?Tobacco use other than smoking?Are you an other tobacco user??No ???Miscellaneous:?Caffeine: yes, frequency:, 1-2 cups per day. ?Children: yes. ?Exercise: yes, walking,gym at [facility] 3 times a week. ?Marital status: . 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 * Medications:?TakingMetoprolo l Succinate 100 MG Capsule ER 24 Hour Sprinkle 1 capsule Orally Once a dayLosartan Potassium 50 MG Tablet 1 tablet Orally Once a dayWarfarin Sodium 5 MG Tablet 1 tablet Orally Once a dayAtorvastatin Calcium 40 MG Tablet 1 tablet Orally Once a dayAllopurinol 300 MG Tablet 1 tablet Orally Once a dayFurosemide 20 MG Tablet 1 tablet Orally Once a dayIsosorbide Mononitrate ER 30 MG Tablet Extended Release 24 Hour 1 tablet in the morning Orally Once a dayAmmonium Lactate 12 % Cream 1 application to affected area Externally to feet Twice a dayCiclopirox Olamine 0.77 % Cream 1 application Externally Twice a dayTaking Metoprolol Succinate 100 MG Capsule ER 24 Hour Sprinkle 1 capsule Orally Once a dayTaking Losartan Potassium 50 MG Tablet 1 tablet Orally Once a dayTaking Warfarin Sodium 5 MG Tablet 1 tablet Orally Once a dayTaking Atorvastatin Calcium 40 MG Tablet 1 tablet Orally Once a dayTaking Allopurinol 300 MG Tablet 1 tablet Orally Once a dayTaking Furosemide 20 MG Tablet 1 tablet Orally Once a dayTaking Isosorbide Mononitrate ER 30 MG Tablet Extended Release 24 Hour 1 tablet in the morning Orally Once a dayTaking Ammonium Lactate 12 % Cream 1 application to affected area Externally to feet Twice a dayTaking Ciclopirox Olamine 0.77 % Cream 1 application Externally Twice a dayNot-Taking/PRNCephalexin 500 MG Capsule 1 capsule Orally every 12 hrsCephalexin 500 MG Capsule 1 capsule Orally every 12 hrsMedication List reviewed and reconciled with the patientNot-Taking/PRN Cephalexin 500 MG Capsule 1 capsule Orally every 12 hrsNot-Taking/PRN Cephalexin 500 MG Capsule 1 capsule Orally every 12 hrsMedication List reviewed and reconciled with the patient * Allergies:?N.K.D.A.yes[Aller gies Verified] Objective: * Vitals:?Ht: 6 ft 2 in, Wt: 2 40, BMI: 30.81, Shoe size: 12, BP: 178/45 mm Hg, Ht- cm: 187.96 cm, Wt-k.86 kg. * Examination: ???Vascular: ?DP PULSES:? 0/4, B/L.?PT PULSES:? 0/4, B/L.?CAPILLARY FILL TIME:? delayed, all digits, B/L.?SKIN TEMPERTURE GRADIENT OF THE LOWER EXTERMITIES:? decreased, cool to cool, proximal to distal, B/L.?TROPHIC CONDITION FOR TEXTURE/ELASTICITY/TURGOR/HAIR GROWTH:? decreased, B/L.?PIGMENTATION:?pale, B/L.?EDEMA:?2/4.?CLAUDICATION:?denies, B/L.?REST PAIN:?denies, B/L.?Nails: ?NAILS are:? Elongated, overgrown, dystrophic, lytic, greater than 3mm thick, discolored and friable with crumbly malodorous subungual debris, with pain on palpation, 1-5 B/L.?Dermatologic: ?SKIN FINDINGS:? Skin exam reveals Keratotic lesion(s) located at?TA, T1, T5, Sub met 1 B/L, heels B/L Skin shows sign(s) of, erythema, scaling, in a moccasin fashion, no fissure(s) present, B/L.?Neurological: ?SENSORY:?Neurological exam demonstrates , reduced light touch sensation , reduced sharp/dull pin prick discrimination , reduced vibration sensation , reduced proprioception sensation , in a stocking fashion , plantar aspects , 5.07 monofilament test performed at plantar aspects of 5 varied sites per foot shows sensation , reduced , at Forefoot , B/L.? Assessment: * Assessment: 1.?Atherosclerosis of artery of both lower extremities - I70.203 (Primary)?2.?Neuropathy - G62.9?3.?Tinea unguium - B35.1?4.?Pain in toe of left foot - M79.675?5.?Pain in toe of right foot - M79.674? Plan: * Treatment: * Procedures:?Debride Nail 6-10:?Nail debridement?Nail debridement performed extensively to reduce/remove overall nail length and girth, subungual debris, and necrotic tissue, by manual and electrical means with use of a nail nipper and/or dremel, to more viable healthy nail plate or bed tissue 6-10. Silver nitrate used for any petechial bleeding as necessary. Patient chooses, no pharmaceutical tx (54271).?Keratoma Treatment:?Parring or Cutting of Benign Hyperkeratotic Lesion(s)?28577 ( More than 4 Lesions ) - The Benign hyperkeratotic lesions, as described above were pared, and/or cut utilizing a sterile 15 blade, tissue nippers, and/or dremel , Q8.? * Procedure Codes:?65081 DEBRI DE NAIL, 6 OR MORE, Modifiers: XS 12276 TRIM SKIN LESIONS, OVER 4, Modifiers: XS , Q8 * Follow Up:?2 Months * Images: * Sign off status: Completed true * Provider:?Rasheeda Pennington DPM Date:?01/2024 Generated for Oliver hanna/Pily/Stewartsmitting on:?02/28/2024 03:22 PM EST History and Physical Notes * HPI (History of Present Illness) Category Sub-Category Detail Notes Category Not es At Risk footcare Pt States Last PCP Visit: Date: Examination Category Sub-Category Detail Notes Category Not es Neurological SENSORY: Neurological exa m demonstrates , reduced light touch sensation , reduced sharp/dull pin prick discrimination , reduced vibration sensation , reduced proprioception sensation , in a stocking fashion , plantar aspects , 5.07 monofilament test performed at plantar aspects of 5 varied sites per foot shows sensation , reduced , at Forefoot , B/L Dermatologic SKIN FINDINGS: Skin exam reveal s Keratotic lesion(s) located at TA, T1, T5, Sub met 1 B/L, heels B/L Skin shows sign(s) of, erythema, scaling, in a moccasin fashion, no fissure(s) present, B/L Vascular DP PULSES(B): 0/4, B/L PT PULSES(B): 0/4, B/L CAPILLARY FILL TIME: delayed, all digits , B/L TEMPERTURE GRADIENT(C): decreased, cool to cool, proximal to distal, B/L TROPHIC CONDITION-TEXTURE/ELASTICITY/TURGOR/HAIR GROWTH(B): decreased, B/L EDEMA(C): 2/4 CLAUDICATION(C): denies, B/L REST PAIN: denies, B/L PIGMENTATION: pale, B/L Nails NAILS are: Elongated, overg rown, dystrophic, lytic, greater than 3mm thick, discolored and friable with crumbly malodorous subungual debris, with pain on palpation, 1-5 B/L
--- OUTSIDE RECORDS SUMMARY | 2024-02-28 15:22 | XMS_ITS ---
Author Organization [facility] Address [address] [place] [address] Care Team Providers Care Type Copyist Name Role Phone Enrrique GOMES, [place] Primary Care Provider Rasheeda Lo Unavailable [phone] Encounters Encounter Location Date Provider Diagnosis [address] [address] 11/10/2023 Rasheeda Pennington Plan Of Treatment Next Appt Details Provider Name:Rasheeda guzman, 04/24/2024 01:30:00 PM, [address] [place], [address], Progress Notes * Galen SALVADOR TDOB:04/1940 (83 yo M)Acc No.[id number]:11/10/2023 Progress Note Patient:?Galen SALVADOR Provider:?Rasheeda Pennington DPM :1940???Age:83 Y???Sex:Male [place] e:11/10/2023 Address: [place], [place] Pcp:Evens Osuna MD Subjective: * Chief Complaints: * ??? * Medical History:? Objective: * Vitals:? Assessment: Plan: * Treatment: * Images: * The named appointment provid er may or may not be the originator of this progress note, and it is not deemed complete until electronically signed by the appointment provider. Sign off status: Pending * Provider:?Rasheeda Pennington DPM Date:? Generated for Oliver hanna/Pily/Jess on:?02/28/2024 03:22 PM EST
--- OUTSIDE RECORDS SUMMARY | 2024-02-28 15:22 | XMS_ITS ---
[facility] Organization [facility] Address [address] [place] [address] Care Team Providers Care Auto [employer] Attendant Name Role Phone Enrrique GOMES, [facility] Primary Care Provider Rasheeda Lo Unavailable [phone] Allergies No Known Allergies REASON FOR VISIT At Risk Footcare, Painful Nail(s) aggrevated by shoes and causing difficulty standing/walking., Open sore Medications Medication SIG (Take, Route, Frequency, Duration) Notes Start Date End Date Status Cephalexin 500 MG 1 capsule Orally jermaine ry 12 hrs for 5 days Not-Taking Isosorbide Mononitrate ER 30 MG 1 tablet in the morning Orally Once a day for 30 day(s) Active Ammonium Lactate 12 % 1 application to affected area Externally to feet Twice a day for 30 days Active Ciclopirox Olamine 0.77 % 1 application Externally Twice a day for 30 days Not-Taking Cephalexin 500 MG 1 capsule Orally jermaine ry 12 hrs for 10 days Not-Taking Warfarin Sodium 5 MG 1 tablet Orally Onc e a day for 30 day(s) Active Atorvastatin Calcium 40 MG 1 tablet Orally Once a day for 30 day(s) Active Losartan Potassium 50 MG 1 tablet Orally Once a day for 30 day(s) Active Allopurinol 300 MG 1 tablet Orally Once a day for 30 day(s) Active Furosemide 20 MG 1 tablet Orally Once a day for 30 day(s) Active Metoprolol Succinate 100 MG 1 capsule Orally Once a day for 30 day(s) Active Social History Tobacco Use: Social History Observation Description Date Details (start date - stop date) Former Smoker NA - NA Tobacco Use/Smoking Question Answer Notes Are you a: former smoker Additional Findings: Tobacco Non-User Current no n-smoker Alcohol Screen Question Answer Notes Did you have a drink contain ing alcohol in the past year? Yes How often did you have a dri nk containing alcohol in the past year? 2 to 4 times a month (2 points) Points 2 Interpretation Negative Tobacco use other than smoking: Question Answer Notes Are you an other tobacco user? No Problems Problem Type SNOMED Code ICD Code Onset Dates Problem Status W/U Status Risk Notes Problem Neuropathic ulcer of right foot (disorder) ([id number] 9102) Neuropathic ulcer of right foot, limited to breakdown of skin (L97.511) Active confirmed Response to treatment Vital Signs Height 6 ft 2 in in 02/09/2024 Weight 230 lbs 02/09/2024 BMI 29.53 kg/m2 02/09/2024 Encounters Encounter Location Date Provider Diagnosis [facility] [address] [address] 02/09/2024 Rasheeda Pennington Atherosclerosis of artery of both lower extremities I70.203 ; Neuropathic ulcer of right foot, limited to breakdown of skin L97.511 ; Neuropathy G62.9 ; Tinea unguium B35.1 ; Pain in toe of left foot M79.675 and Pain in toe of right foot M79.674 Assessments Encounter Date Diagnosis (ICD Code) Assessment Notes Treatment Notes Treatment Clinical Notes Section Notes 02/09/2024 Atherosclerosis of artery of both lower extremities (ICD-10 - I70.203) 02/09/2024 Neuropathic ulcer of right foot, limited to breakdown of skin (ICD-10 - L97.511) Patient Educated with: WOUND CARE INSTRUCTIONS. pdf (WOUND CARE INSTRUCTIONS. pdf) 02/09/2024 Neuropathy (ICD-10 - G62.9) 02/09/2024 Tinea unguium (ICD-10 - B35.1) 02/09/2024 Pain in toe of left foot (ICD-10 - M79.675) 02/09/2024 Pain in toe of right foot (ICD-10 - M79.674) Plan Of Treatment Treatment Notes Assessment Notes Neuropathic ulcer of right f oot, limited to breakdown of skin Patient Educated with: WOUND CARE INSTRUCTIONS.pdf (WOUND CARE INSTRUCTIONS.pdf) Next Appt Details Follow Up: 2 Months, Reason: Provider Name:Rasheeda guzman, 04/24/2024 01:30:00 PM, [address] [place], [address], Procedure Notes * Category Sub-Category Detail Notes Debride Nail 6-10 Nail debridement Performance o f this nail treatment by a nonprofessional would put this patients foot and overall health at risk. Therefore, debridement to affected nail(s), as described in exam, was performed extensively to reduce/remove overall nail length, girth, thickness, subungual debris, and necrotic tissue, by manual and/or electrical means through the use of a nail nipper and/or dremel-type wood grinder operator, to a more viable healthy nail plate or bed tissue 6-10 nails in total. Silver nitrate was used for any petechial bleeding as necessary. Definitive antifungal treatment options, both pharmaceutical and surgical, have been reviewed and discussed with the patient. The patient solely prefers the use of intermittent/as needed professional debridement services for their nail condition and understands the need for additional periodic treatments to maintain effectiveness in symptomatic relief - 24251 Debride skin< 25 sq cm Open wound NEUROPATH Y: Physician of record performed open wound selective debridement of first 25 sq cm or less, of devitilized necrotic/nonviable soft tissue, fibrin, and exudate extending from the epidermis through the dermis, utilizing sharp dissection with sterile 15 blade, and/or tissue nippers. Hemostasis was controlled through direct pressure. Sterile antibiotic dressing applied, ANESTHESIA was not required due to presence of NEUROPATHY. Post debridement measurements: 2 mm x 2 mm x 2mm. Character of the wound post debridement is stable (36984), The patient was instructed on importance of proper wound care consisting of pressure reduction, maintainance of moist wound environment, and regular debridement of devitilized tissue, The patient is to cleanse the wound with warm soapy water/peroxide/saline or betadine BID based on product availability, The patient is to cleanse the wound with warm soapy water/peroxide/saline or betadine BID based on product availability, The patient is to apply Antibiotic Oint. to the wound and cover with a DSD, The patient was instructed to change dressings according to orders or PRN saturation, leaks, The patient is to cont the local wound care as directed till condition is completely healed Keratoma Treatment Parring or Cutting o f Benign Hyperkeratotic Lesion(s) (-57) More than 4 Lesions - The Benign hyperkeratotic lesions, ( 6 ) in total, locations as stated and described in exam, were pared, and/or cut utilizing a sterile 15 blade, tissue nippers, and/or power Chirp Interactive instrumentation - 41516 Progress Notes * Galen SALVADOR TDOB:04/1940 (83 yo M)Acc No.[id number]:02/09/2024 Progress Note Patient:?Galen SALVADOR Provider:?Rasheeda Pennington DPM :1940???Age:83 Y???Sex:Male Milton e:02/09/2024 Address:[address] [place], [place] [id number] Pcp:Evens Osuna MD Subjective: * Chief Complaints: * ???At Risk FootcarePainful N ail(s) aggrevated by shoes and causing difficulty standing/walking.Open sore * HPI: ???At Risk footcare:?Pt States Last PCP Visit:?Date?05/19/2023 ???Skin problems:?Treatments:?none.? * ROS:?General/Constitutional:?Nausea?denies.?Vomiting?denies.?Hunger Thirst?denies.?Loss appetite?denies.?Chills?denies.?Fatigue?denies.?Fever?denies.?Night Sweats?denies.?Unexplained weight loss?denies.?Unexplained weight gain?denies.?HEENTM:?Dentures?denies.?Dizziness?denies.?Glasses/contacts?denies.?Retinopathy?de nies.?Blurred/double vision?denies.?TMJ?denies.?Discharge/drainage?denies.?Implants?denies.?Sore throat?denies.?Dental implants?denies.?Hard of hearing ?denies.?Difficulty chewing/swallowing/speaking?denies.?Nose bleeds?denies.?Sore mouth?denies.?Respiratory:?On Oxygen?denies.?Pneumonia/pleurisy?denies.?Bronchitis?denies.?Emphysema?denies.?C oughing?denies.?Cough blood?denies.?Shortness of breath?denies.?Wheezing?denies.?Cardiovascular:?Pacemaker?denies.?MVP?denies.?WPW?denies.?CHF?denies.?Heart attack?denies.?Septal defect?denies.?Rapid beat?denies.?Chest pain ?denies.?Atrial Fib.?denies.?Murmur/Palpitations?denies.?Gastrointestinal:?Hemorrhoids?denies.?Stomach/Abdominal pain?denies.?Dark blood stool?denies.?Irritable bowel ?denies.?Constipation?denies.?Diarrhea?denies.?Hematology:?Swelling?denies.?Clots?denies.?Varicose Veins?denies.?Bruising?denies.?Bleeding problem?denies.?Genitourinary:?Blood urine?denies.?Frequent/Painfu/urination/bladder control?denies.?Kidney stones?denies.?Infection (UTI)?denies.?Nephropathy?denies.?sex trans dis (STD)?denies.?Prostate?denies.?Musculoskeletal:?Hammertoes?denies.?Bunions?denies.?Back Pain?denies.?Muscle Cramps/ Resting?denies.?Muscle cramps / walking?denies.?Generalized aches and pains?denies.?Weakness?denies.?Integ.:?Ceballos?denies.?Scars?denies.?Corns/calluses?denies.?Ingrown nails?denies.?Painful nails?denies.?Open Sores?denies.?Rashes?denies.?Neurologic:?Difficulty sleeping?denies.?Brain disorder?denies.?Numbness?admits.?Balance trouble?admits.?Confusion?denies.?Fainting/blackouts?denies.?Tingling?admits.?Tr emors?denies.? * Medical History:? * Surgical History:?heart bypa ss 10/2000Nose Bx- Skin cancer 06/2022in surgery [facility] 2023 * Hospitalization/Major Diagno stic Procedure:?Denies Past Hospitalization * Family History:?Mother: dece ased.?Father: , diagnosed with Unspecified heart disease.? * Social History:?Tobacco Use:?Tobacco Use/Smoking?Are you a:?former smoker ?Additional Findings: Tobacco Non-User?Current non-smoker ?Tobacco use other than smoking?Are you an other tobacco user??No ???Drugs/Alcohol:?Drugs?Have you used drugs other than those for medical reasons in the past 12 months??No ?Alcohol Screen?Did you have a drink containing alcohol in the past year??Yes ?How often did you have a drink containing alcohol in the past year??2 to 4 times a month (2 points) ?Points?2 ?Interpretation?Negative ???Miscellaneous:?Caffeine: yes, frequency:, 1-2 cups per day. ?Children: yes. ?Exercise: yes, walking,gym at [facility] 3 times a week. ?Marital status: . 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 * Medications:?TakingMetoprolo l Succinate 100 MG Capsule ER 24 Hour Sprinkle 1 capsule Orally Once a day Losartan Potassium 50 MG Tablet 1 tablet Orally Once a day Warfarin Sodium 5 MG Tablet 1 tablet Orally Once a day Atorvastatin Calcium 40 MG Tablet 1 tablet Orally Once a day Allopurinol 300 MG Tablet 1 tablet Orally Once a day Furosemide 20 MG Tablet 1 tablet Orally Once a day Isosorbide Mononitrate ER 30 MG Tablet Extended Release 24 Hour 1 tablet in the morning Orally Once a day Ammonium Lactate 12 % Cream 1 application to affected area Externally to feet Twice a day Taking Metoprolol Succinate 100 MG Capsule ER 24 Hour Sprinkle 1 capsule Orally Once a day Taking Losartan Potassium 50 MG Tablet 1 tablet Orally Once a day Taking Warfarin Sodium 5 MG Tablet 1 tablet Orally Once a day Taking Atorvastatin Calcium 40 MG Tablet 1 tablet Orally Once a day Taking Allopurinol 300 MG Tablet 1 tablet Orally Once a day Taking Furosemide 20 MG Tablet 1 tablet Orally Once a day Taking Isosorbide Mononitrate ER 30 MG Tablet Extended Release 24 Hour 1 tablet in the morning Orally Once a day Taking Ammonium Lactate 12 % Cream 1 application to affected area Externally to feet Twice a day Not-Taking/PRNCiclopirox Olamine 0.77 % Cream 1 application Externally Twice a day Cephalexin 500 MG Capsule 1 capsule Orally every 12 hrs Cephalexin 500 MG Capsule 1 capsule Orally every 12 hrs Medication List reviewed and reconciled with the patientNot-Taking/PRN Ciclopirox Olamine 0.77 % Cream 1 application Externally Twice a day Not-Taking/PRN Cephalexin 500 MG Capsule 1 capsule Orally every 12 hrs Not-Taking/PRN Cephalexin 500 MG Capsule 1 capsule Orally every 12 hrs Medication List reviewed and reconciled with the patient * Allergies:?N.K.D.A.yes[Aller gies Verified] Objective: * Vitals:?Ht: 6 ft 2 in, Wt: 2 30, BMI: 29.53, Shoe size: 12, Ht-cm: 187.96 cm, Wt- k.33 kg. * Examination: ???Vascular: ?DP PULSES(B):? 0/4, B/L.?PT PULSES(B):? 0/4, B/L.?CAPILLARY FILL TIME:? delayed, all digits, B/L.?TROPHIC CONDITION-TEXTURE/ELASTICITY/TURGOR/HAIR GROWTH(B):? decreased, B/L.?TEMPERTURE GRADIENT(C):? decreased, cool to cool, proximal to distal, B/L.?PIGMENTATION:?pale, B/L.?EDEMA(C):?2/4.?CLAUDICATION(C):?denies, B/L.?REST PAIN:?denies, B/L.?Nails: ?NAILS are:? Elongated, overgrown, dystrophic, lytic, greater than 3mm thick, discolored and friable with crumbly malodorous subungual debris, with pain on palpation, 1-5 B/L.?Dermatologic: ?SKIN FINDINGS:? Skin exam reveals Keratotic lesion(s) located at?TA, T1, T5, Sub met 1 B/L, heels B/L?.?ULCER:?LOCATION, plantar T5,?RIGHT, SIZE, 2 mm X 2 mm X 2mm, BASE, granular, RIM, hyperkeratotic, UNDERMINING, absent, TRACKING, Full thickness breakdown of skin, DRAINAGE, serosanguineous, mild, NECROTIC TISSUE, loosely-adherent, yellow slough, MALODOR, absent, CALOR, absent, ERYTHEMA, absent.?Neurological: ?SENSORY:?Neurological exam demonstrates , reduced light touch [...] of artery of both lower extremities - I70.203???2.?Neuropathic ulcer of right foot, limited to breakdown of skin - L97.511 (Primary)???3.?Neuropathy - G62.9???4.?Tinea unguium - B35.1???5.?Pain in toe of left foot - M79.675???6.?Pain in toe of right foot - M79.674??? Plan: * Treatment: * Procedures:?Debride Nail 6-10:?Nail debridement?Performance of this nail treatment by a nonprofessional would put this patients foot and overall health at risk. Therefore, debridement to affected nail(s), as described in exam, was performed extensively to reduce/remove overall nail length, girth, thickness, subungual debris, and necrotic tissue, by manual and/or electrical means through the use of a nail nipper and/or dremel-type wood grinder operator, to a more viable healthy nail plate or bed tissue 6-10 nails in total. Silver nitrate was used for any petechial bleeding as necessary. Definitive antifungal treatment options, both pharmaceutical and surgical, have been reviewed and discussed with the patient. The patient solely prefers the use of intermittent/as needed professional debridement services for their nail condition and understands the need for additional periodic treatments to maintain effectiveness in symptomatic relief - 05506.?Debride skin< 25 sq cm:?Open wound?NEUROPATHY: Physician of record performed open wound selective debridement of first 25 sq cm or less, of devitilized necrotic/nonviable soft tissue, fibrin, and exudate extending from the epidermis through the dermis, utilizing sharp dissection with sterile 15 blade, and/or tissue nippers. Hemostasis was controlled through direct pressure. Sterile antibiotic dressing applied, ANESTHESIA was not required due to presence of NEUROPATHY. Post debridement measurements: 2 mm x 2 mm x 2mm. Character of the wound post debridement is stable (25269), The patient was instructed on importance of proper wound care consisting of pressure reduction, maintainance of moist wound environment, and regular debridement of devitilized tissue, The patient is to cleanse the wound with warm soapy water/peroxide/saline or betadine BID based on product availability, The patient is to cleanse the wound with warm soapy water/peroxide/saline or betadine BID based on product availability, The patient is to apply Antibiotic Oint. to the wound and cover with a DSD, The patient was instructed to change dressings according to orders or PRN saturation, leaks, The patient is to cont the local wound care as directed till condition is completely healed.?Keratoma Treatment:?Parring or Cutting of Benign Hyperkeratotic Lesion(s)?(-57) More than 4 Lesions - The Benign hyperkeratotic lesions, ( 6 ) in total, locations as stated and described in exam, were pared, and/or cut utilizing a sterile 15 blade, tissue nippers, and/or power dremel instrumentation - 91140.? * Procedure Codes:?88523 DEBRI DE NAIL, 6 OR MORE, Modifiers: XS 11512 ACTIVE WOUND CARE/20 CM OR <, Modifiers: XS 90732 TRIM SKIN LESIONS, OVER 4, Modifiers: XS , Q8 * Preventive Medicine:? ??Counseling:?Ulcer:?A detailed plan of care was reviewed with the patient. We emphasized the fact that the patient takes on an active participating role in the treatment process and emphasized to them that they are an included, valued, and important member of the wound healing team in order to reach an expedient successful outcome. The patient agreed to follow their medically recommended diet while increasing their protein intake if safely able to do so, maintain proper bodily hydaration, abide by weight-bearing restrictions at all times, quit all current smoking habits if any, and diligently follow any/all dressing change instructions. It was clearly made known to the patient that if they fail to do their part, they will likely extend their course of treatment as well as possibly increase their risk of adverse events including amputation. The patient was instructed on importance of proper wound care consisting of pressure reduction, and proper maintainance of a moist wound environment. The patient is to cleanse the wound with warm soapy water/peroxide/saline, or betadine BID based on product availability. The patient is to apply ( ____ ) Antibiotic to the wound and cover with a DSD as directed. The patient was instructed to change dressings according to orders, or PRN saturation, leaks. The patient was instructed to monitor and report any signs or symptoms of infection or any untoward reactions. Precautions Taken: Offloading/Pressure reduction via rest/ limited activity to essential to daily life only, cane/ crutches/ walker/ knee scooter/ wheel chair, shoe modification, accommodative padding, sharp debridement, and take/apply medication as directed. THE GOALS of wound debridement to remove devitilized tissue, decrease risk for infection, promote wound healing and prevent further complication were discussed/reviewed. Debridement frequency as indicated.? * Follow Up:?2 Months * Images: * Sign off status: Completed true * Provider:?Rasheeda Pennington, DPM Date:? Generated for Oliver hanna/Pily/Jess on:?02/28/2024 03:22 PM EST History and Physical Notes * HPI (History of Present Illness) Category Sub-Category Detail Notes Category Not es Skin problems Treatments: none At Risk footcare Pt States Last PCP Visit: Date: 4 Examination Category Sub-Category Detail Notes Category Not [...] T5, Sub met 1 B/L, heels B/L ULCER: LOCATION, plantar T5 , RIGHT, SIZE, 2 mm X 2 mm X 2mm, BASE, granular, RIM, hyperkeratotic, UNDERMINING, absent, TRACKING, Full thickness breakdown of skin, DRAINAGE, serosanguineous, mild, NECROTIC TISSUE, loosely-adherent, yellow slough, MALODOR, absent, CALOR, absent, ERYTHEMA, absent VERRUCA: Vascular DP PULSES(B): 0/4, B/L PT PULSES(B): [...]
--- OUTSIDE RECORDS SUMMARY | 2024-02-28 15:23 | XMS_ITS | Patient Health Record ---
Author Organization [facility] chasidy [place] Address [address] [facility] [place] [address] Care Team Providers Care Literary Agent Name Role Phone Tona Osuna MDh Primary Care Provider Rasheeda Lo Unavailable [phone] Shady Carr Unavailable [phone] Allergies No Known Allergies Reason For Referral No Information Medications Medication SIG (Take, Route, Frequency, Duration) Notes Start Date End Date Status Cephalexin 500 MG 1 capsule Orally jermaine ry 12 hrs for 5 days Not-Taking Warfarin Sodium 5 MG 1 tablet Orally Onc e a day for 30 day(s) Active Atorvastatin Calcium 40 MG 1 tablet Orally Once a day for 30 day(s) Active Metoprolol Succinate 100 MG 1 capsule Orally Once a day for 30 day(s) Active Losartan Potassium 50 MG 1 tablet Orally Once a day for 30 day(s) Active Isosorbide Mononitrate ER 30 MG 1 [...] Once a day for 30 day(s) Active Ciclopirox Olamine 0.77 % 1 application [...] Problem Status W/U Status Risk Notes Problem 301385712 Neuropathy (G62.9) Active confirmed Problem 837075623 Hammertoe of lef t foot (M20.42) Active confirmed Problem 332536062 Hammertoe of right foot (M20.41) Active confirmed Problem 69690150940955615 Atherosclerosi s of artery of both lower extremities (I70.203) Active confirmed Problem Neuropathic ulcer of right foot (disorder) (29353534371712794) Neuropathic ulcer of right foot, limited to breakdown of skin (L97.511) Active confirmed Response to treatment Vital Signs Blood pressure diastolic 45 mm Hg 11/29/2023 Height 6 ft 2 in in 02/09/2024 Blood pressure systolic 178 mm Hg 11/29/2023 Weight 230 lbs 02/09/2024 BMI 29.53 kg/m2 02/09/2024 Encounters Encounter Location Date Provider Diagnosis [address] [address] 04/25/2023 Rasheeda Terrazasa Atherosclerosis of artery of both lower extremities I70.203 ; Cellulitis of toe of right foot L03.031 ; Neuropathic ulcer of right foot, limited to breakdown of skin L97.511 ; Neuropathy G62.9 ; Tinea unguium B35.1 ; Pain in toe of left foot M79.675 ; Pain in toe of right foot M79.674 ; Hammertoe of right foot M20.41 and Hammertoe of left foot M20.[address] [address] 07/04/2023 Rasheeda Perica Atherosclerosis of artery of both lower extremities I70.203 ; Tinea pedis of both feet B35.3 ; Neuropathy G62.9 ; Tinea unguium B35.1 ; Pain in toe of left foot M79.675 and Pain in toe of right foot M79.[address] [address] 09/08/2023 Rasheeda Pennington Atherosclerosis of artery of both lower extremities I70.203 ; Neuropathy G62.9 ; Tinea unguium B35.1 ; Pain in toe of left foot M79.675 and Pain in toe of right foot M79.[address] [address] 11/29/2023 Rasheeda Perica Atherosclerosis of artery of both lower extremities I70.203 ; Neuropathy G62.9 ; Tinea unguium B35.1 ; Pain in toe of left foot M79.675 and Pain in toe of right foot M79.[address] [address] 02/09/2024 Rasheeda Terrazasa Atherosclerosis of artery of both lower extremities I70.203 ; Neuropathic ulcer of right foot, limited to breakdown of skin L97.511 ; Neuropathy G62.9 ; Tinea unguium B35.1 ; Pain in toe of left foot M79.675 and Pain in toe of right foot M79.[address] [address] 03/21/2023 Shady Carr [address] [address] 04/05/2023 Rasheeda Pennington [address] [address] 05/03/2023 Shady Carr Assessments Encounter Date Diagnosis (ICD Code) Assessment Notes Treatment Notes Treatment Clinical Notes Section Notes 04/25/2023 Cellulitis of toe of right foot (ICD-10 - L03.031) 04/25/2023 Atherosclerosis of artery of both lower extremities (ICD-10 - I70.203) 07/04/2023 Atherosclerosis of artery of both lower extremities (ICD-10 - I70.203) 07/04/2023 Tinea pedis of both feet (ICD-10 - B35.3) 09/08/2023 Neuropathy (ICD-10 - G62.9) 09/08/2023 Atherosclerosis of artery of both lower extremities (ICD-10 - I70.203) 11/29/2023 Atherosclerosis of artery of both lower extremities (ICD-10 - I70.203) 02/09/2024 Atherosclerosis of artery of both lower extremities (ICD-10 - I70.203) 02/09/2024 Neuropathic ulcer of right foot, limited to breakdown of skin (ICD-10 - L97.511) Patient Educated with: WOUND CARE INSTRUCTIONS. pdf (WOUND CARE INSTRUCTIONS. pdf) 02/09/2024 Neuropathy (ICD-10 - G62.9) 07/04/2023 Neuropathy (ICD-10 - G62.9) 11/29/2023 Neuropathy (ICD-10 - G62.9) 09/08/2023 Tinea unguium (ICD-10 - B35.1) 04/25/2023 Neuropathic ulcer of right foot, limited to breakdown of skin (ICD-10 - L97.511) Response to treatment Patient Educated with: WOUND CARE INSTRUCTIONS. pdf (WOUND CARE INSTRUCTIONS. pdf) 07/04/2023 Tinea unguium (ICD-10 - B35.1) 09/08/2023 Pain in toe of left foot (ICD-10 - M79.675) 04/25/2023 Neuropathy (ICD-10 - G62.9) 11/29/2023 Tinea unguium (ICD-10 - B35.1) 02/09/2024 Tinea unguium (ICD-10 - B35.1) 02/09/2024 Pain in toe of left foot (ICD-10 - M79.675) 11/29/2023 Pain in toe of left foot (ICD-10 - M79.675) 09/08/2023 Pain in toe of right foot (ICD-10 - M79.674) 07/04/2023 Pain in toe of left foot (ICD-10 - M79.675) 04/25/2023 Tinea unguium (ICD-10 - B35.1) 04/25/2023 Pain in toe of left foot (ICD-10 - M79.675) 07/04/2023 Pain in toe of right foot (ICD-10 - M79.674) 11/29/2023 Pain in toe of right foot (ICD-10 - M79.674) 02/09/2024 Pain in toe of right foot (ICD-10 - M79.674) 04/25/2023 Pain in toe of right foot (ICD-10 - M79.674) 04/25/2023 Hammertoe of right foot (ICD-10 - M20.41) 04/25/2023 Hammertoe of left foot (ICD-10 - M20.42) Plan Of Treatment Next Appt Details Provider Name:Rasheeda Maia guzman, 04/24/2024 01:30:00 PM, [address] [place], [address], Insurance Providers Payer Name Payer Address Payer Phone Subscriber Number Group Number Insured Name Patient Relationship to Insured Coverage Start Date Coverage End Date Medicare National [facility] [employer] [address] [place] [address] [id number] Galen Costello Self - patient is the insured [employer] [address] [place] [address] [id number] Galen Costello Self - patient is the insured Medical (General) History Medical History History ICD Code Angina Cataracts covid-19 Gout Heart disease High blood pressure Reflux ( GERD) Measles Mumps Chicken pox Vascular grafts Surgical History Surgery Date(Month/Year) 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
== END 2024-02-26 12:50 | disposition home or self-care (01) ==
PROVIDERS: PCP Internal Medicine; Visit Provider Internal Medicine Cardiovascular Disease
DX: I48.20 Chronic atrial fibrillation, unspecified (principal); I25.10 Atherosclerotic heart disease of native coronary artery without angina pectoris; I50.9 Heart failure, unspecified
CPT/HCPCS: 99214; G2211

== ENCOUNTER → 2024-02-26 12:03 | Outpatient (BNVA) | payer MEDICARE, SELFPAY | PROVIDERS: PCP Internal Medicine; Visit Provider Internal Medicine Cardiovascular Disease | DX: I48.20 Chronic atrial fibrillation, unspecified (principal); I25.10 Atherosclerotic heart disease of native coronary artery without angina pectoris; I50.9 Heart failure, unspecified | CPT/HCPCS: 99212 ==

== ENCOUNTER 2024-03-04 08:54 | Outpatient (AMB) | payer MEDICARE, SELFPAY ==
[2024-03-04 09:03] LABS: Prothrombin Time Whole Bld POC 33.7 sec (11.1-13.5); ~PT, ~INR - Anti Coag Clinic 2.8 (0.9-1.1)
--- OUTSIDE RECORDS SUMMARY | 2024-03-04 09:06 | XMS_ITS ---
Author Organization [facility] Address [address] [place] [address] Care Team Providers Care Burnishing Machine Operator Name Role Phone Enrrique GOMES, Evens Primary Care Provider Rasheeda Lo Unavailable [phone] Encounters Encounter Location Date Provider Diagnosis [address] [address] 11/10/2023 Rasheeda ePnnington Plan Of Treatment Next Appt Details Provider Name:Rasheeda guzman, 04/24/2024 01:30:00 PM, [address] [place], [address], Progress Notes * Galen SALVADOR TDOB:04/1940 (83 yo M)Acc No.[id number]:11/10/2023 Progress Note Patient:?Galen SALVADOR Provider:?Rasheeda Pennington DPM :1940???Age:83 Y???Sex:Male Milton e:11/10/2023 Address: [place], [place] Pcp:Evens Osuna MD Subjective: * Chief Complaints: * ??? * Medical History:? Objective: * Vitals:? Assessment: Plan: * Treatment: * Images: * The named appointment provid er may or may not be the originator of this progress note, and it is not deemed complete until electronically signed by the appointment provider. Sign off status: Pending * Provider:?Rasheeda Pennington DPM Date:? Generated for Oliver hanna/Pily/Quincyitting on:?03/04/2024 09:06 AM EST
--- OUTSIDE RECORDS SUMMARY | 2024-03-04 09:06 | XMS_ITS ---
Author Organization [facility] Address [address] [facility] [address] Care Team Providers Care City Carrier Assistant Name Role Phone Enrrique GOMES, [place] Primary Care Provider Rasheeda Lo Unavailable [phone] Allergies No Known Allergies REASON FOR VISIT [...] 024 Encounters Encounter Location Date Provider Diagnosis [facility] [place] [address] [place] [address] 11/29/2023 Rasheeda Pennington Atherosclerosis of artery of [...] Reason: Provider Name:Rasheeda guzman, 04/24/2024 01:30:00 PM, [address] [place] [address], [address], Procedure Notes * Category Sub-Category Detail Notes [...] as necessary. Patient chooses, no pharmaceutical tx (93482) Keratoma Treatment Parring or Cutting o f Benign Hyperkeratotic Lesion(s) 21482 ( More than 4 Lesions ) - The Benign hyperkeratotic lesions, as described above were pared, and/or cut utilizing a sterile 15 blade, tissue nippers, and/or dremel , Q8 Progress Notes * Galen SALVADOR TDOB:04/1940 (83 yo M)Acc No.[id number]:11/29/2023 Progress Note Patient:Galen De Jesus Provider:?Rasheeda Pennington DPM :1940???Age:83 Y???Sex:Male Milton e:11/29/2023 Address:[address] [place], [place] [id number] Pcp:Evens Osuna MD Subjective: * Chief Complaints: [...] day. ?Children: yes. ?Exercise: yes, walking,gym at [facility] 3 times a week. ?Marital status: [...] as necessary. Patient chooses, no pharmaceutical tx (55156).?Keratoma Treatment:?Parring or Cutting of Benign Hyperkeratotic Lesion(s)?63216 ( More than 4 Lesions ) - The Benign hyperkeratotic lesions, as described above were pared, and/or cut utilizing a sterile 15 blade, tissue nippers, and/or dremel , Q8.? * Procedure Codes:?33006 DEBRI DE NAIL, 6 OR MORE, Modifiers: XS 87948 TRIM SKIN LESIONS, OVER 4, Modifiers: XS , Q8 * Follow Up:?2 Months * Images: * Sign off status: Completed true * Provider:?Rasheeda Pennington DPM Date:?01/2024 Generated for Oliver hanna/Pily/Stewartsmitting on:?03/04/2024 09:06 AM EST History and Physical Notes * HPI [...]
--- OUTSIDE RECORDS SUMMARY | 2024-03-04 09:06 | XMS_ITS ---
[facility] Address [address] [facility] [place] [address] Care Team Providers Care Grader Marker Name Role Phone Enrrique GOMES, [place] Primary Care Provider Rasheeda Lo Unavailable [phone] Allergies No Known Allergies REASON FOR VISIT [...] Problem Neuropathic ulcer of right foot (disorder) (8226102636626 9102) Neuropathic ulcer of right foot, limited to breakdown of skin (L97.511) Active confirmed Response to treatment Vital Signs Height 6 ft 2 in in 02/09/2024 Weight 230 lbs 02/09/2024 BMI 29.53 kg/m2 02/09/2024 Encounters Encounter Location Date Provider Diagnosis [facility] [address] [address] 02/09/2024 Rasheeda Pennington Atherosclerosis of artery of [...] Provider Name:Rasheeda guzman, 04/24/2024 01:30:00 PM, [address] [place], [address], Procedure Notes * Category Sub-Category Detail Notes [...] use of a nail nipper and/or dremel-type beef grinder, to a more viable healthy nail plate [...] to maintain effectiveness in symptomatic relief - 91596 Debride skin< 25 sq cm Open wound [...] of the wound post debridement is stable (68807), The patient was instructed on importance of [...] sterile 15 blade, tissue nippers, and/or power [employer] instrumentation - 50482 Progress Notes * Galen SALVADOR TDOB:04/1940 (83 yo M)Acc No.[id number]:02/09/2024 Progress Note Patient:?Galen SALVADOR Provider:?Rasheeda Pennington DPM :1940???Age:83 Y???Sex:Male Milton e:02/09/2024 Address:[address] [place], [place] [id number] Pcp:Evens Osuna MD Subjective: * Chief Complaints: [...] ss 10/2000Nose Bx- Skin cancer 06/2022in surgery [facility] 2023 * Hospitalization/Major Diagno stic Procedure:?Denies [...] day. ?Children: yes. ?Exercise: yes, walking,gym at [facility] 3 times a week. ?Marital status: . [...] use of a nail nipper and/or dremel-type beef grinder, to a more viable healthy nail plate [...] to maintain effectiveness in symptomatic relief - 76065.?Debride skin< 25 sq cm:?Open wound?NEUROPATHY: Physician of [...] of the wound post debridement is stable (09811), The patient was instructed on importance of [...] tissue nippers, and/or power dremel instrumentation - 57818.? * Procedure Codes:?87378 DEBRI DE NAIL, 6 OR MORE, Modifiers: XS 23430 ACTIVE WOUND CARE/20 CM OR <, Modifiers: XS 94263 TRIM SKIN LESIONS, OVER 4, Modifiers: XS [...] * Sign off status: Completed true * Provider:Alycia Pennington, CONCEPCION Date:? Generated for Oliver hanna/Pily/Jess on:?03/04/2024 09:05 AM EST History and Physical Notes * [...]
--- OUTSIDE RECORDS SUMMARY | 2024-03-04 09:07 | XMS_ITS | Patient Health Record ---
Author Organization [facility] chasidy [place] Address [address] [facility] [place] [address] Care Team Providers Care Family Counselor Name Role Phone Tona Osuna MDh Primary Care Provider Rasheeda Lo Unavailable [phone] Shady Carr Unavailable [phone] Allergies No Known Allergies Reason For Referral [...] Problem Status W/U Status Risk Notes Problem 065551053 Neuropathy (G62.9) Active confirmed Problem 116539004 Hammertoe of lef t foot (M20.42) Active confirmed Problem 885878416 Hammertoe of right foot (M20.41) Active confirmed Problem 32293695450538675 Atherosclerosi s of artery of both lower extremities (I70.203) Active confirmed Problem Neuropathic ulcer of right foot (disorder) (45849407525400825) Neuropathic ulcer of right foot, limited to breakdown of skin (L97.511) Active confirmed Response to treatment Vital Signs Blood pressure diastolic 45 mm Hg 11/29/2023 Height 6 ft 2 in in 02/09/2024 Blood pressure systolic 178 mm Hg 11/29/2023 Weight 230 lbs 02/09/2024 BMI 29.53 kg/m2 02/09/2024 Encounters Encounter Location Date Provider Diagnosis [address] [address] 04/25/2023 Rasheeda Terrazasa Atherosclerosis of artery of [...] M20.41 and Hammertoe of left foot M20.[address] [address] 07/04/2023 Rasheeda Perica Atherosclerosis of artery of both lower extremities I70.203 ; Tinea pedis of both feet B35.3 ; Neuropathy G62.9 ; Tinea unguium B35.1 ; Pain in toe of left foot M79.675 and Pain in toe of right foot M79.[address] [address] 09/08/2023 Rasheeda Pennington Atherosclerosis of artery of both lower extremities I70.203 ; Neuropathy G62.9 ; Tinea unguium B35.1 ; Pain in toe of left foot M79.675 and Pain in toe of right foot M79.[address] [address] 11/29/2023 Rasheeda Perica Atherosclerosis of artery of both lower extremities I70.203 ; Neuropathy G62.9 ; Tinea unguium B35.1 ; Pain in toe of left foot M79.675 and Pain in toe of right foot M79.[address] [address] 02/09/2024 Rasheeda Terrazasa Atherosclerosis of artery of both lower extremities I70.203 ; Neuropathic ulcer of right foot, limited to breakdown of skin L97.511 ; Neuropathy G62.9 ; Tinea unguium B35.1 ; Pain in toe of left foot M79.675 and Pain in toe of right foot M79.[address] [address] 03/21/2023 Shady Carr [address] [address] 04/05/2023 Rasheeda Pennington [address] [address] 05/03/2023 Shady Carr Assessments Encounter Date Diagnosis [...] Name:Rasheeda Maia guzman, 04/24/2024 01:30:00 PM, [address] [place], [address], Insurance Providers Payer Name Payer Address Payer Phone Subscriber Number Group Number Insured Name Patient Relationship to Insured Coverage Start Date Coverage End Date Medicare National [facility] [employer] [address] [place] [address] [id number] Galen Costello Self - patient is the insured [employer] [address] [place] [address] [id number] Galen Costello Self - patient is the insured Medical (General) History Medical History History ICD Code Angina Cataracts covid-19 Gout Heart disease High blood pressure Reflux ( GERD) Measles Mumps Chicken pox Vascular grafts Surgical History Surgery Date(Month/Year) 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
--- NOTE | 2024-03-04 09:08 | MHC.OFFVISCO ---
Intake Intake Visit Reasons: Anticoagulation Allergies No Known Allergies [No Known Allergies*] Allergy (Verified 03/04/24 08:58) Medication List - Last Reconciled 03/04/24 by Annamarie Sharif RN allopurinol 300 mg PO DAILY atorvastatin 40 mg PO DAILY furosemide 20 mg PO DAILY isosorbide mononitrate ER 30 mg PO DAILY losartan 50 mg PO BID 90 days metoprolol succinate ER 100 mg PO BID omeprazole 20 mg PO DAILY PRN NS warfarin 5 mg See Protocol PO DAILY Nursing Note INR: 2.8 in therapeutic range of 2-3 Medications and supplements reviewed No changes in health, diet, medications, or supplements, Denies any signs and symptoms of bleeding or bruising or clotting. Bleeding, bruising, clotting discussed Nutritional guidance given Dose: 5mg X 6 days and 2.5mg X 1 day F/U INR: 4 weeks Patient verbalizes understanding of instructions given Anti-Coag Initial Assessment Social Hx Patient Tobacco Use Status: Never used Tobacco alcohol intake: current Alcohol intake frequency: holidays/special occasions only Coding Level of Care Code Est Patient Level 1 Diagnoses Current use of anticoagulant therapy Z79.01 Results AMB INR Fingerstick AMB INR Fingerstick 2.8 Last Edit by Annamarie Sharif RN on 03/04/24 09:03 interface delay Assessment & Plan Assessment & Plan (1) Current use of anticoagulant therapy: Code(s): Z79.01 - longterm (current) 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
== END 2024-03-04 09:18 | disposition home or self-care (01) ==
LOC: HO.ACS 08:54
PROVIDERS: PCP Internal Medicine; Visit Provider Internal Medicine
DX: Z79.01 Long term (current) use of anticoagulants (principal)

== ENCOUNTER → 2024-03-04 08:54 | Outpatient (BNVA) | payer MEDICARE, SELFPAY | PROVIDERS: PCP Internal Medicine; Visit Provider Internal Medicine | DX: I48.20 Chronic atrial fibrillation, unspecified (principal); Z79.01 Long term (current) use of anticoagulants; Z51.81 Encounter for therapeutic drug level monitoring | CPT/HCPCS: 85610; 99211 ==

== ENCOUNTER 2024-04-08 09:02 | Outpatient (AMB) | payer MEDICARE, SELFPAY ==
--- NOTE | 2024-04-08 09:25 | MHC.OFFVISCO ---
Intake Intake Visit Reasons: Anticoagulation Allergies No Known Allergies [No Known Allergies*] Allergy (Verified 04/08/24 09:12) Medication List - Last Reconciled 04/08/24 by Tasneem Bishop RN allopurinol 300 mg PO DAILY atorvastatin 40 mg PO DAILY furosemide 20 mg PO DAILY isosorbide mononitrate ER 30 mg PO DAILY losartan 50 mg PO BID 90 days metoprolol succinate ER 100 mg PO BID omeprazole 20 mg PO DAILY PRN NS warfarin 5 mg See Protocol PO DAILY Nursing Note INR: 2.6 in therapeutic range Medications and supplements reviewed No changes in health, diet, medications, or supplements, Denies any signs and symptoms of bleeding or bruising or clotting. Bleeding, bruising, clotting discussed Nutritional guidance given Dose: 2.5/ 5MG X 6 DAYS F/U INR: 1 MONTH Patient verbalizes understanding of instructions given Anti-Coag Initial Assessment Social Hx Patient Tobacco Use Status: Never used Tobacco alcohol intake: current Alcohol intake frequency: holidays/special occasions only Coding Level of Care Code Est Patient Level 1 Diagnoses Current use of anticoagulant therapy Z79.01 Results AMB INR Fingerstick AMB INR Fingerstick 2.6 Last Edit by Tasneem Bishop RN on 04/08/24 09:20 MANUAL ENTRY Assessment & Plan Assessment & Plan (1) Current use of anticoagulant therapy: Code(s): Z79.01 - [facility] (current) 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
[2024-04-08 09:42] LABS: Prothrombin Time Whole Bld POC 31.4 sec (11.1-13.5); ~PT, ~INR - Anti Coag Clinic 2.6 (0.9-1.1)
== END 2024-04-08 09:27 | disposition home or self-care (01) ==
LOC: HO.ACS 09:02
PROVIDERS: PCP Internal Medicine; Visit Provider Internal Medicine
DX: Z79.01 Long term (current) use of anticoagulants (principal)

== ENCOUNTER → 2024-04-08 09:02 | Outpatient (BNVA) | payer MEDICARE, SELFPAY | PROVIDERS: PCP Internal Medicine; Visit Provider Internal Medicine | DX: I48.20 Chronic atrial fibrillation, unspecified (principal); Z79.01 Long term (current) use of anticoagulants; Z51.81 Encounter for therapeutic drug level monitoring | CPT/HCPCS: 85610; 99211 ==

== ENCOUNTER 2024-05-07 09:09 | Outpatient (AMB) | payer MEDICARE, SELFPAY ==
[2024-05-07 09:17] LABS: Prothrombin Time Whole Bld POC 39.9 sec (11.1-13.5); ~PT, ~INR - Anti Coag Clinic 3.3 (0.9-1.1)
--- NOTE | 2024-05-07 09:19 | MHC.OFFVISCO ---
Intake Intake Visit Reasons: Anticoagulation Allergies No Known Allergies [No Known Allergies*] Allergy (Verified 05/07/24 09:11) Medication List - Last Reconciled 05/07/24 by Annamarie Sharif RN allopurinol 300 mg PO DAILY atorvastatin 40 mg PO DAILY furosemide 20 mg PO DAILY isosorbide mononitrate ER 30 mg PO DAILY losartan 50 mg PO BID 90 days metoprolol succinate ER 100 mg PO BID omeprazole 20 mg PO DAILY PRN NS warfarin 5 mg See Protocol PO DAILY Nursing Note INR 3.3 out of therapeutic range of 2-3 Medications and supplements reviewed Patient status: well Medications or supplements: no changes Diet: no changes Denies any signs and symptoms of bleeding or clotting or unusual bruising Bleeding, bruising, clotting discussed Nutritional guidance given: to have a serving of greens today. Pt to have broccoli. Dose: 5mg X 6 days and 2.5 mg X 1 day F/U INR Date : 4 weeks Patient verbalizing understanding of instructions given. Anti-Coag Initial Assessment Social Hx Patient Tobacco Use Status: Never used Tobacco alcohol intake: current Alcohol intake frequency: holidays/special occasions only Coding Level of Care Code Est Patient Level 1 Diagnoses Current use of anticoagulant therapy Z79.01 Assessment & Plan Assessment & Plan (1) Current use of anticoagulant therapy: Code(s): Z79.01 - emt intermediate (current) 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
--- OUTSIDE RECORDS SUMMARY | 2024-05-07 09:44 | XMS_ITS | Patient Health Record ---
Author Organization [facility] Address [address] [facility] [place] [address] Care Team Providers Care Elevator Constructor Helper Name Role Phone Evens Osuna MD Primary Care Provider Rasheeda Lo Unavailable [phone] Allergies No Known Allergies Reason For Referral No Information Medications Medication SIG (Take, Route, Frequency, Duration) Notes Start Date End Date Status Allopurinol 300 MG 1 tablet Orally Once a day for 30 day(s) Active Atorvastatin Calcium 40 MG 1 tablet Orally Once a day for 30 day(s) Active Warfarin Sodium 5 MG 1 tablet Orally Onc e a day for 30 day(s) Active Cephalexin 500 MG 1 capsule Orally jermaine ry 12 hrs for 5 days Not-Taking Cephalexin 500 MG 1 capsule Orally jermaine ry 12 hrs for 10 days Not-Taking Losartan Potassium 50 MG 1 tablet Orally [...] Twice a day for 30 days Not-Taking Ammonium Lactate 12 % 1 application to affected area Externally to feet Twice a day for 30 days Active Social History Tobacco Use: Social History Observation Description Date Details (start date - stop date) Never Smoker NA - NA Alcohol Screen Question Answer Notes Did you have a drink contain ing alcohol in the past year? Yes How often did you have a dri nk containing alcohol in the past year? 2 to 4 times a month (2 points) Points 2 Interpretation Negative Tobacco use other than smoking: Question Answer Notes Are you an other tobacco user? No Tobacco Control (Standard) Question Answer Notes Tobacco use: Nonsmoker Problems Problem Type SNOMED Code ICD Code Onset Dates Problem Status W/U Status Risk Notes Problem 165399670 Neuropathy (G62.9) Active confirmed Problem 286868233 Hammertoe of lef t foot (M20.42) Active confirmed Problem 335263375 Hammertoe of right foot (M20.41) Active confirmed Problem 09532863143885637 Atherosclerosi s of artery of both lower extremities (I70.203) Active confirmed Problem Neuropathic ulcer of right foot (disorder) (56467615511337274) Neuropathic ulcer of right foot, limited to breakdown of skin (L97.511) Active confirmed Response to treatment Vital Signs Blood pressure diastolic 90 mm Hg 04/24/2024 Height 6 ft 2 in in 04/24/2024 Blood pressure systolic 150 mm Hg 04/24/2024 Weight 230 lbs 04/24/2024 BMI 29.53 kg/m2 04/24/2024 Encounters Encounter Location Date Provider Diagnosis [address] [address] 07/04/2023 Rasheeda Perica Atherosclerosis of artery of both lower extremities I70.203 ; Tinea pedis of both feet B35.3 ; Neuropathy G62.9 ; Tinea unguium B35.1 ; Pain in toe of left foot M79.675 and Pain in toe of right foot M79.[address] [address] 09/08/2023 Rasheeda Perica Atherosclerosis of artery of both lower extremities I70.203 ; Neuropathy G62.9 ; Tinea unguium B35.1 ; Pain in toe of left foot M79.675 and Pain in toe of right foot M79.[address] [address] 11/29/2023 Rasheeda Perica Atherosclerosis of artery of both lower extremities I70.203 ; Neuropathy G62.9 ; Tinea unguium B35.1 ; Pain in toe of left foot M79.675 and Pain in toe of right foot M79.[address] [place] [address] 02/09/2024 Rasheeda Gorge Atherosclerosis of artery of both lower extremities I70.203 ; Neuropathic ulcer of right foot, limited to breakdown of skin L97.511 ; Neuropathy G62.9 ; Tinea unguium B35.1 ; Pain in toe of left foot M79.675 and Pain in toe of right foot M79.674 [facility] [address] [address] 04/24/2024 Rasheeda Gorge Atherosclerosis of artery of both lower extremities I70.203 ; Tinea unguium B35.1 ; Neuropathy G62.9 ; Pain in toe of left foot M79.675 and Pain in toe of right foot M79.674 Assessments Encounter Date Diagnosis (ICD Code) Assessment Notes Treatment Notes Treatment Clinical Notes Section Notes 07/04/2023 Atherosclerosis of artery of both lower [...] CARE INSTRUCTIONS. pdf (WOUND CARE INSTRUCTIONS. pdf) 04/24/2024 Tinea unguium (ICD-10 - B35.1) 04/24/2024 Atherosclerosis of artery of both lower extremities (ICD-10 - I70.203) 02/09/2024 Neuropathy (ICD-10 - G62.9) 04/24/2024 Neuropathy (ICD-10 - G62.9) 07/04/2023 Neuropathy (ICD-10 - G62.9) 11/29/2023 Neuropathy (ICD-10 - G62.9) 09/08/2023 Tinea unguium (ICD-10 - B35.1) 07/04/2023 Tinea unguium (ICD-10 - B35.1) 09/08/2023 Pain in toe of left foot (ICD-10 - M79.675) 11/29/2023 Tinea unguium (ICD-10 - B35.1) 04/24/2024 Pain in toe of left foot (ICD-10 - M79.675) 02/09/2024 Tinea unguium (ICD-10 - B35.1) 02/09/2024 Pain in toe of left foot (ICD-10 - M79.675) 04/24/2024 Pain in toe of right foot (ICD-10 - M79.674) 11/29/2023 Pain in toe of left foot (ICD-10 - M79.675) 09/08/2023 Pain in toe of right foot (ICD-10 - M79.674) 07/04/2023 Pain in toe of left foot (ICD-10 - M79.675) 07/04/2023 Pain in toe of right foot (ICD-10 - M79.674) 11/29/2023 Pain in toe of right foot (ICD-10 - M79.674) 02/09/2024 Pain in toe of right foot (ICD-10 - M79.674) 04/24/2024 Other Patient Educated with: WOUND CARE INSTRUCTIONS. pdf (WOUND CARE INSTRUCTIONS. pdf) Plan Of Treatment Next Appt Details Provider Name:Rasheeda guzman, 07/10/2024 10:00:00 AM, [address] [place] [address], [phone], Insurance Providers Payer Name Payer Address Payer Phone Subscriber Number Group Number Insured Name Patient Relationship to Insured Coverage Start Date Coverage End Date Medicare National [facility] [address] [place] [address] [id number] Galen Costello Self - patient is the insured [employer] [address] [place] [address] [phone] [id number] Galen Costello Self - patient is the insured Medical (General) History Medical History History ICD Code Angina Cataracts covid-19 Gout Heart disease High blood pressure Reflux ( GERD) Measles Mumps Chicken pox Vascular grafts Surgical History Surgery Date(Month/Year) heart bypass 10/2000 Nose Bx- Skin cancer 06/2022 skin surgery [facility] 2023
--- OUTSIDE RECORDS SUMMARY | 2024-05-07 09:44 | XMS_ITS ---
Author Organization [facility] Address [address] [facility] [address] Care Team Providers Care Monotype Mechanic Name Role Phone Enrrique GOMES, [place] Primary Care Provider Rasheeda Lo Unavailable [phone] Allergies No Known Allergies REASON FOR VISIT [...] 024 Encounters Encounter Location Date Provider Diagnosis [facility] [place] [address] [place] [address] 11/29/2023 Rasheeda Pennington Atherosclerosis of artery of [...] Up: 2 Months, Reason: Provider Name:Rasheeda guzman, 07/10/2024 10:00:00 AM, [address] [place] [address], [phone], Procedure Notes * Category Sub-Category Detail Notes [...] as necessary. Patient chooses, no pharmaceutical tx (18096) Keratoma Treatment Parring or Cutting o f Benign Hyperkeratotic Lesion(s) 42408 ( More than 4 Lesions ) - The Benign hyperkeratotic lesions, as described above were pared, and/or cut utilizing a sterile 15 blade, tissue nippers, and/or dremel , Q8 Progress Notes * Galen SALVADOR TDOB:04/1940 (83 yo M)Acc No.[id number]:11/29/2023 Progress Note Patient:Galen De Jesus Provider:?Rasheeda Pennington DPM :1940???Age:83 Y???Sex:Male Milton e:11/29/2023 Address:[address] [place], [place] [id number] Pcp:Evens Osuna MD Subjective: * Chief Complaints: [...] day. ?Children: yes. ?Exercise: yes, walking,gym at [facility] 3 times a week. ?Marital status: . [...] as necessary. Patient chooses, no pharmaceutical tx (92037).?Keratoma Treatment:?Parring or Cutting of Benign Hyperkeratotic Lesion(s)?15017 ( More than 4 Lesions ) - The Benign hyperkeratotic lesions, as described above were pared, and/or cut utilizing a sterile 15 blade, tissue nippers, and/or dremel , Q8.? * Procedure Codes:?95689 DEBRI DE NAIL, 6 OR MORE, Modifiers: XS 46391 TRIM SKIN LESIONS, OVER 4, Modifiers: XS , Q8 * Follow Up:?2 Months * Images: * Sign off status: Completed true * Provider:?Rasheeda Pennington DPM Date:?01/2024 Generated for Oliver hanna/iPly/Stewartsmitting on:?05/07/2024 09:44 AM EST History and Physical Notes * [...] fashion, no fissure(s) present, B/L Vascular DP PULSES (B): 0/4, B/L PT PULSES (B): 0/4, B/L CAPILLARY FILL TIME: delayed, all digits , B/L TEMPERTURE GRADIENT (C): decreased, cool to cool, proximal to distal, B/L TROPHIC CONDITION-TEXTURE/ELASTICITY/TURGOR/HAIR GROWTH (B): decreased, B/L EDEMA (C): 2/4 CLAUDICATION (C): denies, B/L REST PAIN: denies, B/L PIGMENTATION: pale, B/L Nails NAILS are: Elongated, overg rown, dystrophic, lytic, greater than 3mm thick, discolored and friable with crumbly malodorous subungual debris, with pain on palpation, 1-5 B/L
--- OUTSIDE RECORDS SUMMARY | 2024-05-07 09:44 | XMS_ITS ---
Author Organization [facility] Address [address] [facility] [place] [address] Care Team Providers Care Fitting Room Operator Name Role Phone Enrrique GOMES, [place] Primary Care Provider Rasheeda Lo Unavailable [phone] Allergies No Known Allergies REASON FOR VISIT [...] ry 12 hrs for 10 days Not-Taking Isosorbide Mononitrate ER 30 MG 1 tablet in the morning Orally Once a day for 30 day(s) Active Ciclopirox Olamine 0.77 % 1 application Externally Twice a day for 30 days Not-Taking Ammonium Lactate 12 % 1 application to affected area Externally to feet Twice a day for 30 days Active Furosemide 20 MG 1 tablet Orally Once a day for 30 day(s) Active Social History Tobacco Use: Social History Observation Description Date Details (start date - stop date) Never Smoker NA - NA Tobacco use other than smoking: Question Answer Notes Are you an other tobacco user? No Tobacco Control (Standard) Question Answer Notes Tobacco use: Nonsmoker Vital Signs Height 6 ft 2 in in 04/24/2024 Weight 230 lbs 04/24/2024 BMI 29.53 kg/m2 04/24/2024 Blood pressure systolic 150 mm Hg 04/24/19 25 Blood pressure diastolic 90 mm Hg 025 Encounters Encounter Location Date Provider Diagnosis [facility] [place] [address] [place] [address] 04/24/2024 Rasheeda Pennington Atherosclerosis of artery of both lower extremities I70.203 ; Tinea unguium B35.1 ; Neuropathy G62.9 ; Pain in toe of left foot M79.675 and Pain in toe of right foot M79.674 Assessments Encounter Date Diagnosis (ICD Code) Assessment Notes Treatment Notes Treatment Clinical Notes Section Notes 04/24/2024 Atherosclerosis of artery of both lower extremities (ICD-10 - I70.203) 04/24/2024 Tinea unguium (ICD-10 - B35.1) 04/24/2024 Neuropathy (ICD-10 - G62.9) 04/24/2024 Pain in toe of left foot (ICD-10 - M79.675) 04/24/2024 Pain in toe of right foot (ICD-10 - M79.674) 04/24/2024 Other Patient Educated with: WOUND CARE INSTRUCTIONS. pdf (WOUND CARE INSTRUCTIONS. pdf) Plan Of Treatment Treatment Notes Assessment Notes Other Patient Educated wit h: WOUND CARE INSTRUCTIONS.pdf (WOUND CARE INSTRUCTIONS.pdf) Next Appt Details Follow Up: 2 Months, Reason: Provider Name:Rasheeda guzman, 07/10/2024 10:00:00 AM, [address] [place], [address], Procedure Notes * Category Sub-Category Detail Notes Debride Nail 6-10 Nail debridement Due to the cl inical pathology outlined in the exam findings, performance of this nail treatment is medically necessary as its management by an unskilled/untrained nonprofessional would put this patients foot and overall health at risk. Therefore, debridement to affected nail(s), as described in exam ( TA, T1, T2, T3, T4, T5, T6, T7, T8, T9, ), was performed exclusively by the physician of record to reduce/remove overall nail length, girth, thickness, subungual debris, and necrotic tissue, by manual and/or electrical means through the use of a nail nipper and/or dremel-type machine grinder, to a more viable healthy nail [...] to maintain effectiveness in symptomatic relief - 97615 Keratoma Treatment Parring or Cutting o f Benign Hyperkeratotic Lesion(s) (-57) More than 4 Lesions - Due to the at risk nature of the patients medical condition as documented in the exam findings, performance of this keratoderma treatment is medically necessary as its management by an unskilled/untrained nonprofessional would put this patients foot and overall health at risk. Therefore, the benign hyperkeratotic lesions, ( 7 ) in total, locations as stated and described in the exam ( TA, T1, T5, Sub met 1 B/L, heels B/L ), were pared, and/or cut utilizing a sterile 15 blade, tissue nippers, and/or power dremel instrumentation by the physician of record - 54339 Progress Notes * Galen SALVADOR TDOB:04/1940 (83 yo M)Acc No.[id number]:04/24/2024 Progress Note Patient:?DEJAGalen PETTY T Provider:?Rasheeda Pennington DPM :1940???Age:83 Y???Sex:Male Milton e:04/24/2024 Address:[address] [place], [place] [id number] Pcp:Evens Osuna MD Subjective: * Chief Complaints: * ???At Risk FootcarePainful N ail(s) aggrevated by shoes and causing difficulty standing/walking. * HPI: ???At Risk footcare:?Pt States Last PCP Visit:?Date?11/02/2023 * ROS:?General/Constitutional:?Nausea?denies.?Vomiting?denies.?Hunger Thirst?denies.?Loss appetite?denies.?Chills?denies.?Fatigue?denies.?Fever?denies.?Night Sweats?denies.?Unexplained weight loss?denies.?Unexplained [...] History:?heart bypa ss 10/2000Nose Bx- Skin cancer 06/2022[facility] 2023 * Hospitalization/Major Diagno stic Procedure:?Denies Past Hospitalization * Family History:?Mother: dece ased.?Father: , diagnosed with Unspecified heart disease.? * Social History:?Tobacco Use:?Tobacco use other than smoking?Are you an other tobacco user??No ?Tobacco Control (Standard)?Tobacco use:?Nonsmoker ???Miscellaneous:?Caffeine: yes, frequency:, 1-2 cups per day. ?Children: yes. ?Exercise: yes, walking,gym at [facility] 3 times a week. ?Marital status: . [...] 2 30, BMI: 29.53, Shoe size: 12, BP: 150/90 mm Hg, Ht- cm: 187.96 cm, Wt-k.33 kg. * Examination: ???Vascular: ?DP PULSES (B):? 0/4, B/L.?PT PULSES (B):? 0/4, B/L.?CAPILLARY FILL TIME:? delayed, all digits, B/L.?TROPHIC CONDITION-TEXTURE/ELASTICITY/TURGOR/HAIR GROWTH (B):? decreased, B/L.?TEMPERTURE GRADIENT (C):? decreased, cool to cool, proximal to distal, B/L.?PIGMENTATION:?pale, B/L.?EDEMA (C):?2/4.?CLAUDICATION (C):?denies, B/L.?REST PAIN:?denies, B/L.?Nails: ?NAILS are:? Elongated, overgrown, dystrophic, lytic, greater than 3mm thick, discolored and friable with crumbly malodorous subungual debris, with pain on palpation,TA, T1, T2, T3, T4, T5, T6, T7, T8, T9.?Dermatologic: ?SKIN FINDINGS:? Skin exam reveals Keratotic lesion(s) located at?TA, T1, T5, Sub met 1 B/L, heels B/L?.?Neurological: ?SENSORY:?Neurological exam demonstrates , reduced light touch sensation , reduced sharp/dull pin prick discrimination , reduced vibration sensation , reduced proprioception sensation , in a stocking fashion , plantar aspects , 5.07 monofilament test performed at plantar aspects of 5 varied sites per foot shows sensation , reduced , at Forefoot , B/L.? Assessment: * Assessment: 1.?Tinea unguium - B35.1 (Pr imary)???2.?Atherosclerosis of artery of both lower extremities - I70.203???3.?Neuropathy - G62.9???4.?Pain in toe of left foot - M79.675???5.?Pain in toe of right foot - M79.674??? Plan: * Treatment: * Procedures:?Debride Nail 6-10:?Nail debridement?Due to the clinical pathology outlined in the exam findings, performance of this nail treatment is medically necessary as its management by an unskilled/untrained nonprofessional would put this patients foot and overall health at risk. Therefore, debridement to affected nail(s), as described in exam ( TA, T1, T2, T3, T4, T5, T6, T7, T8, T9, ), was performed exclusively by the physician of record to reduce/remove overall nail length, girth, thickness, subungual debris, and necrotic tissue, by manual and/or electrical means through the use of a nail nipper and/or dremel-type machine grinder, to a more viable healthy nail plate or bed tissue 6- 10 nails in total. Silver nitrate was used for any petechial bleeding as necessary. Definitive antifungal treatment options, both pharmaceutical and surgical, have been reviewed and discussed with the patient. The patient solely prefers the use of intermittent/as needed professional debridement services for their nail condition and understands the need for additional periodic treatments to maintain effectiveness in symptomatic relief - 56475.?Keratoma Treatment:?Parring or Cutting of Benign Hyperkeratotic Lesion(s)?(-57) More than 4 Lesions - Due to the at risk nature of the patients medical condition as documented in the exam findings, performance of this keratoderma treatment is medically necessary as its management by an unskilled/untrained nonprofessional would put this patients foot and overall health at risk. Therefore, the benign hyperkeratotic lesions, ( 7 ) in total, locations as stated and described in the exam (??TA, T1, T5, Sub met 1 B/L, heels B/L?), were pared, and/or cut utilizing a sterile 15 blade, tissue nippers, and/or power dremel instrumentation by the physician of record - 10457.? * Procedure Codes:?38684 DEBRI DE NAIL, 6 OR MORE, Modifiers: XS 78927 TRIM SKIN LESIONS, OVER 4, Modifiers: XS , Q8 * Follow Up:?2 Months * Images: * Sign off status: Completed true * Provider:?Rasheeda Pennington DPM Date:?07/2024 Generated for Oliver hanna/Pily/eTransmitting on:?05/07/2024 09:44 AM EST History and Physical [...] T5, Sub met 1 B/L, heels B/L Vascular DP PULSES (B): 0/4, B/L [...] crumbly malodorous subungual debris, with pain on palpation,TA, T1, T2, T3, T4, T5, T6, T7, T8, T9
--- OUTSIDE RECORDS SUMMARY | 2024-05-07 09:44 | XMS_ITS ---
Author Organization [facility] Address [address] [facility] [place] [address] Care Team Providers Care Bottle Washer Machine Name Role Phone Enrrique GOMES, [place] Primary Care Provider Rasheeda Lo Unavailable [phone] Allergies No Known Allergies REASON FOR VISIT [...] Problem Neuropathic ulcer of right foot (disorder) ([id number] 9102) Neuropathic ulcer of right foot, limited to breakdown of skin (L97.511) Active confirmed Response to treatment Vital Signs Height 6 ft 2 in in 02/09/2024 Weight 230 lbs 02/09/2024 BMI 29.53 kg/m2 02/09/2024 Encounters Encounter Location Date Provider Diagnosis [facility] [address] [address] 02/09/2024 Rasheeda Pennington Atherosclerosis of artery of [...] Provider Name:Rasheeda guzman, 07/10/2024 10:00:00 AM, [address] [place], [address], Procedure Notes * Category Sub-Category Detail Notes [...] use of a nail nipper and/or dremel-type grinder operator surface tool, to a more viable healthy nail plate [...] to maintain effectiveness in symptomatic relief - 88589 Debride skin< 25 sq cm Open wound [...] of the wound post debridement is stable (73063), The patient was instructed on importance of [...] sterile 15 blade, tissue nippers, and/or power [employer] instrumentation - 37617 Progress Notes * Galen SALVADOR TDOB:04/1940 (83 yo M)Acc No.[id number]:02/09/2024 Progress Note Patient:?Galen SALVADOR Provider:?Rasheeda Pennington DPM :1940???Age:83 Y???Sex:Male Milton e:02/09/2024 Address:[address] [place], [place] [address] Pcp:Evens Osuna MD Subjective: * Chief Complaints: [...] ss 10/2000Nose Bx- [facility] * Hospitalization/Major Diagno stic Procedure:?Denies [...] ?Children: yes. ?Exercise: yes, walking,gym at [facility] 3 times a week. ?Marital status: . [...] use of a nail nipper and/or dremel-type grinder operator surface tool, to a more viable healthy nail plate [...] to maintain effectiveness in symptomatic relief - 97145.?Debride skin< 25 sq cm:?Open wound?NEUROPATHY: Physician of [...] of the wound post debridement is stable (59290), The patient was instructed on importance of [...] tissue nippers, and/or power dremel instrumentation - 52464.? * Procedure Codes:?92050 DEBRI DE NAIL, 6 OR MORE, Modifiers: XS 54357 ACTIVE WOUND CARE/20 CM OR <, Modifiers: XS 34703 TRIM SKIN LESIONS, OVER 4, Modifiers: XS [...] Pennington, CONCEPCION Date:? Generated for Oliver hanna/Pily/Jess on:?05/07/2024 09:44 AM EST History and Physical [...] CALOR, absent, ERYTHEMA, absent VERRUCA: Vascular DP PULSES (B): 0/4, B/L PT [...]
== END 2024-05-07 09:23 | disposition home or self-care (01) ==
LOC: HO.ACS 09:09
PROVIDERS: PCP Internal Medicine; Visit Provider Internal Medicine
DX: Z79.01 Long term (current) use of anticoagulants (principal)

== ENCOUNTER → 2024-05-07 09:09 | Outpatient (BNVA) | payer MEDICARE, SELFPAY | PROVIDERS: PCP Internal Medicine; Visit Provider Internal Medicine | DX: I48.20 Chronic atrial fibrillation, unspecified (principal); Z79.01 Long term (current) use of anticoagulants; Z51.81 Encounter for therapeutic drug level monitoring | CPT/HCPCS: 85610; 99211 ==

== ENCOUNTER 2024-05-28 08:55 | Outpatient (AMB) | payer MEDICARE, SELFPAY ==
--- NOTE | 2024-05-28 09:07 | MHC.OFFVIS ---
Vital Signs 05/28/24 09:08 Height 6 ft 2 in Weight 240 lb BMI 30.8 Intake Visit Reasons: 6m leg check- no testing Intake Note: 6 mo follow up Leg check for bilateral LE swelling, states both legs are equal. Accompanied by: Self / Same As Patient Allergies No Known Allergies [No Known Allergies*] Allergy (Verified 05/28/24 09:09) HPI HPI 6m leg check- no testing: Details: Galen is presenting today on a six-month follow up/wound check/leg swelling ongoing. He is known to our office for carotid surveillance status post carotid endarterectomy over 10 years ago at [facility]. He continues to have bilateral lower extremity swelling with hyperpigmentation and hyperkeratosis. This has been going on for many years now. He denies any pain or discomfort in his lower extremities. He does utilize compression stockings daily and does elevate his legs as often as he can. He does following with dermatology for skin cancer with multiple biopsies of his lower extremities as well. 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 Chronic atrial fibrillation CAD (coronary artery disease) Cardiomyopathy Surgical History History of cataract surgery History of colonoscopy History of squamous cell carcinoma excision History of coronary artery bypass graft History of hernia repair History of left-sided carotid endarterectomy S/P CABG x 3 Family History Father Myocardial infarction CVD (cardiovascular disease) Mother Medical history unknown Social History Housing: Condominium Alcohol intake: current Alcohol intake frequency: holidays/special occasions only Patient Tobacco Use Status: Never used Tobacco e-Cigarette/Vaping Use: Never Used Second Hand Smoke Exposure: Yes service: Yes Current occupational status: retired Cognitive needs: No Hearing needs: No Vision needs: Yes Review of Systems Const Reports as per HPI and Denies weakness ENT Reports Normal hearing present Card Reports as per HPI, Denies chest pain, Denies chest pain at rest, Denies chest pain with activity, Denies dyspnea and Denies dyspnea on exertion Resp Reports as per HPI, Denies cough, Denies dyspnea and Denies dyspnea on exertion GI Reports as per HPI, Denies abdominal pain, Denies nausea and Denies vomiting Musc Denies numbness Skin/Breast Reports as per HPI, Denies erythema and Denies wounds Neuro Reports Normal hearing present, Denies numbness, Denies Sensory deficit (Neuro) and Denies weakness Psych Reports no additional complaints Endo Reports no additional complaints Physical Exam Vital Signs: BMI result Body Mass Index 30.8 Const General: healthy appearing and no acute distress Orientation/consciousness: patient oriented x3 HEENT Head: Yes normal to inspection Ears: hearing grossly normal bilaterally Mouth: Normal oral and palatal mucosa present Resp Effort & Inspection: normal respiratory effort and able to speak in complete sentences Auscultation: clear to auscultation bilaterally Cardio Jugular venous distension: no JVD Rate: regular rate Rhythm: regular rhythm Heart sounds: S1 normal heart sound present and S2 normal heart sound present Bruits: no abdominal aortic bruits, no carotid bruits, no femoral bruits and no renal bruits Peripheral pulses: Peripheral pulses 2+ throughout GI Inspection: Yes normal to inspection Palpation (GI): No Abdominal aortic bruit present Skin General skin exam: no rashes or lesions noted Wounds: no wounds Hair: normal Neuro General: patient oriented x3 Cranial nerves: Yes CN's II-XII intact bilaterally and Yes Normal hearing present Cognition (Neuro): normal cognition Gait exam (Neuro): Normal gait present Motor exam (neuro): 5/5 motor strength present throughout Sensory Exam: No Sensory deficit (Neuro) Extrem Other: Bilateral lower extremities: Hyperpigmentation and hyperkeratosis noted from the tibial tuberosities to the ankles. Multiple areas of sores, patient states this is the areas of skin cancer. + 2/3 nonpitting peripheral edema noted. Skin is very tight without any hair noted. Right in cm: Thigh 56.5 Knee 48.5 Calf 43 Ankle 29 Left in cm: Thigh 53 Knee 48 Calf 41 Ankle 30 General: Yes normal to inspection, Yes full ROM, Yes capillary refill normal and Yes normal gait Assessment & Plan Assessment & Plan (1) Lymphedema: Code(s): I89.0 - Lymphedema, not elsewhere classified Category: Medical Plan: Galen is presenting today as a six-month follow up in for ongoing leg swelling. We have reviewed venous insufficiency ultrasound, performed on 06/28/2023, which revealed no venous insufficiency. In short the patient has late onset lymphedema. The patient has been on conservative treatment for at least 6m, starting on 11/28/23, with minimal relief. Patient has tried 30 mm of mercury compression garments, elevation, exercise, healthy diet, and doing manual says self MLD to the best of their ability for over 4 weeks but with no significant relief. He has been compliant with the program, but has provided minimal relief. In addition, on physical exam, we are noticing hyperpigmentation, lymphorrhea, and hyperplasia. It appears that he has stage 2 lymphedema. Patient has completed multiple forms of conservative therapy; yet, significant symptoms remain. Patient requires the use of a pneumatic compression device, which we will assist in trying to have the patient obtain them. A pneumatic compression device will help reduce swelling and other lymphedema comorbidities. We will have him attend our lymphedema clinic on July 31. Thank you for allowing us to assist in this patient's care. If there are any questions or concerns, please do not hesitate to reach out to us. Coding Level of Care Code Est Pt Level 4 (73941) Diagnoses Lymphedema I89.0
[2024-05-28 09:08] VITALS: BMI 30.8
--- OUTSIDE RECORDS SUMMARY | 2024-05-28 09:50 | XMS_ITS ---
Author Organization [facility] Address [address] [facility] [place] [address] Care Team Providers Care Breakdown Mill Operator Name Role Phone Enrrique GOMES, [place] Primary Care Provider Rasheeda Lo Unavailable [phone] Allergies No Known Allergies REASON FOR VISIT [...] 024 Encounters Encounter Location Date Provider Diagnosis [facility] [place] [address] [place] [address] 11/29/2023 Rasheeda Pennington Atherosclerosis of artery of [...] Reason: Provider Name:Rasheeda guzman, 07/10/2024 10:00:00 AM, [address] [place] [address], [phone], Procedure Notes * Category Sub-Category Detail Notes [...] as necessary. Patient chooses, no pharmaceutical tx (02815) Keratoma Treatment Parring or Cutting o f Benign Hyperkeratotic Lesion(s) 50488 ( More than 4 Lesions ) - The Benign hyperkeratotic lesions, as described above were pared, and/or cut utilizing a sterile 15 blade, tissue nippers, and/or dremel , Q8 Progress Notes * Galen SALVADOR TDOB:04/1940 (83 yo M)Acc No.[id number]:11/29/2023 Progress Note Patient:Galen De Jesus Provider:?Rasheeda Pennington DPM :1940???Age:83 Y???Sex:Male Milton e:11/29/2023 Address:[address] [place], [place] [address] Pcp:Evens Osuna MD Subjective: * Chief Complaints: [...] day. ?Children: yes. ?Exercise: yes, walking,gym at [facility] 3 times a week. ?Marital status: . [...] as necessary. Patient chooses, no pharmaceutical tx (71833).?Keratoma Treatment:?Parring or Cutting of Benign Hyperkeratotic Lesion(s)?15552 ( More than 4 Lesions ) - The Benign hyperkeratotic lesions, as described above were pared, and/or cut utilizing a sterile 15 blade, tissue nippers, and/or dremel , Q8.? * Procedure Codes:?37703 DEBRI DE NAIL, 6 OR MORE, Modifiers: XS 11624 TRIM SKIN LESIONS, OVER 4, Modifiers: XS , Q8 * Follow Up:?2 Months * Images: * Sign off status: Completed true * Provider:?Rasheeda Pennington DPM Date:?01/2024 Generated for Oliver hanna/Pily/Stewartsmitting on:?05/28/2024 09:50 AM EDT History and Physical Notes * HPI (History [...]
--- OUTSIDE RECORDS SUMMARY | 2024-05-28 09:50 | XMS_ITS | Patient Health Record ---
Author Organization [facility] Address [address] [facility] [place] [address] Care Team Providers Care Welding Machine Operator Helper Gas Name Role Phone Evens Osuna MD Primary Care Provider Rasheeda Lo Unavailable [phone] Allergies No Known Allergies Reason For Referral [...] Problem Status W/U Status Risk Notes Problem 385715987 Neuropathy (G62.9) Active confirmed Problem 005843149 Hammertoe of lef t foot (M20.42) Active confirmed Problem 552488384 Hammertoe of right foot (M20.41) Active confirmed Problem [id number] Atherosclerosi s of artery of both lower extremities (I70.203) Active confirmed Problem Neuropathic ulcer of right foot (disorder) (65315824548825720) Neuropathic ulcer of right foot, limited to breakdown of skin (L97.511) Active confirmed Response to treatment Vital Signs Blood pressure diastolic 90 mm Hg 04/24/2024 Height 6 ft 2 in in 04/24/2024 Blood pressure systolic 150 mm Hg 04/24/2024 Weight 230 lbs 04/24/2024 BMI 29.53 kg/m2 04/24/2024 Encounters Encounter Location Date Provider Diagnosis [address] [address] 07/04/2023 Rasheeda Perica Atherosclerosis of artery of both lower extremities I70.203 ; Tinea pedis of both feet B35.3 ; Neuropathy G62.9 ; Tinea unguium B35.1 ; Pain in toe of left foot M79.675 and Pain in toe of right foot M79.[address] [address] 09/08/2023 Rasheeda Perica Atherosclerosis of artery of both lower extremities I70.203 ; Neuropathy G62.9 ; Tinea unguium B35.1 ; Pain in toe of left foot M79.675 and Pain in toe of right foot M79.[address] [address] 11/29/2023 Rasheeda Perica Atherosclerosis of artery of both lower extremities I70.203 ; Neuropathy G62.9 ; Tinea unguium B35.1 ; Pain in toe of left foot M79.675 and Pain in toe of right foot M79.[address] [place] [address] 02/09/2024 Rasheeda Gorge Atherosclerosis of artery of both lower extremities I70.203 ; Neuropathic ulcer of right foot, limited to breakdown of skin L97.511 ; Neuropathy G62.9 ; Tinea unguium B35.1 ; Pain in toe of left foot M79.675 and Pain in toe of right foot M79.674 [facility] [address] [address] 04/24/2024 Rasheeda Gorge Atherosclerosis of artery of [...] Details Provider Name:Rasheeda guzman, 07/10/2024 10:00:00 AM, [address] [place] [address], [phone], Insurance Providers Payer Name Payer Address Payer Phone Subscriber Number Group Number Insured Name Patient Relationship to Insured Coverage Start Date Coverage End Date Medicare [facility] [address] [place] [place] [address] [id number] Galen Costello Self - patient is the insured [employer] [address] [place] [address] [id number] Galen Costello Self - patient is the insured Medical (General) History Medical History History ICD Code Angina Cataracts covid-19 Gout Heart disease High blood pressure Reflux ( GERD) Measles Mumps Chicken pox Vascular grafts Surgical History Surgery Date(Month/Year) heart bypass 10/2000 Nose Bx- Skin cancer 06/2022 skin surgery [facility] 2023
--- OUTSIDE RECORDS SUMMARY | 2024-05-28 09:51 | XMS_ITS ---
Author Organization [facility] Address [address] [facility] [place] [address] Care Team Providers Care Feed Mill Tender Name Role Phone Enrrique GOMES, [place] Primary Care Provider Rasheeda Lo Unavailable [phone] Allergies No Known Allergies REASON FOR VISIT [...] Problem Neuropathic ulcer of right foot (disorder) (8881011495348 9102) Neuropathic ulcer of right foot, limited to breakdown of skin (L97.511) Active confirmed Response to treatment Vital Signs Height 6 ft 2 in in 02/09/2024 Weight 230 lbs 02/09/2024 BMI 29.53 kg/m2 02/09/2024 Encounters Encounter Location Date Provider Diagnosis [facility] [address] [address] 02/09/2024 Rasheeda Pennington Atherosclerosis of artery of [...] Provider Name:Rasheeda guzman, 07/10/2024 10:00:00 AM, [address] [place], [address], Procedure Notes * Category Sub-Category Detail Notes [...] use of a nail nipper and/or dremel-type tool grinder operator surface, to a more viable healthy nail plate [...] to maintain effectiveness in symptomatic relief - 13881 Debride skin< 25 sq cm Open wound [...] of the wound post debridement is stable (25573), The patient was instructed on importance of [...] sterile 15 blade, tissue nippers, and/or power [employer] instrumentation - 37641 Progress Notes * Galen SALVADOR TDOB:04/1940 (83 yo M)Acc No.[id number]:02/09/2024 Progress Note Patient:?Galen SALVADOR Provider:?Rasheeda Pennington DPM :1940???Age:83 Y???Sex:Male Milton e:02/09/2024 Address:[address] [place], [place] [id number] Pcp:Evens Osuna MD Subjective: * Chief Complaints: [...] ss 10/2000Nose Bx- Skin cancer 06/2022in surgery [facility] 2023 * Hospitalization/Major Diagno stic [...] ?Children: yes. ?Exercise: yes, walking,gym at [facility] 3 times a week. ?Marital status: . [...] use of a nail nipper and/or dremel-type tool grinder operator surface, to a more viable healthy nail plate [...] to maintain effectiveness in symptomatic relief - 92862.?Debride skin< 25 sq cm:?Open wound?NEUROPATHY: Physician of [...] of the wound post debridement is stable (75123), The patient was instructed on importance of [...] tissue nippers, and/or power dremel instrumentation - 18043.? * Procedure Codes:?02864 DEBRI DE NAIL, 6 OR MORE, Modifiers: XS 90815 ACTIVE WOUND CARE/20 CM OR <, Modifiers: XS 68471 TRIM SKIN LESIONS, OVER 4, Modifiers: XS [...] off status: Completed true * Provider:Alycia Pennington, DPM Date:? Generated for Oliver hanna/Pily/Jess on:?05/28/2024 09:50 AM EDT History and Physical [...]
--- OUTSIDE RECORDS SUMMARY | 2024-05-28 09:51 | XMS_ITS ---
Author Organization [facility] Address [address] [facility] [place] [address] Care Team Providers Care Cut Filer Name Role Phone Enrrique GOMES, [place] Primary Care Provider Rasheeda Lo Unavailable [phone] Allergies No Known Allergies REASON FOR VISIT [...] 025 Encounters Encounter Location Date Provider Diagnosis [facility] [place] [address] [place] [address] 04/24/2024 Rasheeda Pennington Atherosclerosis of artery of [...] Provider Name:Rasheeda guzman, 07/10/2024 10:00:00 AM, [address] [place], [address], Procedure Notes * Category Sub-Category Detail Notes [...] use of a nail nipper and/or dremel-type multifocal button grinder, to a more viable healthy nail [...] to maintain effectiveness in symptomatic relief - 82991 Keratoma Treatment Parring or Cutting o f [...] instrumentation by the physician of record - 97319 Progress Notes * Galen SALVADOR TDOB:04/1940 (83 yo M)Acc No.[id number]:04/24/2024 Progress Note Patient:?DEJAGalen PETTY T Provider:?Rasheeda Pennington DPM :1940???Age:83 Y???Sex:Male Milton e:04/24/2024 Address:[address] [place], [place] [id number] Pcp:Evens Osuna MD Subjective: * Chief Complaints: [...] History:?heart bypa ss 10/2000Nose Bx- Skin cancer 06/2022[facility] surgery [facility] 2023 * Hospitalization/Major Diagno stic Procedure:?Denies Past Hospitalization * Family History:?Mother: dece ased.?Father: , diagnosed with Unspecified heart disease.? * Social History:?Tobacco Use:?Tobacco use other than smoking?Are you an other tobacco user??No ?Tobacco Control (Standard)?Tobacco use:?Nonsmoker ???Miscellaneous:?Caffeine: yes, frequency:, 1-2 cups per day. ?Children: yes. ?Exercise: yes, walking,gym at [facility] 3 times a week. ?Marital status: . [...] use of a nail nipper and/or dremel-type multifocal button grinder, to a more viable healthy nail [...] to maintain effectiveness in symptomatic relief - 18366.?Keratoma Treatment:?Parring or Cutting of Benign Hyperkeratotic Lesion(s)?(-57) [...] instrumentation by the physician of record - 74840.? * Procedure Codes:?31226 DEBRI DE NAIL, 6 OR MORE, Modifiers: XS 10851 TRIM SKIN LESIONS, OVER 4, Modifiers: XS , Q8 * Follow Up:?2 Months * Images: * Sign off status: Completed true * Provider:?Rasheeda Pennington DPM Date:?07/2024 Generated for Oliver hanna/Pily/eTransmitting on:?05/28/2024 09:50 AM EDT History and Physical [...]
== END 2024-05-28 09:34 | disposition home or self-care (01) ==
PROVIDERS: PCP Internal Medicine; Visit Provider Surgery Vascular Surgery
DX: I89.0 Lymphedema, not elsewhere classified (principal)
CPT/HCPCS: 99214

== ENCOUNTER → 2024-05-28 08:55 | Outpatient (BNVA) | payer MEDICARE, SELFPAY | PROVIDERS: PCP Internal Medicine; Visit Provider Surgery Vascular Surgery | DX: I89.0 Lymphedema, not elsewhere classified (principal) | CPT/HCPCS: 99212 ==

== ENCOUNTER 2024-06-06 09:08 | Outpatient (AMB) | payer MEDICARE, SELFPAY ==
[2024-06-06 09:14] LABS: Prothrombin Time Whole Bld POC 29.8 sec (11.1-13.5); ~PT, ~INR - Anti Coag Clinic 2.5 (0.9-1.1)
--- NOTE | 2024-06-06 09:19 | MHC.OFFVISCO ---
Intake Intake Visit Reasons: Anticoagulation Allergies No Known Allergies [No Known Allergies*] Allergy (Verified 06/06/24 09:09) Medication List - Last Reconciled 06/06/24 by Tasneem Bishop RN allopurinol 300 mg PO DAILY atorvastatin 40 mg PO DAILY furosemide 20 mg PO DAILY isosorbide mononitrate ER 30 mg PO DAILY losartan 50 mg PO BID 90 days metoprolol succinate ER 100 mg PO BID omeprazole 20 mg PO DAILY PRN NS warfarin 5 mg See Protocol PO DAILY Nursing Note INR: 2.5 in therapeutic range Medications and supplements reviewed No changes in health, diet, medications, or supplements, Denies any signs and symptoms of bleeding or bruising or clotting. Bleeding, bruising, clotting discussed Nutritional guidance given Dose: 2.5MG X 1 DAY/ 5MG X 6 DAYS F/U INR: 1 MONTH Patient verbalizes understanding of instructions given Anti-Coag Initial Assessment Social Hx Patient Tobacco Use Status: Never used Tobacco alcohol intake: current Alcohol intake frequency: holidays/special occasions only Coding Level of Care Code Est Patient Level 1 Diagnoses Current use of anticoagulant therapy Z79.01 Assessment & Plan Assessment & Plan (1) Current use of anticoagulant therapy: Code(s): Z79.01 - [facility] (current) 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
--- OUTSIDE RECORDS SUMMARY | 2024-06-06 09:43 | XMS_ITS ---
Author Organization [facility] Address [address] [facility] [place] [address] Care Team Providers Care Insurance Adjuster Name Role Phone Enrrique GOMES, [place] Primary Care Provider Rasheeda Lo Unavailable [phone] Allergies No Known Allergies REASON FOR VISIT [...] 024 Encounters Encounter Location Date Provider Diagnosis [facility] [place] [address] [place] [address] 11/29/2023 Rasheeda Pennington Atherosclerosis of artery of [...] Reason: Provider Name:Rasheeda guzman, 07/10/2024 10:00:00 AM, [address] [place] [address], [phone], Procedure Notes * Category Sub-Category Detail Notes [...] as necessary. Patient chooses, no pharmaceutical tx (69256) Keratoma Treatment Parring or Cutting o f Benign Hyperkeratotic Lesion(s) 48679 ( More than 4 Lesions ) - The Benign hyperkeratotic lesions, as described above were pared, and/or cut utilizing a sterile 15 blade, tissue nippers, and/or dremel , Q8 Progress Notes * Galen SALVADOR TDOB:04/1940 (83 yo M)Acc No.[id number]:11/29/2023 Progress Note Patient:Galen De Jesus Provider:?Rasheeda Pennington DPM :1940???Age:83 Y???Sex:Male Milton e:11/29/2023 Address:[address] [place], [place] [id number] Pcp:Evens Osuna MD Subjective: * Chief Complaints: [...] day. ?Children: yes. ?Exercise: yes, walking,gym at [facility] 3 times a week. ?Marital [...] as necessary. Patient chooses, no pharmaceutical tx (24776).?Keratoma Treatment:?Parring or Cutting of Benign Hyperkeratotic Lesion(s)?77069 ( More than 4 Lesions ) - The Benign hyperkeratotic lesions, as described above were pared, and/or cut utilizing a sterile 15 blade, tissue nippers, and/or dremel , Q8.? * Procedure Codes:?06989 DEBRI DE NAIL, 6 OR MORE, Modifiers: XS 18256 TRIM SKIN LESIONS, OVER 4, Modifiers: XS , Q8 * Follow Up:?2 Months * Images: * Sign off status: Completed true * Provider:?Rasheeda Pennington DPM Date:?01/2024 Generated for Oliver hanna/Pily/Stewartsmitting on:?06/06/2024 09:42 AM EDT History and Physical Notes * [...]
--- OUTSIDE RECORDS SUMMARY | 2024-06-06 09:43 | XMS_ITS ---
Author Organization [facility] Address [address] [facility] [place] [address] Care Team Providers Care Management Trainer Name Role Phone Enrrique GOMES, [place] Primary Care Provider Rasheeda Lo Unavailable [phone] Allergies No Known Allergies REASON FOR VISIT [...] Problem Neuropathic ulcer of right foot (disorder) (1542481243493 9102) Neuropathic ulcer of right foot, limited to breakdown of skin (L97.511) Active confirmed Response to treatment Vital Signs Height 6 ft 2 in in 02/09/2024 Weight 230 lbs 02/09/2024 BMI 29.53 kg/m2 02/09/2024 Encounters Encounter Location Date Provider Diagnosis [facility] [address] [address] 02/09/2024 Rasheeda Pennington Atherosclerosis of artery of [...] Provider Name:Rasheeda guzman, 07/10/2024 10:00:00 AM, [address] [place], [address], Procedure Notes * Category Sub-Category Detail Notes [...] use of a nail nipper and/or dremel-type bench grinder, to a more viable healthy nail [...] to maintain effectiveness in symptomatic relief - 78067 Debride skin< 25 sq cm Open wound [...] of the wound post debridement is stable (73266), The patient was instructed on importance of [...] sterile 15 blade, tissue nippers, and/or power [employer] instrumentation - 45473 Progress Notes * Galen SALVADOR TDOB:04/1940 (83 yo M)Acc No.[id number]:02/09/2024 Progress Note Patient:?Galen SALVADOR Provider:?Rasheeda Pennington DPM :1940???Age:83 Y???Sex:Male Milton e:02/09/2024 Address:[address] [place], [place] [phone] Pcp:Evens Osuna MD Subjective: * Chief Complaints: [...] ss 10/2000Nose Bx- Skin cancer 06/2022in surgery [facility] 2023 * Hospitalization/Major Diagno stic Procedure:?Denies [...] day. ?Children: yes. ?Exercise: yes, walking,gym at [facility] 3 times a week. ?Marital status: . [...] use of a nail nipper and/or dremel-type bench grinder, to a more viable healthy nail [...] to maintain effectiveness in symptomatic relief - 67469.?Debride skin< 25 sq cm:?Open wound?NEUROPATHY: Physician of [...] of the wound post debridement is stable (52062), The patient was instructed on importance of [...] tissue nippers, and/or power dremel instrumentation - 37979.? * Procedure Codes:?46662 DEBRI DE NAIL, 6 OR MORE, Modifiers: XS 20504 ACTIVE WOUND CARE/20 CM OR <, Modifiers: XS 67206 TRIM SKIN LESIONS, OVER 4, Modifiers: XS [...] Pennington, DPM Date:? Generated for Oliver hanna/Pily/Jess on:?06/06/2024 09:43 AM EDT History and Physical Notes * [...]
--- OUTSIDE RECORDS SUMMARY | 2024-06-06 09:43 | XMS_ITS ---
Author Organization [facility] Address [address] [facility] [place] [address] Care Team Providers Care Budget Accountant Name Role Phone Enrrique GOMES, [place] Primary Care Provider Rasheeda Lo Unavailable [phone] Allergies No Known Allergies REASON FOR VISIT [...] 025 Encounters Encounter Location Date Provider Diagnosis [facility] [address] [place] [address] 04/24/2024 Rasheeda Pennington Atherosclerosis of artery of [...] Provider Name:Rasheeda guzman, 07/10/2024 10:00:00 AM, [address] [place], [address], Procedure Notes * Category Sub-Category Detail Notes [...] use of a nail nipper and/or dremel-type mash grinder, to a more viable healthy nail [...] to maintain effectiveness in symptomatic relief - 72856 Keratoma Treatment Parring or Cutting o f [...] instrumentation by the physician of record - 86152 Progress Notes * Galen SALVADOR TDOB:04/1940 (83 yo M)Acc No.[id number]:04/24/2024 Progress Note Patient:?DEJAGalen PETTY T Provider:?Rasheeda Pennington DPM :1940???Age:83 Y???Sex:Male [place] e:04/24/2024 Address:[address] [place], [place] [id number] Pcp:Evens Osuna MD Subjective: * Chief Complaints: [...] History:?heart bypa ss 10/2000Nose Bx- Skin cancer 06/2022[facility] surgery [facility] 2023 * Hospitalization/Major Diagno stic Procedure:?Denies Past Hospitalization * Family History:?Mother: dece ased.?Father: , diagnosed with Unspecified heart disease.? * Social History:?Tobacco Use:?Tobacco use other than smoking?Are you an other tobacco user??No ?Tobacco Control (Standard)?Tobacco use:?Nonsmoker ???Miscellaneous:?Caffeine: yes, frequency:, 1-2 cups per day. ?Children: yes. ?Exercise: yes, walking,gym at [facility] 3 times a week. ?Marital [...] use of a nail nipper and/or dremel-type mash grinder, to a more viable healthy nail [...] to maintain effectiveness in symptomatic relief - 17793.?Keratoma Treatment:?Parring or Cutting of Benign Hyperkeratotic Lesion(s)?(-57) [...] instrumentation by the physician of record - 75209.? * Procedure Codes:?19782 DEBRI DE NAIL, 6 OR MORE, Modifiers: XS 08139 TRIM SKIN LESIONS, OVER 4, Modifiers: XS , Q8 * Follow Up:?2 Months * Images: * Sign off status: Completed true * Provider:?Rasheeda Pennington DPM Date:?07/2024 Generated for Oliver hanna/Pily/eTransmitting on:?06/06/2024 09:43 AM EDT History and Physical [...]
--- OUTSIDE RECORDS SUMMARY | 2024-06-06 09:43 | XMS_ITS | Patient Health Record ---
Author Organization [facility] Address [address] [facility] [place] [address] Care Team Providers Care Veterinary Receptionist Name Role Phone Evens Osuna MD Primary Care Provider Rasheeda Lo Unavailable [phone] Allergies No Known Allergies Reason For Referral [...] Problem Status W/U Status Risk Notes Problem 101676969 Neuropathy (G62.9) Active confirmed Problem 262957538 Hammertoe of lef t foot (M20.42) Active confirmed Problem 292202298 Hammertoe of right foot (M20.41) Active confirmed Problem 77280598998311560 Atherosclerosi s of artery of both lower extremities (I70.203) Active confirmed Problem Neuropathic ulcer of right foot (disorder) (41869317606008137) Neuropathic ulcer of right foot, limited to breakdown of skin (L97.511) Active confirmed Response to treatment Vital Signs Blood pressure diastolic 90 mm Hg 04/24/2024 Height 6 ft 2 in in 04/24/2024 Blood pressure systolic 150 mm Hg 04/24/2024 Weight 230 lbs 04/24/2024 BMI 29.53 kg/m2 04/24/2024 Encounters Encounter Location Date Provider Diagnosis [address] [address] 07/04/2023 Rasheeda Perica Atherosclerosis of artery of both lower extremities I70.203 ; Tinea pedis of both feet B35.3 ; Neuropathy G62.9 ; Tinea unguium B35.1 ; Pain in toe of left foot M79.675 and Pain in toe of right foot M79.[address] [address] 09/08/2023 Rasheeda Perica Atherosclerosis of artery of both lower extremities I70.203 ; Neuropathy G62.9 ; Tinea unguium B35.1 ; Pain in toe of left foot M79.675 and Pain in toe of right foot M79.[address] [address] 11/29/2023 Rasheeda Perica Atherosclerosis of artery of both lower extremities I70.203 ; Neuropathy G62.9 ; Tinea unguium B35.1 ; Pain in toe of left foot M79.675 and Pain in toe of right foot M79.[address] [place] [address] 02/09/2024 Rasheeda Gorge Atherosclerosis of artery of both lower extremities I70.203 ; Neuropathic ulcer of right foot, limited to breakdown of skin L97.511 ; Neuropathy G62.9 ; Tinea unguium B35.1 ; Pain in toe of left foot M79.675 and Pain in toe of right foot M79.674 [facility] [address] [address] 04/24/2024 Rasheeda Gorge Atherosclerosis of artery of [...] Details Provider Name:Rasheeda guzman, 07/10/2024 10:00:00 AM, [address] [place] [address], [phone], Insurance Providers Payer Name Payer Address Payer Phone Subscriber Number Group Number Insured Name Patient Relationship to Insured Coverage Start Date Coverage End Date Medicare [facility] [address] [place] [address] [id number] Galen Costello Self - patient is the insured [employer] [address] [place] [address] [id number] Galen Costello Self - patient is the insured Medical (General) History Medical History History ICD Code Angina Cataracts covid-19 Gout Heart disease High blood pressure Reflux ( GERD) Measles Mumps Chicken pox Vascular grafts Surgical History Surgery Date(Month/Year) heart bypass 10/2000 Nose Bx- Skin cancer 06/2022 skin surgery [facility] 2023
== END 2024-06-06 09:21 | disposition home or self-care (01) ==
LOC: HO.ACS 09:08
PROVIDERS: PCP Internal Medicine; Visit Provider Internal Medicine Medical Oncology
DX: Z79.01 Long term (current) use of anticoagulants (principal)

== ENCOUNTER → 2024-06-06 09:08 | Outpatient (BNVA) | payer MEDICARE, SELFPAY | PROVIDERS: PCP Internal Medicine; Visit Provider Internal Medicine Medical Oncology | DX: I48.20 Chronic atrial fibrillation, unspecified (principal); Z51.81 Encounter for therapeutic drug level monitoring; Z79.01 Long term (current) use of anticoagulants | CPT/HCPCS: 85610; 99211 ==

== ENCOUNTER 2024-07-02 15:59 | Outpatient (AMB) | payer MEDICARE, SELFPAY ==
--- NOTE | 2024-07-02 16:08 | MHC.PC.OV ---
Vital Signs 07/02/24 16:09 Height 6 ft 2 in Weight 241 lb 2 oz BMI 31.0 BP 136/84 Blood Pressure Location Lt brachial Position Sitting Pulse 72 Pulse Source Pulse Oximeter Pulse Oximetry (%) 95 Oxygen Delivery Method Room Air Intake Visit Reasons: F/u DM and HTN Drop Press Hand Required: No Accompanied by: Self / Same As Patient Allergies No Known Allergies [No Known Allergies*] Allergy (Verified 07/04/24 09:03) Medication List - Last Reconciled 07/02/24 by Evens Osuna MD allopurinol 300 mg PO DAILY atorvastatin 40 mg PO DAILY furosemide 20 mg PO DAILY isosorbide mononitrate ER 30 mg PO DAILY losartan 50 mg PO BID 90 days metoprolol succinate ER 100 mg PO BID omeprazole 20 mg PO DAILY PRN NS warfarin 5 mg See Protocol PO DAILY Tobacco use date assessed: 07/02/24 Fall risk assessment: No Falls in past year Last assessed Fall Risk: 07/02/24 Dental Screening Dental Screen Date: 07/02/24 Did you have a dental visit in the last 12 months?: Yes Did you have a dental problem in the last 6 months where you did not have access to dental care?: No Was dental information given to patient?: Patient has dentist HPI F/u DM and HTN HPI Details Patient comes in today for his follow-up visit - he has not been back since September 2023 States that he currently feels okay Still has recurrent swelling of both lower extremities and he continues to follow-up with vascular surgery regularly for this He denies any headaches or dizziness Denies any chest pains, no increased shortness of breath No nausea/vomiting, no abdominal pain No change in bowel habits noted He has not had any follow-up labs done since September 2023 Patient adds that he has been experiencing some problems with his hearing and his children would like for him to get his hearing checked TEENA He is also requesting a refill for his Sildenafil [facility] Medical History (Updated 07/08/24 @ 00:27 by Evens Osuna MD) Hearing loss Heart failure with reduced ejection fraction Peripheral vascular disease Cataract, right eye Obesity (BMI 30-39.9) Erectile dysfunction Vitamin D deficiency Gout GERD without esophagitis Polymyalgia rheumatica Mixed hyperlipidemia Benign essential hypertension Chronic kidney disease (CKD), 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 Chronic atrial fibrillation CAD (coronary artery disease) Cardiomyopathy Surgical History History of cataract surgery History of colonoscopy History of squamous cell carcinoma excision History of coronary artery bypass graft History of hernia repair History of left-sided carotid endarterectomy S/P CABG x 3 Family History Father Myocardial infarction CVD (cardiovascular disease) Mother Medical history unknown Social History Housing: [facility] Alcohol intake: current Alcohol intake frequency: holidays/special occasions only Patient Tobacco Use Status: Never used Tobacco e-Cigarette/Vaping Use: Never Used Second Hand Smoke Exposure: Yes service: Yes Current occupational status: retired Cognitive needs: No Hearing needs: No Vision needs: Yes Questionnaire PHQ-9 Over the last 2 weeks, how often have you been bothered by any of the following problems? 1. Little interest or pleasure in doing things: not at all 2. Feeling down, depressed, or hopeless: not at all 3. Trouble falling or staying asleep, or sleeping too much: not at all 4. Feeling tired or having little energy: not at all 5. Poor appetite or overeating: not at all 6. Feeling bad about yourself - or that you are a failure or have let yourself or your family down: not at all 7. Trouble concentrating on things, such as reading the newspaper or watching television: not at all 8. Moving or speaking so slowly that other people could have noticed. Or the opposite - being so fidgety or restless that you have been moving around a lot more than usual: not at all 9. Thoughts that you would be better off or of hurting yourself in some way: not at all Total score: 0 Depression Screening Interpretation: Negative Depression Screening Done: Yes 24081 - PHQ-9 Billing: Yes Source: Developed by Drs. Zaki Curtis, Teresa Cain, Diego Huff and colleagues, with an educational meaghan from [employer]. Thrive Questionnaire Date Thrive assessed: 07/02/24 I am a: Patient What is your living situation today?: I have a steady place to live Within the past 12 months, did the food you bought not last and you didn't have the money to get more?: Never true Within the past 12 months, did you worry whether your food would run out before you got money to buy more?: Never true Do you have trouble paying for medicines?: No Do you have trouble getting transportation to medical appointments?: No Do you have trouble paying your heating and electricity bill?: No Do you have trouble taking care of your child, family member or friend?: No Do you have trouble with day-to-day activities such as bathing, preparing meals, shopping, managing finances, etc.?: No Are you currently unemployed and looking for a job?: No Are you interested in more education?: No Please select the resources that you would like help with: None Currently or been in a relationship where the following occur: No concerns reported THRIVE Score: 0 AUDIT C Alcohol Use Questionnaire (AUDIT-C) 1. How often do you have a drink containing alcohol?: 2-4 times a month 2. How many drinks containing alcohol do you have on a typical day when you are drinking?: 3 or 4 3. How often do you have six or more drinks on one occasion?: Never Total Score: 3 Score Reviewed/Action Taken: Yes AXEL-7 AMB Questionnaire AXEL-7 Date AXEL - 7 assessed: 07/02/24 Feeling nervous, anxious, or on edge: 0 = Not at all Not being able to stop or control worryin = Not at all Worrying too much about different things: 0 = Not at all Trouble relaxin = Not at all Being so restless that it is hard to sit still: 0 = Not at all Becoming easily annoyed or irritable: 0 = Not at all Feeling afraid as if something awful might happen: 0 = Not at all Total AXEL-7 score (0-4 normal; 5-9 mild; 10-14 moderate; 15-21 severe): 0 Source: Developed by Drs. Zaki Curtis, Teresa Cain, Diego Huff and colleagues, with an educational meaghan from [employer]. Review of Systems Const Denies chills, Denies fatigue, Denies fever(s) and Denies headache(s) ENT Denies dysphagia, Denies dizziness, Denies otalgia, Denies headache(s), Denies neck pain, Denies odynophagia and Denies sore throat Card Denies chest pain, Denies palpitations and Denies dyspnea Resp Denies cough and Denies dyspnea GI Denies abdominal pain, Denies constipation, Denies dysphagia, Denies heartburn, Denies diarrhea, Denies nausea, Denies odynophagia and Denies vomiting Denies dysuria, Denies nocturia and Denies urinary frequency Musc Denies back pain and Denies neck pain Skin/Breast Denies rash Neuro Denies dizziness and Denies headache(s) Endo Denies fatigue and Denies palpitations Physical exam (Primary Care) Vital Signs: Last Vital Signs Pulse 72 07/02/24 16:09 BP 136/84 07/02/24 16:09 Pulse Ox 95 07/02/24 16:09 Oxygen Delivery Method Room Air 07/02/24 16:09 BMI result Body Mass Index 31.0 Tobacco/Smoking Status: Tobacco use Status Tobacco use date assessed 07/02/24 07/02/24 16:14 Patient Tobacco Use Status Never used Tobacco 07/02/24 16:14 e-Cigarette/Vaping Use Never Used 07/02/24 16:14 PHQ-9: PHQ-9 Score PHQ-9: Total score 0 07/02/24 16:14 Depression Screening Interpretation: Negative Thrive Assessment: Date of Thrive Assessment Date Thrive assessed 07/02/24 07/02/24 16:14 Currently or been in a relationship where the following occur: No concerns reported Const General: no acute distress and alert HENMT Ears: TM's normal bilaterally and EAC's normal Throat: Yes posterior oropharynx normal and Yes tonsils normal (no TP congestion noted) Neck Neck: Yes no lymphadenopathy and Yes supple Thyroid: Thyroid normal Resp Auscultation: clear to auscultation bilaterally, no rales and no wheezes Cardio Rate: regular rate Rhythm: abnormal rhythm irregularly irregular Heart sounds: no murmurs GI Palpation (GI): Soft to palpation and nontender Auscultation: normal bowel sounds General: Yes no CVA tenderness Back/Spine/Pelvis Back: no CVA tenderness Thoracic/Lumbar Spine: No lumbar spinal tenderness Skin Rashes: no rashes Extrem General: No clubbing, No cyanosis and Yes edema (2+ bipedal edema) Coding Level of Care Code Est Pt Level 4 (81152) Complex EM visit Add On G2211 Diagnoses Coronary artery disease involving [place] coronary artery of [place] heart without angina pectoris I25.10 Coronary Disease-Associated Artery/Lesion type: [place] artery [place] vs. transplanted heart: [place] heart Associated angina: without angina Heart failure with reduced ejection fraction I50.20 Chronic atrial fibrillation I48.20 Mixed hyperlipidemia E78.2 Type 2 diabetes mellitus with stage 2 chronic kidney disease, without long-term current use of insulin E11.22; N18.2 Diabetes mellitus fpc insulin use: without fpc use Chronic kidney disease stage: stage 2 (mild) Chronic kidney disease (CKD), stage II (mild) N18.2 Benign essential hypertension I10 Peripheral vascular disease I73.9 Polymyalgia rheumatica M35.3 GERD without esophagitis K21.9 Idiopathic gout, unspecified chronicity, unspecified site M10.00 Gout site: unspecified site Gout etiology: idiopathic Chronicity: unspecified Erectile dysfunction, unspecified erectile dysfunction type N52.9 Erectile dysfunction type: unspecified Bilateral hearing loss, unspecified hearing loss type H91.93 Hearing loss type: unspecified Laterality: bilateral Vitamin D deficiency E55.9 Obesity (BMI 30-39.9) E66.9 Additional Codes PHQ-9 - 54280 - PHQ-9 Billing: Yes ([id number]) Assessment & Plan Assessment & Plan (1) CAD (coronary artery disease): Comment: S/P coronary artery bypass graft x 3 - JACOBSEN to LAD, radial artery to diagonal, SVG to OM (2000) Code(s): I25.10 - Atherosclerotic heart disease of [place] coronary artery without angina pectoris Category: Medical Qualifiers: Coronary Disease-Associated Artery/Lesion type: [place] artery [place] vs. transplanted heart: [place] heart Associated angina: without angina Qualified Code(s): I25.10 - Atherosclerotic heart disease of [place] coronary artery without angina pectoris Plan: Asymptomatic - (+) remote Hx of CABG in 2000 Continue Isosorbide Mononitrate ER 30 mg QD and Metoprolol ER 100 mg BID; continue high-dose statin (Atorvastatin 40 mg) for primary risk reduction Follow up with cardiology as scheduled (2) Heart failure with reduced ejection fraction: Code(s): I50.20 - Unspecified systolic (congestive) heart failure Category: Medical Plan: Improving - his echocardiogram done on 08/31/2022 revealed improvement of EF to low normal at 50% to 55% (was previously around 25 to 30%) Repeat ehocardiogram done on 08/24/2023 (for 1 year follow-up) revealed no significant changes from a year ago - low normal LV ejection fraction at 50-55%, severe biatrial enlargement, cardiac valvular Dopplers within normal limits and RV systolic pressure at the upper limits of normal Continue Metoprolol ER 100 mg BID, Furosemide 20 mg QD and Losartan 50 mg BID Reinforced fluid restriction Follow up with cardiology as scheduled (3) Chronic atrial fibrillation: Code(s): I48.20 - Chronic atrial fibrillation, unspecified Category: Medical Plan: Patient presently remains in atrial fibrillation but is rate-controlled Continue Metoprolol ER 100 mg BID and lifelong anticoagulation with Coumadin daily He continues to follow up with the Coumadin clinic for PT/INR monitoring (4) Mixed hyperlipidemia: Code(s): E78.2 - Mixed hyperlipidemia Category: Medical Plan: He has not had any follow up labs done since September 2023 and has been advised to try and get them done TEENA - ordered Reinforced low cholesterol diet Continue Atorvastatin 40 mg QD Will recheck his labs and fasting lipids again in 4 months for follow up (5) Type 2 diabetes mellitus with diabetic chronic kidney disease: Code(s): E11.22 - Type 2 diabetes mellitus with diabetic chronic kidney disease Category: Medical Qualifiers: Diabetes mellitus fpc insulin use: without adding machine operator use Chronic kidney disease stage: stage 2 (mild) Qualified Code(s): E11.22 - Type 2 diabetes mellitus with diabetic chronic kidney disease; N18.2 - Chronic kidney disease, stage 2 (mild) Plan: His in-office HgbA1c back in September 2023 was at 8.0% (HgbA1c was at 7.4% a year ago in June 2023) Will recheck this with his labs TEENA - goal is HgbA1c of at least <7.0% Reinforced diabetic diet He was on Januvia 50 mg QD but appears to have stopped taking this at some point after his last visit Will see how his repeat labs are before deciding on whether to start patient back on Rx or not (6) Chronic kidney disease (CKD), stage II (mild): Code(s): N18.2 - Chronic kidney disease, stage 2 (mild) Category: Medical Plan: His renal function was previously stable for a while Will recheck his labs TEENA for follow up (7) Benign essential hypertension: Code(s): I10 - Essential (primary) hypertension Category: Medical Plan: Reinforced low sodium diet - goal is systolic BP of at least 140 mm or less Continue Losartan 50 mg BID and Metoprolol ER 100 mg BID (8) Peripheral vascular disease: Code(s): I73.9 - Peripheral vascular disease, unspecified Category: Medical Plan: Arterial studies done back in January 2023 revealed (+) high-grade popliteal artery stenosis by Doppler in the leg Follow up with vascular surgery as scheduled (9) Polymyalgia rheumatica: Code(s): M35.3 - Polymyalgia rheumatica Category: Medical Plan: He was on oral Prednisone in the past but was taken off his Rx by rheumatology a while back Used to follow up with rheumatology at [facility] regularly but states that he has not seen them since Dr. Holder left [facility] several months ago States that he currently has no acute issues and prefers not to see rheumatology as he does not want to have any additional appts scheduled at this time (10) GERD without esophagitis: Code(s): K21.9 - Gastro-esophageal reflux disease without esophagitis Category: Medical Plan: Dietary restrictions reinforced Continue Omeprazole 20 mg QD (11) Gout: Code(s): M10.9 - Gout, unspecified Category: Medical Qualifiers: Gout site: unspecified site Gout etiology: idiopathic Chronicity: unspecified Qualified Code(s): M10.00 - Idiopathic gout, unspecified site Plan: Reinforced low purine diet Continue Allopurinol 300 mg QD (12) Erectile dysfunction: Code(s): N52.9 - Male erectile dysfunction, unspecified Category: Medical Qualifiers: Erectile dysfunction type: unspecified Qualified Code(s): N52.9 - Male erectile dysfunction, unspecified Plan: Continue Sildenafil 50 mg QD PRN - Rx refilled (13) Hearing loss: Code(s): H91.90 - Unspecified hearing loss, unspecified ear Category: Medical Qualifiers: Hearing loss type: unspecified Laterality: bilateral Qualified Code(s): H91.93 - Unspecified hearing loss, bilateral Plan: Per request, will refer him for hearing evaluation (14) Vitamin D deficiency: Code(s): E55.9 - Vitamin D deficiency, unspecified Category: Medical Plan: Will recheck his Vitamin D level for follow up (15) Obesity (BMI 30-39.9): Code(s): E66.9 - Obesity, unspecified Category: Medical Plan: Reinforced diet; exercise and weight loss are not realistic or practical at this time given patient's current issues Plan Follow up in 4 months Orders: Orders UA CC w/rflx Micro + Cult 07/04/24 R30.0 - Dysuria Uric Acid 07/04/24 M10.9 - Gout, unspecified Vitamin B12 and Folate 07/04/24 E53.8 - Deficiency of other specified B group vitamins Complete Blood Count Auto Diff 4 Months D64.9 - Anemia, unspecified Comprehensive [place]. Panel Fast 4 Months E78.00 - Pure hypercholesterolemia, unspecified Vitamin D 25-OH Total 4 Months E55.9 - Vitamin D deficiency, unspecified Complete Blood Count Auto Diff 07/04/24 D64.9 - Anemia, unspecified Lipid Panel 07/04/24 E78.00 - Pure hypercholesterolemia, unspecified Comprehensive [place]. Panel Fast 07/04/24 E78.00 - Pure hypercholesterolemia, unspecified TSH reflex Free T4 07/04/24 E78.00 - Pure hypercholesterolemia, unspecified Vitamin D 25-OH Total 07/04/24 E55.9 - Vitamin D deficiency, unspecified Hemoglobin A1c 07/04/24 E11.22 - Type 2 diabetes mellitus with diabetic chronic kidney disease, N18.2 - Chronic kidney disease, stage 2 (mild) Hemoglobin A1c 4 Months E11.9 - Type 2 diabetes mellitus without complications Lipid Panel 4 Months E78.00 - Pure hypercholesterolemia, unspecified Microalbumin, Random (w Creat) 4 Months E11.9 - Type 2 diabetes mellitus without complications TSH reflex Free T4 4 Months E78.00 - Pure hypercholesterolemia, unspecified UA CC w/rflx Micro + Cult 4 Months R30.0 - Dysuria Vitamin B12 and Folate 4 Months E53.8 - Deficiency of other specified B group vitamins Uric Acid 4 Months M10.9 - Gout, unspecified Referrals Speech and Hearing Referral H91.90 - Unspecified hearing loss, unspecified ear Medications: Changed From sildenafil 50 mg PO DAILY 30 days PRN 30 tabs 0RF sexual activity To sildenafil 50 mg PO DAILY PRN 10 tabs 2RF sexual activity Refilled sildenafil 50 mg PO DAILY PRN 30 tabs 0RF sexual activity
[2024-07-02 16:09] VITALS: BP 136/84; PULSE 72; O2SAT 95; BMI 31.0
--- OUTSIDE RECORDS SUMMARY | 2024-07-02 18:52 | XMS_ITS ---
Author Organization [facility] Address [address] [facility] [place] [address] Care Team Providers Care Comfort Station Supervisor Name Role Phone Enrrique GOMES, [place] Primary Care Provider Rasheeda Lo Unavailable [phone] Allergies No Known Allergies REASON FOR VISIT [...] 025 Encounters Encounter Location Date Provider Diagnosis [facility] [place] [address] [place] [address] 04/24/2024 Rasheeda Pennington Atherosclerosis of artery of [...] Provider Name:Rasheeda guzman, 07/10/2024 10:00:00 AM, [address] [place], [address], Procedure Notes * Category Sub-Category Detail Notes [...] use of a nail nipper and/or dremel-type hob grinder, to a more viable healthy nail [...] to maintain effectiveness in symptomatic relief - 30152 Keratoma Treatment Parring or Cutting o f [...] instrumentation by the physician of record - 33062 Progress Notes * Galen SALVADOR TDOB:04/1940 (83 yo M)Acc No.[id number]:04/24/2024 Progress Note Patient:?DEJAGalen PETTY T Provider:?Rasheeda Pennington DPM :1940???Age:83 Y???Sex:Male Milton e:04/24/2024 Address:[address] [place], [place] [address] Pcp:Evens Osuna MD Subjective: * Chief Complaints: [...] ss 10/2000Nose Bx- Skin cancer 06/2022[facility] surgery [facility] 2023 * Hospitalization/Major Diagno stic Procedure:?Denies Past Hospitalization * Family History:?Mother: dece ased.?Father: , diagnosed with Unspecified heart disease.? * Social History:?Tobacco Use:?Tobacco use other than smoking?Are you an other tobacco user??No ?Tobacco Control (Standard)?Tobacco use:?Nonsmoker ???Miscellaneous:?Caffeine: yes, frequency:, 1-2 cups per day. ?Children: yes. ?Exercise: yes, walking,gym at [facility] 3 times a week. ?Marital status: [...] use of a nail nipper and/or dremel-type hob grinder, to a more viable healthy nail [...] to maintain effectiveness in symptomatic relief - 88628.?Keratoma Treatment:?Parring or Cutting of Benign Hyperkeratotic Lesion(s)?(-57) [...] instrumentation by the physician of record - 83966.? * Procedure Codes:?51755 DEBRI DE NAIL, 6 OR MORE, Modifiers: XS 02593 TRIM SKIN LESIONS, OVER 4, Modifiers: XS , Q8 * Follow Up:?2 Months * Images: * Sign off status: Completed true * Provider:?Rasheeda Pennington DPM Date:?07/2024 Generated for Oliver hanna/Pily/eTransmitting on:?07/02/2024 06:52 PM EDT History and Physical Notes * HPI [...]
--- OUTSIDE RECORDS SUMMARY | 2024-07-02 18:52 | XMS_ITS | Patient Health Record ---
Author Organization [facility] Address [address] [facility] [place] [address] Care Team Providers Care Catalyst Plant Supervisor Name Role Phone Evens Osuna MD Primary Care Provider Rasheeda oL Unavailable [phone] Allergies No Known Allergies Reason For Referral [...] Problem Status W/U Status Risk Notes Problem 159207069 Neuropathy (G62.9) Active confirmed Problem 305881595 Hammertoe of lef t foot (M20.42) Active confirmed Problem 151362636 Hammertoe of right foot (M20.41) Active confirmed Problem 92874748721669684 Atherosclerosi s of artery of both lower extremities (I70.203) Active confirmed Problem Neuropathic ulcer of right foot (disorder) (29613731589234709) Neuropathic ulcer of right foot, limited to breakdown of skin (L97.511) Active confirmed Response to treatment Vital Signs Blood pressure diastolic 90 mm Hg 04/24/2024 Height 6 ft 2 in in 04/24/2024 Blood pressure systolic 150 mm Hg 04/24/2024 Weight 230 lbs 04/24/2024 BMI 29.53 kg/m2 04/24/2024 Encounters Encounter Location Date Provider Diagnosis [address] [address] 07/04/2023 Rasheeda Perica Atherosclerosis of artery of both lower extremities I70.203 ; Tinea pedis of both feet B35.3 ; Neuropathy G62.9 ; Tinea unguium B35.1 ; Pain in toe of left foot M79.675 and Pain in toe of right foot M79.[address] [address] 09/08/2023 Rasheeda Perica Atherosclerosis of artery of both lower extremities I70.203 ; Neuropathy G62.9 ; Tinea unguium B35.1 ; Pain in toe of left foot M79.675 and Pain in toe of right foot M79.[address] [address] 11/29/2023 Rasheeda Perica Atherosclerosis of artery of both lower extremities I70.203 ; Neuropathy G62.9 ; Tinea unguium B35.1 ; Pain in toe of left foot M79.675 and Pain in toe of right foot M79.[address] [place] [address] 02/09/2024 Rasheeda Gorge Atherosclerosis of artery of both lower extremities I70.203 ; Neuropathic ulcer of right foot, limited to breakdown of skin L97.511 ; Neuropathy G62.9 ; Tinea unguium B35.1 ; Pain in toe of left foot M79.675 and Pain in toe of right foot M79.674 [facility] [address] [address] 04/24/2024 Rasheeda Gorge Atherosclerosis of artery of [...] Details Provider Name:Rasheeda guzman, 07/10/2024 10:00:00 AM, [address] [place] [address], [address], Insurance Providers Payer Name Payer Address Payer Phone Subscriber Number Group Number Insured Name Patient Relationship to Insured Coverage Start Date Coverage End Date Medicare [facility] [address] [facility] [place] [address] [id number] Galen Costello Self - patient is the insured [employer] [address] [place] [address] [phone] [id number] Galen Costello Self - patient is the insured Medical (General) History Medical History History ICD Code Angina Cataracts covid-19 Gout Heart disease High blood pressure Reflux ( GERD) Measles Mumps Chicken pox Vascular grafts Surgical History Surgery Date(Month/Year) 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
--- OUTSIDE RECORDS SUMMARY | 2024-07-02 18:52 | XMS_ITS ---
Author Organization [facility] Address [address] [facility] [place] [address] Care Team Providers Care Glass Cut Off Tender Name Role Phone Enrrique GOMES, [place] Primary Care Provider Rasheeda Lo Unavailable [phone] Allergies No Known Allergies REASON FOR VISIT [...] 024 Encounters Encounter Location Date Provider Diagnosis [facility] [place] [address] [place] [address] 11/29/2023 Rasheeda Pennington Atherosclerosis of artery of [...] Reason: Provider Name:Rasheeda guzman, 07/10/2024 10:00:00 AM, [address] [place] [address], [address], Procedure Notes * Category Sub-Category Detail Notes [...] as necessary. Patient chooses, no pharmaceutical tx (71895) Keratoma Treatment Parring or Cutting o f Benign Hyperkeratotic Lesion(s) 30708 ( More than 4 Lesions ) - The Benign hyperkeratotic lesions, as described above were pared, and/or cut utilizing a sterile 15 blade, tissue nippers, and/or dremel , Q8 Progress Notes * Galen SALVADOR TDOB:04/1940 (83 yo M)Acc No.[id number]:11/29/2023 Progress Note Patient:Galen De Jesus Provider:?Raseheda Pennington DPM :1940???Age:83 Y???Sex:Male Milton e:11/29/2023 Address:[address] [place], [place] [address] Pcp:Evens Osuna MD Subjective: * Chief Complaints: [...] day. ?Children: yes. ?Exercise: yes, walking,gym at [facility] 3 times a week. ?Marital [...] as necessary. Patient chooses, no pharmaceutical tx (05603).?Keratoma Treatment:?Parring or Cutting of Benign Hyperkeratotic Lesion(s)?84515 ( More than 4 Lesions ) - The Benign hyperkeratotic lesions, as described above were pared, and/or cut utilizing a sterile 15 blade, tissue nippers, and/or dremel , Q8.? * Procedure Codes:?44414 DEBRI DE NAIL, 6 OR MORE, Modifiers: XS 12468 TRIM SKIN LESIONS, OVER 4, Modifiers: XS , Q8 * Follow Up:?2 Months * Images: * Sign off status: Completed true * Provider:?Rasheeda Pennington DPM Date:?01/2024 Generated for Oliver hanna/Pily/Stewartsmitting on:?07/02/2024 06:52 PM EDT History and Physical [...]
--- OUTSIDE RECORDS SUMMARY | 2024-07-02 18:53 | XMS_ITS ---
Author Organization [facility] Address [address] [facility] [place] [address] Care Team Providers Care Customer Service Analyst Name Role Phone Enrrique GOMES, [place] Primary Care Provider Rasheeda Lo Unavailable [phone] Allergies No Known Allergies REASON FOR VISIT [...] Problem Neuropathic ulcer of right foot (disorder) (4230150265753 9102) Neuropathic ulcer of right foot, limited to breakdown of skin (L97.511) Active confirmed Response to treatment Vital Signs Height 6 ft 2 in in 02/09/2024 Weight 230 lbs 02/09/2024 BMI 29.53 kg/m2 02/09/2024 Encounters Encounter Location Date Provider Diagnosis [facility] [address] [address] 02/09/2024 Rasheeda Pennington Atherosclerosis of artery of [...] Name:Rasheeda guzman, 07/10/2024 10:00:00 AM, [address] [place], [address], Procedure Notes * Category Sub-Category Detail Notes [...] use of a nail nipper and/or dremel-type instrument lens grinder, to a more viable healthy nail [...] to maintain effectiveness in symptomatic relief - 63960 Debride skin< 25 sq cm Open wound [...] of the wound post debridement is stable (02890), The patient was instructed on importance of [...] sterile 15 blade, tissue nippers, and/or power [employer] instrumentation - 48955 Progress Notes * Galen SALVADOR TDOB:04/1940 (83 yo M)Acc No.[id number]:02/09/2024 Progress Note Patient:?Galen SALVADOR Provider:?Rasheeda Pennington DPM :1940???Age:83 Y???Sex:Male Milton e:02/09/2024 Address:[address] [place], [place] [id number] Pcp:Evens Osuna MD Subjective: * Chief Complaints: [...] ss 10/2000Nose Bx- Skin cancer 06/2022in surgery [facility] 2023 * Hospitalization/Major Diagno stic [...] day. ?Children: yes. ?Exercise: yes, walking,gym at [facility] 3 times a week. ?Marital status: [...] use of a nail nipper and/or dremel-type instrument lens grinder, to a more viable healthy nail [...] to maintain effectiveness in symptomatic relief - 14141.?Debride skin< 25 sq cm:?Open wound?NEUROPATHY: Physician of [...] of the wound post debridement is stable (38479), The patient was instructed on importance of [...] tissue nippers, and/or power dremel instrumentation - 37659.? * Procedure Codes:?14163 DEBRI DE NAIL, 6 OR MORE, Modifiers: XS 43235 ACTIVE WOUND CARE/20 CM OR <, Modifiers: XS 78524 TRIM SKIN LESIONS, OVER 4, Modifiers: XS [...] * Provider:Alycia Pennington, DPM Date:? Generated for Ellyi jacques/Pily/Jess on:?07/02/2024 06:52 PM EDT History and Physical [...]
== END 2024-07-02 17:16 | disposition home or self-care (01) ==
LOC: HO.HMCH 15:59
PROVIDERS: PCP Internal Medicine; Visit Provider Internal Medicine
DX: I13.0 Hypertensive heart and chronic kidney disease with heart failure and stage 1 through stage 4 chronic kidney disease, or unspecified chronic kidney disease (principal); E11.22 Type 2 diabetes mellitus with diabetic chronic kidney disease; I50.20 Unspecified systolic (congestive) heart failure; I48.20 Chronic atrial fibrillation, unspecified; I73.9 Peripheral vascular disease, unspecified; M35.3 Polymyalgia rheumatica; N18.2 Chronic kidney disease, stage 2 (mild); I25.10 Atherosclerotic heart disease of native coronary artery without angina pectoris; E78.2 Mixed hyperlipidemia; K21.9 Gastro-esophageal reflux disease without esophagitis; M10.00 Idiopathic gout, unspecified site; N52.9 Male erectile dysfunction, unspecified

== ENCOUNTER → 2024-07-02 15:59 | Outpatient (BNVA) | payer MEDICARE, SELFPAY | PROVIDERS: PCP Internal Medicine; Visit Provider Internal Medicine | DX: I25.10 Atherosclerotic heart disease of native coronary artery without angina pectoris (principal); I48.20 Chronic atrial fibrillation, unspecified; I50.20 Unspecified systolic (congestive) heart failure; E78.2 Mixed hyperlipidemia; I12.9 Hypertensive chronic kidney disease with stage 1 through stage 4 chronic kidney disease, or unspecified chronic kidney disease; E11.22 Type 2 diabetes mellitus with diabetic chronic kidney disease; N18.2 Chronic kidney disease, stage 2 (mild); I73.9 Peripheral vascular disease, unspecified; M35.3 Polymyalgia rheumatica; K21.9 Gastro-esophageal reflux disease without esophagitis | CPT/HCPCS: 96127; 99212 ==

== ENCOUNTER 2024-07-04 08:54 | Outpatient (REF) | payer MEDICARE, SELFPAY ==
[2024-07-04 09:49] LABS: MANUAL DIFF FLAG NO
[2024-07-04 10:17] LABS: Basophils Percent Auto 0.4 % (0-2); Eosinophils Absolute Auto 0.1 X10*3/uL (0.0-0.4); Eosinophils Percent Auto 1.6 % (0-4); Hematocrit 41.3 % (42.0-52.0); Hemoglobin 13.6 g/dl (14.0-18.0); Imm Gran Abs Auto 0.03 X10*3/uL (0.00-0.03); Imm Gran Pct Auto 0.4 % (0.0-0.4); Lymphocytes Absolute Auto 1.3 X10*3/uL (1.2-4.9); Lymphocytes Percent Auto 16.5 % (20-40); Mean Corpuscular HGB Conc 32.9 g/dl (31.0-36.0); Mean Corpuscular Hemoglobin 29.8 pg (27.0-33.0); Mean Corpuscular Volume 90.6 fL (80.0-98.0); Mean Platelet Volume 11.1 fL (9.4-12.4); Monocytes Absolute Auto 0.9 X10*3/uL (0.1-1.2); Monocytes Percent Auto 11.1 % (2-11); Neutrophils Absolute Auto 5.4 x10*3/uL (2.0-8.3); Platelet Count 151 X10*3/uL (160-400); Red Blood Count 4.56 X10*6/uL (4.60-5.80); Red Cell Distribution Width 13.8 % (11.0-16.0); White Blood Count 7.7 X10*3/uL (4.8-10.8)
[2024-07-04 10:26] LABS: Estimated Average Glucose 166 mg/dL; Hemoglobin A1c % 7.4 % (<6.0); Total Hemoglobin (HGBA1C) 3664.9711 umol/L
[2024-07-04 11:27] LABS: Folate 6.9 ng/mL (> or = 4.0); Vitamin B12 412 pg/mL (200-900)
[2024-07-04 11:45] LABS: Appearance Urine Clear; Color Urine Yellow; Glucose Urine UA Negative (Negative); Leukocyte Esterase Urine Negative (Negative); Nitrite Urine Negative (Negative); PH 6.5 (5.0-9.0); Specific Gravity - Urine <= 1.005 (1.005-1.025); Urine Blood Negative (Negative); Urine Ketones Negative (Negative); Urine Protein Trace mg/dL (Neg-Trace)
[2024-07-04 12:01] LABS: Alanine Aminotransferase 18 U/L (0-40); Albumin Level 3.9 g/dL (3.5-5.0); Anion Gap 13 (12-20); Aspartate Amino Transferase 24 U/L (5-37); Bilirubin Total 1.5 mg/dL (0.0-1.0); Blood Urea Nitrogen 16 mg/dL (9-16); Calcium 9.1 mg/dL (8.4-10.2); Carbon Dioxide 27 mmol/L (22-29); Chloride 105 mmol/L (96-108); Cholesterol 128 mg/dL (<200); Estimated Glomerular Filt Rate > 60; Glucose Fasting 154 mg/dL (60-99); HDL Cholesterol 32 mg/dL (>40); LDL Cholesterol Calculated 79 mg/dL (<100); Potassium 3.6 mmol/L (3.3-5.1); Sodium 141 mmol/L (135-145); TSH reflex Free T4 1.34 uIU/mL (0.32-4.0); Total Protein 7.1 g/dL (6.5-8.0); Triglycerides 89 mg/dL (<150); Uric Acid 7.1 mg/dL (3.4-7.0); Vitamin D 25-OH Total 16.8 ng/mL (>30)
[2024-07-04 12:08] LABS: Creatinine Urine 17.62 mg/dL
[2024-07-04 12:13] LABS: Alkaline Phosphatase 143 U/L (39-117)
== END 2024-07-04 08:55 | disposition home or self-care (01) ==
LOC: HO.LAB 08:54
PROVIDERS: Absent Provider Internal Medicine; PCP Internal Medicine; Visit Provider Internal Medicine Medical Oncology
DX: D64.9 Anemia, unspecified (principal); E55.9 Vitamin D deficiency, unspecified; E53.8 Deficiency of other specified B group vitamins; R30.0 Dysuria; M10.9 Gout, unspecified; E11.9 Type 2 diabetes mellitus without complications; E78.00 Pure hypercholesterolemia, unspecified; Z79.01 Long term (current) use of anticoagulants
CPT/HCPCS: 36415; 80053; 80061; 81003; 82043; 82306; 82570; 82607; 82746; 83036; 84443; 84550; 85025; 85610; 99211

== ENCOUNTER 2024-07-04 08:54 | Outpatient (AMB) | payer MEDICARE, SELFPAY ==
--- NOTE | 2024-07-04 09:15 | MHC.OFFVISCO ---
Intake Intake Visit Reasons: Anticoagulation Allergies No Known Allergies [No Known Allergies*] Allergy (Verified 07/04/24 09:03) Medication List - Last Reconciled 07/04/24 by Annamarie Sharif RN allopurinol 300 mg PO DAILY atorvastatin 40 mg PO DAILY furosemide 20 mg PO DAILY isosorbide mononitrate ER 30 mg PO DAILY losartan 50 mg PO BID 90 days metoprolol succinate ER 100 mg PO BID omeprazole 20 mg PO DAILY PRN NS sildenafil 50 mg PO DAILY PRN warfarin 5 mg See Protocol PO DAILY Nursing Note INR: 1.9?out of therapeutic range of 2-3 Medications and supplements reviewed Patient status: well Medications or supplements: no changes Diet: pt states he's been eating less and is trying to lose weight. Denies any signs and symptoms of bleeding or clotting or unusual bruising Bleeding, bruising, clotting discussed Nutritional guidance given: food list discussed. He is to avoid greens for 2 days and have a serving of foods that raise the INR for the next 2 days. Dose: 5mg X 6 days and 2.5mg X 1 day (Mon) F/U INR Date: 2 weeks?? Patient verbalizing understanding of instructions given. Anti-Coag Initial Assessment Social Hx Patient Tobacco Use Status: Never used Tobacco alcohol intake: current Alcohol intake frequency: holidays/special occasions only Coding Level of Care Code Est Patient Level 1 Diagnoses Current use of anticoagulant therapy Z79.01 Results AMB INR Fingerstick AMB INR Fingerstick 1.9 Last Edit by Annamarie Sharif RN on 07/04/24 09:15 interface delay Assessment & Plan Assessment & Plan (1) Current use of anticoagulant therapy: Code(s): Z79.01 - long term care pharmacist (current) 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
[2024-07-04 09:16] LABS: Prothrombin Time Whole Bld POC 22.7 sec (11.1-13.5); ~PT, ~INR - Anti Coag Clinic 1.9 (0.9-1.1)
--- OUTSIDE RECORDS SUMMARY | 2024-07-04 09:38 | XMS_ITS ---
Author Organization [facility] Address [address] [facility] [place] [address] Care Team Providers Care Electrician Telephone Name Role Phone Enrrique GOMES, [place] Primary Care Provider Rasheeda Lo Unavailable [phone] Allergies No Known Allergies REASON FOR VISIT [...] 024 Encounters Encounter Location Date Provider Diagnosis [facility] [place] [address] [place] [address] 11/29/2023 Rasheeda Pennington Atherosclerosis of artery of [...] Reason: Provider Name:Rasheeda guzman, 07/10/2024 10:00:00 AM, [address] [place] [address], [address], Procedure Notes * Category Sub-Category Detail Notes [...] as necessary. Patient chooses, no pharmaceutical tx (67346) Keratoma Treatment Parring or Cutting o f Benign Hyperkeratotic Lesion(s) 03396 ( More than 4 Lesions ) - The Benign hyperkeratotic lesions, as described above were pared, and/or cut utilizing a sterile 15 blade, tissue nippers, and/or dremel , Q8 Progress Notes * Galen SALVADOR TDOB:04/1940 (83 yo M)Acc No.[id number]:11/29/2023 Progress Note Patient:Galen De Jesus Provider:?Rasheeda Pennington DPM :1940???Age:83 Y???Sex:Male Milton e:11/29/2023 Address:[address] [place], [place] [id number] Pcp:Evens Osuna MD Subjective: * Chief Complaints: [...] yes. ?Exercise: yes, walking,gym at [facility] 3 times a week. ?Marital status: [...] as necessary. Patient chooses, no pharmaceutical tx (68238).?Keratoma Treatment:?Parring or Cutting of Benign Hyperkeratotic Lesion(s)?18908 ( More than 4 Lesions ) - The Benign hyperkeratotic lesions, as described above were pared, and/or cut utilizing a sterile 15 blade, tissue nippers, and/or dremel , Q8.? * Procedure Codes:?80390 DEBRI DE NAIL, 6 OR MORE, Modifiers: XS 32448 TRIM SKIN LESIONS, OVER 4, Modifiers: XS , Q8 * Follow Up:?2 Months * Images: * Sign off status: Completed true * Provider:?Rasheeda Pennington DPM Date:?01/2024 Generated for Oliver hanna/Pily/Stewartsmitting on:?07/04/2024 09:38 AM EDT History and Physical Notes * [...]
--- OUTSIDE RECORDS SUMMARY | 2024-07-04 09:39 | XMS_ITS | Patient Health Record ---
Author Organization [facility] Address [address] [facility] [place] [address] Care Team Providers Care Forest Patrolman Name Role Phone Evens Osuna MD Primary Care Provider Rasheeda Lo Unavailable [phone] Allergies No Known Allergies Reason For Referral [...] Problem Status W/U Status Risk Notes Problem 774011234 Neuropathy (G62.9) Active confirmed Problem 945844444 Hammertoe of lef t foot (M20.42) Active confirmed Problem 912886418 Hammertoe of right foot (M20.41) Active confirmed Problem 65440862494557356 Atherosclerosi s of artery of both lower extremities (I70.203) Active confirmed Problem Neuropathic ulcer of right foot (disorder) (11311364280084095) Neuropathic ulcer of right foot, limited to breakdown of skin (L97.511) Active confirmed Response to treatment Vital Signs Blood pressure diastolic 90 mm Hg 04/24/2024 Height 6 ft 2 in in 04/24/2024 Blood pressure systolic 150 mm Hg 04/24/2024 Weight 230 lbs 04/24/2024 BMI 29.53 kg/m2 04/24/2024 Encounters Encounter Location Date Provider Diagnosis [address] [address] 09/08/2023 Rasheeda Perica Atherosclerosis of artery of both lower extremities I70.203 ; Neuropathy G62.9 ; Tinea unguium B35.1 ; Pain in toe of left foot M79.675 and Pain in toe of right foot M79.[address] [address] 11/29/2023 Rasheeda Perica Atherosclerosis of artery of both lower extremities I70.203 ; Neuropathy G62.9 ; Tinea unguium B35.1 ; Pain in toe of left foot M79.675 and Pain in toe of right foot M79.[address] [address] 02/09/2024 Rasheeda Perica Atherosclerosis of artery of both lower extremities I70.203 ; Neuropathic ulcer of right foot, limited to breakdown of skin L97.511 ; Neuropathy G62.9 ; Tinea unguium B35.1 ; Pain in toe of left foot M79.675 and Pain in toe of right foot M79.[address] [address] 04/24/2024 Rasheeda Gorge Atherosclerosis of artery of both lower extremities I70.203 ; Tinea unguium B35.1 ; Neuropathy G62.9 ; Pain in toe of left foot M79.675 and Pain in toe of right foot M79.674 Assessments Encounter Date Diagnosis (ICD Code) Assessment Notes Treatment Notes Treatment Clinical Notes Section Notes 09/08/2023 Neuropathy (ICD-10 - G62.9) 09/08/2023 Atherosclerosis [...] - G62.9) 04/24/2024 Neuropathy (ICD-10 - G62.9) 11/29/2023 Neuropathy (ICD-10 - G62.9) 09/08/2023 Tinea unguium (ICD-10 - B35.1) 09/08/2023 Pain [...] Provider Name:Rasheeda guzman, 07/10/2024 10:00:00 AM, [address] [place], [address], Insurance Providers Payer Name Payer Address Payer Phone Subscriber Number Group Number Insured Name Patient Relationship to Insured Coverage Start Date Coverage End Date Medicare [facility] [address] [place] [address] [id number] Galen Costello Self - patient is the insured [employer] [facility] [address] [place] [address] [id number] Galen Costello Self - patient is the insured Medical (General) History Medical History History ICD Code Angina Cataracts covid-19 Gout Heart disease High blood pressure Reflux ( GERD) Measles Mumps Chicken pox Vascular grafts Surgical History Surgery Date(Month/Year) 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
--- OUTSIDE RECORDS SUMMARY | 2024-07-04 09:39 | XMS_ITS ---
Author Organization [facility] Address [address] [facility] [place] [address] Care Team Providers Care Kitchen Cleaner Name Role Phone Enrrique GOMES, [place] Primary Care Provider Rasheeda Lo Unavailable [phone] Allergies No Known Allergies REASON FOR VISIT [...] 025 Encounters Encounter Location Date Provider Diagnosis [facility] [place] [address] [place] [address] 04/24/2024 Rasheeda Pennington Atherosclerosis of artery of [...] Provider Name:Rasheeda guzman, 07/10/2024 10:00:00 AM, [address] [place], [address], Procedure Notes * Category Sub-Category Detail Notes [...] use of a nail nipper and/or dremel-type platen grinder, to a more viable healthy nail [...] to maintain effectiveness in symptomatic relief - 77312 Keratoma Treatment Parring or Cutting o f [...] instrumentation by the physician of record - 11374 Progress Notes * Galen SALVADOR TDOB:04/1940 (83 yo M)Acc No.[id number]:04/24/2024 Progress Note Patient:?DEJAGalen PETTY T Provider:?Rasheeda Pennington DPM :1940???Age:83 Y???Sex:Male Milton e:04/24/2024 Address:[address] [place], [place] [phone] Pcp:Evens Osuna MD Subjective: * Chief Complaints: [...] ss 10/2000Nose Bx- Skin cancer 06/2022[facility] 2023 * Hospitalization/Major Diagno stic Procedure:?Denies Past Hospitalization * Family History:?Mother: dece ased.?Father: , diagnosed with Unspecified heart disease.? * Social History:?Tobacco Use:?Tobacco use other than smoking?Are you an other tobacco user??No ?Tobacco Control (Standard)?Tobacco use:?Nonsmoker ???Miscellaneous:?Caffeine: yes, frequency:, 1-2 cups per day. ?Children: yes. ?Exercise: yes, walking,gym at [facility] 3 times a week. ?Marital [...] use of a nail nipper and/or dremel-type platen grinder, to a more viable healthy nail [...] to maintain effectiveness in symptomatic relief - 27563.?Keratoma Treatment:?Parring or Cutting of Benign Hyperkeratotic Lesion(s)?(-57) [...] instrumentation by the physician of record - 37679.? * Procedure Codes:?33876 DEBRI DE NAIL, 6 OR MORE, Modifiers: XS 50621 TRIM SKIN LESIONS, OVER 4, Modifiers: XS , Q8 * Follow Up:?2 Months * Images: * Sign off status: Completed true * Provider:?Rasheeda Pennington DPM Date:?07/2024 Generated for Oliver hanna/Pily/eTransmitting on:?07/04/2024 09:38 AM EDT History and Physical [...]
--- OUTSIDE RECORDS SUMMARY | 2024-07-04 09:39 | XMS_ITS ---
Author Organization [facility] Address [address] [facility] [place] [address] Care Team Providers Care Light Adjuster Name Role Phone Enrrique GOMES, [place] Primary Care Provider Rasheeda Lo Unavailable [phone] Allergies No Known Allergies REASON FOR VISIT [...] Problem Neuropathic ulcer of right foot (disorder) (3727372309657 9102) Neuropathic ulcer of right foot, limited to breakdown of skin (L97.511) Active confirmed Response to treatment Vital Signs Height 6 ft 2 in in 02/09/2024 Weight 230 lbs 02/09/2024 BMI 29.53 kg/m2 02/09/2024 Encounters Encounter Location Date Provider Diagnosis [facility] [address] [address] 02/09/2024 Rasheeda Pennington Atherosclerosis of artery of [...] Provider Name:Rasheeda guzman, 07/10/2024 10:00:00 AM, [address] [place], [address], Procedure Notes * Category Sub-Category Detail Notes [...] use of a nail nipper and/or dremel-type bit grinder, to a more viable healthy nail [...] to maintain effectiveness in symptomatic relief - 18255 Debride skin< 25 sq cm Open wound [...] of the wound post debridement is stable (20155), The patient was instructed on importance of [...] sterile 15 blade, tissue nippers, and/or power [employer] instrumentation - 92183 Progress Notes * Galen SALVADOR TDOB:04/1940 (83 yo M)Acc No.[id number]:02/09/2024 Progress Note Patient:?Galen SALVADOR Provider:?Rasheeda Pennington DPM :1940???Age:83 Y???Sex:Male Milton e:02/09/2024 Address:[address] [place], [place] [address] Pcp:Evens Osuna MD Subjective: * Chief Complaints: [...] ss 10/2000Nose Bx- Skin cancer 06/2022in surgery [facility] 2023 * Hospitalization/Major Diagno stic Procedure:?Denies [...] yes. ?Exercise: yes, walking,gym at [facility] 3 times a week. ?Marital status: [...] use of a nail nipper and/or dremel-type bit grinder, to a more viable healthy nail [...] to maintain effectiveness in symptomatic relief - 94963.?Debride skin< 25 sq cm:?Open wound?NEUROPATHY: Physician of [...] of the wound post debridement is stable (21661), The patient was instructed on importance of [...] tissue nippers, and/or power dremel instrumentation - 00759.? * Procedure Codes:?27067 DEBRI DE NAIL, 6 OR MORE, Modifiers: XS 39428 ACTIVE WOUND CARE/20 CM OR <, Modifiers: XS 15568 TRIM SKIN LESIONS, OVER 4, Modifiers: XS [...] off status: Completed true * Provider:Alycia Pennington, DPDnotae Date:? Generated for Oliver hanna/Pily/Jess on:?07/04/2024 09:39 AM EDT History and Physical Notes * [...]
== END 2024-07-04 09:23 | disposition home or self-care (01) ==
LOC: HO.ACS 08:54
PROVIDERS: PCP Internal Medicine; Visit Provider Internal Medicine Medical Oncology
DX: Z79.01 Long term (current) use of anticoagulants (principal)

== ENCOUNTER 2024-07-18 08:58 | Outpatient (AMB) | payer MEDICARE, SELFPAY ==
[2024-07-18 09:24] LABS: Prothrombin Time Whole Bld POC 15.2 sec (11.1-13.5); ~PT, ~INR - Anti Coag Clinic 1.3 (0.9-1.1)
--- NOTE | 2024-07-18 09:30 | MHC.OFFVISCO ---
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 F/u derm appt 07/22/2024 Medications or supplements: no changes Diet: good Denies any signs and symptoms of bleeding or clotting or unusual bruising or c/p or sob Bleeding, bruising, clotting discussed - low INR below 1.5 is at risk for clotting Nutritional guidance given: avoid greens today and tomorrow. Eat orange and reds to help raise the INR Dose: booster dose today to 7.5mg then resume warfarin usual dose 2.5mg monday/ 6mg x 6 days F/U INR Date : 07/23/2024?? Patient verbalizing understanding of instructions given with accurate read back. Anti-Coag Initial Assessment Social Hx Patient Tobacco Use Status: Never used Tobacco alcohol intake: current Alcohol intake frequency: holidays/special occasions only Coding Level of Care Code Est Patient Level 1 Diagnoses Current use of anticoagulant therapy Z79.01 Comment t/c/msg to PCP regarding cub therapeutic INR Results AMB INR Fingerstick AMB INR Fingerstick 1.3 Last Edit by Tasneem Bishop RN on 07/18/24 09:24 manual entry Assessment & Plan Assessment & Plan (1) Current use of anticoagulant therapy: Code(s): Z79.01 - FPC (current) 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
--- OUTSIDE RECORDS SUMMARY | 2024-07-18 09:32 | XMS_ITS ---
Author Organization [facility] [place] Address [address] [place] [address] Care Team Providers Care Mobile Device Developer Name Role Phone Enrrique GOMES, [place] Primary Care Provider Rasheeda Lo Unavailable [phone] REASON FOR VISIT r/s 07/10 Encounters Encounter Location Date Provider Diagnosis [address] [address] 07/08/2024 Rasheeda Pennington Plan Of Treatment Next Appt Details Provider Name:Rasheeda guzman, 09/10/2024 02:00:00 PM, [address] [place] [address], [address], Progress Notes * Galen SALVADOR TDOB:04/1940 (83 yo M)Acc No.[id number]:07/08/2024 Patient:?Galen SALVADOR :1940???Age:83 Y???Sex:Male Address:[address] [place], [address] * true * Date:? Generated for Printi ng/Famacig/eTransmitting on:?07/18/2024 09:32 AM EDT
--- OUTSIDE RECORDS SUMMARY | 2024-07-18 09:32 | XMS_ITS ---
Author Organization [facility] [place] Address [address] [place] [address] Care Team Providers Care Supervisor Of Way Name Role Phone Enrrique GOMES, [place] Primary Care Provider Rasheeda Lo Unavailable [phone] Allergies No Known Allergies REASON FOR VISIT [...] 025 Encounters Encounter Location Date Provider Diagnosis [facility] [address] [place] [address] 04/24/2024 Rasheeda Pennington Atherosclerosis of artery of [...] Up: 2 Months, Reason: Provider Name:Rasheeda guzman, 09/10/2024 02:00:00 PM, [address] [place] [address], [address], Procedure Notes * Category Sub-Category Detail Notes [...] to maintain effectiveness in symptomatic relief - 76294 Keratoma Treatment Parring or Cutting o f [...] instrumentation by the physician of record - 16095 Progress Notes * Galen SALVADOR TDOB:04/1940 (83 yo M)Acc No.[id number]:04/24/2024 Progress Note Patient:?DEJAGalen PETTY T Provider:?Rasheeda Pennington DPM :1940???Age:83 Y???Sex:Male [place] e:04/24/2024 Address:[address] [place], [place] [phone] Pcp:Evens Osuna MD Subjective: * Chief Complaints: [...] History:?heart bypa ss 10/2000Nose Bx- [facility] * Hospitalization/Major Diagno stic Procedure:?Denies Past Hospitalization * Family History:?Mother: dece ased.?Father: , diagnosed with Unspecified heart disease.? * Social History:?Tobacco Use:?Tobacco use other than smoking?Are you an other tobacco user??No ?Tobacco Control (Standard)?Tobacco use:?Nonsmoker ???Miscellaneous:?Caffeine: yes, frequency:, 1-2 cups per day. ?Children: yes. ?Exercise: yes, walking,gym at [facility] 3 times a week. ?Marital [...] to maintain effectiveness in symptomatic relief - 62190.?Keratoma Treatment:?Parring or Cutting of Benign Hyperkeratotic Lesion(s)?(-57) [...] instrumentation by the physician of record - 17944.? * Procedure Codes:?07027 DEBRI DE NAIL, 6 OR MORE, Modifiers: XS 44957 TRIM SKIN LESIONS, OVER 4, Modifiers: XS , Q8 * Follow Up:?2 Months * Images: * Sign off status: Completed true * Provider:?Rasheeda Pennington DPM Date:?07/2024 Generated for Oliver hanna/Pily/eTransmitting on:?07/18/2024 09:31 AM EDT History and Physical Notes * [...]
--- OUTSIDE RECORDS SUMMARY | 2024-07-18 09:32 | XMS_ITS ---
Author Organization [facility] Address [address] [place] [address] Care Team Providers Care Cam Milling Machine Operator Name Role Phone Enrrique GOMES [place] Primary Care Provider Rasheeda oL Unavailable [phone] Medications Medication SIG (Take, Route, Frequency, Duration) [...] ry 12 hrs for 10 days Not-Taking Cephalexin 500 MG 1 capsule Orally jermaine ry 12 hrs for 5 days Not-Taking Furosemide 20 MG 1 [...] Once a day for 30 day(s) Active Encounters Encounter Location Date Provider Diagnosis [address] [address] 07/10/2024 Rasheeda Pennington Plan Of Treatment Next Appt Details Provider Name:Rasheeda guzman, 09/10/2024 02:00:00 PM, [address] [place], [address], Progress Notes * Galen SALVADOR TDOB:04/1940 (83 yo M)Acc No.[id number]:07/10/2024 Progress Note Patient:Galen CALDERON Provider:?Rasheeda Pennington DPM :1940???Age:83 Y???Sex:Male [place] e:07/10/2024 Address:[address] [place], [place] [phone] Pcp:Evens Osuna MD Subjective: * Chief Complaints: * ??? * Medical History:?Angina, Cat aracts, Covid-19, Gout, Heart disease, High blood pressure, Reflux ( GERD), Measles, Mumps, Chicken pox, Vascular grafts. * Medications:?Taking Metoprol ol Succinate 100 MG Capsule ER 24 Hour [...] capsule Orally every 12 hrs Objective: * Vitals:? Assessment: Plan: * Treatment: * Images: * The named appointment provid er may or may not be the originator of this progress note, and it is not deemed complete until electronically signed by the appointment provider. Sign off status: Pending * Provider:?Rasheeda Pennington DPM Date:? Generated for Oliver hanna/Pily/Jess on:?07/18/2024 09:31 AM EDT
--- OUTSIDE RECORDS SUMMARY | 2024-07-18 09:32 | XMS_ITS | Patient Health Record ---
Author Organization [facility] Address [address] [facility] [place] [address] Care Team Providers Care Child Neurologist Name Role Phone Evens Osuna MD Primary Care Provider Rasheeda Lo Unavailable [phone] Allergies No Known Allergies Reason For Referral No Information Medications Medication SIG (Take, Route, Frequency, Duration) Notes Start Date End Date Status Furosemide 20 MG 1 tablet Orally Once a day for 30 day(s) Active Isosorbide Mononitrate ER 30 MG 1 tablet in the morning Orally Once a day for 30 day(s) Active Ammonium Lactate 12 % 1 application to affected area Externally to feet Twice a day for 30 days Active Losartan Potassium 50 MG 1 tablet [...] ry 12 hrs for 5 days Not-Taking Metoprolol Succinate 100 MG 1 capsule Orally [...] Problem Status W/U Status Risk Notes Problem 138962821 Neuropathy (G62.9) Active confirmed Problem 928073946 Hammertoe of lef t foot (M20.42) Active confirmed Problem 548645536 Hammertoe of right foot (M20.41) Active confirmed Problem 97745762190439814 Atherosclerosi s of artery of both lower extremities (I70.203) Active confirmed Problem Neuropathic ulcer of right foot (disorder) (70374779120121030) Neuropathic ulcer of right foot, limited to breakdown of skin (L97.511) Active confirmed Response to treatment Vital Signs Blood pressure diastolic 90 mm Hg 04/24/2024 Height 6 ft 2 in in 04/24/2024 Blood pressure systolic 150 mm Hg 04/24/2024 Weight 230 lbs 04/24/2024 BMI 29.53 kg/m2 04/24/2024 Encounters Encounter Location Date Provider Diagnosis [address] [address] 09/08/2023 Rasheeda Perica Atherosclerosis of artery of both lower extremities I70.203 ; Neuropathy G62.9 ; Tinea unguium B35.1 ; Pain in toe of left foot M79.675 and Pain in toe of right foot M79.[address] [address] 11/29/2023 Rasheeda Perica Atherosclerosis of artery of both lower extremities I70.203 ; Neuropathy G62.9 ; Tinea unguium B35.1 ; Pain in toe of left foot M79.675 and Pain in toe of right foot M79.[address] [address] 02/09/2024 Rasheeda Perica Atherosclerosis of artery of both lower extremities I70.203 ; Neuropathic ulcer of right foot, limited to breakdown of skin L97.511 ; Neuropathy G62.9 ; Tinea unguium B35.1 ; Pain in toe of left foot M79.675 and Pain in toe of right foot M79.[address] [facility] [address] 04/24/2024 Rasheeda Pennington Atherosclerosis of artery of both lower extremities I70.203 ; Tinea unguium B35.1 ; Neuropathy G62.9 ; Pain in toe of left foot M79.675 and Pain in toe of right foot M79.[address] [address] 07/08/2024 Rasheeda Pennington Assessments Encounter Date Diagnosis (ICD Code) Assessment [...] Details Provider Name:Rasheeda guzman, 09/10/2024 02:00:00 PM, [address] [place] [address], [place], [address], Insurance Providers Payer Name Payer Address Payer Phone Subscriber Number Group Number Insured Name Patient Relationship to Insured Coverage Start Date Coverage End Date Medicare National [employer] [address] [place] [address] [id number] Galen [place] Self - patient is the insured [employer] [address] [place] [address] [id number] Galen [place] Self - patient is the insured Medical (General) History Medical History History ICD Code Angina Cataracts covid-19 Gout Heart disease High blood pressure Reflux ( GERD) Measles Mumps Chicken pox Vascular grafts Surgical History Surgery Date(Month/Year) heart bypass 10/2000 Nose Bx- Skin cancer 06/2022 skin surgery [facility] 2023
== END 2024-07-18 09:31 | disposition home or self-care (01) ==
LOC: HO.ACS 08:58
PROVIDERS: PCP Internal Medicine; Visit Provider Internal Medicine Medical Oncology
DX: Z79.01 Long term (current) use of anticoagulants (principal)

== ENCOUNTER → 2024-07-18 08:58 | Outpatient (BNVA) | payer MEDICARE, SELFPAY | PROVIDERS: PCP Internal Medicine; Visit Provider Internal Medicine Medical Oncology | DX: I48.20 Chronic atrial fibrillation, unspecified (principal); Z51.81 Encounter for therapeutic drug level monitoring; Z79.01 Long term (current) use of anticoagulants | CPT/HCPCS: 85610; 99211 ==

== ENCOUNTER 2024-07-23 09:28 | Outpatient (AMB) | payer MEDICARE, SELFPAY ==
[2024-07-23 09:45] LABS: Prothrombin Time Whole Bld POC 18.4 sec (11.1-13.5); ~PT, ~INR - Anti Coag Clinic 1.5 (0.9-1.1)
--- NOTE | 2024-07-23 09:45 | MHC.OFFVISCO ---
Intake Intake Visit Reasons: Anticoagulation Allergies No Known Allergies [No Known Allergies*] Allergy (Verified 07/23/24 09:29) Medication List - Last Reconciled 07/23/24 by Tasneem Bishop RN allopurinol 300 mg PO DAILY atorvastatin 40 mg PO DAILY furosemide 20 mg PO DAILY isosorbide mononitrate ER 30 mg PO DAILY losartan 50 mg PO BID 90 days metoprolol succinate ER 100 mg PO BID omeprazole 20 mg PO DAILY PRN NS sildenafil 50 mg PO DAILY PRN warfarin 5 mg See Protocol PO DAILY Nursing Note INR: 1.5 not in therapeutic range Medications and supplements reviewed S/P FACIAL SURGERY s/p squamos cell removal Denies any signs and symptoms of bleeding or bruising or clotting. Bleeding, bruising, clotting discussed Nutritional guidance given - avoid all greens, eat orange and reds Dose: 7.5mg x 2 days this week, then 2.5mg x 1 day/ 5mg x 6 days F/U INR: 6 days Patient verbalizes understanding of instructions given Will notify PCP Anti-Coag Initial Assessment Social Hx Patient Tobacco Use Status: Never used Tobacco alcohol intake: current Alcohol intake frequency: holidays/special occasions only Coding Level of Care Code Est Patient Level 1 Diagnoses Current use of anticoagulant therapy Z79.01 Results AMB INR Fingerstick AMB INR Fingerstick 1.5 Last Edit by Tasneem Bishop RN on 07/23/24 09:38 manual entry Assessment & Plan Assessment & Plan (1) Current use of anticoagulant therapy: Code(s): Z79.01 - parts counterman (current) 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
--- OUTSIDE RECORDS SUMMARY | 2024-07-23 10:26 | XMS_ITS ---
Author Organization [facility] Address [address] [facility] [place] [address] Care Team Providers Care Zinc Plater Name Role Phone Enrrique GOMES, [place] Primary Care Provider Rasheeda Lo Unavailable [phone] Allergies No Known Allergies REASON FOR VISIT [...] 025 Encounters Encounter Location Date Provider Diagnosis [facility] [address] [place] [address] 04/24/2024 Rasheeda Pennington Atherosclerosis of artery of [...] Reason: Provider Name:Rasheeda guzman, 09/10/2024 02:00:00 PM, [address] [place] [address], [address], Procedure Notes * Category Sub-Category Detail Notes [...] a nail nipper and/or dremel-type instrument lens grinder apprentice, to a more viable healthy nail plate [...] to maintain effectiveness in symptomatic relief - 85713 Keratoma Treatment Parring or Cutting o f [...] instrumentation by the physician of record - 33597 Progress Notes * Galen SALVADOR TDOB:04/1940 (83 yo M)Acc No.[id number]:04/24/2024 Progress Note Patient:?DEJAGalen PETTY T Provider:?Rasheeda Pennington DPM :1940???Age:83 Y???Sex:Male Milton e:04/24/2024 Address:[address] [place], [place] [phone] Pcp:Evens Osuna MD Subjective: * Chief Complaints: [...] History:?heart bypa ss 10/2000Nose Bx- Skin cancer 06/2022[facility] 2023 * Hospitalization/Major Diagno stic Procedure:?Denies Past Hospitalization * Family History:?Mother: dece ased.?Father: , diagnosed with Unspecified heart disease.? * Social History:?Tobacco Use:?Tobacco use other than smoking?Are you an other tobacco user??No ?Tobacco Control (Standard)?Tobacco use:?Nonsmoker ???Miscellaneous:?Caffeine: yes, frequency:, 1-2 cups per day. ?Children: yes. ?Exercise: yes, walking,gym at [facility] 3 times a week. ?Marital status: . [...] a nail nipper and/or dremel-type instrument lens grinder apprentice, to a more viable healthy nail plate [...] to maintain effectiveness in symptomatic relief - 01095.?Keratoma Treatment:?Parring or Cutting of Benign Hyperkeratotic Lesion(s)?(-57) [...] instrumentation by the physician of record - 36359.? * Procedure Codes:?49806 DEBRI DE NAIL, 6 OR MORE, Modifiers: XS 51089 TRIM SKIN LESIONS, OVER 4, Modifiers: XS , Q8 * Follow Up:?2 Months * Images: * Sign off status: Completed true * Provider:?Rasheeda Pennington DPM Date:?07/2024 Generated for Oliver hanna/Pily/eTransmitting on:?07/23/2024 10:26 AM EDT History and Physical Notes * [...]
--- OUTSIDE RECORDS SUMMARY | 2024-07-23 10:26 | XMS_ITS | Patient Health Record ---
Author Organization [facility] Address [address] [facility] [place] [address] Care Team Providers Care Dairy And Food Laboratory Assistant Name Role Phone Evens Osuna MD Primary Care Provider Rasheeda Lo Unavailable [phone] Allergies No Known Allergies Reason For Referral [...] Problem Status W/U Status Risk Notes Problem 695296126 Neuropathy (G62.9) Active confirmed Problem 393725285 Hammertoe of lef t foot (M20.42) Active confirmed Problem 549573213 Hammertoe of right foot (M20.41) Active confirmed Problem 16242853115702810 Atherosclerosi s of artery of both lower extremities (I70.203) Active confirmed Problem Neuropathic ulcer of right foot (disorder) (53292668605672346) Neuropathic ulcer of right foot, limited to breakdown of skin (L97.511) Active confirmed Response to treatment Vital Signs Blood pressure diastolic 90 mm Hg 04/24/2024 Height 6 ft 2 in in 04/24/2024 Blood pressure systolic 150 mm Hg 04/24/2024 Weight 230 lbs 04/24/2024 BMI 29.53 kg/m2 04/24/2024 Encounters Encounter Location Date Provider Diagnosis [address] [address] 09/08/2023 Rasheeda Perica Atherosclerosis of artery of both lower extremities I70.203 ; Neuropathy G62.9 ; Tinea unguium B35.1 ; Pain in toe of left foot M79.675 and Pain in toe of right foot M79.[address] [address] 11/29/2023 Rasheeda Perica Atherosclerosis of artery of both lower extremities I70.203 ; Neuropathy G62.9 ; Tinea unguium B35.1 ; Pain in toe of left foot M79.675 and Pain in toe of right foot M79.[address] [address] 02/09/2024 Rasheeda Perica Atherosclerosis of artery of both lower extremities I70.203 ; Neuropathic ulcer of right foot, limited to breakdown of skin L97.511 ; Neuropathy G62.9 ; Tinea unguium B35.1 ; Pain in toe of left foot M79.675 and Pain in toe of right foot M79.[address] [facility] [address] 04/24/2024 Rasheeda Pennington Atherosclerosis of artery of both lower extremities I70.203 ; Tinea unguium B35.1 ; Neuropathy G62.9 ; Pain in toe of left foot M79.675 and Pain in toe of right foot M79.[address] [address] 07/08/2024 Rasheeda Pennington Assessments Encounter Date Diagnosis [...] Details Provider Name:Rasheeda guzman, 09/10/2024 02:00:00 PM, [address] [place] [address], [place], [address], Insurance Providers Payer Name Payer Address Payer Phone Subscriber Number Group Number Insured Name Patient Relationship to Insured Coverage Start Date Coverage End Date Medicare National Govt Svcs Inc [address] 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
--- OUTSIDE RECORDS SUMMARY | 2024-07-23 10:26 | XMS_ITS ---
Author Organization [facility] Address [address] [place] [address] Care Team Providers Care Fish Liver Sorter Name Role Phone Enrrique GOMES [place] Primary Care Provider Rasheeda Lo Unavailable [phone] Medications Medication SIG (Take, Route, Frequency, Duration) [...] Active Encounters Encounter Location Date Provider Diagnosis [address] [address] 07/10/2024 Rasheeda Pennington Plan Of Treatment Next Appt Details Provider Name:Rasheeda guzman, 09/10/2024 02:00:00 PM, [address] [place], [address], Progress Notes * Galen SALVADOR TDOB:04/1940 (83 yo M)Acc No.[id number]:07/10/2024 Progress Note Patient:Galen CALDERON Provider:?Rasheeda Pennington DPM :1940???Age:83 Y???Sex:Male Milton e:07/10/2024 Address:[address] [place], [place] [id number] Pcp:Evens Osuna MD Subjective: * Chief Complaints: [...] Pennington DPM Date:? Generated for Oliver hanna/Pily/Jess on:?07/23/2024 10:26 AM EDT
--- OUTSIDE RECORDS SUMMARY | 2024-07-23 10:27 | XMS_ITS ---
Author Organization [facility] chasidy [place] Address [address] [place] [address] Care Team Providers Care Weed Sprayer Name Role Phone Enrrique GOMES, [place] Primary Care Provider Rasheeda Lo Unavailable [phone] REASON FOR VISIT r/s 07/10 Encounters Encounter Location Date Provider Diagnosis [address] [address] 07/08/2024 Rasheeda Pennington Plan Of Treatment Next Appt Details Provider Name:Rasheeda guzman, 09/10/2024 02:00:00 PM, [address] [place] [address], [address], Progress Notes * Galen SALVADOR TDOB:04/1940 (83 yo M)Acc No.[id number]:07/08/2024 Patient:?Galen SALVADOR :1940???Age:83 Y???Sex:Male Address: [place], [address] * true * Date:? Generated for Printi ng/Pily/eTransmitting on:?07/23/2024 10:26 AM EDT
== END 2024-07-23 09:50 | disposition home or self-care (01) ==
LOC: HO.ACS 09:28
PROVIDERS: PCP Internal Medicine; Visit Provider Internal Medicine Medical Oncology
DX: Z79.01 Long term (current) use of anticoagulants (principal)

== ENCOUNTER → 2024-07-23 09:28 | Outpatient (BNVA) | payer MEDICARE, SELFPAY | PROVIDERS: PCP Internal Medicine; Visit Provider Internal Medicine Medical Oncology | DX: I48.20 Chronic atrial fibrillation, unspecified (principal); Z51.81 Encounter for therapeutic drug level monitoring; Z79.01 Long term (current) use of anticoagulants | CPT/HCPCS: 85610; 99211 ==

== ENCOUNTER 2024-07-29 09:07 | Outpatient (AMB) | payer MEDICARE, SELFPAY ==
[2024-07-29 09:15] LABS: Prothrombin Time Whole Bld POC 16.7 sec (11.1-13.5); ~PT, ~INR - Anti Coag Clinic 1.4 (0.9-1.1)
--- OUTSIDE RECORDS SUMMARY | 2024-07-29 09:15 | XMS_ITS ---
Author Organization [facility] chasidy [place] Address [address] [place] [address] Care Team Providers Care Steam Gigger Name Role Phone Enrrique GOMES, [place] Primary Care Provider Rasheeda Lo Unavailable [phone] REASON FOR VISIT r/s 07/10 Encounters Encounter Location Date Provider Diagnosis [address] [address] 07/08/2024 Rasheeda Pennington Plan Of Treatment Next Appt Details Provider Name:Rasheeda guzman, 09/10/2024 02:00:00 PM, [address] [place] [address], [address], Progress Notes * Galen SALVADOR TDOB:04/1940 (83 yo M)Acc No.[id number]:07/08/2024 Patient:?Galen SALVADOR :1940???Age:83 Y???Sex:Male Address: [place], [address] * true * Date:? Generated for Printi ng/Famacig/eTransmitting on:?07/29/2024 09:15 AM EDT
--- OUTSIDE RECORDS SUMMARY | 2024-07-29 09:15 | XMS_ITS | Patient Health Record ---
Author Organization [facility] Address [address] [facility] [place] [address] Care Team Providers Care Salvage Inspector Name Role Phone Evens Osuna MD Primary Care Provider Rasheeda Lo Unavailable [phone] Allergies No Known Allergies Reason For Referral [...] Problem Status W/U Status Risk Notes Problem 903376105 Neuropathy (G62.9) Active confirmed Problem 803711501 Hammertoe of lef t foot (M20.42) Active confirmed Problem 979689195 Hammertoe of right foot (M20.41) Active confirmed Problem 25261915058065110 Atherosclerosi s of artery of both lower extremities (I70.203) Active confirmed Problem Neuropathic ulcer of right foot (disorder) (95460351568187772) Neuropathic ulcer of right foot, limited to breakdown of skin (L97.511) Active confirmed Response to treatment Vital Signs Blood pressure diastolic 90 mm Hg 04/24/2024 Height 6 ft 2 in in 04/24/2024 Blood pressure systolic 150 mm Hg 04/24/2024 Weight 230 lbs 04/24/2024 BMI 29.53 kg/m2 04/24/2024 Encounters Encounter Location Date Provider Diagnosis [address] [address] 09/08/2023 Rasheeda Perica Atherosclerosis of artery of both lower extremities I70.203 ; Neuropathy G62.9 ; Tinea unguium B35.1 ; Pain in toe of left foot M79.675 and Pain in toe of right foot M79.[address] [address] 11/29/2023 Rasheeda Perica Atherosclerosis of artery of both lower extremities I70.203 ; Neuropathy G62.9 ; Tinea unguium B35.1 ; Pain in toe of left foot M79.675 and Pain in toe of right foot M79.[address] [address] 02/09/2024 Rasheeda Perica Atherosclerosis of artery of both lower extremities I70.203 ; Neuropathic ulcer of right foot, limited to breakdown of skin L97.511 ; Neuropathy G62.9 ; Tinea unguium B35.1 ; Pain in toe of left foot M79.675 and Pain in toe of right foot M79.[address] [facility] [address] 04/24/2024 Rasheeda Pennington Atherosclerosis of artery of both lower extremities I70.203 ; Tinea unguium B35.1 ; Neuropathy G62.9 ; Pain in toe of left foot M79.675 and Pain in toe of right foot M79.[address] [address] 07/08/2024 Rasheeda Pennington Assessments Encounter Date Diagnosis [...] Details Provider Name:Rasheeda guzman, 09/10/2024 02:00:00 PM, [address] [place] [address], [place], [address], Insurance Providers Payer Name Payer Address Payer Phone Subscriber Number Group Number Insured Name Patient Relationship to Insured Coverage Start Date Coverage End Date Medicare National Govt Svcs Inc [address] [facility] [address] [id number] Galen Costello Self - patient is the insured Med[employer] Blue Shield [address] [place] [address] [phone] [id number] Galen Costello Self - patient is the insured Medical (General) History Medical History History ICD Code Angina Cataracts covid-19 Gout Heart disease High blood pressure Reflux ( GERD) Measles Mumps Chicken pox Vascular grafts Surgical History Surgery Date(Month/Year) 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
--- OUTSIDE RECORDS SUMMARY | 2024-07-29 09:15 | XMS_ITS ---
Author Organization [facility] Address [address] [facility] [place] [address] Care Team Providers Care E Commerce Marketing Analyst Name Role Phone Enrrique GOMES, [place] Primary Care Provider Rasheeda Lo Unavailable [phone] Allergies No Known Allergies REASON FOR VISIT [...] 025 Encounters Encounter Location Date Provider Diagnosis [facility] [place] [address] [place] [address] 04/24/2024 Rasheeda Pennington Atherosclerosis of artery of [...] Reason: Provider Name:Rasheeda guzman, 09/10/2024 02:00:00 PM, [address] [place] [address], [address], Procedure Notes * Category Sub-Category Detail Notes [...] use of a nail nipper and/or dremel-type track grinder operator, to a more viable healthy [...] to maintain effectiveness in symptomatic relief - 50937 Keratoma Treatment Parring or Cutting o f [...] instrumentation by the physician of record - 38146 Progress Notes * Galen SALVADOR TDOB:04/1940 (83 yo M)Acc No.[id number]:04/24/2024 Progress Note Patient:?DEJAGalen PETTY T Provider:?Rasheeda Pennington DPM :1940???Age:83 Y???Sex:Male Milton e:04/24/2024 Address:[address] [place], [place] [id number] Pcp:Evens Osuna MD Subjective: * Chief Complaints: [...] History:?heart bypa ss 10/2000Nose Bx- Skin cancer 06/2022[facility] 2023 * Hospitalization/Major Diagno stic Procedure:?Denies Past Hospitalization * Family History:?Mother: dece ased.?Father: , diagnosed with Unspecified heart disease.? * Social History:?Tobacco Use:?Tobacco use other than smoking?Are you an other tobacco user??No ?Tobacco Control (Standard)?Tobacco use:?Nonsmoker ???Miscellaneous:?Caffeine: yes, frequency:, 1-2 cups per day. ?Children: yes. ?Exercise: yes, walking,gym at [facility] 3 times a week. ?Marital status: . [...] use of a nail nipper and/or dremel-type track grinder operator, to a more viable healthy [...] to maintain effectiveness in symptomatic relief - 13108.?Keratoma Treatment:?Parring or Cutting of Benign Hyperkeratotic Lesion(s)?(-57) [...] instrumentation by the physician of record - 95038.? * Procedure Codes:?00542 DEBRI DE NAIL, 6 OR MORE, Modifiers: XS 14592 TRIM SKIN LESIONS, OVER 4, Modifiers: XS , Q8 * Follow Up:?2 Months * Images: * Sign off status: Completed true * Provider:?Rasheeda Pennington DPM Date:?07/2024 Generated for Oliver hanna/Pily/eTransmitting on:?07/29/2024 09:15 AM EDT History and Physical Notes * [...]
--- OUTSIDE RECORDS SUMMARY | 2024-07-29 09:15 | XMS_ITS ---
Author Organization [facility] Address [address] [place] [address] Care Team Providers Care Housekeeping Supervisor Hotel Name Role Phone Enrrique GOMES [place] Primary Care Provider Rasheeda Lo Unavailable [phone] Medications Medication SIG (Take, Route, Frequency, Duration) [...] Active Encounters Encounter Location Date Provider Diagnosis [address] [address] 07/10/2024 Rasheeda Pennington Plan Of Treatment Next Appt Details Provider Name:Rasheeda guzman, 09/10/2024 02:00:00 PM, [address] [place], [address], Progress Notes * Galen SALVADOR TDOB:04/1940 (83 yo M)Acc No.[id number]:07/10/2024 Progress Note Patient:Galen CALDERON Provider:?Rasheeda Pennington DPM :1940???Age:83 Y???Sex:Male Milton e:07/10/2024 Address:[address] [place], [place] [id number] Pcp:Evens Osuna MD Subjective: * Chief Complaints: [...] Pennington DPM Date:? Generated for Oliver hanna/Pily/Jess on:?07/29/2024 09:15 AM EDT
--- NOTE | 2024-07-29 09:24 | MHC.OFFVISCO ---
Intake Intake Visit Reasons: Anticoagulation Allergies No Known Allergies [No Known Allergies*] Allergy (Verified 07/29/24 09:07) Medication List - Last Reconciled 07/29/24 by Tasneem Bishop RN allopurinol 300 mg PO DAILY atorvastatin 40 mg PO DAILY furosemide 20 mg PO DAILY isosorbide mononitrate ER 30 mg PO DAILY losartan 50 mg PO BID 90 days metoprolol succinate ER 100 mg PO BID omeprazole 20 mg PO DAILY PRN NS sildenafil 50 mg PO DAILY PRN warfarin 5 mg See Protocol PO DAILY Nursing Note INR: 1.4 not therapeutic range Medications and supplements reviewed *had sutures from face removed - incision appears to be healing better - less red and edges are approximtaed. *unable to determine why INR still low- perhaps r/t to the healing process Denies any signs and symptoms of bleeding or bruising or clotting. Bleeding, bruising, clotting discussed Nutritional guidance given - avoid all greens Dose: increase núñez to 7.5mg x 2 days then increase weekly dose to 5mg daily - he states he has been taking 5mg daily F/U INR: 08/02/2024 Patient verbalizes understanding of instructions given msg to PCP for continued low INR since procedure 07/18/2024 Anti-Coag Initial Assessment Social Hx Patient Tobacco Use Status: Never used Tobacco alcohol intake: current Alcohol intake frequency: holidays/special occasions only Coding Level of Care Code Est Patient Level 1 Diagnoses Current use of anticoagulant therapy Z79.01 Results AMB INR Fingerstick AMB INR Fingerstick 1.4 Last Edit by Tasneem Bishop RN on 07/29/24 09:18 Assessment & Plan Assessment & Plan (1) Current use of anticoagulant therapy: Code(s): Z79.01 - terminal manager (current) 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
== END 2024-07-29 09:30 | disposition home or self-care (01) ==
LOC: HO.ACS 09:07
PROVIDERS: PCP Internal Medicine; Visit Provider Internal Medicine Medical Oncology
DX: Z79.01 Long term (current) use of anticoagulants (principal)

== ENCOUNTER → 2024-07-29 09:07 | Outpatient (BNVA) | payer MEDICARE, SELFPAY | PROVIDERS: PCP Internal Medicine; Visit Provider Internal Medicine Medical Oncology | DX: I48.20 Chronic atrial fibrillation, unspecified (principal); Z79.01 Long term (current) use of anticoagulants; Z51.81 Encounter for therapeutic drug level monitoring | CPT/HCPCS: 85610; 99211 ==

== ENCOUNTER 2024-08-02 10:00 | Outpatient (AMB) | payer MEDICARE, SELFPAY ==
--- NOTE | 2024-08-02 09:01 | MHC.OFFVISCO ---
Intake Intake Visit Reasons: Anticoagulation Allergies No Known Allergies [No Known Allergies*] Allergy (Verified 08/02/24 08:48) Medication List - Last Reconciled 08/02/24 by Annamarie Sharif RN allopurinol 300 mg PO DAILY atorvastatin 40 mg PO DAILY furosemide 20 mg PO DAILY isosorbide mononitrate ER 30 mg PO DAILY losartan 50 mg PO BID 90 days metoprolol succinate ER 100 mg PO BID omeprazole 20 mg PO DAILY PRN NS sildenafil 50 mg PO DAILY PRN warfarin 5 mg See Protocol PO DAILY Nursing Note INR: 1.5 out of therapeutic range of 2-3 Pt is still healing from the removal of cancerous lesion on right cheek. The wound is closed. It is a little red. Pt states it is still a little swollen but it is not obvious. Medications and supplements reviewed: no changes Patient status: feels well Diet: has been avoiding greens. Food list discussed with pt. Pt knows not only to avoid greens, but milk chocolate, green tea and soy based foods. Denies any signs and symptoms of bleeding or clotting or unusual bruising Bleeding, bruising, clotting discussed Nutritional guidance given: to avoid greens until INR is within target range Dose: increase today's dose to 10mg (5mg) and increase tomorrow's dose to 7.5mg (5mg), then 5mg then return for testing. F/U INR Date: 3 days, Mon08/05/24?? Patient verbalizing understanding of instructions with read back given. Anti-Coag Initial Assessment Social Hx Patient Tobacco Use Status: Never used Tobacco alcohol intake: current Alcohol intake frequency: holidays/special occasions only Coding Level of Care Code Est Patient Level 2 Diagnoses Current use of anticoagulant therapy Z79.01 Comment complicated pt/INR critically low Assessment & Plan Assessment & Plan (1) Current use of anticoagulant therapy: Code(s): Z79.01 - [facility] (current) 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
--- OUTSIDE RECORDS SUMMARY | 2024-08-02 10:20 | XMS_ITS ---
Author Organization [facility] Address [address] [place] [address] Care Team Providers Care Application Integration Specialist Name Role Phone Ernrique GOMES, [place] Primary Care Provider Rasheeda Lo Unavailable [phone] Allergies No Known Allergies REASON FOR VISIT [...] 025 Encounters Encounter Location Date Provider Diagnosis [facility] [place] [address] [place] [address] 04/24/2024 Rasheeda Pennington Atherosclerosis of artery of [...] Reason: Provider Name:Rasheeda guzman, 09/10/2024 02:00:00 PM, [address] [place] [address], [address], Procedure Notes * Category Sub-Category Detail Notes [...] to maintain effectiveness in symptomatic relief - 92070 Keratoma Treatment Parring or Cutting o f [...] instrumentation by the physician of record - 00139 Progress Notes * Galen SALVADOR TDOB:04/1940 (83 yo M)Acc No.[id number]:04/24/2024 Progress Note Patient:?DEJAGalen PETTY T Provider:?Rasheeda Pennington DPM :1940???Age:83 Y???Sex:Male Milton e:04/24/2024 Address:[address] [place], [place] [phone] Pcp:Evens Osuna MD Subjective: * Chief Complaints: [...] Bx- Skin cancer 06/20[facility] 2023 * Hospitalization/Major Diagno stic Procedure:?Denies Past Hospitalization * Family History:?Mother: dece ased.?Father: , diagnosed with Unspecified heart disease.? * Social History:?Tobacco Use:?Tobacco use other than smoking?Are you an other tobacco user??No ?Tobacco Control (Standard)?Tobacco use:?Nonsmoker ???Miscellaneous:?Caffeine: yes, frequency:, 1-2 cups per day. ?Children: yes. ?Exercise: yes, walking,gym at [facility] 3 times a week. ?Marital status: [...] to maintain effectiveness in symptomatic relief - 75958.?Keratoma Treatment:?Parring or Cutting of Benign Hyperkeratotic Lesion(s)?(-57) [...] instrumentation by the physician of record - 89558.? * Procedure Codes:?13404 DEBRI DE NAIL, 6 OR MORE, Modifiers: XS 28254 TRIM SKIN LESIONS, OVER 4, Modifiers: XS , Q8 * Follow Up:?2 Months * Images: * Sign off status: Completed true * Provider:?Rasheeda Pennington DPM Date:?07/2024 Generated for Oliver hanna/Pily/eTransmitting on:?08/02/2024 10:19 AM EDT History and Physical Notes * [...]
--- OUTSIDE RECORDS SUMMARY | 2024-08-02 10:20 | XMS_ITS ---
Author Organization [facility] chasidy [place] Address [address] [place] [address] Care Team Providers Care Radial Drill Operator Name Role Phone Enrrique GOMES, [place] Primary Care Provider Rasheeda Lo Unavailable [phone] REASON FOR VISIT r/s 07/10 Encounters Encounter Location Date Provider Diagnosis [address] [address] 07/08/2024 Rasheeda Pennington Plan Of Treatment Next Appt Details Provider Name:Rasheeda guzman, 09/10/2024 02:00:00 PM, [address] [place] [address], [address], Progress Notes * Galen SALVADOR TDOB:04/1940 (83 yo M)Acc No.[id number]:07/08/2024 Patient:?Galen SALVADOR :1940???Age:83 Y???Sex:Male Address: [place], [address] * true * Date:? Generated for Printi ng/Famacig/eTransmitting on:?08/02/2024 10:20 AM EDT
--- OUTSIDE RECORDS SUMMARY | 2024-08-02 10:20 | XMS_ITS | Patient Health Record ---
Author Organization [facility] Address [address] [facility] [place] [address] Care Team Providers Care Design Engineer Marine Equipment Name Role Phone Evens Osuna MD Primary Care Provider Rasheeda Lo Unavailable [phone] Allergies No Known Allergies Reason For Referral [...] Problem Status W/U Status Risk Notes Problem 492983275 Neuropathy (G62.9) Active confirmed Problem 376168581 Hammertoe of lef t foot (M20.42) Active confirmed Problem 315947434 Hammertoe of right foot (M20.41) Active confirmed Problem 47290816655858351 Atherosclerosi s of artery of both lower extremities (I70.203) Active confirmed Problem Neuropathic ulcer of right foot (disorder) (59135005985185662) Neuropathic ulcer of right foot, limited to breakdown of skin (L97.511) Active confirmed Response to treatment Vital Signs Blood pressure diastolic 90 mm Hg 04/24/2024 Height 6 ft 2 in in 04/24/2024 Blood pressure systolic 150 mm Hg 04/24/2024 Weight 230 lbs 04/24/2024 BMI 29.53 kg/m2 04/24/2024 Encounters Encounter Location Date Provider Diagnosis [address] [address] 09/08/2023 Rasheeda Perica Atherosclerosis of artery of both lower extremities I70.203 ; Neuropathy G62.9 ; Tinea unguium B35.1 ; Pain in toe of left foot M79.675 and Pain in toe of right foot M79.[address] [address] 11/29/2023 Rasheeda Perica Atherosclerosis of artery of both lower extremities I70.203 ; Neuropathy G62.9 ; Tinea unguium B35.1 ; Pain in toe of left foot M79.675 and Pain in toe of right foot M79.[address] [address] 02/09/2024 Rasheeda Perica Atherosclerosis of artery of both lower extremities I70.203 ; Neuropathic ulcer of right foot, limited to breakdown of skin L97.511 ; Neuropathy G62.9 ; Tinea unguium B35.1 ; Pain in toe of left foot M79.675 and Pain in toe of right foot M79.[address] [facility] [address] 04/24/2024 Rasheeda Pennington Atherosclerosis of artery of both lower extremities I70.203 ; Tinea unguium B35.1 ; Neuropathy G62.9 ; Pain in toe of left foot M79.675 and Pain in toe of right foot M79.[address] [address] 07/08/2024 Rasheeda Pennington Assessments Encounter Date Diagnosis [...] Details Provider Name:Rasheeda guzman, 09/10/2024 02:00:00 PM, [address] [place] [address], [place], [address], Insurance Providers Payer Name Payer Address Payer Phone Subscriber Number Group Number Insured Name Patient Relationship to Insured Coverage Start Date Coverage End Date Medicare National Govt Svcs Inc [address] [facility] [place] [address] [id number] Galen Costello Self - patient is the insured Med[employer] Blue Shield [address] [place] [address] [phone] [id number] Galen Costello Self - patient is the insured Medical (General) History Medical History History ICD Code Angina Cataracts covid-19 Gout Heart disease High blood pressure Reflux ( GERD) Measles Mumps Chicken pox Vascular grafts Surgical History Surgery Date(Month/Year) 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
--- OUTSIDE RECORDS SUMMARY | 2024-08-02 10:20 | XMS_ITS ---
Author Organization [facility] Address [address] [place] [address] Care Team Providers Care Ed Manager Name Role Phone Enrrique GOMES [place] Primary Care Provider Rasheeda Lo Unavailable [phone] Medications Medication SIG (Take, Route, Frequency, Duration) [...] Active Encounters Encounter Location Date Provider Diagnosis [address] [address] 07/10/2024 Rasheeda Pennington Plan Of Treatment Next Appt Details Provider Name:Rasheeda guzman, 09/10/2024 02:00:00 PM, [address] [place], [address], Progress Notes * Galen SALVADOR TDOB:04/1940 (83 yo M)Acc No.[id number]:07/10/2024 Progress Note Patient:Galen CALDERON Provider:?Rasheeda Pennington DPM :1940???Age:83 Y???Sex:Male Milton e:07/10/2024 Address:[address] [place], [place] [id number] Pcp:Evens Osuna MD Subjective: * Chief Complaints: [...] Pennington DPM Date:? Generated for Oliver hanna/Pily/Jess on:?08/02/2024 10:20 AM EDT
== END 2024-08-02 10:47 | disposition home or self-care (01) ==
LOC: HO.ACS 10:00
PROVIDERS: PCP Internal Medicine; Visit Provider Internal Medicine Medical Oncology
DX: Z79.01 Long term (current) use of anticoagulants (principal)

== ENCOUNTER → 2024-08-02 10:00 | Outpatient (BNVA) | payer MEDICARE, SELFPAY | PROVIDERS: PCP Internal Medicine; Visit Provider Internal Medicine Medical Oncology | DX: I48.20 Chronic atrial fibrillation, unspecified (principal); Z79.01 Long term (current) use of anticoagulants; Z51.81 Encounter for therapeutic drug level monitoring | CPT/HCPCS: 85610; 99212 ==

== ENCOUNTER 2024-08-05 08:59 | Outpatient (AMB) | payer MEDICARE, SELFPAY ==
--- OUTSIDE RECORDS SUMMARY | 2024-08-05 09:10 | XMS_ITS | Patient Health Record ---
Author Organization [facility] Address [address] [facility] [place] [address] Care Team Providers Care Fan Blade Aligner Name Role Phone Evens Osuna MD Primary Care Provider Rasheeda oL Unavailable [phone] Allergies No Known Allergies Reason For Referral [...] Problem Status W/U Status Risk Notes Problem 632008602 Neuropathy (G62.9) Active confirmed Problem 166550532 Hammertoe of lef t foot (M20.42) Active confirmed Problem 280956685 Hammertoe of right foot (M20.41) Active confirmed Problem 43544548297173424 Atherosclerosi s of artery of both lower extremities (I70.203) Active confirmed Problem Neuropathic ulcer of right foot (disorder) (71349230687360643) Neuropathic ulcer of right foot, limited to breakdown of skin (L97.511) Active confirmed Response to treatment Vital Signs Blood pressure diastolic 90 mm Hg 04/24/2024 Height 6 ft 2 in in 04/24/2024 Blood pressure systolic 150 mm Hg 04/24/2024 Weight 230 lbs 04/24/2024 BMI 29.53 kg/m2 04/24/2024 Encounters Encounter Location Date Provider Diagnosis [address] [address] 09/08/2023 Rasheeda Perica Atherosclerosis of artery of both lower extremities I70.203 ; Neuropathy G62.9 ; Tinea unguium B35.1 ; Pain in toe of left foot M79.675 and Pain in toe of right foot M79.[address] [address] 11/29/2023 Rasheeda Perica Atherosclerosis of artery of both lower extremities I70.203 ; Neuropathy G62.9 ; Tinea unguium B35.1 ; Pain in toe of left foot M79.675 and Pain in toe of right foot M79.[address] [address] 02/09/2024 Rasheeda Perica Atherosclerosis of artery of both lower extremities I70.203 ; Neuropathic ulcer of right foot, limited to breakdown of skin L97.511 ; Neuropathy G62.9 ; Tinea unguium B35.1 ; Pain in toe of left foot M79.675 and Pain in toe of right foot M79.[address] [facility] [address] 04/24/2024 Rasheeda Pennington Atherosclerosis of artery of both lower extremities I70.203 ; Tinea unguium B35.1 ; Neuropathy G62.9 ; Pain in toe of left foot M79.675 and Pain in toe of right foot M79.[address] [address] 07/08/2024 Rasheeda Pennington Assessments Encounter Date Diagnosis [...] Details Provider Name:Rasheeda guzman, 09/10/2024 02:00:00 PM, [address] [place] [address], [place], [address], Insurance Providers Payer Name Payer Address Payer Phone Subscriber Number Group Number Insured Name Patient Relationship to Insured Coverage Start Date Coverage End Date Medicare National Govt Svcs Inc [address] [place] [address] [id number] Galen Costello Self - patient is the insured [employer] [address] [place] [address] [phone] [id number] Galen Costello Self - patient is the insured Medical (General) History Medical History History ICD Code Angina Cataracts covid-19 Gout Heart disease High blood pressure Reflux ( GERD) Measles Mumps Chicken pox Vascular grafts Surgical History Surgery Date(Month/Year) 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
--- OUTSIDE RECORDS SUMMARY | 2024-08-05 09:10 | XMS_ITS ---
Author Organization [facility] Address [address] [facility] [place] [address] Care Team Providers Care Hand Lacer Name Role Phone Enrrique GOMES, [place] Primary Care Provider Rasheeda Lo Unavailable [phone] Allergies No Known Allergies REASON FOR VISIT [...] 025 Encounters Encounter Location Date Provider Diagnosis [facility] [place] [address] [place] [address] 04/24/2024 Rasheeda Pennington Atherosclerosis of artery of [...] Reason: Provider Name:Rasheeda guzman, 09/10/2024 02:00:00 PM, [address] [place] [address], [address], Procedure Notes * Category Sub-Category Detail Notes [...] use of a nail nipper and/or dremel-type radius grinder, to a more viable healthy nail [...] to maintain effectiveness in symptomatic relief - 03637 Keratoma Treatment Parring or Cutting o f [...] instrumentation by the physician of record - 91439 Progress Notes * Galen SALVADOR TDOB:04/1940 (83 yo M)Acc No.[id number]:04/24/2024 Progress Note Patient:?DEJAGalen PETTY T Provider:?Rasheeda Pennington DPM :1940???Age:83 Y???Sex:Male Milton e:04/24/2024 Address:[address] [place], [place] [id number] Pcp:Evens Osuna MD Subjective: * Chief Complaints: [...] History:?heart bypa ss 10/2000Nose Bx- Skin cancer 06/2022[facility] 2023 * Hospitalization/Major Diagno stic Procedure:?Denies Past Hospitalization * Family History:?Mother: dece ased.?Father: , diagnosed with Unspecified heart disease.? * Social History:?Tobacco Use:?Tobacco use other than smoking?Are you an other tobacco user??No ?Tobacco Control (Standard)?Tobacco use:?Nonsmoker ???Miscellaneous:?Caffeine: yes, frequency:, 1-2 cups per day. ?Children: yes. ?Exercise: yes, walking,gym at [facility] 3 times a week. ?Marital status: [...] use of a nail nipper and/or dremel-type radius grinder, to a more viable healthy nail [...] to maintain effectiveness in symptomatic relief - 74362.?Keratoma Treatment:?Parring or Cutting of Benign Hyperkeratotic Lesion(s)?(-57) [...] instrumentation by the physician of record - 77715.? * Procedure Codes:?40226 DEBRI DE NAIL, 6 OR MORE, Modifiers: XS 03811 TRIM SKIN LESIONS, OVER 4, Modifiers: XS , Q8 * Follow Up:?2 Months * Images: * Sign off status: Completed true * Provider:?Rasheeda Pennington DPM Date:?07/2024 Generated for Oliver hanna/Pily/eTransmitting on:?08/05/2024 09:10 AM EDT History and Physical Notes * [...]
--- OUTSIDE RECORDS SUMMARY | 2024-08-05 09:11 | XMS_ITS ---
Author Organization [facility]asidy Walton Address [address] [place] [address] Care Team Providers Care Test Eng Name Role Phone Enrrique GOMES, [place] Primary Care Provider Rasheeda Lo Unavailable [phone] REASON FOR VISIT r/s 07/10 Encounters Encounter Location Date Provider Diagnosis [address] [address] 07/08/2024 Rasheeda Pennington Plan Of Treatment Next Appt Details Provider Name:Rasheeda guzman, 09/10/2024 02:00:00 PM, [address] [place] [address], [address], Progress Notes * Galen SALVADOR TDOB:04/1940 (83 yo M)Acc No.[id number]:07/08/2024 Patient:?Galen SALVADOR :1940???Age:83 Y???Sex:Male Address: [place], [address] * true * Date:? Generated for Printi ng/Famacig/eTransmitting on:?08/05/2024 09:10 AM EDT
--- OUTSIDE RECORDS SUMMARY | 2024-08-05 09:11 | XMS_ITS ---
Author Organization [facility] Address [address] [place] [address] Care Team Providers Care Air And Missile Defense Crewmember Name Role Phone Enrrique GOMES [place] Primary Care Provider Rasheeda Lo Unavailable [phone] Medications Medication SIG (Take, Route, Frequency, Duration) [...] Active Encounters Encounter Location Date Provider Diagnosis [address] [address] 07/10/2024 Rasheeda Pennington Plan Of Treatment Next Appt Details Provider Name:Rasheeda guzman, 09/10/2024 02:00:00 PM, [address] [place], [address], Progress Notes * Galen SALVADOR TDOB:04/1940 (83 yo M)Acc No.[id number]:07/10/2024 Progress Note Patient:Galen CALDERON Provider:?Rasheeda Pennington DPM :1940???Age:83 Y???Sex:Male Milton e:07/10/2024 Address:[address] [place], [place] [id number] Pcp:Evens Osuna MD Subjective: * Chief Complaints: [...] Pennington DPM Date:? Generated for Oliver hanna/Pily/Jess on:?08/05/2024 09:10 AM EDT
[2024-08-05 09:16] LABS: Prothrombin Time Whole Bld POC 21.9 sec (11.1-13.5); ~PT, ~INR - Anti Coag Clinic 1.8 (0.9-1.1)
--- NOTE | 2024-08-05 09:28 | MHC.OFFVISCO ---
Intake Intake Visit Reasons: Anticoagulation Allergies No Known Allergies [No Known Allergies*] Allergy (Verified 08/05/24 09:15) Medication List - Last Reconciled 08/05/24 by Tasneem Bishop RN allopurinol 300 mg PO DAILY atorvastatin 40 mg PO DAILY furosemide 20 mg PO DAILY isosorbide mononitrate ER 30 mg PO DAILY losartan 50 mg PO BID 90 days metoprolol succinate ER 100 mg PO BID omeprazole 20 mg PO DAILY PRN NS sildenafil 50 mg PO DAILY PRN warfarin 5 mg See Protocol PO DAILY Nursing Note INR: 1.8 in therapeutic range Medications and supplements reviewed No changes in health, diet, medications, or supplements, Denies any signs and symptoms of bleeding or bruising or clotting. 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 INR has been subtherapuetic requiring an increase in warfarin dose 60 tabs 0RF
== END 2024-08-05 09:34 | disposition home or self-care (01) ==
LOC: HO.ACS 08:59
PROVIDERS: PCP Internal Medicine; Visit Provider Internal Medicine Medical Oncology
DX: Z79.01 Long term (current) use of anticoagulants (principal)

== ENCOUNTER → 2024-08-05 08:59 | Outpatient (BNVA) | payer MEDICARE, SELFPAY | PROVIDERS: PCP Internal Medicine; Visit Provider Internal Medicine Medical Oncology | DX: I48.20 Chronic atrial fibrillation, unspecified (principal); Z79.01 Long term (current) use of anticoagulants; Z51.81 Encounter for therapeutic drug level monitoring | CPT/HCPCS: 85610; 99211 ==

== ENCOUNTER 2024-08-09 08:22 | Outpatient (AMB) | payer MEDICARE, SELFPAY ==
--- OUTSIDE RECORDS SUMMARY | 2024-08-09 08:27 | XMS_ITS | Patient Health Record ---
Author Organization [facility] Address [address] [facility] [place] [address] Care Team Providers Care Tool Planer Set Up Operator Name Role Phone Evens Osuna MD Primary Care Provider Rasheeda Lo Unavailable [phone] Allergies No Known Allergies Reason For Referral [...] Problem Status W/U Status Risk Notes Problem 891010390 Neuropathy (G62.9) Active confirmed Problem 473870939 Hammertoe of lef t foot (M20.42) Active confirmed Problem 943090805 Hammertoe of right foot (M20.41) Active confirmed Problem 72392087873897796 Atherosclerosi s of artery of both lower extremities (I70.203) Active confirmed Problem Neuropathic ulcer of right foot (disorder) (43004721570347668) Neuropathic ulcer of right foot, limited to breakdown of skin (L97.511) Active confirmed Response to treatment Vital Signs Blood pressure diastolic 90 mm Hg 04/24/2024 Height 6 ft 2 in in 04/24/2024 Blood pressure systolic 150 mm Hg 04/24/2024 Weight 230 lbs 04/24/2024 BMI 29.53 kg/m2 04/24/2024 Encounters Encounter Location Date Provider Diagnosis [address] [address] 09/08/2023 Rasheeda Perica Atherosclerosis of artery of both lower extremities I70.203 ; Neuropathy G62.9 ; Tinea unguium B35.1 ; Pain in toe of left foot M79.675 and Pain in toe of right foot M79.[address] [address] 11/29/2023 Rasheeda Perica Atherosclerosis of artery of both lower extremities I70.203 ; Neuropathy G62.9 ; Tinea unguium B35.1 ; Pain in toe of left foot M79.675 and Pain in toe of right foot M79.[address] [address] 02/09/2024 Rasheeda Perica Atherosclerosis of artery of both lower extremities I70.203 ; Neuropathic ulcer of right foot, limited to breakdown of skin L97.511 ; Neuropathy G62.9 ; Tinea unguium B35.1 ; Pain in toe of left foot M79.675 and Pain in toe of right foot M79.[address] [facility] [address] 04/24/2024 Rasheeda Pennington Atherosclerosis of artery of both lower extremities I70.203 ; Tinea unguium B35.1 ; Neuropathy G62.9 ; Pain in toe of left foot M79.675 and Pain in toe of right foot M79.[address] [address] 07/08/2024 Rasheeda Pennington Assessments Encounter Date Diagnosis [...] Details Provider Name:Rasheeda guzman, 09/10/2024 02:00:00 PM, [address] [place] [address], [place], [address], Insurance Providers Payer Name Payer Address Payer Phone Subscriber Number Group Number Insured Name Patient Relationship to Insured Coverage Start Date Coverage End Date Medicare National Govt Svcs Inc [address] [place] [address] [id number] Galen Costello Self - patient is the insured [employer] Blue Shield [address] [place] [address] [phone] [id number] Galen Costello Self - patient is the insured Medical (General) History Medical History History ICD Code Angina Cataracts covid-19 Gout Heart disease High blood pressure Reflux ( GERD) Measles Mumps Chicken pox Vascular grafts Surgical History Surgery Date(Month/Year) 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
[2024-08-09 08:28] LABS: Prothrombin Time Whole Bld POC 27.6 sec (11.1-13.5); ~PT, ~INR - Anti Coag Clinic 2.3 (0.9-1.1)
--- NOTE | 2024-08-09 08:40 | MHC.OFFVISCO ---
Intake Intake Visit Reasons: Anticoagulation Allergies No Known Allergies [No Known Allergies*] Allergy (Verified 08/09/24 08:23) Medication List - Last Reconciled 08/09/24 by Tasneem Bishop RN allopurinol 300 mg PO DAILY atorvastatin 40 mg PO DAILY furosemide 20 mg PO DAILY isosorbide mononitrate ER 30 mg PO DAILY losartan 50 mg PO BID 90 days metoprolol succinate ER 100 mg PO BID omeprazole 20 mg PO DAILY PRN NS sildenafil 50 mg PO DAILY PRN warfarin See Protocol 7.5mg x 3 days/ 5mg x 4 days orally daily; take 1-2 tabs daily as per Anticoagulation Services. INR has been subtherapuetic requiring an increase in warfarin dose Nursing Note INR: 2.3 in therapeutic range - incision right cheek healing- healing process may be why INRs were running lower- also misses doses - enc pill box and check off days on dosing sheet. Medications and supplements reviewed No changes in diet, medications, or supplements, Denies any signs and symptoms of bleeding or bruising or clotting. 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
== END 2024-08-09 08:47 | disposition home or self-care (01) ==
LOC: HO.ACS 08:22
PROVIDERS: PCP Internal Medicine; Visit Provider Internal Medicine Medical Oncology
DX: Z79.01 Long term (current) use of anticoagulants (principal)

== ENCOUNTER → 2024-08-09 08:22 | Outpatient (BNVA) | payer MEDICARE, SELFPAY | PROVIDERS: PCP Internal Medicine; Visit Provider Internal Medicine Medical Oncology | DX: I48.20 Chronic atrial fibrillation, unspecified (principal); Z79.01 Long term (current) use of anticoagulants; Z51.81 Encounter for therapeutic drug level monitoring | CPT/HCPCS: 85610; 99211 ==

== ENCOUNTER 2024-08-16 08:25 | Outpatient (REF) | payer MEDICARE, SELFPAY ==
--- OUTSIDE RECORDS SUMMARY | 2024-08-16 08:27 | XMS_ITS | Patient Health Record ---
Author Organization [facility] Address [address] [facility] [place] [address] Care Team Providers Care Project Assistant Name Role Phone Evens Osuna MD Primary Care Provider Rasheeda Lo Unavailable [phone] Allergies No Known Allergies Reason For Referral [...] Problem Status W/U Status Risk Notes Problem 506418724 Neuropathy (G62.9) Active confirmed Problem 234490515 Hammertoe of lef t foot (M20.42) Active confirmed Problem 907478238 Hammertoe of right foot (M20.41) Active confirmed Problem 43561310165040949 Atherosclerosi s of artery of both lower extremities (I70.203) Active confirmed Problem Neuropathic ulcer of right foot (disorder) (79744935293548453) Neuropathic ulcer of right foot, limited to breakdown of skin (L97.511) Active confirmed Response to treatment Vital Signs Blood pressure diastolic 90 mm Hg 04/24/2024 Height 6 ft 2 in in 04/24/2024 Blood pressure systolic 150 mm Hg 04/24/2024 Weight 230 lbs 04/24/2024 BMI 29.53 kg/m2 04/24/2024 Encounters Encounter Location Date Provider Diagnosis [address] [address] 09/08/2023 Rasheeda Perica Atherosclerosis of artery of both lower extremities I70.203 ; Neuropathy G62.9 ; Tinea unguium B35.1 ; Pain in toe of left foot M79.675 and Pain in toe of right foot M79.[address] [address] 11/29/2023 Rasheeda Perica Atherosclerosis of artery of both lower extremities I70.203 ; Neuropathy G62.9 ; Tinea unguium B35.1 ; Pain in toe of left foot M79.675 and Pain in toe of right foot M79.[address] [address] 02/09/2024 Rasheeda Perica Atherosclerosis of artery of both lower extremities I70.203 ; Neuropathic ulcer of right foot, limited to breakdown of skin L97.511 ; Neuropathy G62.9 ; Tinea unguium B35.1 ; Pain in toe of left foot M79.675 and Pain in toe of right foot M79.[address] [facility] [address] 04/24/2024 Rasheeda Pennington Atherosclerosis of artery of both lower extremities I70.203 ; Tinea unguium B35.1 ; Neuropathy G62.9 ; Pain in toe of left foot M79.675 and Pain in toe of right foot M79.[address] [address] 07/08/2024 Rasheeda Pennington Assessments Encounter Date Diagnosis [...] Details Provider Name:Rasheeda guzman, 09/10/2024 02:00:00 PM, [address] [place] [address], [place], [address], Insurance Providers Payer Name Payer Address Payer Phone Subscriber Number Group Number Insured Name Patient Relationship to Insured Coverage Start Date Coverage End Date Medicare National Govt Svcs Inc [address] 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
== END 2024-08-16 08:26 | disposition home or self-care (01) ==
LOC: HO.SH 08:25
PROVIDERS: Visit Provider Internal Medicine
DX: Z01.118 Encounter for examination of ears and hearing with other abnormal findings (principal); H90.3 Sensorineural hearing loss, bilateral
CPT/HCPCS: 92557

== ENCOUNTER 2024-08-16 09:12 | Outpatient (AMB) | payer MEDICARE, SELFPAY ==
[2024-08-16 09:18] LABS: Prothrombin Time Whole Bld POC 46.1 sec (11.1-13.5); ~PT, ~INR - Anti Coag Clinic 3.8 (0.9-1.1)
--- NOTE | 2024-08-16 09:26 | MHC.OFFVISCO ---
Intake Intake Visit Reasons: Anticoagulation Allergies No Known Allergies [No Known Allergies*] Allergy (Verified 08/16/24 09:12) Medication List - Last Reconciled 08/16/24 by Annamarie Sharif RN allopurinol 300 mg PO DAILY atorvastatin 40 mg PO DAILY furosemide 20 mg PO DAILY isosorbide mononitrate ER 30 mg PO DAILY losartan 50 mg PO BID 90 days metoprolol succinate ER 100 mg PO BID omeprazole 20 mg PO DAILY PRN NS sildenafil 50 mg PO DAILY PRN warfarin See Protocol 7.5mg x 3 days/ 5mg x 4 days orally daily; take 1-2 tabs daily as per Anticoagulation Services. INR has been subtherapuetic requiring an increase in warfarin dose Nursing Note INR: 3.8 out of therapeutic range of 2-3 Medications and supplements reviewed No changes in health, diet, medications, or supplements, Incision on right cheek of face is healed. Denies any signs and symptoms of bleeding or bruising or clotting. Bleeding, bruising, clotting discussed Nutritional guidance given to have a serving of greens today Dose: decrease today's dose to 2.5mg (5mg) then 5mg X 6 days and 7.5mg X 1 day () F/U INR: 1 week Patient verbalizes understanding of instructions given Anti-Coag Initial Assessment Social Hx Patient Tobacco Use Status: Never used Tobacco alcohol intake: current Alcohol intake frequency: holidays/special occasions only Coding Level of Care Code Est Patient Level 1 Diagnoses Current use of anticoagulant therapy Z79.01 Assessment & Plan Assessment & Plan (1) Current use of anticoagulant therapy: Code(s): Z79.01 - halfway (current) 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
== END 2024-08-16 09:43 | disposition home or self-care (01) ==
LOC: HO.ACS 09:12
PROVIDERS: PCP Internal Medicine; Visit Provider Internal Medicine Medical Oncology
DX: Z79.01 Long term (current) use of anticoagulants (principal)

== ENCOUNTER → 2024-08-16 09:12 | Outpatient (BNVA) | payer MEDICARE, SELFPAY | PROVIDERS: PCP Internal Medicine; Visit Provider Internal Medicine Medical Oncology | DX: I48.20 Chronic atrial fibrillation, unspecified (principal); Z79.01 Long term (current) use of anticoagulants; Z51.81 Encounter for therapeutic drug level monitoring | CPT/HCPCS: 85610; 99211 ==

== ENCOUNTER 2024-08-23 09:29 | Outpatient (AMB) | payer MEDICARE, SELFPAY ==
[2024-08-23 09:43] LABS: Prothrombin Time Whole Bld POC 42.8 sec (11.1-13.5); ~PT, ~INR - Anti Coag Clinic 3.6 (0.9-1.1)
--- NOTE | 2024-08-23 09:49 | MHC.OFFVISCO ---
Intake Intake Visit Reasons: Anticoagulation Allergies No Known Allergies [No Known Allergies*] Allergy (Verified 08/23/24 09:38) Medication List - Last Reconciled 08/23/24 by Annamarie Sharif RN allopurinol 300 mg PO DAILY atorvastatin 40 mg PO DAILY furosemide 20 mg PO DAILY isosorbide mononitrate ER 30 mg PO DAILY losartan 50 mg PO BID 90 days metoprolol succinate ER 100 mg PO BID omeprazole 20 mg PO DAILY PRN NS sildenafil 50 mg PO DAILY PRN warfarin See Protocol 7.5mg x 3 days/ 5mg x 4 days orally daily; take 1-2 tabs daily as per Anticoagulation Services. INR has been subtherapuetic requiring an increase in warfarin dose Nursing Note INR: 3.6 in therapeutic range of 2-3 Medications and supplements reviewed No changes in health, diet, medications, or supplements, Denies any signs and symptoms of bleeding or bruising or clotting. Bleeding, bruising, clotting discussed Nutritional guidance given to have a serving of greens today Dose: hold today's dose of 5mg then 5mg daily and 7.5mg X 1 day () F/U INR: 1 week Patient verbalizes understanding of instructions given Anti-Coag Initial Assessment Social Hx Patient Tobacco Use Status: Never used Tobacco alcohol intake: current Alcohol intake frequency: holidays/special occasions only Coding Level of Care Code Est Patient Level 1 Diagnoses Current use of anticoagulant therapy Z79.01 Results AMB INR Fingerstick AMB INR Fingerstick 3.6 Last Edit by Annamarie Sharif RN on 08/23/24 09:42 interface delay Assessment & Plan Assessment & Plan (1) Current use of anticoagulant therapy: Code(s): Z79.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
--- OUTSIDE RECORDS SUMMARY | 2024-08-23 10:04 | XMS_ITS | Patient Health Record ---
Author [facility] Address [address] [facility] [place] [address] Care Team Providers Care Therapist Asst Name Role Phone Evens Osuna MD Primary Care Provider Rasheeda Lo Unavailable [phone] Allergies No Known Allergies Reason For Referral [...] Problem Status W/U Status Risk Notes Problem 557553481 Neuropathy (G62.9) Active confirmed Problem 221290363 Hammertoe of lef t foot (M20.42) Active confirmed Problem 221354607 Hammertoe of right foot (M20.41) Active confirmed Problem 60077714292028638 Atherosclerosi s of artery of both lower extremities (I70.203) Active confirmed Problem Neuropathic ulcer of right foot (disorder) (25297286028844459) Neuropathic ulcer of right foot, limited to breakdown of skin (L97.511) Active confirmed Response to treatment Vital Signs Blood pressure diastolic 90 mm Hg 04/24/2024 Height 6 ft 2 in in 04/24/2024 Blood pressure systolic 150 mm Hg 04/24/2024 Weight 230 lbs 04/24/2024 BMI 29.53 kg/m2 04/24/2024 Encounters Encounter Location Date Provider Diagnosis [address] [address] 09/08/2023 Rasheeda Perica Atherosclerosis of artery of both lower extremities I70.203 ; Neuropathy G62.9 ; Tinea unguium B35.1 ; Pain in toe of left foot M79.675 and Pain in toe of right foot M79.[address] [address] 11/29/2023 Rasheeda Perica Atherosclerosis of artery of both lower extremities I70.203 ; Neuropathy G62.9 ; Tinea unguium B35.1 ; Pain in toe of left foot M79.675 and Pain in toe of right foot M79.[address] [address] 02/09/2024 Rasheeda Perica Atherosclerosis of artery of both lower extremities I70.203 ; Neuropathic ulcer of right foot, limited to breakdown of skin L97.511 ; Neuropathy G62.9 ; Tinea unguium B35.1 ; Pain in toe of left foot M79.675 and Pain in toe of right foot M79.[address] [facility] [address] 04/24/2024 Rasheeda Pennington Atherosclerosis of artery of both lower extremities I70.203 ; Tinea unguium B35.1 ; Neuropathy G62.9 ; Pain in toe of left foot M79.675 and Pain in toe of right foot M79.[address] [address] 07/08/2024 Rasheeda Pennington Assessments Encounter Date Diagnosis [...] Details Provider Name:Rasheeda guzman, 09/10/2024 02:00:00 PM, [address] [place] [address], [place], [address], Insurance Providers Payer Name Payer Address Payer Phone Subscriber Number Group Number Insured Name Patient Relationship to Insured Coverage Start Date Coverage End Date Medicare National Govt Svcs Inc [address] [facility] 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
== END 2024-08-23 09:56 | disposition home or self-care (01) ==
LOC: HO.ACS 09:29
PROVIDERS: PCP Internal Medicine; Visit Provider Internal Medicine Medical Oncology
DX: Z79.01 Long term (current) use of anticoagulants (principal)

== ENCOUNTER → 2024-08-23 09:29 | Outpatient (BNVA) | payer MEDICARE, SELFPAY | PROVIDERS: PCP Internal Medicine; Visit Provider Internal Medicine Medical Oncology | DX: I48.20 Chronic atrial fibrillation, unspecified (principal); Z79.01 Long term (current) use of anticoagulants; Z51.81 Encounter for therapeutic drug level monitoring | CPT/HCPCS: 85610; 99211 ==

== ENCOUNTER 2024-08-30 09:21 | Outpatient (AMB) | payer MEDICARE, SELFPAY ==
[2024-08-30 09:32] LABS: Prothrombin Time Whole Bld POC 28.4 sec (11.1-13.5); ~PT, ~INR - Anti Coag Clinic 2.4 (0.9-1.1)
--- NOTE | 2024-08-30 09:41 | MHC.OFFVISCO ---
Intake Intake Visit Reasons: Anticoagulation Allergies No Known Allergies [No Known Allergies*] Allergy (Verified 08/30/24 09:27) Medication List - Last Reconciled 08/30/24 by Tasneem Bishop RN allopurinol 300 mg PO DAILY atorvastatin 40 mg PO DAILY furosemide 20 mg PO DAILY isosorbide mononitrate ER 30 mg PO DAILY losartan 50 mg PO BID 90 days metoprolol succinate ER 100 mg PO BID omeprazole 20 mg PO DAILY PRN NS sildenafil 50 mg PO DAILY PRN warfarin See Protocol 7.5mg x 3 days/ 5mg x 4 days orally daily; take 1-2 tabs daily as per Anticoagulation Services. INR has been subtherapuetic requiring an increase in warfarin dose Nursing Note INR: 2.4 in therapeutic range Medications and supplements reviewed No changes in health, diet, medications, or supplements, Denies any signs and symptoms of bleeding or bruising or clotting. Bleeding, bruising, clotting discussed Nutritional guidance given Dose: 7.5mg x 1 day/ 5mg x 6 days F/U INR: 2 weeks Patient verbalizes understanding of instructions given Anti-Coag Initial Assessment Social Hx Patient Tobacco Use Status: Never used Tobacco alcohol intake: current Alcohol intake frequency: holidays/special occasions only Coding Level of Care Code Est Patient Level 1 Diagnoses Current use of anticoagulant therapy Z79.01 Results AMB INR Fingerstick AMB INR Fingerstick 2.4 Last Edit by Tasneem Bishop RN on 08/30/24 09:35 delayed interfacing manual entry Assessment & Plan Assessment & Plan (1) Current use of anticoagulant therapy: Code(s): Z79.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
--- OUTSIDE RECORDS SUMMARY | 2024-08-30 09:45 | XMS_ITS | Patient Health Record ---
[facility] Address [address] [facility] [place] [address] Care Team Providers Care Signal Worker Helper Name Role Phone Evens Osuna MD Primary Care Provider Rasheeda Lo Unavailable [phone] Allergies No Known Allergies Reason For Referral [...] Problem Status W/U Status Risk Notes Problem 153208133 Neuropathy (G62.9) Active confirmed Problem 064918622 Hammertoe of lef t foot (M20.42) Active confirmed Problem 511974414 Hammertoe of right foot (M20.41) Active confirmed Problem 02421827170623352 Atherosclerosi s of artery of both lower extremities (I70.203) Active confirmed Problem Neuropathic ulcer of right foot (disorder) (72675487166788179) Neuropathic ulcer of right foot, limited to breakdown of skin (L97.511) Active confirmed Response to treatment Vital Signs Blood pressure diastolic 90 mm Hg 04/24/2024 Height 6 ft 2 in in 04/24/2024 Blood pressure systolic 150 mm Hg 04/24/2024 Weight 230 lbs 04/24/2024 BMI 29.53 kg/m2 04/24/2024 Encounters Encounter Location Date Provider Diagnosis [address] [address] 09/08/2023 Rasheeda Perica Atherosclerosis of artery of both lower extremities I70.203 ; Neuropathy G62.9 ; Tinea unguium B35.1 ; Pain in toe of left foot M79.675 and Pain in toe of right foot M79.[address] [address] 11/29/2023 Rasheeda Perica Atherosclerosis of artery of both lower extremities I70.203 ; Neuropathy G62.9 ; Tinea unguium B35.1 ; Pain in toe of left foot M79.675 and Pain in toe of right foot M79.[address] [address] 02/09/2024 Rasheeda Perica Atherosclerosis of artery of both lower extremities I70.203 ; Neuropathic ulcer of right foot, limited to breakdown of skin L97.511 ; Neuropathy G62.9 ; Tinea unguium B35.1 ; Pain in toe of left foot M79.675 and Pain in toe of right foot M79.[address] [facility] [address] 04/24/2024 Rasheeda Pennington Atherosclerosis of artery of both lower extremities I70.203 ; Tinea unguium B35.1 ; Neuropathy G62.9 ; Pain in toe of left foot M79.675 and Pain in toe of right foot M79.[address] [address] 07/08/2024 Rasheeda Pennington Assessments Encounter Date Diagnosis [...] Details Provider Name:Rasheeda guzman, 09/10/2024 02:00:00 PM, [address] [place] [address], [place], [address], Insurance Providers Payer Name Payer Address Payer Phone Subscriber Number Group Number Insured Name Patient Relationship to Insured Coverage Start Date Coverage End Date Medicare National Govt Sv[employer] [address] [facility] [place] [address] [id number] Galen Costello Self - patient is the insured [employer] [address] [place] [address] [id number] Galen Costello Self - patient is the insured Medical (General) History Medical History History ICD Code Angina Cataracts covid-19 Gout Heart disease High blood pressure Reflux ( GERD) Measles Mumps Chicken pox Vascular grafts Surgical History Surgery Date(Month/Year) 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
== END 2024-08-30 09:45 | disposition home or self-care (01) ==
LOC: HO.ACS 09:21
PROVIDERS: PCP Internal Medicine; Visit Provider Internal Medicine Medical Oncology
DX: Z79.01 Long term (current) use of anticoagulants (principal)

== ENCOUNTER → 2024-08-30 09:21 | Outpatient (BNVA) | payer MEDICARE, SELFPAY | PROVIDERS: PCP Internal Medicine; Visit Provider Internal Medicine Medical Oncology | DX: I48.20 Chronic atrial fibrillation, unspecified (principal); Z79.01 Long term (current) use of anticoagulants; Z51.81 Encounter for therapeutic drug level monitoring | CPT/HCPCS: 85610; 99211 ==

== ENCOUNTER 2024-09-12 13:41 | Outpatient (AMB) | payer MEDICARE, SELFPAY ==
[2024-09-12 13:54] LABS: Prothrombin Time Whole Bld POC 39.1 sec (11.1-13.5); ~PT, ~INR - Anti Coag Clinic 3.3 (0.9-1.1)
--- NOTE | 2024-09-12 13:59 | MHC.OFFVISCO ---
Intake Intake Visit Reasons: Anticoagulation Allergies No Known Allergies (No Known Allergies*) Allergy (Verified 09/12/24 13:50) Medication List - Last Reconciled 09/12/24 by Annamarie Sharif RN allopurinol 300 mg PO DAILY atorvastatin 40 mg PO DAILY furosemide 20 mg PO DAILY isosorbide mononitrate ER 30 mg PO DAILY losartan 50 mg PO BID 90 days metoprolol succinate ER 100 mg PO BID omeprazole 20 mg PO DAILY PRN NS sildenafil 50 mg PO DAILY PRN warfarin See Protocol 7.5mg x 3 days/ 5mg x 4 days orally daily; take 1-2 tabs daily as per Anticoagulation Services. INR has been subtherapuetic requiring an increase in warfarin dose Nursing Note INR: 3.3 out of therapeutic range of 2-3 Medications and supplements reviewed Patient status: feels well Medications or supplements: no changes Diet: usual diet for pt Denies any signs and symptoms of bleeding or clotting or unusual bruising Bleeding, bruising, clotting discussed Nutritional guidance given: to have a serving of greens today. Pt states he will have broccoli Dose: 5mg X 6 days and 7.5mg X 1 day F/U INR Date: 2 weeks?? Patient verbalizing understanding of instructions given. 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
--- OUTSIDE RECORDS SUMMARY | 2024-09-12 16:31 | XMS_ITS | Patient Health Record ---
Author Organization [facility] Address [address] [place] [address] Care Team Providers Care Heel Splitter Name Role Phone Ryan Ortega MD Primary Care Provider Zaki Pruitt [phone] Reason For Referral No Information Medications Medication SIG (Take, Route, Fr equency, Duration) Notes Start Date End Date Status PriLOSEC OTC 20mg Ac tive Aspir-81 81mg Active Allopurinol 300mg Ac tive Simvastatin 80mg Act jaimee Coumadin 5mg Active Atenolol 100mg Activ e Diovan HCT 160/12.5mg Active Problems Problem Type SNOMED Code ICD Code Onset Dates Problem Status W/U Status Risk Notes Problem Parker's esophagus (789730049) Parker's esophagus (530.85) Active confirmed Problem Colon cancer screening (895916188) Colon cancer screening (V76.51) Active confirmed Problem Gastroesophageal reflux disease (036130899) GERD (gastroesophag eal reflux disease) (530.81) Active confirmed Problem History of adenomatous polyp of colon (832880625) History of adenomatous polyp of colon (V12.72) Active confirmed Plan Of Treatment Future Test Test Name Order Date UPPER GI ENDOSCOPY 05/28/2013 COLONOSCOPY 05/28/2013 Insurance Providers Payer Name Payer Address Payer Phone Subscriber Number Group Number Insured Name Patient Relationship to Insured Coverage Start Date Coverage End Date MEDICARE OF [place] [address] [place] [address] [id number] FREDERICK COBIAN Self - patient is the insured MED[employer] ATTN CLAIMS [address] [place] [address] [id number] FREDERICK COBIAN Self - patient is the insured Medical (General) History Medical History History ICD Code Denies VA,DM,CVA,Lung disease,renal dise ase Hyperlipidemia HTN Gout Afib GERD CAD--s/p CABG as below He had a colonoscopy in 2001 with with the removal of a small tubular adenoma--also noted was some diverticulosis and internal hemorrhoids Parker's esophagus--upper e ndoscopy in June of 2013 with a small to moderate size hiatal hernia, and biopsies negative for dysplasia Negative screening colonosco py in June 2013, other than some diverticulosis and internal hemorrhoids Surgical History Surgery Date(Month/Year) 4V CABG 2000 hernia surgery 2010 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
== END 2024-09-12 14:02 | disposition home or self-care (01) ==
LOC: HO.ACS 13:41
PROVIDERS: PCP Internal Medicine; Visit Provider Internal Medicine Medical Oncology
DX: Z79.01 Long term (current) use of anticoagulants (principal)

== ENCOUNTER → 2024-09-12 14:03 | Outpatient (REF) | payer MEDICARE, SELFPAY ==
--- NOTE | 2024-09-12 14:08 | CA_ITS ---
Transthoracic Echocardiogram Patient (Last, First, Middle): Galen Salvador T Gender: Male Date of : 1940 Age: 84 Procedure Date: 09/12/2024 Procedure Type: Transthoracic Echocardiogram Location: OP Height: 187.96 cm Weight: 109.32 kg BSA: 2.35 m2 Heart Rate: bpm BP: 136 / 84 mmHg It Risk And Assurance Senior Manager: JOSE Referring MD: Poncho Altamirano MD Symptoms: I50.9 - Heart failure, unspecified Study Quality: Technically Difficult, contrast ECG Rhythm: Atrial Fibrillation Conclusions: - The left ventricular systolic function is moderately decreased. The calculated ejection fraction is 35% by biplane method. - Severe biatrial enlargement. - There is moderate calcification of the aortic valve. - There is mild mitral annular calcification. - Mild to moderate pulmonary hypertension is present. Findings Procedure Information Contrast agent, definity, is being given per protocol without apparent complications. Left Ventricle Normal left ventricular cavity size. The left ventricular systolic function is moderately decreased. The calculated ejection fraction is 35% by biplane method. There is moderate global hypokinesis. Diastolic function is indeterminate on the basis of available data. There is mild septal asymmetric hypertrophy. Right Ventricle Moderately increased right ventricular cavity size. There is mildly decreased right ventricular systolic function. Atria Severe biatrial enlargement. Aortic Valve There is moderate calcification of the aortic valve. There is no aortic valve stenosis. There is no aortic valve regurgitation. Mitral Valve There is mild mitral annular calcification. There is trace mitral valve regurgitation. There is no mitral valve stenosis. Pulmonic Valve The pulmonic valve is likely normal. Tricuspid Valve There is mild tricuspid valve regurgitation. Mild to moderate pulmonary hypertension is present. Great Vessels The asc aorta is normal in size. Venous The inferior vena cava is dilated and collapses less than 50% with inspiration. Pericardium/Pleural There is no evidence of pericardial effusion. Prior Study Comparison Changes noted compared to prior study dated: 08/24/2023. LVEF lower than previously reported. Measurements 2D Linear Measurements IVSd: 1.10 0.6-0.9/0.6-1.0 cm LVIDd: 5.17 3.9-5.3/4.2-5.9 cm LVIDd Index: 2.20 2.4-3.2/2.2-3.1 cm/m2 LVIDs: 3.87 2.0-3.6 cm LVPWd: 0.92 0.7-1.1 cm LA Diam: 5.00 2.7-3.8/3.0-4.0 cm LAIDs Index: 2.13 1.5-2.3 cm/m2 LV Mass: 242.36 67-162/88-224 g LV Mass Index: 103.13 43-95/49-115 g/m2 LVOT Diam: 2.30 3.0+(-)1.3 cm 2D Systolic Function EF 4C: 40.80 >55% EF 2C: 34.90 >55% EF BiP: 35.10 >55% Mitral Valve MV Pk E: 1.25 MV Decel Time: 170.00 E'Lateral: 12.20 E'Medial: 8.40 E/E' Med: 14.90 E/E' Lat: 10.20 PHT: 50.00 MVA PHT: 4.40 Decel Kimble: 7.43 Aortic Valve AoV Pk Osei: 1.25 AoV Mn Osei: 0.92 AoV VTI: 0.27 AoV Pk Grad: 6.00 Aov Mn Grad: 4.00 SHANIA Cont.VTI: 2.76 LVOT LVOT Pk Osei: 0.80 LVOT Mn Osei: 0.56 LVOT VTI: 0.18 LVOT Pk Grad: 3.00 LVOT Mn Grad: 1.00 LVOT Diam: 2.30 LVOT Area: 4.15 Diastolic Function MV Pk E: 1.25 E'Medial: 8.40 E/E' Med: 14.90 E' Laterial: 12.20 E/E' Lat: 10.20 Right Ventricle TAPSE (mm): 23.80 TVS' Osei: 8.83 Tricuspid Valve TR Pk Osei: 3.08 TR Pk Grad: 38.00 RA Press: 15.00 RVSP: 53.00 Great Vessels Aorta Sinus of Valsalva: 3.62 2.0-3.[address] Ridge: 2.54 1.7-3.4 cm Ao Asc: 3.50 2.1-3.4 cm Updated in Other Vendor System with Status of Final Dean Jonas MD electronically signed on 09/15/2024 1:35:15 PM with status of Final
== END ==
LOC: HO.CARD 14:03
PROVIDERS: PCP Internal Medicine; Visit Provider Internal Medicine Cardiovascular Disease
DX: I50.9 Heart failure, unspecified (principal); I48.20 Chronic atrial fibrillation, unspecified; Z51.81 Encounter for therapeutic drug level monitoring; Z79.01 Long term (current) use of anticoagulants
CPT/HCPCS: 85610; 93306; 99211; Q9957

== ENCOUNTER → 2024-09-12 14:08 | Outpatient (BNV) | payer MEDICARE, SELFPAY | PROVIDERS: PCP Internal Medicine; Visit Provider Internal Medicine | DX: I27.20 Pulmonary hypertension, unspecified (principal); I42.2 Other hypertrophic cardiomyopathy; I51.7 Cardiomegaly; I35.8 Other nonrheumatic aortic valve disorders; I34.81 Nonrheumatic mitral (valve) annulus calcification | CPT/HCPCS: 93306 ==

== ENCOUNTER 2024-09-26 13:31 | Outpatient (AMB) | payer MEDICARE, SELFPAY ==
--- OUTSIDE RECORDS SUMMARY | 2024-09-26 13:32 | XMS_ITS | Patient Health Record ---
Author [facility] Address [address] [place] [address] Care Team Providers Care Photogrammetrist Name Role Phone Enrrique GOMES, [place] Primary Care Provider Rasheeda Lo Unavailable [phone] Allergies No Known Allergies Reason For Referral No Information Medications Medication SIG (Take, Route, Frequency, Duration) Notes Start Date End Date Status Warfarin Sodium 5 MG 1 tablet Orally Onc e a day; Duration: 30 day(s) Active Atorvastatin Calcium 40 MG 1 tablet Orally Once a day; Duration: 30 day(s) Active Allopurinol 300 MG 1 tablet Orally Once a day; Duration: 30 day(s) Active Furosemide 20 MG 1 tablet Orally Once a day; Duration: 30 day(s) Active Isosorbide Mononitrate ER 30 MG 1 tablet in the morning Orally Once a day; Duration: 30 day(s) Not-Taking Ammonium Lactate 12 % 1 application to affected area Externally to feet Twice a day; Duration: 30 days Not-Taking Ciclopirox Olamine 0.77 % 1 application Externally Twice a day; Duration: 30 days Not-Taking Cephalexin 500 MG 1 capsule Orally jermaine ry 12 hrs; Duration: 10 days Not-Taking Cephalexin 500 MG 1 capsule Orally jermaine ry 12 hrs; Duration: 5 days Not-Taking Metoprolol Succinate 100 MG 1 capsule Orally Once a day; Duration: 30 day(s) Active Losartan Potassium 50 MG 1 tablet Orally Once a day; Duration: 30 day(s) Active Immunizations Vaccine Route Administration Date Status Comme nts Influenza Unknown 09/10/2024 Refused Social History Tobacco Use: Social History Observation [...] Problem Status W/U Status Risk Notes Problem Neuropathy (423377391) Neuropathy (G62.9) Active confirmed Problem Acquired hammer toe of left foot (3387299767034837) Hammertoe of left foot (M20.42) Active confirmed Problem Acquired hammer toe of right foot (6552747552031890) Hammertoe of right foot (M20.41) Active confirmed Problem Bilateral atherosclerosis of arteries of lower limbs (disorder) (27120145022916140 ) Atherosclerosis of artery of both lower extremities (I70.203) Active confirmed Vital Signs Blood pressure diastolic 90 mm Hg 09/10/2024 Height 6 ft 2 in in 09/10/2024 Blood pressure systolic 145 mm Hg 09/10/2024 Weight 230 lbs 09/10/2024 BMI 29.53 kg/m2 09/10/2024 Encounters Encounter Location Date Provider Diagnosis [address] [address] 07/08/2024 Rasheeda Pennington [address] [address] 11/29/2023 Rasheeda Pennington Atherosclerosis of artery of both lower extremities I70.203 ; Neuropathy G62.9 ; Tinea unguium B35.1 ; Pain in toe of left foot M79.675 and Pain in toe of right foot M79.[address] [address] 02/09/2024 Rasheeda Pennington Atherosclerosis of artery of both lower extremities I70.203 ; Neuropathic ulcer of right foot, limited to breakdown of skin L97.511 ; Neuropathy G62.9 ; Tinea unguium B35.1 ; Pain in toe of left foot M79.675 and Pain in toe of right foot M79.674 [facility] [address] [address] 04/24/2024 Rasheeda Gorge Atherosclerosis of artery of both lower extremities I70.203 ; Tinea unguium B35.1 ; Neuropathy G62.9 ; Pain in toe of left foot M79.675 and Pain in toe of right foot M79.674 [facility] [address] [address] 09/10/2024 Rasheeda Gorge Atherosclerosis of artery of both [...] CARE INSTRUCTIONS. pdf (WOUND CARE INSTRUCTIONS. pdf) 09/10/2024 Atherosclerosis of artery of both lower extremities (ICD-10 - I70.203) 04/24/2024 Tinea unguium (ICD-10 - B35.1) 04/24/2024 Atherosclerosis of artery of both lower extremities (ICD-10 - I70.203) 04/24/2024 Neuropathy (ICD-10 - G62.9) 11/29/2023 Neuropathy (ICD-10 - G62.9) 02/09/2024 Neuropathy (ICD-10 - G62.9) 09/10/2024 Tinea unguium (ICD-10 - B35.1) 11/29/2023 Tinea unguium (ICD-10 - B35.1) 02/09/2024 Tinea unguium (ICD-10 - B35.1) 09/10/2024 Neuropathy (ICD-10 - G62.9) 04/24/2024 Pain in toe of left foot (ICD-10 - M79.675) 04/24/2024 Pain in toe of right foot (ICD-10 - M79.674) 02/09/2024 Pain in toe of left foot (ICD-10 - M79.675) 09/10/2024 Pain in toe of left foot (ICD-10 - M79.675) 11/29/2023 Pain in toe of left foot (ICD-10 - M79.675) 11/29/2023 Pain in toe of right foot (ICD-10 - M79.674) 09/10/2024 Pain in toe of right foot (ICD-10 - M79.674) 02/09/2024 Pain in toe of right foot (ICD-10 - M79.674) 09/10/2024 Other 04/24/2024 Other Patient Educated with: WOUND CARE INSTRUCTIONS. pdf (WOUND CARE INSTRUCTIONS. pdf) Plan Of Treatment Next Appt Details Provider Name:Rasheeda guzman, 12/10/2024 11:30:00 AM, [address] [place] [address], [address], Insurance Providers Payer Name Payer Address Payer Phone Subscriber Number Group Number Insured Name Patient Relationship to Insured Coverage Start Date Coverage End Date Medicare National Govt [facility] [address] [place] [address] [phone] [id number] Galen Costello Self - patient is the insured [employer] [address] [place] [address] [phone] [id number] Galen Costello Self - patient is the insured Medical (General) History Medical History History ICD Code Angina Cataracts covid-19 Gout Heart disease High blood pressure Reflux ( GERD) Measles Mumps Chicken pox Vascular grafts Surgical History Surgery Date(Month/Year) heart bypass 10/2000 Nose Bx- Skin cancer 06/2022 skin surgery [facility] 2023
--- OUTSIDE RECORDS SUMMARY | 2024-09-26 13:32 | XMS_ITS | Patient Health Record ---
Author Organization [facility] Address [address] [place] [address] Care Team Providers Care Railroad Maintenance Clerk Name Role Phone Ryan Ortega MD Primary Care Provider Zaki Pruitt [phone] Reason For Referral No Information Medications Medication [...] W/U Status Risk Notes Problem Parker's esophagus (888791516) Parker's esophagus (530.85) Active confirmed Problem Colon cancer screening (654628767) Colon cancer screening (V76.51) Active confirmed Problem Gastroesophageal reflux disease (558711959) GERD (gastroesophag eal reflux disease) (530.81) Active confirmed Problem History of adenomatous polyp of colon (238917483) History of adenomatous polyp of colon (V12.72) Active confirmed Plan Of Treatment Future Test Test Name Order Date UPPER GI ENDOSCOPY 05/28/2013 COLONOSCOPY 05/28/2013 Insurance Providers Payer Name Payer Address Payer Phone Subscriber Number Group Number Insured Name Patient Relationship to Insured Coverage Start Date Coverage End Date MED[place]ARE OF [place] [address] [place] [address] [id number] FREDERICK COBIAN Self - patient is the insured MED[employer] ATTN CLAIMS [address] [place] [address] [id number] FREDERICK COBIAN Self - patient is the insured Medical (General) History Medical History History ICD Code Denies RI,DM,CVA,Lung disease,renal dise ase Hyperlipidemia HTN Gout Afib [...]
[2024-09-26 13:38] LABS: Prothrombin Time Whole Bld POC 24.6 sec (11.1-13.5); ~PT, ~INR - Anti Coag Clinic 2.0 (0.9-1.1)
--- NOTE | 2024-09-26 13:45 | MHC.OFFVISCO ---
Intake Intake Visit Reasons: Anticoagulation Allergies No Known Allergies (No Known Allergies*) Allergy (Verified 09/12/24 13:50) Nursing Note INR: 2.0 in therapeutic range Medications and supplements reviewed No changes in health, diet, medications, or supplements, Denies any signs and symptoms of bleeding or bruising or clotting. 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
== END 2024-09-26 13:49 | disposition home or self-care (01) ==
LOC: HO.ACS 13:31
PROVIDERS: PCP Internal Medicine; Visit Provider Internal Medicine Medical Oncology
DX: Z79.01 Long term (current) use of anticoagulants (principal)

== ENCOUNTER → 2024-09-26 13:31 | Outpatient (BNVA) | payer MEDICARE, SELFPAY | PROVIDERS: PCP Internal Medicine; Visit Provider Internal Medicine Medical Oncology | DX: I48.20 Chronic atrial fibrillation, unspecified (principal); Z79.01 Long term (current) use of anticoagulants; Z51.81 Encounter for therapeutic drug level monitoring | CPT/HCPCS: 85610; 99211 ==

== ENCOUNTER 2024-09-30 12:04 | Outpatient (REF) | payer MEDICARE, SELFPAY ==
[2024-09-30 13:01] LABS: Anion Gap 12 (12-20); Blood Urea Nitrogen 14 mg/dL (9-16); Calcium 8.9 mg/dL (8.4-10.2); Carbon Dioxide 29 mmol/L (22-29); Chloride 103 mmol/L (96-108); Estimated Glomerular Filt Rate > 60; Potassium 3.0 mmol/L (3.3-5.1); Sodium 141 mmol/L (135-145)
--- OUTSIDE RECORDS SUMMARY | 2024-09-30 13:06 | XMS_ITS | Patient Health Record ---
Author Organization [facility] Address [address] [place] [address] Care Team Providers Care Duplication Specialist Name Role Phone Ryan Ortega MD Primary Care Provider Zaki Pruitt [phone] Reason For Referral No Information Medications Medication [...] W/U Status Risk Notes Problem Parker's esophagus (199015899) Parker's esophagus (530.85) Active confirmed Problem Colon cancer screening (595254526) Colon cancer screening (V76.51) Active confirmed Problem Gastroesophageal reflux disease (496271044) GERD (gastroesophag eal reflux disease) (530.81) Active confirmed Problem History of adenomatous polyp of colon (027581947) History of adenomatous polyp of colon (V12.72) Active confirmed Plan Of Treatment Future Test Test Name Order Date UPPER GI ENDOSCOPY 05/28/2013 COLONOSCOPY 05/28/2013 Insurance Providers Payer Name Payer Address Payer Phone Subscriber Number Group Number Insured Name Patient Relationship to Insured Coverage Start Date Coverage End Date MED[place]ARE OF [place] [address] [place] [address] [id number] FREDERICK COBIAN Self - patient is the insured MEDEX ATTN CLAIMS [address] [place] [address] [id number] FREDERICK COBIAN Self - patient is the insured Medical (General) History Medical History History ICD Code Denies MD,DM,CVA,Lung disease,renal dise ase Hyperlipidemia HTN Gout Afib [...]
--- OUTSIDE RECORDS SUMMARY | 2024-09-30 13:06 | XMS_ITS | Patient Health Record ---
Author Organization [facility] Address [address] [place] [address] Care Team Providers Care Sales Systems Engineer Name Role Phone Enrrique GOMES, [place] Primary Care Provider Rasheeda Lo Unavailable [phone] Allergies No Known Allergies Reason For Referral [...] Status W/U Status Risk Notes Problem Neuropathy (017533991) Neuropathy (G62.9) Active confirmed Problem Acquired hammer toe of left foot (0958935671488289) Hammertoe of left foot (M20.42) Active confirmed Problem Acquired hammer toe of right foot (2486887342617271) Hammertoe of right foot (M20.41) Active confirmed Problem Bilateral atherosclerosis of arteries of lower limbs (disorder) (84182439026757427 ) Atherosclerosis of artery of both lower extremities (I70.203) Active confirmed Vital Signs Blood pressure diastolic 90 mm Hg 09/10/2024 Height 6 ft 2 in in 09/10/2024 Blood pressure systolic 145 mm Hg 09/10/2024 Weight 230 lbs 09/10/2024 BMI 29.53 kg/m2 09/10/2024 Encounters Encounter Location Date [facility] [address] 11/29/2023 Rasheeda Pennington Atherosclerosis of artery of both lower extremities I70.203 ; Neuropathy G62.9 ; Tinea unguium B35.1 ; Pain in toe of left foot M79.675 and Pain in toe of right foot M79.674 [facility] [address] 02/09/2024 Rasheeda Perica Atherosclerosis of artery of both lower extremities I70.203 ; Neuropathic ulcer of right foot, limited to breakdown of skin L97.511 ; Neuropathy G62.9 ; Tinea unguium B35.1 ; Pain in toe of left foot M79.675 and Pain in toe of right foot M79.[address] [address] 04/24/2024 Rasheeda Perica Atherosclerosis of artery of both lower extremities I70.203 ; Tinea unguium B35.1 ; Neuropathy G62.9 ; Pain in toe of left foot M79.675 and Pain in toe of right foot M79.[address] [address] 09/10/2024 Rasheeda Pennington Atherosclerosis of artery of both lower extremities I70.203 ; Tinea unguium B35.1 ; Neuropathy G62.9 ; Pain in toe of left foot M79.675 and Pain in toe of right foot M79.674 [facility] [address] 07/08/2024 Rasheeda Pennington Assessments Encounter Date Diagnosis [...] of both lower extremities (ICD-10 - I70.203) 09/10/2024 Atherosclerosis of artery of both lower extremities (ICD-10 - I70.203) 02/09/2024 Neuropathy (ICD-10 - G62.9) 04/24/2024 Neuropathy (ICD-10 - G62.9) 09/10/2024 Tinea unguium (ICD-10 - B35.1) 11/29/2023 Neuropathy (ICD-10 - G62.9) 11/29/2023 Tinea unguium (ICD-10 - B35.1) 04/24/2024 Pain in toe of left foot (ICD-10 - M79.675) 02/09/2024 Tinea unguium (ICD-10 - B35.1) 09/10/2024 Neuropathy (ICD-10 - G62.9) 09/10/2024 Pain in toe of left foot (ICD-10 - M79.675) 02/09/2024 Pain in toe of left foot [...] INSTRUCTIONS. pdf (WOUND CARE INSTRUCTIONS. pdf) 09/10/2024 Other Plan Of Treatment Next Appt Details Provider Name:Rasheeda guzman, 12/10/2024 11:30:00 AM, [address] [place] [address], [phone], Insurance Providers Payer Name Payer Address Payer Phone Subscriber Number Group Number Insured Name Patient Relationship to Insured Coverage Start Date Coverage End Date Medicare National Govt [facility]v[employer] [facility] [address] [place] [address] [id number] Galen Costello Self - patient is the insured [employer] Blue Shield [address] [place] [address] [phone] [id number] Galen Costello Self - patient is the insured Medical (General) History Medical History History ICD Code Angina Cataracts covid-19 Gout Heart disease High blood pressure Reflux ( GERD) Measles Mumps Chicken pox Vascular grafts Surgical History Surgery Date(Month/Year) heart bypass 10/2000 Nose Bx- Skin cancer 06/2022 skin surgery [facility] 2023
== END 2024-09-30 12:05 | disposition home or self-care (01) ==
LOC: HO.LAB 12:04
PROVIDERS: PCP Internal Medicine; Visit Provider Internal Medicine Cardiovascular Disease
DX: I50.20 Unspecified systolic (congestive) heart failure (principal); I48.20 Chronic atrial fibrillation, unspecified
CPT/HCPCS: 36415; 80048

== ENCOUNTER 2024-10-10 09:29 | Outpatient (AMB) | payer MEDICARE, SELFPAY ==
[2024-10-10 09:38] LABS: Prothrombin Time Whole Bld POC 22.7 sec (11.1-13.5); ~PT, ~INR - Anti Coag Clinic 1.9 (0.9-1.1)
--- NOTE | 2024-10-10 09:46 | MHC.OFFVISCO ---
Intake Intake Visit Reasons: Anticoagulation Allergies No Known Allergies (No Known Allergies*) Allergy (Verified 10/10/24 09:31) Medication List - Last Reconciled 10/10/24 by Jesusita Cody RN allopurinol 300 mg PO DAILY atorvastatin 40 mg PO DAILY furosemide 20 mg PO DAILY isosorbide mononitrate ER 30 mg PO DAILY metoprolol succinate ER 100 mg PO BID omeprazole 20 mg PO DAILY PRN NS potassium chloride ER (K-Tab) 20 mEq PO DAILY sacubitril-valsartan 24-26 mg (Entresto) 1 tab PO BID sildenafil 50 mg PO DAILY PRN warfarin See Protocol 7.5mg x 3 days/ 5mg x 4 days orally daily; take 1-2 tabs daily as per Anticoagulation Services. INR has been subtherapuetic requiring an increase in warfarin dose Nursing Note NO CP,SOB,DIET/MED CHANGES,FALLS OR SX OF BLEEDING. CONTINUE PRESENT DOSE AND FOLLOW-UP IN 3 WEEKS GOOD UNDERSTANDING OF DOSING INSTR. Anti-Coag Initial Assessment Social Hx Patient Tobacco Use Status: Never used Tobacco alcohol intake: current Alcohol intake frequency: holidays/special occasions only Coding Level of Care Code Est Patient Level 1 Diagnoses Current use of anticoagulant therapy Z79.01 Assessment & Plan Assessment & Plan (1) Current use of anticoagulant therapy: Code(s): Z79.01 - skilled nursing (current) 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
--- OUTSIDE RECORDS SUMMARY | 2024-10-10 10:04 | XMS_ITS | Patient Health Record ---
Author Organization [facility] Address [address] [place] [address] Care Team Providers Care Air Twist Operator Name Role Phone Enrrique GOMES, [place] Primary Care Provider Rasheeda Lo Unavailable [phone] Allergies No Known Allergies Reason For Referral [...] Status W/U Status Risk Notes Problem Neuropathy (261773807) Neuropathy (G62.9) Active confirmed Problem Acquired hammer toe of left foot (8303701420436180) Hammertoe of left foot (M20.42) Active confirmed Problem Acquired hammer toe of right foot (0248219866009930) Hammertoe of right foot (M20.41) Active confirmed Problem Bilateral atherosclerosis of arteries of lower limbs (disorder) (55426247645647324 ) Atherosclerosis of artery of both lower extremities (I70.203) Active confirmed Vital Signs Blood pressure diastolic 90 mm Hg 09/10/2024 Height 6 ft 2 in in 09/10/2024 Blood pressure systolic 145 mm Hg 09/10/2024 Weight 230 lbs 09/10/2024 BMI 29.53 kg/m2 09/10/2024 Encounters Encounter Location Date [facility] [address] 11/29/2023 Rasheeda Pennington Atherosclerosis of artery of both lower extremities I70.203 ; Neuropathy G62.9 ; Tinea unguium B35.1 ; Pain in toe of left foot M79.675 and Pain in toe of right foot M79.674 [facility] [address] 02/09/2024 Rasheeda Perica Atherosclerosis of artery of both lower extremities I70.203 ; Neuropathic ulcer of right foot, limited to breakdown of skin L97.511 ; Neuropathy G62.9 ; Tinea unguium B35.1 ; Pain in toe of left foot M79.675 and Pain in toe of right foot M79.[address] [address] 04/24/2024 Rasheeda Perica Atherosclerosis of artery of both lower extremities I70.203 ; Tinea unguium B35.1 ; Neuropathy G62.9 ; Pain in toe of left foot M79.675 and Pain in toe of right foot M79.[address] [address] 09/10/2024 Rasheeda Pennington Atherosclerosis of artery of both lower extremities I70.203 ; Tinea unguium B35.1 ; Neuropathy G62.9 ; Pain in toe of left foot M79.675 and Pain in toe of right foot M79.674 [facility] [address] 07/08/2024 Rasheeda Pennington Assessments Encounter Date Diagnosis [...] Details Provider Name:Rasheeda guzman, 12/10/2024 11:30:00 AM, [address] [place] [address], [phone], Insurance Providers Payer Name Payer Address Payer Phone Subscriber Number Group Number Insured Name Patient Relationship to Insured Coverage Start Date Coverage End Date Medicare National Govt Sv[employer] [facility] [address] [place] [address] [id number] Galen Costello Self - patient is the insured Med[employer] Blue Shield [address] [place] [address] [phone] [id number] Galen Costello Self - patient is the insured Medical (General) History Medical History History ICD Code Angina Cataracts covid-19 Gout Heart disease High blood pressure Reflux ( GERD) Measles Mumps Chicken pox Vascular grafts Surgical History Surgery Date(Month/Year) heart bypass 10/2000 Nose Bx- Skin cancer 06/2022 skin surgery [facility] 2023
--- OUTSIDE RECORDS SUMMARY | 2024-10-10 10:04 | XMS_ITS | Patient Health Record ---
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.85) Active confirmed Problem Colon cancer screening (072539964) Colon cancer screening (V76.51) Active confirmed Problem Gastroesophageal reflux disease (852981990) GERD (gastroesophag eal reflux disease) (530.81) Active confirmed Problem History of adenomatous polyp of colon (418032543) History of adenomatous polyp of colon (V12.72) Active confirmed Plan Of Treatment Future Test Test Name Order Date UPPER GI ENDOSCOPY 05/28/2013 COLONOSCOPY 05/28/2013 Insurance Providers Payer Name Payer Address Payer Phone Subscriber Number Group Number Insured Name Patient Relationship to Insured Coverage Start Date Coverage End Date MEDICARE OF [place] [address] [place] [address] [id number] FREDERICK COBIAN Self - patient is the insured MEDEX ATT[employer] CLAIMS [address] [place] [address] [id number] FREDERICK COBIAN Self - patient is the insured Medical (General) History Medical History History ICD Code Denies ND,DM,CVA,Lung disease,renal dise ase Hyperlipidemia HTN Gout Afib [...]
== END 2024-10-10 09:50 | disposition home or self-care (01) ==
LOC: HO.ACS 09:29
PROVIDERS: PCP Internal Medicine; Visit Provider Internal Medicine Medical Oncology
DX: Z79.01 Long term (current) use of anticoagulants (principal)

== ENCOUNTER 2024-10-10 09:29 | Outpatient (REF) | payer MEDICARE, SELFPAY ==
[2024-10-10 11:09] LABS: Potassium 3.8 mmol/L (3.3-5.1)
== END 2024-10-10 09:30 | disposition home or self-care (01) ==
LOC: HO.LAB 09:29
PROVIDERS: Absent Provider Internal Medicine Cardiovascular Disease; PCP Internal Medicine; Visit Provider Internal Medicine Medical Oncology
DX: I50.20 Unspecified systolic (congestive) heart failure (principal); I48.20 Chronic atrial fibrillation, unspecified
CPT/HCPCS: 36415; 84132; 85610; 99211

== ENCOUNTER 2024-10-28 10:41 | Outpatient (AMB) | payer MEDICARE, SELFPAY ==
[2024-10-28 10:46] VITALS: BP 136/82; PULSE 88; BMI 29.2
--- NOTE | 2024-10-28 10:46 | A.OFFVIS_ITS ---
Vital Signs 10/28/24 10:46 Height 6 ft 2 in Weight 227 lb 8.273 oz BMI 29.2 BP 136/82 Blood Pressure Location Lt brachial Position Sitting Pulse 88 Pulse Source Monitor Intake Visit Reasons: 6 mth s/p echo Intake Note: 6 moth follow up. Accompanied by: Self / Same As Patient Allergies No Known Allergies (No Known Allergies*) Allergy (Verified 10/10/24 09:31) Medication List - Last Reconciled 10/28/24 by Poncho Altamirano MD allopurinol 300 mg PO DAILY atorvastatin 40 mg PO DAILY furosemide 20 mg PO DAILY isosorbide mononitrate ER 30 mg PO DAILY metoprolol succinate ER 100 mg PO BID potassium chloride ER (K-Tab) 20 mEq PO DAILY sacubitril-valsartan 24-26 mg (Entresto) 1 tab PO BID sildenafil 50 mg PO DAILY PRN warfarin See Protocol 7.5mg x 3 days/ 5mg x 4 days orally daily; take 1-2 tabs daily as per Anticoagulation Services. INR has been subtherapuetic requiring an increase in warfarin dose HPI Comments Details: Galen comes for follow-up. He has been doing well from cardiac perspective. He has no worsening symptoms. Continues to remain active. Takes all his medications. Has any orthopnea, PND, leg edema. Echocardiogram shows persistent moderate LV systolic dysfunction with LVEF of 35% with severe biatrial enlargement. He has no side effects with medical therapy. He has been taking Entresto regularly. Denies any palpitations. No bleeding issues or neurologic events. 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 Chronic atrial fibrillation CAD (coronary artery disease) Cardiomyopathy Surgical History History of cataract surgery History of colonoscopy History of squamous cell carcinoma excision History of coronary artery bypass graft History of hernia repair History of left-sided carotid endarterectomy S/P CABG x 3 Family History Father Myocardial infarction CVD (cardiovascular disease) Mother Medical history unknown Social History Housing: Condominium Alcohol intake: current Alcohol intake frequency: holidays/special occasions only Patient Tobacco Use Status: Never used Tobacco e-Cigarette/Vaping Use: Never Used Second Hand Smoke Exposure: Yes service: Yes Current occupational status: retired Cognitive needs: No Hearing needs: No Vision needs: Yes Review of Systems Const Denies daytime sleepiness, Denies difficulty sleeping, Denies snoring, Denies stops breathing during sleep and Denies weakness Card Denies chest pain, Denies rapid heart rate, Denies irregular heart rhythm, Denies claudication, Denies leg edema, Denies lightheadedness, Denies palpitations, Denies dyspnea, Denies dyspnea on exertion, Denies orthopnea, Denies paroxysmal nocturnal dyspnea and Denies slow heart rate Resp Denies cough, Denies dyspnea, Denies dyspnea on exertion and Denies snoring GI Reports no additional complaints, Denies hematochezia, Denies change in stool character and Denies dyspepsia Musc Denies abnormal gait, Denies muscle weakness and Denies numbness Neuro Denies abnormal gait, Denies numbness and Denies weakness Endo Denies palpitations Physical Exam Vital Signs: Last Vital Signs Pulse 88 10/28/24 10:46 BP 136/82 10/28/24 10:46 BMI result Body Mass Index 29.2 Const General: cooperative, comfortable, alert, awake and well groomed Nutritional Appearance: obese Orientation/consciousness: patient oriented x3 Limitations: no limitations Neck Neck: Yes trachea midline, Yes supple and Yes no JVD Chest Chest palpation & inspection: normal inspection of the chest Resp Effort & Inspection: normal respiratory effort Auscultation: clear to auscultation bilaterally Cardio Rhythm: abnormal rhythm irregularly irregular Heart sounds: S1 normal heart sound present and S2 normal heart sound present GI Auscultation: normal bowel sounds Skin General skin exam: no rashes or lesions noted and ecchymosis Neuro General: patient oriented x3 and no focal motor deficits Extrem General: No clubbing, No cyanosis, Yes edema (Plus one) and Yes venous stasis dermatitis Psych Appearance: grossly normal Office Procedures EKG Details: EKG shows atrial fibrillation with PVCs with rightward axis [id number], Complete Assessment & Plan Assessment & Plan (1) Heart failure with reduced ejection fraction: Code(s): I50.20 - Unspecified systolic (congestive) heart failure Category: Medical Plan: Heart failure with reduced ejection fraction with moderate LV systolic dysfunction with persistent LV systolic dysfunction with class 1 symptoms with no signs of fluid overload. Continue to uptitrate neurohormonal modulation. Will increase Entresto. Continue metoprolol and isosorbide. Continue current diuretic regimen. Daily weight monitoring avoidance salt loading was discussed. Pathophysiology of heart failure and reason for neurohormonal modulation was discussed with him. Advise recheck BNP in 1-2 weeks. Importance of medical therapy was discussed. Understands agrees. Goals of therapy were discussed. (2) Chronic atrial fibrillation: Code(s): I48.20 - Chronic atrial fibrillation, unspecified Category: Medical Plan: Chronic atrial fibrillation, currently rate controlled. Continue current rate control strategy with metoprolol. Currently on full oral anticoagulation with warfarin. Maintain target INR between 2 and 3. (3) CAD (coronary artery disease): Comment: S/P coronary artery bypass graft x 3 - JACOBSEN to LAD, radial artery to diagonal, SVG to OM (2000) Code(s): I25.10 - Atherosclerotic heart disease of [place] coronary artery without angina pectoris Category: Medical Qualifiers: Coronary Disease-Associated Artery/Lesion type: [place] artery [place] vs. transplanted heart: [place] heart Associated angina: without angina Qualified Code(s): I25.10 - Atherosclerotic heart disease of [place] coronary artery without angina pectoris Plan: CAD status post remote three-vessel coronary artery bypass grafting with no recurrent symptoms of angina. Continue high-intensity statin therapy. Currently on full oral anticoagulation with warfarin therefore would avoid aspirin therapy. Will follow up in the clinic in 6 months time, sooner p.r.n.. Thank you for allowing me to partake in his care Medications: New sacubitril-valsartan 49-51 mg (Entresto) 1 tab PO BID 60 tabs 5RF Discontinued sacubitril-valsartan 24-26 mg (Entresto) Please call pt when ready he can't see texting. Discontinued Reason: Doctor's Order 1 tab PO BID 60 tabs 3RF Coding Level of Care Code Est Pt Level 4 (48126) Complex EM visit Add On G2211 Diagnoses Heart failure with reduced ejection fraction I50.20 Chronic atrial fibrillation I48.20 Coronary artery disease involving [place] coronary artery of [place] heart without angina pectoris I25.10 Coronary Disease-Associated Artery/Lesion type: [place] artery [place] vs. transplanted heart: [place] heart Associated angina: without angina CPT Codes EKG - CPT: 68531-[id number], Complete ([id number])
--- OUTSIDE RECORDS SUMMARY | 2024-10-28 11:23 | XMS_ITS | Patient Health Record ---
Author [facility] Address [address] [place] [address] Care Team Providers Care Toy Assembler Name Role Phone Enrrique GOMES, [place] Primary Care Provider Rasheeda Lo Unavailable [phone] Allergies No Known Allergies Reason For Referral [...] Status W/U Status Risk Notes Problem Neuropathy (710348945) Neuropathy (G62.9) Active confirmed Problem Acquired hammer toe of left foot (8002809348941599) Hammertoe of left foot (M20.42) Active confirmed Problem Acquired hammer toe of right foot (2648295159763853) Hammertoe of right foot (M20.41) Active confirmed Problem Bilateral atherosclerosis of arteries of lower limbs (disorder) (09105699376409331 ) Atherosclerosis of artery of both lower extremities (I70.203) Active confirmed Vital Signs Blood pressure diastolic 90 mm Hg 09/10/2024 Height 6 ft 2 in in 09/10/2024 Blood pressure systolic 145 mm Hg 09/10/2024 Weight 230 lbs 09/10/2024 BMI 29.53 kg/m2 09/10/2024 Encounters Encounter Location Date [facility] [address] 11/29/2023 Rasheeda Pennington Atherosclerosis of artery of both lower extremities I70.203 ; Neuropathy G62.9 ; Tinea unguium B35.1 ; Pain in toe of left foot M79.675 and Pain in toe of right foot M79.[address] [facility] [address] 02/09/2024 Rasheeda Perica Atherosclerosis of artery of both lower extremities I70.203 ; Neuropathic ulcer of right foot, limited to breakdown of skin L97.511 ; Neuropathy G62.9 ; Tinea unguium B35.1 ; Pain in toe of left foot M79.675 and Pain in toe of right foot M79.[address] [address] 04/24/2024 Rasheeda Perica Atherosclerosis of artery of both lower extremities I70.203 ; Tinea unguium B35.1 ; Neuropathy G62.9 ; Pain in toe of left foot M79.675 and Pain in toe of right foot M79.[address] [address] 09/10/2024 Rasheeda Pennington Atherosclerosis of artery of both lower extremities I70.203 ; Tinea unguium B35.1 ; Neuropathy G62.9 ; Pain in toe of left foot M79.675 and Pain in toe of right foot M79.[address] [facility] [address] 07/08/2024 Rasheeda Pennington Assessments Encounter Date Diagnosis [...] Details Provider Name:Rasheeda guzman, 12/10/2024 11:30:00 AM, [address] [place] [address], [phone], Insurance Providers Payer Name Payer Address Payer Phone Subscriber Number Group Number Insured Name Patient Relationship to Insured Coverage Start Date Coverage End Date Medicare National Govt Sv[facility] [facility] [address] [place] [address] [id number] Galen Costello Self - patient is the insured [employer] Blue Shield [address] [place] [address] [id number] Galen Costello Self - patient is the insured Medical (General) History Medical History History ICD Code Angina Cataracts covid-19 Gout Heart disease High blood pressure Reflux ( GERD) Measles Mumps Chicken pox Vascular grafts Surgical History Surgery Date(Month/Year) heart bypass 10/2000 Nose Bx- Skin cancer 06/2022 skin surgery [facility] 2023
--- OUTSIDE RECORDS SUMMARY | 2024-10-28 11:23 | XMS_ITS | Clinical Summary ---
Author Organization [facility] Address [address] [address] Phone Care Team Providers Care District Plant Engineer Name Role Phone Evens Osuna MD Primary Care Provider [phone] Allergies No known active allergies Medications warfarin sodium (COUMADIN ORAL) Take by mouth. Stopped monday Active Social History Tobacco Use Types Packs/Day Years Used Date Smoking Tobacco: Never Smokeless Tobacco: Never Alcohol Use Standard Drinks/Week Comments Yes 0 (1 standard drink = 0.6 oz pur e alcohol) 1 beer a day Education Answer Date Recorded Are you interested in more education? Not on jacinta e 07/15/2022 Are you concerned about learning? Not on file 07/15/2022 No 07/15/2022 No 07/15/2022 Digital Access Answer Date Recorded No 08/15/2022 No 08/15/2022 No 08/15/2022 Reliable internet access at home? Not on file 08/15/2022 Device with a working camera? Not on file Intimate Partner Violence Answer Date R ecorded Are you denied basic needs s uch as food, clothing, or medical care? No 07/10/2022 In the past 12 months have y ou been in a relationship with a person who hurts, threatens, or tries to control you? No 07/10/2022 Are you denied basic needs s uch as food, clothing, or medical care? No 07/10/2022 In the past 12 months have y ou been in a relationship with a person who hurts, threatens, or tries to control you? No 07/10/2022 Sex and Gender Information Value Date Recorded Sex Assigned at Male 07/10/2022 10:44 AM EDT Legal Sex Male 2:07 PM EDT Gender Identity Male 07/10/2022 10:44 AM EDT Sexual Orientation Straight 07/10/2022 10 :44 AM EDT Last Filed Vital Signs Vital Sign Reading Time Taken Comments Blood Pressure 152/90 07/10/2022 12:32 PM EDT Pulse 72 07/10/2022 12:32 PM EDT Temperature 36.7 C (98.1 F) 07/10/2022 12:32 PM EDT Respiratory Rate 18 07/10/2022 10:47 AM EDT Oxygen Saturation 99% 07/10/2022 12:32 PM EDT Inhaled Oxygen Concentration - - Weight 106.6 kg (235 lb) 07/10/2022 10:47 AM EDT Height 185.4 cm (6' 1 ) 07/10/2022 10:47 AM EDT Body Mass Index 31 07/10/2022 10:47 AM EDT Plan of Treatment Not on file Medical Devices Not on file Insurance MEDICARE PART A & B BLUE CROSS MEDEX SUPPLEMENT MEDICARE PART A & B [employer] MEDEX SUPPLEMENT MEDICARE PART A & B [employer] SUPPLEMENT MEDICARE PART A & B [employer] MEDEX SUPPLEMENT MEDICARE PART A & B [employer] MEDEX SUPPLEMENT MEDICARE PART A & B [employer] MEDEX SUPPLEMENT MEDICARE PART A & B [employer] CROSS MEDEX SUPPLEMENT MEDICARE PART A & B [employer] MEDEX SUPPLEMENT MEDICARE PART A & B [employer] CROSS MEDEX SUPPLEMENT Care Teams District Plant Engineer Relationship Specialty Start Date End Date Evens Osuna MD [address] [place] [address] [place] [address] PCP - General Internal Medicine 07/10/22 Additional Source Comments The information contained in this document represents components of the legal health record. It is not the complete legal health record.[facility]
== END 2024-10-28 11:07 | disposition home or self-care (01) ==
LOC: HO.HCS 10:41
PROVIDERS: PCP Internal Medicine; Visit Provider Internal Medicine Cardiovascular Disease
DX: I50.20 Unspecified systolic (congestive) heart failure (principal); I48.20 Chronic atrial fibrillation, unspecified; I25.10 Atherosclerotic heart disease of native coronary artery without angina pectoris
CPT/HCPCS: 93010; 99214; G2211

== ENCOUNTER → 2024-10-28 10:41 | Outpatient (BNVA) | payer MEDICARE, SELFPAY | PROVIDERS: PCP Internal Medicine; Visit Provider Internal Medicine Cardiovascular Disease | DX: I25.10 Atherosclerotic heart disease of native coronary artery without angina pectoris (principal); I48.20 Chronic atrial fibrillation, unspecified; I50.20 Unspecified systolic (congestive) heart failure; R94.31 Abnormal electrocardiogram [ECG] [EKG] | CPT/HCPCS: 93005; 99212 ==

== ENCOUNTER 2024-10-31 09:23 | Outpatient (REF) | payer MEDICARE, SELFPAY ==
[2024-10-31 10:31] LABS: MANUAL DIFF FLAG NO
[2024-10-31 10:41] LABS: Hematocrit 43.5 % (42.0-52.0); Hemoglobin 15.5 g/dl (14.0-18.0); Imm Gran Abs Auto 0.04 X10*3/uL (0.00-0.03); Imm Gran Pct Auto 0.4 % (0.0-0.4); Lymphocytes Absolute Auto 1.4 X10*3/uL (1.2-4.9); Mean Corpuscular HGB Conc 35.6 g/dl (31.0-36.0); Mean Corpuscular Hemoglobin 30.3 pg (27.0-33.0); Mean Corpuscular Volume 85.1 fL (80.0-98.0); NRBC Abs Auto 0.000 X10*3/uL (0.0-0.012); NRBC Pct Auto 0.0 /100WBC (0.0-0.2); Platelet Count 152 X10*3/uL (160-400); Red Blood Count 5.11 X10*6/uL (4.60-5.80); White Blood Count 9.7 X10*3/uL (4.8-10.8)
[2024-10-31 10:48] LABS: Hemoglobin A1C 238.1975 umol/L; Total Hemoglobin (HGBA1C) 3959.9620 umol/L
[2024-10-31 11:15] LABS: Anion Gap 13 (12-20); Blood Urea Nitrogen 29 mg/dL (9-16); Calcium 9.1 mg/dL (8.4-10.2); Carbon Dioxide 23 mmol/L (22-29); Chloride 105 mmol/L (96-108); Cholesterol 134 mg/dL (<200); Estimated Glomerular Filt Rate > 60; HDL Cholesterol 35 mg/dL (>40); Potassium 4.0 mmol/L (3.3-5.1); Sodium 137 mmol/L (135-145); Triglycerides 158 mg/dL (<150); Uric Acid 4.8 mg/dL (3.4-7.0)
[2024-10-31 11:43] LABS: Appearance Urine Clear; Glucose Urine UA Negative (Negative); PH 5.5 (5.0-9.0); Specific Gravity - Urine 1.020 (1.005-1.025); UMIC TRIGGER UACC YES
[2024-10-31 11:49] LABS: UACC Culture Trigger YES
[2024-10-31 11:50] LABS: Folate 7.3 ng/mL (> or = 4.0); Vitamin B12 372 pg/mL (200-900)
[2024-10-31 12:13] LABS: Microalbum/Creatinine Ratio Ur 408.4 ug/mg cr (<30)
== END 2024-10-31 09:24 | disposition home or self-care (01) ==
LOC: HO.LAB 09:23
PROVIDERS: Absent Provider Internal Medicine; PCP Internal Medicine; Referring Provider Internal Medicine Cardiovascular Disease; Visit Provider Internal Medicine Medical Oncology
DX: E11.9 Type 2 diabetes mellitus without complications (principal); E53.8 Deficiency of other specified B group vitamins; I50.20 Unspecified systolic (congestive) heart failure; E78.00 Pure hypercholesterolemia, unspecified; E55.9 Vitamin D deficiency, unspecified; M10.9 Gout, unspecified; D64.9 Anemia, unspecified
CPT/HCPCS: 36415; 80048; 80061; 81001; 82043; 82306; 82570; 82607; 82746; 83036; 84443; 84550; 85025; 85610; 87086; 99211

== ENCOUNTER 2024-10-31 09:23 | Outpatient (AMB) | payer MEDICARE, SELFPAY ==
[2024-10-31 09:54] LABS: Prothrombin Time Whole Bld POC 34.4 sec (11.1-13.5); ~PT, ~INR - Anti Coag Clinic 2.9 (0.9-1.1)
--- OUTSIDE RECORDS SUMMARY | 2024-10-31 09:55 | XMS_ITS | Patient Health Record ---
[facility] Address [address] [place] [address] Care Team Providers Care English And Reading Instructor Name Role Phone Enrrique GOMES, [place] Primary Care Provider Rasheeda Lo Unavailable [phone] Allergies No Known Allergies Reason For Referral [...] Status W/U Status Risk Notes Problem Neuropathy (775276145) Neuropathy (G62.9) Active confirmed Problem Acquired hammer toe of left foot (3713391043164549) Hammertoe of left foot (M20.42) Active confirmed Problem Acquired hammer toe of right foot (7488781258251424) Hammertoe of right foot (M20.41) Active confirmed Problem Bilateral atherosclerosis of arteries of lower limbs (disorder) (72250512756077754 ) Atherosclerosis of artery of both lower extremities (I70.203) Active confirmed Vital Signs Blood pressure diastolic 90 mm Hg 09/10/2024 Height 6 ft 2 in in 09/10/2024 Blood pressure systolic 145 mm Hg 09/10/2024 Weight 230 lbs 09/10/2024 BMI 29.53 kg/m2 09/10/2024 Encounters Encounter [facility] Date [facility] [address] 11/29/2023 Rasheeda Pennington Atherosclerosis of artery of both lower extremities I70.203 ; Neuropathy G62.9 ; Tinea unguium B35.1 ; Pain in toe of left foot M79.675 and Pain in toe of right foot M79.674 [facility] [address] 02/09/2024 Rasheeda Perica Atherosclerosis of artery of both lower extremities I70.203 ; Neuropathic ulcer of right foot, limited to breakdown of skin L97.511 ; Neuropathy G62.9 ; Tinea unguium B35.1 ; Pain in toe of left foot M79.675 and Pain in toe of right foot M79.[address] [address] 04/24/2024 Rasheeda Perica Atherosclerosis of artery of both lower extremities I70.203 ; Tinea unguium B35.1 ; Neuropathy G62.9 ; Pain in toe of left foot M79.675 and Pain in toe of right foot M79.[address] [address] 09/10/2024 Rasheeda Pennington Atherosclerosis of artery of both lower extremities I70.203 ; Tinea unguium B35.1 ; Neuropathy G62.9 ; Pain in toe of left foot M79.675 and Pain in toe of right foot M79.674 [facility] [address] 07/08/2024 Rasheeda Pennington Assessments Encounter Date Diagnosis [...] Details Provider Name:Rasheeda guzman, 12/10/2024 11:30:00 AM, [address] [place] [address], [id number], Insurance Providers Payer Name Payer Address Payer Phone Subscriber Number Group Number Insured Name Patient Relationship to Insured Coverage Start Date Coverage End Date Medicare National Govt SvJune [employer] [facility] [address] [place] [address] [id number] Galen Costello Self - patient is the insured [employer] [address] [place] [address] [id number] Galen Costello Self - patient is the insured Medical (General) History Medical History History ICD Code Angina Cataracts covid-19 Gout Heart disease High blood pressure Reflux ( GERD) Measles Mumps Chicken pox Vascular grafts Surgical History Surgery Date(Month/Year) heart bypass 10/2000 Nose Bx- Skin cancer 06/2022 skin surgery [facility] 2023
--- OUTSIDE RECORDS SUMMARY | 2024-10-31 09:55 | XMS_ITS | Patient Health Record ---
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.85) Active confirmed Problem Colon cancer screening (313248805) Colon cancer screening (V76.51) Active confirmed Problem Gastroesophageal reflux disease (934489926) GERD (gastroesophag eal reflux disease) (530.81) Active confirmed Problem History of adenomatous polyp of colon (388653972) History of adenomatous polyp of colon (V12.72) Active confirmed Plan Of Treatment Future Test Test Name Order Date UPPER GI ENDOSCOPY 05/28/2013 COLONOSCOPY 05/28/2013 Insurance Providers Payer Name Payer Address Payer Phone Subscriber Number Group Number Insured Name Patient Relationship to Insured Coverage Start Date Coverage End Date MEDICARE OF [place] [address] [place] [address] [id number] FREDERICK COBIAN Self - patient is the insured [employer] ATT[employer] CLAIMS [address] [place] [address] [id number] FREDERICK COBIAN Self - patient is the insured Medical (General) History Medical History History ICD Code Denies NE,DM,CVA,Lung disease,renal dise ase Hyperlipidemia HTN Gout Afib [...]
--- OUTSIDE RECORDS SUMMARY | 2024-10-31 09:55 | XMS_ITS | Clinical Summary ---
Author Organization [facility] Address [address] [address] Phone Care Team Providers Care Nurse Substance Abuse Name Role Phone Evens Osuna MD Primary Care Provider [phone] Allergies No known active allergies Medications warfarin [...] MEDEX SUPPLEMENT MEDICARE PART A & B [employer] MEDEX SUPPLEMENT MEDICARE PART A & B [employer] SUPPLEMENT MEDICARE PART A & B [employer] MEDEX SUPPLEMENT MEDICARE PART A & B [employer] MEDEX SUPPLEMENT MEDICARE PART A & B [employer] MEDEX SUPPLEMENT MEDICARE PART A & B [employer] MEDEX SUPPLEMENT MEDICARE PART A & B [employer] MEDEX SUPPLEMENT MEDICARE PART A & B [employer] MEDEX SUPPLEMENT Care Teams Nurse Substance Abuse Relationship Specialty Start Date End Date Evens Osuna MD [address] [place] [address] [place] [address] PCP - General Internal Medicine 07/10/22 Additional Source Comments The information contained in this document represents components of the legal health record. It is not the complete legal health record.[facility]
--- NOTE | 2024-10-31 09:58 | MHC.OFFVISCO ---
Intake Intake Visit Reasons: Anticoagulation Allergies No Known Allergies (No Known Allergies*) Allergy (Verified 10/31/24 09:44) Medication List - Last Reconciled 10/31/24 by Tasneem Bishop RN allopurinol 300 mg PO DAILY atorvastatin 40 mg PO DAILY furosemide 20 mg PO DAILY isosorbide mononitrate ER 30 mg PO DAILY metoprolol succinate ER 100 mg PO BID potassium chloride ER (K-Tab) 20 mEq PO DAILY sacubitril-valsartan 49-51 mg (Entresto) 1 tab PO BID sildenafil 50 mg PO DAILY PRN warfarin See Protocol 7.5mg x 3 days/ 5mg x 4 days orally daily; take 1-2 tabs daily as per Anticoagulation Services. INR has been subtherapuetic requiring an increase in warfarin dose Nursing Note INR: 2.9 in therapeutic range Medications and supplements reviewed No changes in health, diet, or supplements, * waiting for Entresto due to cost and coverage/ may have to take something in its place Denies any signs and symptoms of bleeding or bruising or clotting. Bleeding, bruising, clotting discussed Nutritional guidance given- BLUEBERRIES, COLESLAW OR CABBAGE Dose: 7.5MG X 1 DAY/ 5MG X 6DAYS F/U INR: 11/21/2024 Patient verbalizes understanding of instructions given Anti-Coag Initial Assessment Social Hx Patient Tobacco Use Status: Never used Tobacco alcohol intake: current Alcohol intake frequency: holidays/special occasions only Coding Level of Care Code Est Patient Level 1 Diagnoses Current use of anticoagulant therapy Z79.01 Results AMB INR Fingerstick AMB INR Fingerstick 2.9 Last Edit by Tasneem Bishop RN on 10/31/24 09:55 MANUAL ENTRY POOR INTERFACING Assessment & Plan Assessment & Plan (1) Current use of anticoagulant therapy: Code(s): Z79.01 - intermediate (current) 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
== END 2024-10-31 10:04 | disposition home or self-care (01) ==
LOC: HO.ACS 09:23
PROVIDERS: PCP Internal Medicine; Visit Provider Internal Medicine Medical Oncology
DX: Z79.01 Long term (current) use of anticoagulants (principal)

== ENCOUNTER 2024-11-13 15:25 | Outpatient (AMB) | payer MEDICARE, SELFPAY ==
--- OUTSIDE RECORDS SUMMARY | 2024-07-10 06:00 | XMS_ITS ---
Author Organization [facility] Address [address] [facility] [place] [address] Care Team Providers Care Non Destructive Testing Engineer Name Role Phone Enrrique GOMES, [place] Primary Care Provider Rasheeda Lo Unavailable [phone] Medications Medication SIG (Take, Route, Frequency, Duration) [...] Active Encounters Encounter Location Date Provider Diagnosis [facility] 81 [facility] [place] [address] 07/10/2024 Rasheeda Pennington Plan Of Treatment Next Appt Details Provider Name:Rasheeda Maia guzman, 12/10/2024 11:30:00 AM, [address] [place], [address], Progress Notes * Galen SALVADOR TDOB:04/1940 (84 yo M)Acc No.[id number]:07/10/2024 Progress Note Patient: Galen ALDANA Provider: Otto Pennington DPM :1940 A ge:83 Y S ex:Male Date:07/10/2024 Address:[address] [place], [place] [id number] Pcp:Evens sOuna MD Subjective: * Chief Complaints: * * [...] Date: 07/10/2024 Generated for Oliver hanna/Pily/eTransmitting on: 0 11/13/2024 04:39 PM EDT
--- NOTE | 2024-11-13 15:28 | A.OFFPC_ITS ---
Vital Signs 11/13/24 15:29 Height 6 ft 2 in Weight 230 lb 8 oz BMI 29.6 BP 134/84 Blood Pressure Location Lt brachial Position Sitting Pulse 90 Pulse Source Pulse Oximeter Temp 97.5 F Temp Source Temporal Artery Scan Pulse Oximetry (%) 97 Oxygen Delivery Method Room Air Intake Visit Reasons: 4 month f/u Allergies No Known Allergies (No Known Allergies*) Allergy (Verified 11/13/24 16:01) Medication List - Last Reconciled 11/13/24 by Evens Osuna MD allopurinol 300 mg PO DAILY atorvastatin 40 mg PO DAILY furosemide 20 mg PO DAILY isosorbide mononitrate ER 30 mg PO DAILY losartan 50 mg PO BID metoprolol succinate ER 100 mg PO BID potassium chloride ER (K-Tab) 20 mEq PO DAILY sildenafil 50 mg PO DAILY PRN warfarin See Protocol 7.5mg x 3 days/ 5mg x 4 days orally daily; take 1-2 tabs daily as per Anticoagulation Services. INR has been subtherapuetic requiring an increase in warfarin dose Tobacco use date assessed: 11/13/24 Fall risk assessment: No Falls in past year Last assessed Fall Risk: 11/13/24 Dental Screening Dental Screen Date: 11/13/24 Did you have a dental visit in the last 12 months?: No Did you have a dental problem in the last 6 months where you did not have access to dental care?: No Was dental information given to patient?: Patient has dentist HPI 4 month f/u HPI Details Patient comes in today for his follow up visit States that he feels okay He denies any headaches or dizziness Denies any chest pains, no shortness of breath No nausea/vomiting, no abdominal pain No change in bowel habits noted Needs his Metoprolol ER Rx refilled He had his follow up labs done a couple of weeks ago - to discuss his results [facility] Medical History Hearing loss Heart failure with reduced ejection fraction Peripheral vascular disease Cataract, right eye Obesity (BMI 30-39.9) Erectile dysfunction Vitamin D deficiency Gout GERD without esophagitis Polymyalgia rheumatica Mixed hyperlipidemia Benign essential hypertension Chronic kidney disease (CKD), 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 Chronic atrial fibrillation CAD (coronary artery disease) Cardiomyopathy Surgical History History of cataract surgery History of colonoscopy History of squamous cell carcinoma excision History of coronary artery bypass graft History of hernia repair History of left-sided carotid endarterectomy S/P CABG x 3 Family History Father Myocardial infarction CVD (cardiovascular disease) Mother Medical history unknown Social History Housing: Condominium Alcohol intake: current Alcohol intake frequency: holidays/special occasions only Patient Tobacco Use Status: Never used Tobacco e-Cigarette/Vaping Use: Never Used Second Hand Smoke Exposure: Yes service: Yes Current occupational status: retired Cognitive needs: No Hearing needs: No Vision needs: Yes Questionnaire PHQ-9 Over the last 2 weeks, how often have you been bothered by any of the following problems? 1. Little interest or pleasure in doing things: not at all 2. Feeling down, depressed, or hopeless: not at all 3. Trouble falling or staying asleep, or sleeping too much: not at all 4. Feeling tired or having little energy: not at all 5. Poor appetite or overeating: not at all 6. Feeling bad about yourself - or that you are a failure or have let yourself or your family down: not at all 7. Trouble concentrating on things, such as reading the newspaper or watching television: not at all 8. Moving or speaking so slowly that other people could have noticed. Or the opposite - being so fidgety or restless that you have been moving around a lot more than usual: not at all 9. Thoughts that you would be better off or of hurting yourself in some way: not at all Total score: 0 Depression Screening Interpretation: Negative Depression Screening Done: Yes 08725 - PHQ-9 Billing: Yes Source: Developed by Drs. Zaki Curtis, Teresa Cain, Diego Huff and colleagues, with an educational meaghan from [employer]. Thrive Questionnaire Date Thrive assessed: 07/02/24 I am a: Patient What is your living situation today?: I have a steady place to live Within the past 12 months, did the food you bought not last and you didn't have the money to get more?: Never true Within the past 12 months, did you worry whether your food would run out before you got money to buy more?: Never true Do you have trouble paying for medicines?: No Do you have trouble getting transportation to medical appointments?: No Do you have trouble paying your heating and electricity bill?: No Do you have trouble taking care of your child, family member or friend?: No Do you have trouble with day-to-day activities such as bathing, preparing meals, shopping, managing finances, etc.?: No Are you currently unemployed and looking for a job?: No Are you interested in more education?: No Please select the resources that you would like help with: None Currently or been in a relationship where the following occur: I choose not to answer THRIVE Score: 0 AUDIT C Alcohol Use Questionnaire (AUDIT-C) 1. How often do you have a drink containing alcohol?: 2-3 times a week 2. How many drinks containing alcohol do you have on a typical day when you are drinking?: 1 or 2 3. How often do you have six or more drinks on one occasion?: Less than monthly Total Score: 4 Score Reviewed/Action Taken: Yes AXEL-7 AMB Questionnaire AXEL-7 Date AXEL - 7 assessed: 07/02/24 Feeling nervous, anxious, or on edge: 0 = Not at all Not being able to stop or control worryin = Not at all Worrying too much about different things: 0 = Not at all Trouble relaxin = Not at all Being so restless that it is hard to sit still: 0 = Not at all Becoming easily annoyed or irritable: 0 = Not at all Feeling afraid as if something awful might happen: 0 = Not at all Total AXEL-7 score (0-4 normal; 5-9 mild; 10-14 moderate; 15-21 severe): 0 Source: Developed by Drs. Zaki Curtis, Teresa Cain, Diego Huff and colleagues, with an educational meaghan from [employer]. Review of Systems Const Denies chills, Denies fatigue, Denies fever(s) and Denies headache(s) ENT Denies dysphagia, Denies dizziness, Denies otalgia, Denies headache(s), Denies neck pain, Denies odynophagia and Denies sore throat Card Denies chest pain, Denies palpitations and Denies dyspnea Resp Denies cough and Denies dyspnea GI Denies abdominal pain, Denies constipation, Denies dysphagia, Denies heartburn, Denies diarrhea, Denies nausea, Denies odynophagia and Denies vomiting Denies dysuria, Denies nocturia and Denies urinary frequency Musc Denies back pain and Denies neck pain Skin/Breast Denies rash Neuro Denies dizziness and Denies headache(s) Endo Denies fatigue and Denies palpitations Physical exam (Primary Care) Vital Signs: Last Vital Signs Temp 97.5 F 11/13/24 15:29 Pulse 90 11/13/24 15:29 BP 134/84 11/13/24 15:29 Pulse Ox 97 11/13/24 15:29 Oxygen Delivery Method Room Air 11/13/24 15:29 BMI result Body Mass Index 29.6 Tobacco/Smoking Status: Tobacco use Status Tobacco use date assessed 11/13/24 11/13/24 15:29 Patient Tobacco Use Status Never used Tobacco 11/13/24 15:29 e-Cigarette/Vaping Use Never Used 11/13/24 15:29 PHQ-9: PHQ-9 Score PHQ-9: Total score 0 11/13/24 16:04 Depression Screening Interpretation: Negative Thrive Assessment: Date of Thrive Assessment Date Thrive assessed 07/02/24 11/13/24 15:29 Currently or been in a relationship where the following occur: I choose not to answer Const General: no acute distress and alert HENMT Ears: TM's normal bilaterally and EAC's normal Throat: Yes posterior oropharynx normal and Yes tonsils normal (no TP congestion noted) Neck Neck: Yes no lymphadenopathy and Yes supple Thyroid: Thyroid normal Resp Auscultation: clear to auscultation bilaterally, no rales and no wheezes Cardio Rate: regular rate Rhythm: abnormal rhythm irregularly irregular Heart sounds: no murmurs GI Palpation (GI): Soft to palpation and nontender Auscultation: normal bowel sounds General: Yes no CVA tenderness Back/Spine/Pelvis Back: no CVA tenderness Thoracic/Lumbar Spine: No lumbar spinal tenderness Skin Rashes: no rashes Extrem General: No clubbing, No cyanosis and Yes edema (2+ bipedal edema) Results Reviewed Results Reviewed: Laboratory Tests 10/31/24 10/31/24 10:24 10:29 WBC 9.7 Hgb 15.5 Hct 43.5 Plt Count 152 L Sodium 137 Potassium 4.0 Creatinine 1.15 Estimated GFR > 60 Random Glucose 186 H Hemoglobin A1c % 7.7 H Uric Acid 4.8 Calcium 9.1 Triglycerides 158 H Cholesterol 134 LDL Cholesterol, Calc 68 HDL Cholesterol 35 L Vitamin B12 372 25-OH Vitamin D Total 15.0 L TSH 1.46 Ur Specific [place] 1.020 Urine Protein 100 (2+) H Urine Glucose (UA) Negative Urine Blood Negative Urine Nitrite Negative Ur Leukocyte Esterase Small (1+) H Microalb/Creat Ratio 408.4 H Coding Level of Care Code Est Pt Level 4 (60789) Diagnoses Coronary artery disease involving [place] coronary artery of [place] heart without angina pectoris I25.10 Associated angina: without angina Coronary Disease-Associated Artery/Lesion type: [place] artery [place] vs. transplanted heart: [place] heart Heart failure with reduced ejection fraction I50.20 Chronic atrial fibrillation I48.20 Mixed hyperlipidemia E78.2 Type 2 diabetes mellitus with stage 2 chronic kidney disease, without long-term current use of insulin E11.22; N18.2 Chronic kidney disease stage: stage 2 (mild) Diabetes mellitus senior care insulin use: without terminal makeup operator use Chronic kidney disease (CKD), stage II (mild) N18.2 Benign essential hypertension I10 Peripheral vascular disease I73.9 Polymyalgia rheumatica M35.3 GERD without esophagitis K21.9 Idiopathic gout, unspecified chronicity, unspecified site M10.00 Chronicity: unspecified Gout etiology: idiopathic Gout site: unspecified site Erectile dysfunction, unspecified erectile dysfunction type N52.9 Erectile dysfunction type: unspecified Vitamin D deficiency E55.9 Obesity (BMI 30-39.9) E66.9 Additional Codes PHQ-9 - 87099 - PHQ-9 Billing: Yes ([id number]) Assessment & Plan Assessment & Plan (1) CAD (coronary artery disease): Comment: S/P coronary artery bypass graft x 3 - JACOBSEN to LAD, radial artery to diagonal, SVG to OM (2000) Code(s): I25.10 - Atherosclerotic heart disease of [place] coronary artery without angina pectoris Category: Medical Qualifiers: Associated angina: without angina Coronary Disease-Associated Artery/Lesion type: [place] artery [place] vs. transplanted heart: [place] heart Qualified Code(s): I25.10 - Atherosclerotic heart disease of [place] coronary artery without angina pectoris Plan: Patient currently remains asymptomatic - (+) remote Hx of CABG in 2000 Continue Isosorbide Mononitrate ER 30 mg QD and Metoprolol ER 100 mg BID (Rx refilled); continue Atorvastatin 40 mg QD for primary risk reduction Follow up with cardiology as scheduled (2) Heart failure with reduced ejection fraction: Code(s): I50.20 - Unspecified systolic (congestive) heart failure Category: Medical Plan: Improving - his echocardiogram done on 08/31/2022 revealed improvement of EF to low normal at 50% to 55% (was previously around 25 to 30%) Repeat echocardiogram done a year later on 08/24/2023 revealed no significant changes from 1 year ago - low normal LV ejection fraction at 50-55%, severe biatrial enlargement, cardiac valvular Dopplers within normal limits and RV systolic pressure at the upper limits of normal His most recent echocardiogram done on 09/12/2024 revealed similar findings - moderately decreased left ventricular systolic function, with the calculated ejection fraction at 35% by biplane method, with severe biatrial enlargement and moderate calcification of the aortic valve and mild mitral annular calcification BUT mild to moderate pulmonary hypertension is now present Continue Metoprolol ER 100 mg BID, Furosemide 20 mg QD and Losartan 50 mg BID Reinforced fluid restriction Follow up with cardiology as scheduled (3) Chronic atrial fibrillation: Code(s): I48.20 - Chronic atrial fibrillation, unspecified Category: Medical Plan: Patient presently remains in atrial fibrillation but is still rate-controlled Continue Metoprolol ER 100 mg BID and lifelong anticoagulation with Coumadin daily He continues to follow up with the Coumadin clinic for PT/INR monitoring (4) Mixed hyperlipidemia: Code(s): E78.2 - Mixed hyperlipidemia Category: Medical Plan: Results of his labs done a couple of weeks ago reviewed and discussed with patient Reinforced low cholesterol diet Continue Atorvastatin 40 mg QD Will recheck his labs and fasting lipids again in 4 months for follow up (5) Type 2 diabetes mellitus with diabetic chronic kidney disease: Code(s): E11.22 - Type 2 diabetes mellitus with diabetic chronic kidney disease Category: Medical Qualifiers: Chronic kidney disease stage: stage 2 (mild) Diabetes mellitus terminal makeup operator insulin use: without terminal makeup operator use Qualified Code(s): E11.22 - Type 2 diabetes mellitus with diabetic chronic kidney disease; N18.2 - Chronic kidney disease, stage 2 (mild) Plan: His HgbA1c was at 7.7% on his recent labs done a couple of weeks ago (he was at 7.4% a few months ago) - goal is HgbA1c of at least <7.0% Reinforced diabetic diet He was on Januvia 50 mg QD but appears to have stopped taking this at some point late last year and has not been on any Rx for his diabetes since Have advised him that if he cannot get his HgbA1c improved to at least <7.5%, we will need to consider restarting him on some Rx for his diabetes (6) Chronic kidney disease (CKD), stage II (mild): Code(s): N18.2 - Chronic kidney disease, stage 2 (mild) Category: Medical Plan: His renal function appears to be stable on his recent labs Will continue to monitor his renal function regularly (7) Benign essential hypertension: Code(s): I10 - Essential (primary) hypertension Category: Medical Plan: Reinforced low sodium diet - goal is systolic BP of at least 140 mm or less Continue Losartan 50 mg BID and Metoprolol ER 100 mg BID (8) Peripheral vascular disease: Code(s): I73.9 - Peripheral vascular disease, unspecified Category: Medical Plan: Arterial studies done back in January 2023 revealed (+) high-grade popliteal artery stenosis by Doppler in the leg Follow up with vascular surgery as scheduled (9) Polymyalgia rheumatica: Code(s): M35.3 - Polymyalgia rheumatica Category: Medical Plan: He was on oral Prednisone in the past but was taken off his Rx by rheumatology a while back He used to follow up with rheumatology at [facility] regularly but states that he has not seen them since Dr. Holder left [facility] [place] [facility] several months ago States that he currently has no acute issues and prefers not to see rheumatology as he does not want to have any additional appts scheduled at this time (10) GERD without esophagitis: Code(s): K21.9 - Gastro-esophageal reflux disease without esophagitis Category: Medical Plan: Dietary restrictions reinforced Continue Omeprazole 20 mg QD (11) Gout: Code(s): M10.9 - Gout, unspecified Category: Medical Qualifiers: Chronicity: unspecified Gout etiology: idiopathic Gout site: unspecified site Qualified Code(s): M10.00 - Idiopathic gout, unspecified site Plan: Patient states that he has not had any acute gout flares lately His serum uric acid level was normal at 4.8 on his recent labs Reinforced low purine diet Continue Allopurinol 300 mg QD (12) Erectile dysfunction: Code(s): N52.9 - Male erectile dysfunction, unspecified Category: Medical Qualifiers: Erectile dysfunction type: unspecified Qualified Code(s): N52.9 - Male erectile dysfunction, unspecified Plan: Continue Sildenafil 50 mg QD PRN (13) Vitamin D deficiency: Code(s): E55.9 - Vitamin D deficiency, unspecified Category: Medical Plan: He is advised that his Vitamin D level remains low on his recent labs and has been declining over the past year Will start him back on Vitamin D3 2000 units QD (14) Obesity (BMI 30-39.9): Code(s): E66.9 - Obesity, unspecified Category: Medical Plan: Reinforced diet; exercise and weight loss are not realistic or practical at this time given patient's current issues Plan Follow up in 4 months Orders: Orders Comprehensive [place]. Panel Fast 4 Months E78.00 - Pure hypercholesterolemia, unspecified Microalbumin, Random (w Creat) 4 Months E11.9 - Type 2 diabetes mellitus without complications Hemoglobin A1c 4 Months E11.9 - Type 2 diabetes mellitus without complications Complete Blood Count Auto Diff 4 Months D64.9 - Anemia, unspecified Lipid Panel 4 Months E78.00 - Pure hypercholesterolemia, unspecified Medications: New cholecalciferol (vitamin D3) 50 mcg PO DAILY 90 caps 3RF 90 days E55.9 - Vitamin D deficiency, unspecified Refilled metoprolol succinate ER 100 mg PO BID 180 tabs 3RF
[2024-11-13 15:29] VITALS: BP 134/84; PULSE 90; TEMP 36.4; O2SAT 97; BMI 29.6
--- OUTSIDE RECORDS SUMMARY | 2024-11-13 16:39 | XMS_ITS | Patient Health Record ---
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) Active confirmed Problem Colon cancer screening (485923446) Colon cancer screening (V76.51) Active confirmed Problem Gastroesophageal reflux disease (838373892) GERD (gastroesophag eal reflux disease) (530.81) Active confirmed Problem History of adenomatous polyp of colon (092440736) History of adenomatous polyp of colon (V12.72) Active confirmed Plan Of Treatment Future Test Test Name Order Date UPPER GI ENDOSCOPY 05/28/2013 COLONOSCOPY 05/28/2013 Insurance Providers Payer Name Payer Address Payer Phone Subscriber Number Group Number Insured Name Patient Relationship to Insured Coverage Start Date Coverage End Date MEDICARE OF [place] [address] [place] [address] [id number] FREDERICK COBIAN Self - patient is the insured MEDEX ATTN CLAIMS [address] [place] [address] [id number] FREDERICK COBIAN Self - patient is the insured Medical (General) History Medical History History ICD Code Denies [place],DM,CVA,Lung disease,renal dise ase Hyperlipidemia HTN Gout Afib [...]
--- OUTSIDE RECORDS SUMMARY | 2024-11-13 16:39 | XMS_ITS | Patient Health Record ---
[facility] Address [address] [place] [address] Care Team Providers Care Kier Operator Name Role Phone Enrrique GOMES, [place] Primary Care Provider Rasheeda Lo Unavailable [phone] Allergies No Known Allergies Reason For Referral [...] Status W/U Status Risk Notes Problem Neuropathy (586124298) Neuropathy (G62.9) Active confirmed Problem Acquired hammer toe of left foot (7684934753465774) Hammertoe of left foot (M20.42) Active confirmed Problem Acquired hammer toe of right foot (1647922982545337) Hammertoe of right foot (M20.41) Active confirmed Problem Bilateral atherosclerosis of arteries of lower limbs (disorder) (60036246476854048 ) Atherosclerosis of artery of both lower extremities (I70.203) Active confirmed Vital Signs Blood pressure diastolic 90 mm Hg 09/10/2024 Height 6 ft 2 in in 09/10/2024 Blood pressure systolic 145 mm Hg 09/10/2024 Weight 230 lbs 09/10/2024 BMI 29.53 kg/m2 09/10/2024 Encounters Encounter [facility] Date [facility] [address] 11/29/2023 Rasheeda Pennington Atherosclerosis of artery of both lower extremities I70.203 ; Neuropathy G62.9 ; Tinea unguium B35.1 ; Pain in toe of left foot M79.675 and Pain in toe of right foot M79.674 [facility] [address] 02/09/2024 Rasheeda Perica Atherosclerosis of artery of both lower extremities I70.203 ; Neuropathic ulcer of right foot, limited to breakdown of skin L97.511 ; Neuropathy G62.9 ; Tinea unguium B35.1 ; Pain in toe of left foot M79.675 and Pain in toe of right foot M79.[address] [address] 04/24/2024 Rasheeda Perica Atherosclerosis of artery of both lower extremities I70.203 ; Tinea unguium B35.1 ; Neuropathy G62.9 ; Pain in toe of left foot M79.675 and Pain in toe of right foot M79.[address] [address] 09/10/2024 Rasheeda Pennington Atherosclerosis of artery of both lower extremities I70.203 ; Tinea unguium B35.1 ; Neuropathy G62.9 ; Pain in toe of left foot M79.675 and Pain in toe of right foot M79.674 [facility] [address] 07/08/2024 Rasheeda Pennington Assessments Encounter Date Diagnosis [...] Details Provider Name:Rasheeda guzman, 12/10/2024 11:30:00 AM, [address] [place] [address], [id number], Insurance Providers Payer Name Payer Address Payer Phone Subscriber Number Group Number Insured Name Patient Relationship to Insured Coverage Start Date Coverage End Date Medicare National Govt [facility] [address] [place] [address] [id number] Galen Costello Self - patient is the insured [employer] Blue [employer] [address] [place] [address] [id number] Galen Costello Self - patient is the insured Medical (General) History Medical History History ICD Code Angina Cataracts covid-19 Gout Heart disease High blood pressure Reflux ( GERD) Measles Mumps Chicken pox Vascular grafts Surgical History Surgery Date(Month/Year) heart bypass 10/2000 Nose Bx- Skin cancer 06/2022 [facility] 2023
== END 2024-11-13 16:11 | disposition home or self-care (01) ==
LOC: HO.HMCH 15:26
PROVIDERS: PCP Internal Medicine; Visit Provider Internal Medicine
DX: I12.9 Hypertensive chronic kidney disease with stage 1 through stage 4 chronic kidney disease, or unspecified chronic kidney disease (principal); I50.20 Unspecified systolic (congestive) heart failure; I48.20 Chronic atrial fibrillation, unspecified; E11.22 Type 2 diabetes mellitus with diabetic chronic kidney disease; N18.2 Chronic kidney disease, stage 2 (mild); I25.10 Atherosclerotic heart disease of native coronary artery without angina pectoris; E78.2 Mixed hyperlipidemia; I73.9 Peripheral vascular disease, unspecified; M35.3 Polymyalgia rheumatica; K21.9 Gastro-esophageal reflux disease without esophagitis; M10.00 Idiopathic gout, unspecified site; N52.9 Male erectile dysfunction, unspecified

== ENCOUNTER → 2024-11-13 15:25 | Outpatient (BNVA) | payer MEDICARE, SELFPAY | PROVIDERS: PCP Internal Medicine; Visit Provider Internal Medicine | DX: I25.10 Atherosclerotic heart disease of native coronary artery without angina pectoris (principal); I48.20 Chronic atrial fibrillation, unspecified; I13.0 Hypertensive heart and chronic kidney disease with heart failure and stage 1 through stage 4 chronic kidney disease, or unspecified chronic kidney disease; E11.22 Type 2 diabetes mellitus with diabetic chronic kidney disease; N18.2 Chronic kidney disease, stage 2 (mild); I50.20 Unspecified systolic (congestive) heart failure; E78.2 Mixed hyperlipidemia; I73.9 Peripheral vascular disease, unspecified; M35.3 Polymyalgia rheumatica; K21.9 Gastro-esophageal reflux disease without esophagitis; M10.00 Idiopathic gout, unspecified site; E55.9 Vitamin D deficiency, unspecified; N52.9 Male erectile dysfunction, unspecified; E66.9 Obesity, unspecified; Z68.29 Body mass index [BMI] 29.0-29.9, adult; Z71.3 Dietary counseling and surveillance | CPT/HCPCS: 96127; 99212 ==

== ENCOUNTER 2024-11-21 09:21 | Outpatient (AMB) | payer MEDICARE, SELFPAY ==
--- OUTSIDE RECORDS SUMMARY | 2024-07-10 06:00 | XMS_ITS ---
Author Organization [facility] Address [address] [facility] [place] [address] Care Team Providers Care Automatic Drilling Machine Operator Name Role Phone Enrrique GOMES, [place] Primary Care Provider Rasheeda Lo Unavailable [phone] Medications Medication SIG (Take, Route, Frequency, Duration) [...] Active Encounters Encounter Location Date Provider Diagnosis [facility] 81 [facility] [place] [address] 07/10/2024 Rasheeda Pennington Plan Of Treatment Next Appt Details Provider Name:Rasheeda Maia guzman, 12/10/2024 11:30:00 AM, [address] [place], [address], Progress Notes * Galen SALVADOR TDOB:04/1940 (84 yo M)Acc No.[id number]:07/10/2024 Progress Note Patient: Galen ALDANA Provider: Otto Pennington DPM :1940 A ge:83 Y S ex:Male Date:07/10/2024 Address:[address] [place], [place] [id number] Pcp:Evens Osuna MD Subjective: * Chief Complaints: [...] 07/10/2024 Generated for Oliver hanna/Pily/eTransmitting on: 0 11/21/2024 10:01 AM EDT
[2024-11-21 09:34] LABS: Prothrombin Time Whole Bld POC 30.3 sec (11.1-13.5); ~PT, ~INR - Anti Coag Clinic 2.5 (0.9-1.1)
--- NOTE | 2024-11-21 09:36 | MHC.OFFVISCO ---
Intake Intake Visit Reasons: Anticoagulation Allergies No Known Allergies (No Known Allergies*) Allergy (Verified 11/21/24 09:26) Medication List - Last Reconciled 11/21/24 by Annamarie Sharif RN allopurinol 300 mg PO DAILY atorvastatin 40 mg PO DAILY cholecalciferol (vitamin D3) 50 mcg PO DAILY 90 days furosemide 20 mg PO DAILY isosorbide mononitrate ER 30 mg PO DAILY losartan 50 mg PO BID metoprolol succinate ER 100 mg PO BID potassium chloride ER (K-Tab) 20 mEq PO DAILY sildenafil 50 mg PO DAILY PRN warfarin See Protocol 7.5mg x 3 days/ 5mg x 4 days orally daily; take 1-2 tabs daily as per Anticoagulation Services. INR has been subtherapuetic requiring an increase in warfarin dose Nursing Note INR: 2.5 in therapeutic range of 2-3 Medications and supplements reviewed No changes in health, diet, medications, or supplements, Denies any signs and symptoms of bleeding or bruising or clotting. Bleeding, bruising, clotting discussed Nutritional guidance given Dose: 5mg X 6 days and 7.5mg X 1 day () F/U INR: 3 weeks Patient verbalizes understanding of instructions given Anti-Coag Initial Assessment Social Hx Patient Tobacco Use Status: Never used Tobacco alcohol intake: current Alcohol intake frequency: holidays/special occasions only Coding Level of Care Code Est Patient Level 1 Diagnoses Current use of anticoagulant therapy Z79.01 Assessment & Plan Assessment & Plan (1) Current use of anticoagulant therapy: Code(s): Z79.01 - emt intermediate (current) 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
--- OUTSIDE RECORDS SUMMARY | 2024-11-21 10:01 | XMS_ITS | Clinical Summary ---
Author Organization [facility] Address [address] [address] Phone Care Team Providers Care Varnish Filterer Name Role Phone Evens Osuna MD Primary Care Provider [phone] Allergies No known active allergies Medications warfarin [...] MEDEX SUPPLEMENT MEDICARE PART A & B Member Subscriber Plan / Payer ( fective 2007-Present) Name:Galen Salvador Member ID:[id number] Relation to Subscriber:Self Name:Galen Salvador Subscriber ID:[id number] Payer ID:[id number] Group ID:Not on file Type:Medicare Address: [employer] [address] [place] [phone] [employer] MEDEX SUPPLEMENT MEDICARE PART A & B Member Subscriber Plan / Payer ( fective 2007-) Name:Galen Salvador Member ID:[id number] Relation to Subscriber:Self Name:Galen Salvador Subscriber ID:[id number] Payer ID:[id number] Group ID:Not on file Type:Medicare Address: [employer] [address] [place] [phone] [employer] SUPPLEMENT MEDICARE PART A & B Member Subscriber Plan / Payer ( fective 2007-Present) Name:ModestoGalen vann Member ID:[id number] Relation to Subscriber:Self Name:Galen Salvador Subscriber ID:[id number] Payer ID:[id number] Group ID:Not on file Type:Medicare Address: [employer] [address] [place], [place] [phone] [employer] MEDEX SUPPLEMENT MEDICARE PART A & B Member Subscriber Plan / Payer ( fective 2007-) Name:Galen Salvador Member ID:[id number] Relation to Subscriber:Self Name:ModestoGalen vann Subscriber ID:[id number] Payer ID:[id number] Group ID:Not on file Type:Medicare Address: [employer] [address] [place] [phone] [employer] MEDEX SUPPLEMENT MEDICARE PART A & B [employer] MEDEX SUPPLEMENT MEDICARE PART A & B Credit [employer] MEDEX SUPPLEMENT MEDICARE PART A & B [employer] MEDEX SUPPLEMENT MEDICARE PART A & B Credit [employer] CROSS MEDEX SUPPLEMENT Care Teams Varnish Filterer Relationship Specialty Start Date End Date Evens Osuna MD [address] [place] [address] [place] [address] PCP - General Internal Medicine 07/10/22 Additional Source Comments The information contained in this document represents components of the legal health record. It is not the complete legal health record.[facility]
--- OUTSIDE RECORDS SUMMARY | 2024-11-21 10:01 | XMS_ITS | Patient Health Record ---
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 Problem Colon cancer screening (545175248) Colon cancer screening (V76.51) Active confirmed Problem Gastroesophageal reflux disease (902336257) GERD (gastroesophag eal reflux disease) (530.81) Active confirmed Problem History of adenomatous polyp of colon (173629994) History of adenomatous polyp of colon (V12.72) Active confirmed Plan Of Treatment Future Test Test Name Order Date UPPER GI ENDOSCOPY 05/28/2013 COLONOSCOPY 05/28/2013 Insurance Providers Payer Name Payer Address Payer Phone Subscriber Number Group Number Insured Name Patient Relationship to Insured Coverage Start Date Coverage End Date MEDICARE OF [place] [address] [place] [address] [id number] FREDERICK COBIAN Self - patient is the insured MEDEX ATTN CLAIMS [address] [place] [phone] [id number] FREDERICK COBIAN Self - patient is the [...]
--- OUTSIDE RECORDS SUMMARY | 2024-11-21 10:01 | XMS_ITS | Patient Health Record ---
Author Organization [facility] Address [address] [place] [address] Care Team Providers Care Material Damage Adjuster Name Role Phone Enrrique GOMES, [place] Primary Care Provider Rasheeda Lo Unavailable [phone] Allergies No Known Allergies Reason For Referral [...] Status W/U Status Risk Notes Problem Neuropathy (698459567) Neuropathy (G62.9) Active confirmed Problem Acquired hammer toe of left foot (1873090921562880) Hammertoe of left foot (M20.42) Active confirmed Problem Acquired hammer toe of right foot (4488100179026148) Hammertoe of right foot (M20.41) Active confirmed Problem Bilateral atherosclerosis of arteries of lower limbs (disorder) (96070404099056939 ) Atherosclerosis of artery of both lower extremities (I70.203) Active confirmed Vital Signs Blood pressure diastolic 90 mm Hg 09/10/2024 Height 6 ft 2 in in 09/10/2024 Blood pressure systolic 145 mm Hg 09/10/2024 Weight 230 lbs 09/10/2024 BMI 29.53 kg/m2 09/10/2024 Encounters Encounter [facility] Date [facility] [address] [facility]/29/2023 Rasheeda Pennington Atherosclerosis of artery of both lower extremities I70.203 ; Neuropathy G62.9 ; Tinea unguium B35.1 ; Pain in toe of left foot M79.675 and Pain in toe of right foot M79.674 [facility] [address] 02/09/2024 Rasheeda Perica Atherosclerosis of artery of both lower extremities I70.203 ; Neuropathic ulcer of right foot, limited to breakdown of skin L97.511 ; Neuropathy G62.9 ; Tinea unguium B35.1 ; Pain in toe of left foot M79.675 and Pain in toe of right foot M79.[address] [address] 04/24/2024 Rasheeda Perica Atherosclerosis of artery of both lower extremities I70.203 ; Tinea unguium B35.1 ; Neuropathy G62.9 ; Pain in toe of left foot M79.675 and Pain in toe of right foot M79.[address] [address] 09/10/2024 Rasheeda Pennington Atherosclerosis of artery of both lower extremities I70.203 ; Tinea unguium B35.1 ; Neuropathy G62.9 ; Pain in toe of left foot M79.675 and Pain in toe of right foot M79.674 [facility] [address] 07/08/2024 Rasheeda Pennington Assessments Encounter Date Diagnosis [...] Details Provider Name:Rasheeda guzman, 12/10/2024 11:30:00 AM, [address] [place] [address], [phone], Insurance Providers Payer Name Payer Address Payer Phone Subscriber Number Group Number Insured Name Patient Relationship to Insured Coverage Start Date Coverage End Date Medicare National Govt Sv[employer]int [facility] [address] [facility] [place] [address] [id number] Galen Costello Self - patient is the insured Medex Blue Shield [address] [place] [address] [id number] Galen Costello Self - patient is the insured Medical (General) History Medical History History ICD Code Angina Cataracts covid-19 Gout Heart disease High blood pressure Reflux ( GERD) Measles Mumps Chicken pox Vascular grafts Surgical History Surgery Date(Month/Year) heart bypass 10/2000 Nose Bx- Skin cancer 06/2022 skin surgery [facility] 2023
== END 2024-11-21 09:38 | disposition home or self-care (01) ==
LOC: HO.ACS 09:21
PROVIDERS: PCP Internal Medicine; Visit Provider Internal Medicine Medical Oncology
DX: Z79.01 Long term (current) use of anticoagulants (principal)

== ENCOUNTER → 2024-11-21 09:21 | Outpatient (BNVA) | payer MEDICARE, SELFPAY | PROVIDERS: PCP Internal Medicine; Visit Provider Internal Medicine Medical Oncology | DX: Z51.81 Encounter for therapeutic drug level monitoring (principal); Z79.01 Long term (current) use of anticoagulants | CPT/HCPCS: 85610; 99211 ==

== ENCOUNTER 2024-12-12 09:21 | Outpatient (AMB) | payer MEDICARE, SELFPAY ==
--- OUTSIDE RECORDS SUMMARY | 2024-07-10 06:00 | XMS_ITS ---
Author Organization [facility] Address [address] [place] [address] Care Team Providers Care Automobile Glass Technician Name Role Phone Enrrique GOMES, [place] Primary Care Provider Rasheeda Lo Unavailable [phone] Medications Medication SIG (Take, Route, Frequency, Duration) [...] Active Encounters Encounter Location Date Provider Diagnosis [facility] 81 [place] [address] 07/10/2024 Rasheeda Pennington Plan Of Treatment Next Appt Details Provider Name:Rasheeda Maia guzman, 03/07/2025 12:30:00 PM, [address] [place], [address], Progress Notes * Galen SALVADOR TDOB:04/1940 (84 yo M)Acc No.[id number]:07/10/2024 Progress Note Patient: Galen ALDANA Provider: Otto Pennington DPM :1940 A ge:83 Y S ex:Male Date:07/10/2024 Address:[address] [place], [place] [phone] Pcp:Evens Osuna MD Subjective: * Chief Complaints: [...] 07/10/2024 Generated for Oliver hanna/Pily/eTransmitting on: 0 12/12/2024 10:23 AM EDT
--- OUTSIDE RECORDS SUMMARY | 2024-12-10 07:30 | XMS_ITS ---
Author Organization [facility] Address [address] [place] [address] Care Team Providers Care Client Technical Support Associate Name Role Phone Enrrique GOMES, [place] Primary Care Provider Rasheeda Lo Unavailable [phone] Allergies No Known Allergies REASON FOR VISIT At Risk Footcare, Painful Nail(s) aggrevated by shoes and causing difficulty standing/walking. Medications Medication SIG (Take, Route, Frequency, Duration) Notes Start Date End Date Status Ammonium Lactate 12 % 1 application to affected area Externally to feet Twice a day; Duration: 30 days Not-Taking Allopurinol 300 MG 1 tablet Orally Once a day; Duration: 30 day(s) Active Atorvastatin Calcium 40 MG 1 tablet Orally Once a day; Duration: 30 day(s) Active Isosorbide Mononitrate ER 30 MG 1 tablet in the morning Orally Once a day; Duration: 30 day(s) Not-Taking Furosemide 20 MG 1 tablet Orally Once a day; Duration: 30 day(s) Active Losartan Potassium 50 MG 1 tablet Orally Once a day; Duration: 30 day(s) Active Metoprolol Succinate 100 MG 1 capsule Orally Once a day; Duration: 30 day(s) Active Warfarin Sodium 5 MG 1 tablet Orally Onc e a day; Duration: 30 day(s) Active Cephalexin 500 MG 1 capsule Orally jermaine ry 12 hrs; Duration: 5 days Not-Taking Cephalexin 500 MG 1 capsule Orally jermaine ry 12 hrs; Duration: 10 days Not-Taking Ciclopirox Olamine 0.77 % 1 application Externally Twice a day; Duration: 30 days Not-Taking Social History Tobacco Use: Social History Observation Description Date Details (start date - stop date) Never Smoker NA - NA Tobacco use other than smoking: Question Answer Notes Are you an other tobacco user? No Tobacco Control (Standard) Question Answer Notes Tobacco use: Nonsmoker Additional Findings: Tobacco non-user Current no nsmoker AUDIT-C (Standard) Question Answer Notes Did you have a drink contain ing alcohol in the past year? Yes How often did you have a dri nk containing alcohol in the past year? 2 to 3 times a week (3 points) How many drinks did you have on a typical day when you were drinking in the past year? 3 or 4 drinks (1 point) How often did you have six o r more drinks on one occasion in the past year? Never (0 point) Points 4 Interpretation Positive Vital Signs Height 6 ft 2 in in 12/10/2024 Weight 230 lbs 12/10/2024 BMI 29.53 kg/m2 12/10/2024 Blood pressure systolic 145 mm Hg 12/11/19 25 Blood pressure diastolic 90 mm Hg 025 Encounters Encounter Location Date Provider Diagnosis [facility] [address] [address] 12/10/2024 Rasheeda Pennington Atherosclerosis of artery of both lower extremities I70.203 ; Tinea unguium B35.1 ; Neuropathy G62.9 ; Pain in toe of left foot M79.675 and Pain in toe of right foot M79.674 Assessments Encounter Date Diagnosis (ICD Code) Assessment Notes Treatment Notes Treatment Clinical Notes Section Notes 12/10/2024 Atherosclerosis of artery of both lower extremities (ICD-10 - I70.203) 12/10/2024 Tinea unguium (ICD-10 - B35.1) 12/10/2024 Neuropathy (ICD-10 - G62.9) 12/10/2024 Pain in toe of left foot (ICD-10 - M79.675) 12/10/2024 Pain in toe of right foot (ICD-10 - M79.674) Plan Of Treatment Next Appt Details Follow Up: 3 Months, Reason: Provider Name:Rasheeda guzman, 03/07/2025 12:30:00 PM, [address] [place], [address], Procedure Notes * Category Sub-Category Detail Notes [...] use of a nail nipper and/or dremel-type turbinated bone grinder, to a more viable healthy nail [...] to maintain effectiveness in symptomatic relief - 88345 Keratoma Treatment Parring or Cutting o f [...] stated and described in the exam ( Sub met 1, 5 B/L, heels B/L , Medial plantar,IPJ,T5), were pared, and/or cut utilizing a sterile 15 blade, tissue nippers, and/or power dremel instrumentation by the physician of record - 40190 Progress Notes * Galen SALVADOR TDOB:04/1940 (84 yo M)Acc No.[id number]:12/10/2024 Progress Note Patient: Galen ALDANA Provider: Otto Pennington DPM :1940 A ge:84 Y S ex:Male Date:12/10/2024 Address:[address] [place], [place] [address], [place] Pcp:Evens Osuna MD Subjective: * Chief Complaints: * A t Risk FootcarePainful Nail(s) aggrevated by shoes and causing difficulty standing/walking. * HPI: A t Risk footcare: Pt States Last PCP Visit: D ate 0 07/30/2024 * ROS: G eneral/Constitutional: Nausea d enies. V omiting d enies. H chalino Thirst d enies. L oss appetite d enies. C hills d enies. F atigue d enies.?Fever d enies. N ight Sweats d enies. U nexplained weight loss d enies. U nexplained weight gain d enies. H EENTM: Dentures d enies. D izziness d enies. G lasses/contacts d enies. R etinopathy d enies. B lurred/double vision d enies. T MJ?denies. D ischarge/drainage d enies. I mplants d enies. S ore throat d enies. D ental implants d enies. H jens of hearing d enies. D ifficulty chewing/swallowing/speaking d enies. N ose bleeds d enies. S ore mouth d enies. ? R espiratory: On Oxygen d enies. P neumonia/pleurisy d enies.?Bronchitis d enies. E mphysema d enies. C oughing d enies. C ough blood?denies. S hortness of breath d enies. W heezing d enies. C ardiovascular: Pacemaker d enies. M RESIDENTIAL TREATMENT SPECIALIST d enies. W PW d enies. C HF d enies. H eart attack d enies. S eptal defect d enies. R apid beat d enies. C hest pain d enies. A trial Fib. d enies. M urmur/Palpitations d enies. G astrointestinal: Hemorrhoids d enies. S tomach/Abdominal pain d enies. D ark blood stool d enies. I rritable bowel d enies. C onstipation d enies. D iarrhea d enies. H ematology: Swelling d enies. C lots d enies. V aricose Veins d enies. B ruising d enies. B leeding problem d enies. G enitourinary: Blood urine d enies. F requent/Painfu/urination/bladder control d enies. K idney stones d enies. I nfection (UTI) d enies. N ephropathy d enies. s ex trans dis (STD) d enies. P rostate d enies. M usculoskeletal: Hammertoes d enies. B unions d enies. B ack Pain d enies. M uscle Cramps/ Resting d enies. M uscle cramps / walking d enies.?Generalized aches and pains d enies. W eakness d enies. I nteg.: Ceballos d enies. S cars d enies. C orns/calluses?denies. I ngrown nails d enies. P ainful nails d enies. O pen Sores d enies. R ashes d enies. N eurologic: Difficulty sleeping d enies. B rain disorder d enies. N umbness a dmits. B alance trouble a dmits. C onfusion d enies. F ainting/blackouts d enies. T ingling a dmits. T remors d enies. * Medical History: * Surgical History: h eart bypass 10/2000Nose Bx- [facility] 2023 * Hospitalization/Major Diagno stic Procedure: D enies Past Hospitalization * Family History: M other: . F ather: , diagnosed with Unspecified heart disease. * Social History: T obacco Use: T obacco use other than smoking A re you an other tobacco user? N o Tobacco Control (Standard) T obacco use: N onsmoker A dditional Findings: Tobacco non-user C urrent nonsmoker M iscellaneous: C affeine: yes, frequency:, 1-2 cups per day. Children: yes. Exercise: yes, [facility] times a [facility]. Marital status: . 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 D rug/Alcohol: A SINGH-C (Standard) D id you have a drink containing alcohol in the past year? Y es H ow often did you have a drink containing alcohol in the past year? 2 to 3 times a week (3 points) H ow many drinks did you have on a typical day when you were drinking in the past year? 3 or 4 drinks (1 point) H ow often did you have six or more drinks on one occasion in the past year? N ever (0 point) P oints 4 I nterpretation P ositive * Medications: T akingMetoprolol Succinate 100 MG Capsule ER 24 Hour [...] 1 tablet Orally Once a day Taking Metoprolol Succinate 100 MG [...] Tablet 1 tablet Orally Once a day Not-Taking/PRNIsosorbide Mononitrate ER 30 MG Tablet Extended Release 24 Hour 1 tablet in the morning Orally Once a day Ammonium Lactate 12 % Cream 1 application to affected area Externally to feet Twice a day Ciclopirox Olamine 0.77 % Cream 1 application Externally Twice a day Cephalexin 500 MG Capsule 1 capsule Orally every 12 hrs Cephalexin 500 MG Capsule 1 capsule Orally every 12 hrs Medication List reviewed and reconciled with the patientNot-Taking/PRN Isosorbide Mononitrate ER 30 MG Tablet Extended Release 24 Hour 1 tablet in the morning Orally Once a day Not-Taking/PRN Ammonium Lactate 12 % Cream 1 application to affected area Externally to feet Twice a day Not-Taking/PRN Ciclopirox Olamine 0.77 % Cream 1 application Externally Twice a day Not-Taking/PRN Cephalexin 500 MG Capsule 1 capsule Orally every 12 hrs Not-Taking/PRN Cephalexin 500 MG Capsule 1 capsule Orally every 12 hrs Medication List reviewed and reconciled with the patient * Allergies: N .K.D.A.yes[Allergies Verified] Objective: * Vitals: H t: 6 ft 2 in, Wt: 230, BMI: 29.53, Shoe size: 12, BP: 145/90 mm Hg, Ht-cm: 187.96 cm, Wt-k.33 kg. * Examination: V ascular: DP PULSES (B): 0/4, B/L. PT PULSES (B): 0/4, B/L. CAPILLARY FILL TIME: delayed, all digits, B/L. TROPHIC CONDITION-TEXTURE/ELASTICITY/TURGOR/HAIR GROWTH (B):? decreased, B/L. TEMPERTURE GRADIENT (C): decreased, cool to cool, proximal to distal, B/L. PIGMENTATION: p jonas, B/L. EDEMA (C): 2 /4. CLAUDICATION (C): d enies, B/L. REST PAIN: d enies, B/L. N ails: NAILS are: Elongated, overgrown, dystrophic, lytic, greater than 3mm thick, discolored and friable with crumbly malodorous subungual debris, with pain on palpation,TA, T1, T2, T3, T4, T5, T6, T7, T8, T9. D ermatologic: SKIN FINDINGS: Skin exam reveals Keratotic lesion(s) located at Sub met 1, 5 B/L, heels B/L , Medial plantar,IPJ,T5. N eurological: SENSORY: N eurological exam demonstrates , reduced light touch sensation , reduced sharp/dull pin prick discrimination , reduced vibration sensation , reduced proprioception sensation , in a stocking fashion , plantar aspects , 5.07 monofilament test performed at plantar aspects of 5 varied sites per foot shows sensation , reduced , at Forefoot , B/L. ? Assessment: * Assessment: 1. A therosclerosis of artery of both lower extremities - I70.203 2 . T inea unguium - B35.1 (Primary) 3 . N europathy - G62.9 4 . P ain in toe of left foot - M79.675 5 . P ain in toe of right foot - M79.674 ? Plan: * Treatment: * Procedures: D ebkimberly Nail 6-10: Nail debridement D ue to the clinical pathology outlined in the [...] the use of a nail nipper and/or dremel- type turbinated bone grinder, to a more viable healthy nail [...] to maintain effectiveness in symptomatic relief - 58711. K eratoma Treatment: Parring or Cutting of Benign Hyperkeratotic Lesion(s) ( -57) More than 4 Lesions - Due to [...] stated and described in the exam ( Sub met 1, 5 B/L, heels B/L , Medial plantar,IPJ,T5), were pared, and/or cut utilizing a sterile 15 blade, tissue nippers, and/or power dremel instrumentation by the physician of record - 46510. * Procedure Codes: 1 1721 DEBRIDE NAIL, 6 OR MORE, Modifiers: XS 26196 TRIM SKIN LESIONS, OVER 4, Modifiers: XS , Q8 * Preventive Medicine: Counseling: A lcohol: MODERATION OF ETOH CONSUMPTION RECOMMENDATION: C ounseling about alcohol consumption Screening/Special Tests: F all Risk Screening: N o falls in the past year F ALLS: Screening for Future Fall Risk Have you had two or more falls in the past year? N o Have you had any falls with injury in the past year? N o * Follow Up: 3 Months * Images: * Sign off status: Completed true * Provider: Otto Pennington, CONCEPCION Date: 0 12/10/2024 Generated for Oliver hanna/Pily/Jess on: 12/12/2024 10:23 AM EDT History and Physical Notes * HPI (History of Present Illness) Category Sub-Category Detail Notes Category Not es At Risk footcare Pt States Last PCP Visit: Date: 5 Examination Category Sub-Category Detail Notes Category Not [...] exam reveal s Keratotic lesion(s) located at Sub met 1, 5 B/L, heels B/L , Medial plantar,IPJ,T5 Vascular DP PULSES (B): 0/4, B/L PT [...]
[2024-12-12 09:37] LABS: Prothrombin Time Whole Bld POC 27.4 sec (11.1-13.5); ~PT, ~INR - Anti Coag Clinic 2.3 (0.9-1.1)
--- NOTE | 2024-12-12 09:37 | MHC.OFFVISCO ---
Intake Intake Visit Reasons: Anticoagulation Allergies No Known Allergies (No Known Allergies*) Allergy (Verified 12/12/24 09:33) Medication List - Last Reconciled 12/12/24 by Annamarie Sharif RN allopurinol 300 mg PO DAILY atorvastatin 40 mg PO DAILY cholecalciferol (vitamin D3) 50 mcg PO DAILY 90 days furosemide 20 mg PO DAILY isosorbide mononitrate ER 30 mg PO DAILY losartan 50 mg PO BID metoprolol succinate ER 100 mg PO BID potassium chloride ER 20 mEq PO DAILY sildenafil 50 mg PO DAILY PRN warfarin See Protocol 7.5mg x 3 days/ 5mg x 4 days orally daily; take 1-2 tabs daily as per Anticoagulation Services. INR has been subtherapuetic requiring an increase in warfarin dose Nursing Note INR: 2.3 in therapeutic range of 2-3 Medications and supplements reviewed Pt states he has been taking warfarin 5mg daily. ACS has him taking 5mg X 6 days and 7.5mg X 1 day. When asked how long he has been taking the 5mg daily dose, pt states for quite a while No changes in health, diet, medications, or supplements, Denies any signs and symptoms of bleeding or bruising or clotting. Bleeding, bruising, clotting discussed Nutritional guidance given Dose: will continue on 5mg daily but will bring him back sooner (2 weeks) to check INR. Pt given a pill splitter because he said it was hard to cut the tablet in half. He knows not to cut it in half. We will determine after next visit if he needs the &.5mg dose. F/U INR: 12/26/24 Patient verbalizes understanding of instructions given Anti-Coag Initial Assessment Social Hx Patient Tobacco Use Status: Never used Tobacco alcohol intake: current Alcohol intake frequency: holidays/special occasions only Questionnaires HAS-BLED Does the patient had uncontrolled Hypertension?: No Does the patient have renal disease?: No Does the patient have liver disease?: No Does the patient have a history of stroke?: Yes Has the patient had major bleeding or predisposition to bleeding?: No Does the patient have labile INRs?: No Is the patient over 65 years of age?: Yes Is the patient on medications that gives them a predisposition to bleeding?: Yes Does the patient use alcohol?: Yes HAS-BLED Score: 4 CHADSVASC Age: 75 or over Gender: Male Does the patient have a history of CHF?: Yes Does the patient have a history of Hypertension?: Yes Does the patient have a history of Stroke/TIA/Thromboembolism?: Yes Does the patient have a history of Vascular Disease (prior TX, PAD or aortic plaque)?: Yes Does the patient have a history of Diabetes?: No CHADS VACS Score: 7 Tristian Prediction Score Rsk VTE Active Cancer: No Previous VTE, excluding superficial vein thrombosis: No Reduced mobility: No Already known Thrombophilic Condition: No With-in last month Trauma and/or Surgery: No Elderly 70 year or older: Yes Heart and/or Respiratory Failure: No Acute Myocardial infarction and/or Ischemic Stroke: No Acute Infection and/or Rheumatologic Disorder: No Obesity (BMI 30 or greater): No Ongoing Hormonal Treatment: No Score: 1 Tristian Score less than 4; Low Risk of VTE Tristian Score 4 or greater; High Risk of VTE Coding Level of Care Code Est Patient Level 1 Diagnoses Current use of anticoagulant therapy Z79.01 Assessment & Plan Assessment & Plan (1) Current use of anticoagulant therapy: Code(s): Z79.01 - halfway (current) 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
--- OUTSIDE RECORDS SUMMARY | 2024-12-12 10:23 | XMS_ITS | Patient Health Record ---
[facility] Address [address] [place] [address] Care Team Providers Care Supervisor Looping Name Role Phone Enrrique GOMES, [place] Primary Care Provider Rasheeda Lo Unavailable [phone] Allergies No Known Allergies Reason For Referral No Information Medications Medication SIG (Take, Route, Frequency, Duration) Notes Start Date End Date Status Losartan Potassium 50 MG 1 tablet Orally Once a day; Duration: 30 day(s) Active Metoprolol Succinate 100 MG 1 capsule Orally Once a day; Duration: 30 day(s) Active Warfarin Sodium 5 MG 1 tablet Orally Onc e a day; Duration: 30 day(s) Active Ciclopirox Olamine 0.77 % 1 application Externally Twice a day; Duration: 30 days Not-Taking Ammonium Lactate 12 % 1 application to affected area Externally to feet Twice a day; Duration: 30 days Not-Taking Cephalexin 500 MG 1 capsule Orally jermaine ry 12 hrs; Duration: 5 days Not-Taking Cephalexin 500 MG 1 capsule Orally jermaine ry 12 hrs; Duration: 10 days Not-Taking Allopurinol 300 MG 1 tablet [...] Never (0 point) Points 4 Interpretation Positive Problems Problem Type SNOMED Code ICD Code Onset Dates Problem Status W/U Status Risk Notes Problem Neuropathy (456182726) Neuropathy (G62.9) Active confirmed Problem Acquired hammer toe of left foot (8209097348935840) Hammertoe of left foot (M20.42) Active confirmed Problem Acquired hammer toe of right foot (9219505239515940) Hammertoe of right foot (M20.41) Active confirmed Problem Bilateral atherosclerosis of arteries of lower limbs (disorder) (07515013401506022 ) Atherosclerosis of artery of both lower extremities (I70.203) Active confirmed Vital Signs Blood pressure diastolic 90 mm Hg 12/10/2024 Height 6 ft 2 in in 12/10/2024 Blood pressure systolic 145 mm Hg 12/10/2024 Weight 230 lbs 12/10/2024 BMI 29.53 kg/m2 12/10/2024 Encounters Encounter [facility] Date [facility] [address] [facility]/09/[facility]24 Rasheeda Pennington Atherosclerosis of artery of both lower extremities I70.203 ; Neuropathic ulcer of right foot, limited to breakdown of skin L97.511 ; Neuropathy G62.9 ; Tinea unguium B35.1 ; Pain in toe of left foot M79.675 and Pain in toe of right foot M79.[address] [facility] [address] 04/24/2024 Rasheeda Perica Atherosclerosis of artery of both lower extremities I70.203 ; Tinea unguium B35.1 ; Neuropathy G62.9 ; Pain in toe of left foot M79.675 and Pain in toe of right foot M79.[address] [address] 09/10/2024 Rasheeda Perica Atherosclerosis of artery of both lower extremities I70.203 ; Tinea unguium B35.1 ; Neuropathy G62.9 ; Pain in toe of left foot M79.675 and Pain in toe of right foot M79.[address] [address] 12/10/2024 Rasheeda Perica Atherosclerosis of artery of both lower extremities I70.203 ; Tinea unguium B35.1 ; Neuropathy G62.9 ; Pain in toe of left foot M79.675 and Pain in toe of right foot M79.[address] [address] 07/08/2024 Rasheeda Pennington Assessments Encounter Date Diagnosis [...] both lower extremities (ICD-10 - I70.203) 12/10/2024 Atherosclerosis of artery of both lower extremities (ICD-10 - I70.203) 02/09/2024 Neuropathy (ICD-10 - G62.9) 04/24/2024 Neuropathy (ICD-10 - G62.9) 12/10/2024 Tinea unguium (ICD-10 - B35.1) 09/10/2024 Tinea unguium (ICD-10 - B35.1) 04/24/2024 Pain in toe of left foot (ICD-10 - M79.675) 02/09/2024 Tinea unguium (ICD-10 - B35.1) 09/10/2024 Neuropathy (ICD-10 - G62.9) 12/10/2024 Neuropathy (ICD-10 - G62.9) 09/10/2024 Pain in toe of left foot (ICD-10 - M79.675) 12/10/2024 Pain in toe of left foot (ICD-10 - M79.675) 02/09/2024 Pain in toe of left foot (ICD-10 - M79.675) 04/24/2024 Pain in toe of right foot (ICD-10 - M79.674) 02/09/2024 Pain in toe of right foot (ICD-10 - M79.674) 12/10/2024 Pain in toe of right foot (ICD-10 - M79.674) 09/10/2024 Pain in toe of right foot (ICD-10 - M79.674) 04/24/2024 Other Patient Educated with: WOUND CARE INSTRUCTIONS. pdf (WOUND CARE INSTRUCTIONS. pdf) 09/10/2024 Other Plan Of Treatment Next Appt Details Provider Name:Rasheeda Maia guzman, 03/07/2025 12:30:00 PM, [address] [place] [address], [phone], Insurance Providers Payer Name Payer Address Payer Phone Subscriber Number Group Number Insured Name Patient Relationship to Insured Coverage Start Date Coverage End Date Medicare National [facility] [address] 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
--- OUTSIDE RECORDS SUMMARY | 2024-12-12 10:23 | XMS_ITS | Patient Health Record ---
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) Active confirmed Problem Colon cancer screening (824344220) Colon cancer screening (V76.51) Active confirmed Problem Gastroesophageal reflux disease (946102073) GERD (gastroesophag eal reflux disease) (530.81) Active confirmed Problem History of adenomatous polyp of colon (191715409) History of adenomatous polyp of colon (V12.72) Active confirmed Plan Of Treatment Future Test Test Name Order Date UPPER GI ENDOSCOPY 05/28/2013 COLONOSCOPY 05/28/2013 Insurance Providers Payer Name Payer Address Payer Phone Subscriber Number Group Number Insured Name Patient Relationship to Insured Coverage Start Date Coverage End Date MEDICARE OF [place] [address] [place] [address] [id number] FREDERICK COBIAN Self - patient is the insured MEDEX ATTN CLAIMS [address] [place] [address] [id number] FREDERICK COBIAN Self - patient is the [...]
--- OUTSIDE RECORDS SUMMARY | 2024-12-12 10:23 | XMS_ITS | Clinical Summary ---
Author Organization [facility] Address [address] [address] Phone Care Team Providers Care Scrap Metal Processing Worker Name Role Phone Evens Osuna MD Primary Care Provider [phone] Allergies No known active allergies Medications warfarin [...] file Insurance MEDICARE PART A & B Member Subscriber Plan / Payer (Ef fective 2007-Present) Name:Galen Salvador Member ID:[id number] Relation to Subscriber:Self Name:Galen Salvador Subscriber ID:[id number] Payer ID:[id number] Group ID:Not on file Type:Medicare Address: [facility] [address] [facility] [place] [address] [employer]UE [employer] MEDEX SUPPLEMENT MEDICARE PART A & B [employer] MEDEX SUPPLEMENT MEDICARE PART A & B [employer] SUPPLEMENT MEDICARE PART A & B [employer] MEDEX SUPPLEMENT MEDICARE PART A & B [employer] MEDEX SUPPLEMENT MEDICARE PART A & B [employer] MEDEX SUPPLEMENT MEDICARE PART A & B [employer] CROSS MEDEX SUPPLEMENT MEDICARE PART A & B [employer] MEDEX SUPPLEMENT MEDICARE PART A & B [employer] CROSS MEDEX SUPPLEMENT Care Teams Scrap Metal Processing Worker Relationship Specialty Start Date End Date Evens Osuna MD [address] [place] [address] [place] [id number] PCP - General Internal Medicine 07/10/22 Additional Source Comments The information contained in this document represents components of the legal health record. It is not the complete legal health record.[facility]
== END 2024-12-12 09:56 | disposition home or self-care (01) ==
LOC: HO.ACS 09:21
PROVIDERS: PCP Internal Medicine; Visit Provider Internal Medicine Medical Oncology
DX: Z79.01 Long term (current) use of anticoagulants (principal)

== ENCOUNTER → 2024-12-12 09:21 | Outpatient (BNVA) | payer MEDICARE, SELFPAY | PROVIDERS: PCP Internal Medicine; Visit Provider Internal Medicine Medical Oncology | DX: Z51.81 Encounter for therapeutic drug level monitoring (principal); Z79.01 Long term (current) use of anticoagulants | CPT/HCPCS: 85610; 99211 ==

== ENCOUNTER 2024-12-26 09:19 | Outpatient (AMB) | payer MEDICARE, SELFPAY ==
--- NOTE | 2024-12-26 09:37 | MHC.OFFVISCO ---
Intake Intake Visit Reasons: Anticoagulation Allergies No Known Allergies (No Known Allergies*) Allergy (Verified 12/26/24 09:22) Medication List - Last Reconciled 12/26/24 by Tasneem Bishop RN allopurinol 300 mg PO DAILY atorvastatin 40 mg PO DAILY cholecalciferol (vitamin D3) 50 mcg PO DAILY 90 days furosemide 20 mg PO DAILY isosorbide mononitrate ER 30 mg PO DAILY losartan 50 mg PO BID metoprolol succinate ER 100 mg PO BID potassium chloride ER 20 mEq PO DAILY sildenafil 50 mg PO DAILY PRN warfarin See Protocol 7.5mg x 3 days/ 5mg x 4 days orally daily; take 1-2 tabs daily as per Anticoagulation Services. INR has been subtherapuetic requiring an increase in warfarin dose Nursing Note INR: 3.1 in therapeutic range Medications and supplements reviewed No changes in health, diet, medications, or supplements, Denies any signs and symptoms of bleeding or bruising or clotting. Bleeding, bruising, clotting discussed Nutritional guidance given Dose: 5MG DAILY F/U INR: 1 month Patient verbalizes understanding of instructions given Anti-Coag Initial Assessment Social Hx Patient Tobacco Use Status: Never used Tobacco alcohol intake: current Alcohol intake frequency: holidays/special occasions only Coding Level of Care Code Est Patient Level 1 Diagnoses Current use of anticoagulant therapy Z79.01 Results AMB INR Fingerstick AMB INR Fingerstick 3.1 Last Edit by Tasneem Bishop RN on 12/26/24 09:32 MANUAL ENTRY Assessment & Plan Assessment & Plan (1) Current use of anticoagulant therapy: Code(s): Z79.01 - 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
[2024-12-26 09:39] LABS: Prothrombin Time Whole Bld POC 36.8 sec (11.1-13.5); ~PT, ~INR - Anti Coag Clinic 3.1 (0.9-1.1)
== END 2024-12-26 09:41 | disposition home or self-care (01) ==
LOC: HO.ACS 09:19
PROVIDERS: PCP Internal Medicine; Visit Provider Internal Medicine Medical Oncology
DX: Z79.01 Long term (current) use of anticoagulants (principal)

== ENCOUNTER → 2024-12-26 09:19 | Outpatient (BNVA) | payer MEDICARE, SELFPAY | PROVIDERS: PCP Internal Medicine; Visit Provider Internal Medicine Medical Oncology | DX: Z51.81 Encounter for therapeutic drug level monitoring (principal); Z79.01 Long term (current) use of anticoagulants | CPT/HCPCS: 85610; 99211 ==

== ENCOUNTER 2025-01-23 09:24 | Outpatient (AMB) | payer MEDICARE, SELFPAY ==
--- OUTSIDE RECORDS SUMMARY | 2023-11-10 07:00 | XMS_ITS ---
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 Name Role Phone Enrrique GOMES, Evens Primary Care Provider Unava ilRasheeda Antunez Unavailable [phone] Encounters Encounter Location Date Provider Diagnosis [address] [address] 11/10/2023 Rasheeda Pennington Plan Of Treatment Next Appt Details Provider Name:Rasheeda guzman, 03/07/2025 12:30:00 PM, [address] [place], [address], Progress Notes * Galen SALVADOR TDOB:04/1940 (84 yo M)Acc No.[id number]:11/10/2023 Progress Note Patient: Uyen WINTERSGalen ERNST Provider: Otto Pennington DPM :1940 A ge:83 Y S ex:Male Date:11/10/2023 Address: [place] [place], [place] Pcp:Evens Osuna MD Subjective: * Chief Complaints: * * Medical History: Objective: * Vitals: Assessment: Plan: * Treatment: * Images: * The named appointment provid er may or may not be the originator of this progress note, and it is not deemed complete until electronically signed by the appointment provider. Sign off status: Pending * Provider: Otto Pennington DPM Date: 0 11/10/2023 Generated for Oliver hanna/Pily/Jess on: 1 03/25/2024 10:27 AM EST
--- OUTSIDE RECORDS SUMMARY | 2024-07-10 05:00 | XMS_ITS ---
Author Organization [facility] Address [address] [facility] [place] [address] Care Team Providers Care Pet Caregiver Name Role Phone Enrrique GOMES, [place] Primary Care Provider Rasheeda Lo Unavailable [phone] Medications Medication SIG (Take, Route, Frequency, Duration) Notes Start Date End Date Status Isosorbide Mononitrate ER 30 MG 1 tablet in the morning Orally Once a day; Duration: 30 day(s) Active Ammonium Lactate 12 % 1 application to affected area Externally to feet Twice a day; Duration: 30 days Active Ciclopirox Olamine 0.77 % 1 application Externally Twice a day; Duration: 30 days Not-Taking Cephalexin 500 MG 1 capsule Orally jermaine ry 12 hrs; Duration: 10 days Not-Taking Cephalexin 500 MG 1 capsule Orally jermaine ry 12 hrs; Duration: 5 days Not-Taking Furosemide 20 MG 1 tablet Orally Once a day; Duration: 30 day(s) Active Losartan Potassium 50 MG 1 tablet Orally Once a day; Duration: 30 day(s) Active Warfarin Sodium 5 MG 1 tablet Orally Onc e a day; Duration: 30 day(s) Active Atorvastatin Calcium 40 MG 1 tablet Orally Once a day; Duration: 30 day(s) Active Allopurinol 300 MG 1 tablet Orally Once a day; Duration: 30 day(s) Active Metoprolol Succinate 100 MG 1 capsule Orally Once a day; Duration: 30 day(s) Active Encounters Encounter Location Date Provider Diagnosis [facility] [address] [facility] [place] [address] 07/10/2024 Rasheeda Pennington Plan Of Treatment Next Appt Details Provider Name:Rasheeda Maia guzman, 03/07/2025 12:30:00 PM, [address] [place], [address], Progress Notes * Galen SALVADOR TDOB:04/1940 (84 yo M)Acc No.[id number]:07/10/2024 Progress Note Patient: Galen ALDANA Provider: Otto Pennington DPM :1940 A ge:83 Y S ex:Male Date:07/10/2024 Address:[address] [place], [place] [id number] Pcp:Evens Osuna MD Subjective: * Chief Complaints: * * Medical History: A ngina, Cataracts, Covid-19, Gout, Heart disease, High blood pressure, Reflux ( GERD), Measles, Mumps, Chicken pox, Vascular grafts. * Medications: T aking Metoprolol Succinate 100 MG Capsule ER 24 Hour Sprinkle 1 capsule Orally Once a day , Taking Losartan Potassium 50 MG Tablet 1 tablet Orally Once a day , Taking Warfarin Sodium 5 MG Tablet 1 tablet Orally Once a day , Taking Atorvastatin Calcium 40 MG Tablet 1 tablet Orally Once a day , Taking Allopurinol 300 MG Tablet 1 tablet Orally Once a day , Taking Furosemide 20 MG Tablet 1 tablet Orally Once a day , Taking Isosorbide Mononitrate ER 30 MG Tablet Extended Release 24 Hour 1 tablet in the morning Orally Once a day , Taking Ammonium Lactate 12 % Cream 1 application to affected area Externally to feet Twice a day , Not-Taking/PRN Ciclopirox Olamine 0.77 % Cream 1 application Externally Twice a day , Not-Taking/PRN Cephalexin 500 MG Capsule 1 capsule Orally every 12 hrs , Not-Taking/PRN Cephalexin 500 MG Capsule 1 capsule Orally every 12 hrs Objective: * Vitals: Assessment: Plan: * Treatment: * Images: * The named appointment provid er may or may not be the originator of this progress note, and it is not deemed complete until electronically signed by the appointment provider. Sign off status: Pending * Provider: Otto Pennington DPM Date: 07/10/2024 Generated for Oliver hanna/Pily/eTransmitting on: 1 03/25/2024 10:27 AM EST
[2025-01-23 09:31] LABS: Prothrombin Time Whole Bld POC 33.0 sec (11.1-13.5); ~PT, ~INR - Anti Coag Clinic 2.8 (0.9-1.1)
--- NOTE | 2025-01-23 09:37 | MHC.OFFVISCO ---
Intake Intake Visit Reasons: Anticoagulation Allergies No Known Allergies (No Known Allergies*) Allergy (Verified 01/23/25 09:25) Medication List - Last Reconciled 01/23/25 by Tasneem Bishop RN allopurinol 300 mg PO DAILY atorvastatin 40 mg PO DAILY cholecalciferol (vitamin D3) 50 mcg PO DAILY 90 days furosemide 20 mg PO DAILY isosorbide mononitrate ER 30 mg PO DAILY losartan 50 mg PO BID metoprolol succinate ER 100 mg PO BID potassium chloride ER 20 mEq PO DAILY sildenafil 50 mg PO DAILY PRN warfarin See Protocol 7.5mg x 3 days/ 5mg x 4 days orally daily; take 1-2 tabs daily as per Anticoagulation Services. INR has been subtherapuetic requiring an increase in warfarin dose Nursing Note INR: 2.8 in therapeutic range Medications and supplements reviewed No changes in health, diet, medications, or supplements, Denies any signs and symptoms of bleeding or bruising or clotting. Bleeding, bruising, clotting discussed Nutritional guidance given Dose: 5mg daily F/U INR: 1 month Patient verbalizes understanding of instructions given Anti-Coag Initial Assessment Social Hx Patient Tobacco Use Status: Never used Tobacco alcohol intake: current Alcohol intake frequency: holidays/special occasions only Coding Level of Care Code Est Patient Level 1 Diagnoses Current use of anticoagulant therapy Z79.01 Results AMB INR Fingerstick AMB INR Fingerstick 2.8 Last Edit by Tasneem Bishop RN on 01/23/25 09:31 manual entry Assessment & Plan Assessment & Plan (1) Current use of anticoagulant therapy: Code(s): Z79.01 - vice president payment (current) 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
--- OUTSIDE RECORDS SUMMARY | 2025-01-23 10:27 | XMS_ITS | Patient Health Record ---
[facility] Address [address] [place] [address] Care Team Providers Care Reefer Engineer Name Role Phone Enrrique GOMES, [place] Primary Care Provider Rasheeda Lo Unavailable [phone] Allergies No Known Allergies Reason For Referral [...] Status W/U Status Risk Notes Problem Neuropathy (069769224) Neuropathy (G62.9) Active confirmed Problem Acquired hammer toe of left foot (6963518004190722) Hammertoe of left foot (M20.42) Active confirmed Problem Acquired hammer toe of right foot (5207982851057961) Hammertoe of right foot (M20.41) Active confirmed Problem Bilateral atherosclerosis of arteries of lower limbs (disorder) (75250251401311434 ) Atherosclerosis of artery of both lower extremities (I70.203) Active confirmed Vital Signs Blood pressure diastolic 90 mm Hg 12/10/2024 Height 6 ft 2 in in 12/10/2024 Blood pressure systolic 145 mm Hg 12/10/2024 Weight 230 lbs 12/10/2024 BMI 29.53 kg/m2 12/10/2024 Encounters Encounter [facility] Date [facility] [address] [facility]/09/2024 Rasheeda Pennington Atherosclerosis of artery of both lower extremities I70.203 ; Neuropathic ulcer of right foot, limited to breakdown of skin L97.511 ; Neuropathy G62.9 ; Tinea unguium B35.1 ; Pain in toe of left foot M79.675 and Pain in toe of right foot M79.[address] [facility] [address] 04/24/2024 Rasheeda Perica Atherosclerosis of artery of both lower extremities I70.203 ; Tinea unguium B35.1 ; Neuropathy G62.9 ; Pain in toe of left foot M79.675 and Pain in toe of right foot M79.[address] [address] 09/10/2024 Rasheeda Perica Atherosclerosis of artery of both lower extremities I70.203 ; Tinea unguium B35.1 ; Neuropathy G62.9 ; Pain in toe of left foot M79.675 and Pain in toe of right foot M79.[address] [address] 12/10/2024 Rasheeda Perica Atherosclerosis of artery of both lower extremities I70.203 ; Tinea unguium B35.1 ; Neuropathy G62.9 ; Pain in toe of left foot M79.675 and Pain in toe of right foot M79.[address] [address] 07/08/2024 Rasheeda Pennington Assessments Encounter Date Diagnosis [...] Provider Name:Rasheeda Maia guzman, 03/07/2025 12:30:00 PM, [address] [place] [address], [phone], Insurance Providers Payer Name Payer Address Payer Phone Subscriber Number Group Number Insured Name Patient Relationship to Insured Coverage Start Date Coverage End Date Medicare National [facility] [address] [place] [address] [id number] Galen Costello Self - patient is the insured Medex [facility] [address] [place] [address] [id number] Galen Costello Self - patient is the insured Medical (General) History Medical History History ICD Code Angina Cataracts covid-19 Gout Heart disease High blood pressure Reflux ( GERD) Measles Mumps Chicken pox Vascular grafts Surgical History Surgery Date(Month/Year) 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
--- OUTSIDE RECORDS SUMMARY | 2025-01-23 10:27 | XMS_ITS | Patient Health Record ---
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) Active confirmed Problem Colon cancer screening (428360560) Colon cancer screening (V76.51) Active confirmed Problem Gastroesophageal reflux disease (547023678) GERD (gastroesophag eal reflux disease) (530.81) Active confirmed Problem History of adenomatous polyp of colon (253122202) History of adenomatous polyp of colon (V12.72) Active confirmed Plan Of Treatment Future Test Test Name Order Date UPPER GI ENDOSCOPY 05/28/2013 COLONOSCOPY 05/28/2013 Insurance Providers Payer Name Payer Address Payer Phone Subscriber Number Group Number Insured Name Patient Relationship to Insured Coverage Start Date Coverage End Date MED[place]ARE OF [place] [address] [place] [address] [id number] FREDERICK COBIAN Self - patient is the insured MEDEX ATTN CLAIMS [address] [place] [address] [id number] FREDERICK COBIAN Self - patient is the insured Medical (General) History Medical History History ICD Code Denies DE,DM,CVA,Lung disease,renal dise ase Hyperlipidemia HTN Gout Afib [...]
== END 2025-01-23 09:39 | disposition home or self-care (01) ==
LOC: HO.ACS 09:24
PROVIDERS: PCP Internal Medicine; Visit Provider Internal Medicine Medical Oncology
DX: Z79.01 Long term (current) use of anticoagulants (principal)

== ENCOUNTER → 2025-01-23 09:24 | Outpatient (BNVA) | payer MEDICARE, SELFPAY | PROVIDERS: PCP Internal Medicine; Visit Provider Internal Medicine Medical Oncology | DX: Z79.01 Long term (current) use of anticoagulants (principal) | CPT/HCPCS: 85610; 99211 ==

== ENCOUNTER 2025-02-20 09:27 | Outpatient (AMB) | payer MEDICARE, SELFPAY ==
[2025-02-20 09:36] LABS: Prothrombin Time Whole Bld POC 24.8 sec (11.1-13.5); ~PT, ~INR - Anti Coag Clinic 2.1 (0.9-1.1)
--- NOTE | 2025-02-20 09:42 | MHC.OFFVISCO ---
Intake Intake Visit Reasons: Anticoagulation Allergies No Known Allergies (No Known Allergies*) Allergy (Verified 02/20/25 09:28) Medication List - Last Reconciled 02/20/25 by Tasneem Bishop RN allopurinol 300 mg PO DAILY atorvastatin 40 mg PO DAILY cholecalciferol (vitamin D3) 50 mcg PO DAILY 90 days furosemide 20 mg PO DAILY isosorbide mononitrate ER 30 mg PO DAILY losartan 50 mg PO BID metoprolol succinate ER 100 mg PO BID potassium chloride ER 20 mEq PO DAILY sildenafil 50 mg PO DAILY PRN warfarin See Protocol 7.5mg x 3 days/ 5mg x 4 days orally daily; take 1-2 tabs daily as per Anticoagulation Services. INR has been subtherapuetic requiring an increase in warfarin dose Nursing Note INR: 2.1 in therapeutic range Medications and supplements reviewed No changes in health, diet, medications, or supplements, Denies any signs and symptoms of bleeding or bruising or clotting. Bleeding, bruising, clotting discussed Nutritional guidance given Dose: 5MG DAILY F/U INR: 1 MONTH Patient verbalizes understanding of instructions given Anti-Coag Initial Assessment Social Hx Patient Tobacco Use Status: Never used Tobacco alcohol intake: current Alcohol intake frequency: holidays/special occasions only Coding Level of Care Code Est Patient Level 1 Diagnoses Current use of anticoagulant therapy Z79.01 Assessment & Plan Assessment & Plan (1) Current use of anticoagulant therapy: Code(s): Z79.01 - skilled nursing (current) 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
== END 2025-02-20 09:43 | disposition home or self-care (01) ==
LOC: HO.ACS 09:27
PROVIDERS: PCP Internal Medicine; Visit Provider Internal Medicine Medical Oncology
DX: Z79.01 Long term (current) use of anticoagulants (principal)

== ENCOUNTER → 2025-02-20 09:27 | Outpatient (BNVA) | payer MEDICARE, SELFPAY | PROVIDERS: PCP Internal Medicine; Visit Provider Internal Medicine Medical Oncology | DX: I48.20 Chronic atrial fibrillation, unspecified (principal); Z51.81 Encounter for therapeutic drug level monitoring; Z79.01 Long term (current) use of anticoagulants | CPT/HCPCS: 85610; 99211 ==